=== PATIENT | male | born 1980 | race Two or more races ===

== ENCOUNTER 2020-03-14 14:51 | Inpatient (IN) | payer SELFPAY ==
[~2020-03-14] VITALS: Ht 188 cm; Wt 127.0 kg
--- NOTE | 2020-03-14 15:45 | NUR ---
ED Nurse Note: Pt ambulated to ED from home d/t shortness of breath; tested covid + 7 days ago. Pt noted to be satting around 60/70's % on RA, placed on NRB 15LPM satting at 95-98%. Pt is AOx4, in speaking, able to speak in clears sentences, ambulatory with a steady gait, pt denies any chest pain. Pt was placed on bed, hooked to pvc monitor. RT at bedside; doors kept closed at all times. will continue to monitor pt.
[2020-03-14 16:23] VITALS: BP 136/78
[2020-03-14 16:27] LABS: BASOPHILS % (AUTO) 0.5 % (0.0-2.0); HEMATOCRIT 45.4 % (42.0-52.0); HEMOGLOBIN 16.3 G/DL (14.2-18.0); LYMPHOCYTES % (AUTO) 7.1 % (20.0-45.0); MEAN CORPUSCULAR VOLUME 84 FL (80-99); MONOCYTES % (AUTO) 8.2 % (1.0-10.0); NEUTROPHILS % (AUTO) 84.2 % (45.0-75.0); PLATELET COUNT 175 K/UL (150-450); RED BLOOD COUNT 5.38 M/UL (4.70-6.10); WHITE BLOOD COUNT 8.2 K/UL (4.8-10.8)
[2020-03-14 16:30] LABS: APPEARANCE,URINE CLEAR; BILIRUBIN, URINE NEGATIVE (NEGATIVE); GLUCOSE, URINE (UA) NEGATIVE (NEGATIVE); KETONES,URINE NEGATIVE (NEGATIVE); LEUKOCYTE ESTERASE ,URINE NEGATIVE (NEGATIVE); NITRITE,URINE NEGATIVE (NEGATIVE); PH,URINE 6 (4.5-8.0); PROTEIN,URINE 3+ (NEGATIVE); UROBILINOGEN,URINE 4 MG/DL (0.0-1.0)
[2020-03-14 16:33] LABS: ANION GAP 4 mmol/L (5-15); BLOOD UREA NITROGEN 11 mg/dL (7-18); CALCIUM 8.1 MG/DL (8.5-10.1); CARBON DIOXIDE 33 MMOL/L (21-32); CHLORIDE 91 MMOL/L (98-107); CREATININE 1.1 MG/DL (0.55-1.30); POTASSIUM 3.8 MMOL/L (3.5-5.1); SODIUM 128 MMOL/L (136-145)
[2020-03-14 16:37] LABS: COLOR,URINE YELLOW
[2020-03-14 16:48] LABS: ALANINE AMINOTRANSFERASE 66 U/L (12-78); ALBUMIN 2.8 G/DL (3.4-5.0); ALBUMIN/GLOBULIN RATIO 0.6 (1.0-2.7); ALKALINE PHOSPHATASE 69 U/L (46-116); ASPARTATE AMINO TRANSFERASE 64 U/L (15-37); BILIRUBIN,TOTAL 1.7 MG/DL (0.2-1.0); CKMB 1.1 NG/ML (0.0-3.6); CREATINE KINASE 862 U/L (26-308); FERRITIN 1697 NG/ML (8-388); LACTATE DEHYDROGENASE 463 U/L (81-234)
[2020-03-14] MEDS ORDERED: dexAMETHasone 10mg/ml Inj IV ONE (17:00)
[2020-03-14] MEDS ORDERED: cefTRIAXone 1 GM in NS 55 ML IVPB ONE (17:00)
[2020-03-14] MEDS ORDERED: Azithromycin 500 MG in NS 275 ML IV ONE (17:00)
--- NOTE | 2020-03-14 17:11 | History and Physical ---
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 He presented to ER for evaluation after developing SOB, fever. He states he possibly contracted COVID-19 from work. He has been SOB for several days now, worsened to the point that he decided to come to ER. Denies chest pain, HAN, chills, N/V PMH: none PSH: hernia repair 10 years ago FH: no significant illness in family SH: denies tobacco use. Occasional alcohol use. Allergies: Coded Allergies: No Known Allergies (Unverified , 03/14/20) COVID-19 Screening Contact w/high risk pt: No Experienced COVID-19 symptoms?: Yes Coronavirus symptoms experienc: Fatigue, Shortness of Breath, Cough, Muscle or Body Aches, Headache, Loss of taste or smell Medication History No Active Prescriptions or Reported Meds Patient History Healthcare decision maker Resuscitation status Advanced Directive on File Review of Systems Constitutional: Reports: malaise; Denies: chills Eye: Denies: eye pain, double vision, nose congestion ENT: Denies: ear discharge, throat swelling Respiratory: Reports: cough, shortness of breath Cardiovascular: Denies: chest pain, palpitations Gastrointestinal: Denies: abdominal pain, constipation, diarrhea, nausea, vomiting Genitourinary: Denies: dysuria, frequency Musculoskeletal: Denies: joint pain, muscle pain Skin: Denies: rash, dryness Psychiatric: Denies: anxiety, hallucinations Neurological: Denies: headache, numbness Endocrine: Denies: flushing, intolerance to temperature Hematologic/Lymphatic: Denies: anemia, easy bleeding Physical Exam General Appearance: WD/WN, alert HEENT: normocephalic, atraumatic, mucous membranes moist, PERRL, EOMI Neck: non-tender, normal alignment, supple, normal inspection Respiratory/Chest: chest wall non-tender, no accessory muscle use, respiratory distress Cardiovascular/Chest: normal rate, regular rhythm Abdomen: non tender, soft, no organomegaly Extremities: normal range of motion, non-tender, normal inspection, no calf tenderness, no edema Neurologic: client support representative II-XII grossly normal, alert, oriented x 3, responsive, normal mood/affect Musculoskeletal: normal muscle bulk, no effusion Last 24 Hour Vital Signs Date Time Temp Pulse Resp B/P (MAP) Pulse Ox O2 Delivery O2 Flow Rate FiO2 03/14/20 16:23 92 34 Room Air 03/14/20 16:23 98.8 34 136/78 68 Room Air 03/14/20 15:23 98.8 92 34 136/78 (97) 68 Room Air Laboratory Tests Test 03/14/20 14:45 03/14/20 15:45 03/14/20 16:05 Urine Color Yellow Urine Appearance Clear Urine pH 6 (4.5-8.0) Urine Specific [place] 1.010 (1.005-1.035) Urine Protein 3+ (NEGATIVE) H Urine Glucose (UA) Negative (NEGATIVE) Urine Ketones Negative (NEGATIVE) Urine Blood 3+ (NEGATIVE) H Urine Nitrite Negative (NEGATIVE) Urine Bilirubin Negative (NEGATIVE) Urine Urobilinogen 4 MG/DL (0.0-1.0) H Urine Leukocyte Esterase Negative (NEGATIVE) Urine RBC Pending Urine WBC Pending Urine Squamous Epithelial Cells Pending Urine Bacteria Pending White Blood Count 8.2 K/UL (4.8-10.8) Red Blood Count 5.38 M/UL (4.70-6.10) Hemoglobin 16.3 G/DL (14.2-18.0) Hematocrit 45.4 % (42.0-52.0) Mean Corpuscular Volume 84 FL (80-99) Mean Corpuscular Hemoglobin 30.3 PG (27.0-31.0) Mean Corpuscular Hemoglobin Concent 35.9 G/DL (32.0-36.0) Red Cell Distribution Width 12.0 % (11.6-14.8) Platelet Count 175 K/UL (150-450) Mean Platelet Volume 7.1 FL (6.5-10.1) Neutrophils (%) (Auto) 84.2 % (45.0-75.0) H Lymphocytes (%) (Auto) 7.1 % (20.0-45.0) L Monocytes (%) (Auto) 8.2 % (1.0-10.0) Eosinophils (%) (Auto) 0.0 % (0.0-3.0) Basophils (%) (Auto) 0.5 % (0.0-2.0) Prothrombin Time 11.2 SEC (9.30-11.50) Prothromb Time International Ratio 1.0 (0.9-1.1) Activated Partial Thromboplast Time 32 SEC (23-33) D-Dimer 0.45 mg/L FEU (0.00-0.49) Sodium Level 128 MMOL/L (136-145) L Potassium Level 3.8 MMOL/L (3.5-5.1) Chloride Level 91 MMOL/L (98-107) L Carbon Dioxide Level 33 MMOL/L (21-32) H Anion Gap 4 mmol/L (5-15) L Blood Urea Nitrogen 11 mg/dL (7-18) Creatinine 1.1 MG/DL (0.55-1.30) Estimat Glomerular Filtration Rate > 60 mL/min (>60) Glucose Level 148 MG/DL (74-106) H Lactic Acid Level 1.80 mmol/L (0.4-2.0) Calcium Level 8.1 MG/DL (8.5-10.1) L Ferritin 1697 NG/ML (8-388) H Total Bilirubin 1.7 MG/DL (0.2-1.0) H Direct Bilirubin 1.0 MG/DL (0.0-0.3) H Aspartate Amino Transf (AST/SGOT) 64 U/L (15-37) H Alanine Aminotransferase (ALT/SGPT) 66 U/L (12-78) Alkaline Phosphatase 69 U/L (46-116) Lactate Dehydrogenase 463 U/L (81-234) H Total Creatine Kinase 862 U/L (26-308) H Creatine Kinase MB 1.1 NG/ML (0.0-3.6) Creatine Kinase MB Relative Index 0.1 Troponin I 0.000 ng/mL (0.000-0.056) C-Reactive Protein, Quantitative 12.5 mg/dL (0.00-0.90) H Pro-B-Type Natriuretic Peptide 76 pg/mL (0-125) Total Protein 7.2 G/DL (6.4-8.2) Albumin 2.8 G/DL (3.4-5.0) L Globulin 4.4 g/dL Albumin/Globulin Ratio 0.6 (1.0-2.7) L Lipase 157 U/L (73-393) Arterial Blood pH 7.473 (7.350-7.450) Arterial Blood Partial Pressure CO2 38.7 mmHg (35.0-45.0) Arterial Blood Partial Pressure O2 75.7 mmHg (75.0-100.0) Arterial Blood HCO3 27.7 mmol/L (22.0-26.0) H Arterial Blood Oxygen Saturation 94.4 % (95-100) L Arterial Blood Base Excess 4.0 (-2-2) H José Miguel Test Positive Height (Feet): 6 Height (Inches): 2.00 Weight (Pounds): 280 Medications Current Medications Medications (Trade) Dose Ordered Sig/Kiley Route PRN Reason Start Time Stop Time Status Last Admin Dose Admin Azithromycin 500 mg/Sodium Chloride 275 ml @ 275 mls/hr ONCE ONCE IV 03/14/20 17:00 03/14/20 17:59 Ceftriaxone Sodium 1 gm/ Sodium Chloride 55 ml @ 110 mls/hr ONCE ONCE IVPB 03/14/20 17:00 03/14/20 17:29 Objective Narrative CXR 03/14/2020 Procedure: XRAY Chest 1v Indication: Shortness of breath Technique: One view of the chest Comparison: none Findings: Patchy and peribronchovascular infiltrates in a mostly peripheral distribution are noted. The pleural spaces are clear. The heart size is normal. Impression: Bilateral infiltrates, likely multifocal pneumonia, possibly viral. Correlate with clinical findings Assessment/Plan Assessment/Plan: A: #COVID-19 pneumonia - CXR showing multifocal pneumonia #Acute hypoxemic respiratory failure #Metabolic alkalosis #Hyponatremia #Elevated inflammatory markers - Ferritin, CRP P: - given worsening oxygen requirements, transfer to ICU - currently on nonrebreather oxygen - cardiac monitoring - s/p dexamethasone 10 mg in ED - continue dexamethasone 6 mg daily, remdesivir per ID - continue CTX/Azithro - ABG in AM - ID consult, Dr. Elizalde, recs appreciated - Pulm consult, Dr. Piper, recs appreciated - Nephro consult, Dr. Zimmerman, recs appreciated Code: Full GI: Protonix DVT prophylaxis: Heparin 5000 units twice daily Dispo: Pending improving in hypoxic respiratory failure, back to home after Time spent on this encounter was 75 minutes which included 43 minutes of counseling and care coordination. I discussed with the nurse at bedside. Time of note may not reflect time patient was seen. Donal Antonio M.D. Mar 14, 2020 17:11
--- NOTE | 2020-03-14 18:34 | NUR ---
ED Nurse Note: Report given to RENITA Dixon in Telemetry Unit for transfer of care.
--- NOTE | 2020-03-14 18:45 | NUR ---
ED Nurse Note: pt was transferred to tele under the care of dr. sosa, report given to nikunj rainey. pt was transfrref on stable condition; all belongings sent with pt; observed covid-19 protocols for transport.
--- NOTE | 2020-03-14 18:50 | NUR ---
received pt from the ED alert and awake. noted pt with labored breathing; non-rebreather mask inplace 02 flowing @ 15l/min. HOB elevated. pt denies any chest pain at this time. place call light within reach.
--- NOTE | 2020-03-14 18:51 | Emergency Room Report ---
History of Present Illness General Chief Complaint: Flu Like Symptoms Source: Patient Present Illness HPI 39-year-old male presents ED for evaluation. States he feels short of breath. Per nursing and triage O2 sat low. States he tested positive for Covid earlier this week. States he has been feeling short of breath for 1 week now. Notes cough. Denies chest pain. States he may have gotten it from his work. 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 Denies any recent travel. No other aggravating relieving factors. 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 Patient History Past Medical History: none Past Surgical History: none Pertinent Family History: none Social History: Denies: smoking, alcohol use, drug use Immunizations: UTD Reviewed Nursing Documentation: PMH: Agreed; PSxH: Agreed Nursing Documentation-PMH Past Medical History: No Stated History Review of Systems All Other Systems: negative except mentioned in HPI Physical Exam Vital Signs Date Time Temp Pulse Resp B/P (MAP) Pulse Ox O2 Delivery O2 Flow Rate FiO2 03/14/20 15:23 98.8 92 34 136/78 (97) 68 Room Air Sp02 EP Interpretation: reviewed, normal General Appearance: no apparent distress, alert, GCS 15, non-toxic, obese Head: normocephalic, atraumatic Eyes: bilateral eye normal inspection, bilateral eye PERRL ENT: hearing grossly normal, normal pharynx, no angioedema, normal voice Neck: full range of motion, supple/symm/no masses Respiratory: chest non-tender, lungs clear, normal breath sounds, speaking full sentences Cardiovascular #1: regular rate, rhythm, no edema Cardiovascular #2: 2+ carotid (R), 2+ carotid (L), 2+ radial (R), 2+ radial (L), 2+ dorsalis pedis (R), 2+ dorsalis pedis (L) Gastrointestinal: normal bowel sounds, non tender, soft, non-distended, no guarding, no rebound Rectal: deferred Genitourinary: normal inspection, no CVA tenderness Musculoskeletal: back normal, normal range of motion, gait/station normal, non- tender Neurologic: alert, motor strength/tone normal, oriented x3, sensory intact, r esponsive, speech normal Psychiatric: judgement/insight normal, memory normal, mood/affect normal, no suicidal/homicidal ideation Reflexes: 3+ bicep (R), 3+ bicep (L), 3+ tricep (R), 3+ tricep (L), 3+ knee (R), 3+ knee (L) Skin: other - See nursing notes Lymphatic: no adenopathy Procedures Critical Care Time Critical Care Time i. I feel this is a highly complex case requiring extensive working including EKG/Rhythm strip, Xray/CT/US, Blood/urine lab work, repeat exams while in ED, and administration of strong opiates/narcotics for pain control, admission to hospital or close patient follow up. Total time: 60 min bedside evaluation and treatment excludes procedures (EKG). Reason for critical care: Hypoxia, Covid positive, respiratory distress Possible complications: hypotension, hypertension, WI, shock, arrhythmias, metabolic acidosis, end organ damage, respiratory failure. Interventions: Labs, IV fluids, EKG, chest x-ray, ABG, nonrebreather, dexamethasone, antibiotics Course: Patient presenting short of breath, hypoxic. Covid positive this week. Chest x-ray shows bilateral patchy infiltrates. ABG shows no significant hypo radha. Patient kept on nonrebreather. Initially tachypneic. Antibiotics given. Dexamethasone given. Consultations: nursing staff, EMS, family Performed by: Dr Garcia Tolerated well condition = serious j. because of unstable vital signs this patient had a condition that could potentially threaten life or limb. I feel this is a critical patient who required my full attention while patient was considered critical. Total Critical Care Time excluding procedures was greater than 60 minutes Medical Decision Making Diagnostic Impression: Primary Impression: COVID-19 Additional Impression: Respiratory distress ER Course Hospital Course 39-year-old male presents with shortness of breath. Cough. Recently tested positive for Covid Differential diagnoses include: Pneumonia, CHF exacerbation, pneumothorax, fluid overload Clinical course Patient placed on stretcher. In isolation. I wore full PPE. On monitor worker with hypoxia on room air and tachypnea/tachycardia. After initial history and physical, I ordered labs, IV fluids, EKG, chest x-ray, blood cultures, UA. ABG shows since no significant hypoxia. Placed on nonrebreather with O2 sats improved Labs -no leukoctosis, hemoglobin/hematocrit stable, Na 128, okay, lactate okay troponins negative Inflammatory markers elevated dexamethasone given. D-dimer okay Broad-spectrum antibiotics given. Respiratory status improved on oxygen CXR -bilateral patchy opacities Case discussed with Dr. Patel and he agreed to the patient to his service for further care and support I feel this is a highly complex case requiring extensive working including EKG/Rhythm strip, Xray/CT/US, Blood/urine lab work, repeat exams while in ED, and administration of strong opiates/narcotics for pain control, admission to hospital or close patient follow up. Diagnosis - COVID 19, respiratory distress Patient admitted to telemetry in serious condition Laboratory Tests Test 03/14/20 14:45 03/14/20 15:45 03/14/20 16:05 Urine Color Yellow Urine Appearance Clear Urine pH 6 (4.5-8.0) Urine Specific [place] 1.010 (1.005-1.035) Urine Protein 3+ (NEGATIVE) H Urine Glucose (UA) Negative (NEGATIVE) Urine Ketones Negative (NEGATIVE) Urine Blood 3+ (NEGATIVE) H Urine Nitrite Negative (NEGATIVE) Urine Bilirubin Negative (NEGATIVE) Urine Urobilinogen 4 MG/DL (0.0-1.0) H Urine Leukocyte Esterase Negative (NEGATIVE) Urine RBC 5-10 /HPF (0 - 0) H Urine WBC 0-2 /HPF (0 - 0) Urine Squamous Epithelial Cells None /LPF (NONE/OCC) Urine Bacteria Few /HPF (NONE) White Blood Count 8.2 K/UL (4.8-10.8) Red Blood Count 5.38 M/UL (4.70-6.10) Hemoglobin 16.3 G/DL (14.2-18.0) Hematocrit 45.4 % (42.0-52.0) Mean Corpuscular Volume 84 FL (80-99) Mean Corpuscular Hemoglobin 30.3 PG (27.0-31.0) Mean Corpuscular Hemoglobin Concent 35.9 G/DL (32.0-36.0) Red Cell Distribution Width 12.0 % (11.6-14.8) Platelet Count 175 K/UL (150-450) Mean Platelet Volume 7.1 FL (6.5-10.1) Neutrophils (%) (Auto) 84.2 % (45.0-75.0) H Lymphocytes (%) (Auto) 7.1 % (20.0-45.0) L Monocytes (%) (Auto) 8.2 % (1.0-10.0) Eosinophils (%) (Auto) 0.0 % (0.0-3.0) Basophils (%) (Auto) 0.5 % (0.0-2.0) Prothrombin Time 11.2 SEC (9.30-11.50) Prothromb Time International Ratio 1.0 (0.9-1.1) Activated Partial Thromboplast Time 32 SEC (23-33) D-Dimer 0.45 mg/L FEU (0.00-0.49) Sodium Level 128 MMOL/L (136-145) L Potassium Level 3.8 MMOL/L (3.5-5.1) Chloride Level 91 MMOL/L (98-107) L Carbon Dioxide Level 33 MMOL/L (21-32) H Anion Gap 4 mmol/L (5-15) L Blood Urea Nitrogen 11 mg/dL (7-18) Creatinine 1.1 MG/DL (0.55-1.30) Estimat Glomerular Filtration Rate > 60 mL/min (>60) Glucose Level 148 MG/DL (74-106) H Lactic Acid Level 1.80 mmol/L (0.4-2.0) Calcium Level 8.1 MG/DL (8.5-10.1) L Ferritin 1697 NG/ML (8-388) H Total Bilirubin 1.7 MG/DL (0.2-1.0) H Direct Bilirubin 1.0 MG/DL (0.0-0.3) H Aspartate Amino Transf (AST/SGOT) 64 U/L (15-37) H Alanine Aminotransferase (ALT/SGPT) 66 U/L (12-78) Alkaline Phosphatase 69 U/L (46-116) Lactate Dehydrogenase 463 U/L (81-234) H Total Creatine Kinase 862 U/L (26-308) H Creatine Kinase MB 1.1 NG/ML (0.0-3.6) Creatine Kinase MB Relative Index 0.1 Troponin I 0.000 ng/mL (0.000-0.056) C-Reactive Protein, Quantitative 12.5 mg/dL (0.00-0.90) H Pro-B-Type Natriuretic Peptide 76 pg/mL (0-125) Total Protein 7.2 G/DL (6.4-8.2) Albumin 2.8 G/DL (3.4-5.0) L Globulin 4.4 g/dL Albumin/Globulin Ratio 0.6 (1.0-2.7) L Lipase 157 U/L (73-393) Arterial Blood pH 7.473 (7.350-7.450) Arterial Blood Partial Pressure CO2 38.7 mmHg (35.0-45.0) Arterial Blood Partial Pressure O2 75.7 mmHg (75.0-100.0) Arterial Blood HCO3 27.7 mmol/L (22.0-26.0) H Arterial Blood Oxygen Saturation 94.4 % (95-100) L Arterial Blood Base Excess 4.0 (-2-2) H José Miguel Test Positive EKG Diagnostic Results Troponin ordered: Yes Rate: normal Rhythm: NSR ST Segments: no acute changes ASA given to the pt in ED: No Rhythm Strip Diag. Results EP Interpretation: yes Rhythm: NSR, no PVC's, no ectopy Chest X-Ray Diagnostic Results Chest X-Ray Diagnostic Results : Chest X-Ray Ordered: Yes # of Views/Limited/Complete: 1 View Indication: Shortness of Breath EP Interpretation: Yes Interpretation: no pneumothorax, other - bilateral patchy infiltrates Impression: Other - covid pneumonia Electronically Signed by: Electronically signed by Lisandro Garcia MD Last Vital Signs Date Time Temp Pulse Resp B/P (MAP) Pulse Ox O2 Delivery O2 Flow Rate FiO2 03/14/20 16:23 92 34 Room Air 03/14/20 16:23 98.8 136/78 68 Status: improved Disposition: ADMITTED INPATIENT Condition: Serious Referrals: NOT CHOSEN IPA/,REFERRING (PCP) Lisandro Garcia MD Mar 14, 2020 18:51
--- NOTE | 2020-03-14 19:41 | NUR ---
HAND-OFF: Report given to RENITA DRAPER
--- NOTE | 2020-03-14 19:50 | NUR ---
NURSE NOTES: Pt received from RENITA Dixon alert and oriented x4, primarily [place]ic-speaking with no acute s/s of distress noted. On 15L NRB mask, saturating at 94%. IV site on R ac 20g, saline lock. Skin intact upon assessment. Bed in lowest position, bed alarm on. Call light and belongings within reach.
[2020-03-14 20:00] VITALS: BP 131/77
[2020-03-14] MEDS: Heparin 5000 units/ml inj SUBQ SCH (21:00)
[2020-03-14] MEDS ORDERED: Loading Dose:Remdesivir 200mg/NS 210ml IV SCH ×2 (21:00)
--- NOTE | 2020-03-14 21:45 | NUR ---
NURSE NOTES: Noted pt's temperature of 100.9, cooling measures administered. RN left message to Ashtyn Otero and spoke with Kim regarding orders, will follow up.
--- NOTE | 2020-03-14 22:32 | NUR ---
NURSE NOTES: Dr. Lutz called and gave orders for Tylenol 650 mg PO q6h for mild pain and fever over 100.5, will follow through with orders.
[2020-03-15] VITALS (15 sets, daily range): BP systolic 110–144; BP diastolic 65–102
[2020-03-15 04:19] LABS: HEMATOCRIT 46.1 % (42.0-52.0); HEMOGLOBIN 16.4 G/DL (14.2-18.0); MEAN CORPUSCULAR VOLUME 83 FL (80-99); PLATELET COUNT 187 K/UL (150-450); RED BLOOD COUNT 5.52 M/UL (4.70-6.10); RED CELL DISTRIBUTION WIDTH 12.7 % (11.6-14.8); WHITE BLOOD COUNT 9.6 K/UL (4.8-10.8)
[2020-03-15 04:40] LABS: ANION GAP 6 mmol/L (5-15); BLOOD UREA NITROGEN 11 mg/dL (7-18); CALCIUM 8.2 MG/DL (8.5-10.1); CARBON DIOXIDE 31 MMOL/L (21-32); CHLORIDE 97 MMOL/L (98-107); POTASSIUM 4.3 MMOL/L (3.5-5.1); SODIUM 134 MMOL/L (136-145)
--- NOTE | 2020-03-15 05:20 | Pulmonology Progress Note ---
Subjective ROS Limited/Unobtainable: No Respiratory: Reports: no symptoms, dry cough, productive cough, sputum, hemoptysis, shortness of breath, dyspnea at rest, dyspnea on exertion, wheezing, pleuritic pain, other Allergies: Coded Allergies: No Known Allergies (Unverified , 03/14/20) Objective Last 24 Hour Vital Signs Date Time Temp Pulse Resp B/P (MAP) Pulse Ox O2 Delivery O2 Flow Rate FiO2 03/15/20 04:00 97.5 87 20 124/71 (88) 94 03/15/20 04:00 78 03/15/20 00:00 99.7 72 20 124/68 (86) 95 03/15/20 00:00 76 03/14/20 23:13 99.7 03/14/20 21:00 Non-Rebreather 15.0 03/14/20 20:20 Non-Rebreather 15.0 03/14/20 20:00 91 03/14/20 20:00 100.6 81 20 131/77 (95) 94 03/14/20 18:56 95 Non-Rebreather 15.0 100 03/14/20 18:45 98.8 85 32 131/79 96 Non-Rebreather 15.0 03/14/20 16:23 92 34 Room Air 03/14/20 16:23 98.8 34 136/78 68 Room Air 03/14/20 15:23 98.8 92 34 136/78 (97) 68 Room Air Intake and Output 03/14/20 03/15/20 19:00 07:00 Intake Total 250 ml Balance 250 ml Intake IV Total 250 ml Laboratory Tests 03/14/20 14:45: Urine Color Yellow, Urine Appearance Clear, Urine pH 6, Urine Specific Alvarado 1.010, Urine Protein 3+H, Urine Glucose (UA) Negative, Urine Ketones Negative, Urine Blood 3+H, Urine Nitrite Negative, Urine Bilirubin Negative, Urine Urobilinogen 4H, Urine Leukocyte Esterase Negative, Urine RBC 5-10H, Urine WBC 0-2, Urine Squamous Epithelial Cells None, Urine Bacteria Few 03/14/20 15:45: White Blood Count 8.2, Red Blood Count 5.38, Hemoglobin 16.3, Hematocrit 45.4, Mean Corpuscular Volume 84, Mean Corpuscular Hemoglobin 30.3, Mean Corpuscular Hemoglobin Concent 35.9, Red Cell Distribution Width 12.0, Platelet Count 175, Mean Platelet Volume 7.1, Neutrophils (%) (Auto) 84.2H, Lymphocytes (%) (Auto) 7.1L, Monocytes (%) (Auto) 8.2, Eosinophils (%) (Auto) 0.0, Basophils (%) (Auto) 0.5, Prothrombin Time 11.2, Prothromb Time International Ratio 1.0, Activated Partial Thromboplast Time 32, D-Dimer 0.45, Sodium Level 128L, Potassium Level 3.8, Chloride Level 91L, Carbon Dioxide Level 33H, Anion Gap 4L, Blood Urea Nitrogen 11, Creatinine 1.1, Estimat Glomerular Filtration Rate > 60, Glucose Level 148H, Lactic Acid Level 1.80, Calcium Level 8.1L, Ferritin 1697H, Total Bilirubin 1.7H, Direct Bilirubin 1.0H, Aspartate Amino Transf (AST/SGOT) 64H, Alanine Aminotransferase (ALT/SGPT) 66, Alkaline Phosphatase 69, Lactate Dehydrogenase 463H, Total Creatine Kinase 862H, Creatine Kinase MB 1.1, Creatine Kinase MB Relative Index 0.1, Troponin I 0.000, C-Reactive Protein, Quantitative 12.5H, Pro-B-Type Natriuretic Peptide 76, Total Protein 7.2, Albumin 2.8L, Globulin 4.4, Albumin/Globulin Ratio 0.6L, Lipase 157 03/14/20 16:05: Arterial Blood pH 7.473H, Arterial Blood Partial Pressure CO2 38.7, Arterial Blood Partial Pressure O2 75.7, Arterial Blood HCO3 27.7H, Arterial Blood Oxygen Saturation 94.4L, Arterial Blood Base Excess 4.0H, José Miguel Test Positive 03/15/20 04:00: White Blood Count 9.6, Red Blood Count 5.52, Hemoglobin 16.4, Hematocrit 46.1, Mean Corpuscular Volume 83, Mean Corpuscular Hemoglobin 29.8, Mean Corpuscular Hemoglobin Concent 35.7, Red Cell Distribution Width 12.7, Platelet Count 187, Mean Platelet Volume 7.2, Neutrophils (%) (Auto) , Lymphocytes (%) (Auto) , Monocytes (%) (Auto) , Eosinophils (%) (Auto) , Basophils (%) (Auto) , Sodium Level 134L, Potassium Level 4.3, Chloride Level 97L, Carbon Dioxide Level 31, Anion Gap 6, Blood Urea Nitrogen 11, Creatinine 1.0, Estimat Glomerular Filtration Rate > 60, Glucose Level 185H, Calcium Level 8.2L Current Medications Medications (Trade) Dose Ordered Sig/Kiley Route PRN Reason Start Time Stop Time Status Last Admin Dose Admin Acetaminophen (Tylenol) 650 mg Q4H PRN ORAL Temp >100.5 03/14/20 22:45 04/13/20 22:44 03/14/20 22:43 Azithromycin 500 mg/Dextrose 275 ml @ 275 mls/hr Q24HRS IV 03/15/20 18:00 03/21/20 18:59 Ceftriaxone Sodium 1 gm/ Dextrose 55 ml @ 110 mls/hr Q24H IVPB 03/15/20 18:00 03/22/20 17:59 Dextrose (Dextrose 50%) 25 ml Q30M PRN IV Hypoglycemia 03/14/20 19:00 06/12/20 18:59 Dextrose (Dextrose 50%) 50 ml Q30M PRN IV Hypoglycemia 03/14/20 19:00 06/12/20 18:59 Heparin Sodium (Porcine) (Heparin 5000 units/ml) 5,000 units EVERY 12 HOURS SUBQ 03/14/20 21:00 04/28/20 20:59 Pantoprazole (Protonix) 40 mg DAILY ORAL 03/15/20 09:00 04/14/20 08:59 Remdesivir 100 mg/ Sodium Chloride 250 ml @ 250 mls/hr Q24H IV 03/15/20 21:00 03/18/20 21:59 Assessment/Plan Assessment/Plan Pulmonary Consultation HPI Patient is a 39-year-old man admitted with Covid19 Pneumonia, c/o short of breath,cough. On oxygen for low O2 sats. Denies chest pain. Denies any recent travel. No other aggravating relieving factors. Allergies: No Known Allergies Past Medical History: None noted Past Surgical History: NA Family History: NA Social History: No smoking, alcohol use, drug use All Other Systems: negative except mentioned in HPI Physical Exam Vital Signs Noted, stable O2 sats on O2 General Appearance: no apparent distress, alert, GCS 15, non-toxic, obese Head: normocephalic, atraumatic Eyes: bilateral eye normal inspection, bilateral eye PERRL ENT: hearing grossly normal, normal pharynx, no angioedema, normal voice Neck: full range of motion, supple/symm/no masses Respiratory: chest non-tender, lungs clear, normal breath sounds, speaking full sentences Cardiovascular: regular rate, rhythm, no edema Gastrointestinal: normal bowel sounds, non tender, soft, non-distended, no guarding, no rebound Rectal: deferred Genitourinary: normal inspection, no CVA tenderness Musculoskeletal: back normal, normal range of motion, gait/station normal, non- tender Neurologic: alert, motor strength/tone normal, oriented x3, sensory intact, responsive, speech normal Lymphatic: no adenopathy per report - deferred Covid19 Impression: COVID-19 Pneumonia Hypoxia Obesity Hyponatremia Plan: Continue Decadron, AB/antivirals per ID O2 PRN IVF PRN Monitor labs PPX Monitor for change Laboratory Tests Test 03/14/20 14:45 03/14/20 15:45 03/14/20 16:05 Urine Color Yellow Urine Appearance Clear Urine pH 6 (4.5-8.0) Urine Specific Alvarado 1.010 (1.005-1.035) Urine Protein 3+ (NEGATIVE) H Urine Glucose (UA) Negative (NEGATIVE) Urine Ketones Negative (NEGATIVE) Urine Blood 3+ (NEGATIVE) H Urine Nitrite Negative (NEGATIVE) Urine Bilirubin Negative (NEGATIVE) Urine Urobilinogen 4 MG/DL (0.0-1.0) H Urine Leukocyte Esterase Negative (NEGATIVE) Urine RBC 5-10 /HPF (0 - 0) H Urine WBC 0-2 /HPF (0 - 0) Urine Squamous Epithelial Cells None /LPF (NONE/OCC) Urine Bacteria Few /HPF (NONE) White Blood Count 8.2 K/UL (4.8-10.8) Red Blood Count 5.38 M/UL (4.70-6.10) Hemoglobin 16.3 G/DL (14.2-18.0) Hematocrit 45.4 % (42.0-52.0) Mean Corpuscular Volume 84 FL (80-99) Mean Corpuscular Hemoglobin 30.3 PG (27.0-31.0) Mean Corpuscular Hemoglobin Concent 35.9 G/DL (32.0-36.0) Red Cell Distribution Width 12.0 % (11.6-14.8) Platelet Count 175 K/UL (150-450) Mean Platelet Volume 7.1 FL (6.5-10.1) Neutrophils (%) (Auto) 84.2 % (45.0-75.0) H Lymphocytes (%) (Auto) 7.1 % (20.0-45.0) L Monocytes (%) (Auto) 8.2 % (1.0-10.0) Eosinophils (%) (Auto) 0.0 % (0.0-3.0) Basophils (%) (Auto) 0.5 % (0.0-2.0) Prothrombin Time 11.2 SEC (9.30-11.50) Prothromb Time International Ratio 1.0 (0.9-1.1) Activated Partial Thromboplast Time 32 SEC (23-33) D-Dimer 0.45 mg/L FEU (0.00-0.49) Sodium Level 128 MMOL/L (136-145) L Potassium Level 3.8 MMOL/L (3.5-5.1) Chloride Level 91 MMOL/L (98-107) L Carbon Dioxide Level 33 MMOL/L (21-32) H Anion Gap 4 mmol/L (5-15) L Blood Urea Nitrogen 11 mg/dL (7-18) Creatinine 1.1 MG/DL (0.55-1.30) Estimat Glomerular Filtration Rate > 60 mL/min (>60) Glucose Level 148 MG/DL (74-106) H Lactic Acid Level 1.80 mmol/L (0.4-2.0) Calcium Level 8.1 MG/DL (8.5-10.1) L Ferritin 1697 NG/ML (8-388) H Total Bilirubin 1.7 MG/DL (0.2-1.0) H Direct Bilirubin 1.0 MG/DL (0.0-0.3) H Aspartate Amino Transf (AST/SGOT) 64 U/L (15-37) H Alanine Aminotransferase (ALT/SGPT) 66 U/L (12-78) Alkaline Phosphatase 69 U/L (46-116) Lactate Dehydrogenase 463 U/L (81-234) H Total Creatine Kinase 862 U/L (26-308) H Creatine Kinase MB 1.1 NG/ML (0.0-3.6) Creatine Kinase MB Relative Index 0.1 Troponin I 0.000 ng/mL (0.000-0.056) C-Reactive Protein, Quantitative 12.5 mg/dL (0.00-0.90) H Pro-B-Type Natriuretic Peptide 76 pg/mL (0-125) Total Protein 7.2 G/DL (6.4-8.2) Albumin 2.8 G/DL (3.4-5.0) L Globulin 4.4 g/dL Albumin/Globulin Ratio 0.6 (1.0-2.7) L Lipase 157 U/L (73-393) Arterial Blood pH 7.473 (7.350-7.450) Arterial Blood Partial Pressure CO2 38.7 mmHg (35.0-45.0) Arterial Blood Partial Pressure O2 75.7 mmHg (75.0-100.0) Arterial Blood HCO3 27.7 mmol/L (22.0-26.0) H Arterial Blood Oxygen Saturation 94.4 % (95-100) L Arterial Blood Base Excess 4.0 (-2-2) H José Miguel Test Positive EKG: Rate: normal Rhythm: NSR ST Segments: no acute changes Chest X-Ray: no pneumothorax, other - bilateral patchy infiltrates Quang Montiel MD Mar 15, 2020 05:20
--- NOTE | 2020-03-15 07:15 | NUR ---
NURSE HAND-OFF REPORT: Important Events on Shift: Pt had fever of 100.6, Tylenol PRN and cooling measures administered. Temp reduced to 97.5 Patient Status: Stable Diet: Regular Pending Orders: n/a Pending Results/Labs: n/a Pending MD notification: n/a Latest Vital Signs: Temperature 97.5 , Pulse 78 , B/P 124 /71 , Respiratory Rate 20 , O2 SAT 94 , Non-Rebreather, O2 Flow Rate 15.0 . Vital Sign Comment: WNL EKG Rhythm: Sinus Rhythm Rhythm change?: N MD Notified?: - MD Response: Latest Hollins Fall Score: 35 Fall Risk: Medium Risk Safety Measures: Call light Within Reach, Bed Alarm Zone 2, Side Rails Side Rails x2, Bed position Low and Locked. Fall Precautions: Yes Yellow Socks Door Sign Patient Fall Education Report given to RENITA Lemus.
--- NOTE | 2020-03-15 07:31 | NUR ---
NURSE NOTES: Report received from Alejandro Brown RN. Patient seen on rounds, awake and up in bed. On O2 at 15lpm via NRM, shortness of breath noted, sats 91-94%. Nurse reports pt had a fever overnight Tmax 100.9F and was given PRN Tylenol with resolution of symptoms. PIV on right AC patent and intact. Pt has urinal at bedside. Bed low and locked, siderails up x2, call light placed within reach and instructed to call nurse for assistance. Will continue with plan of care.
[2020-03-15] MEDS: Heparin 5000 units/ml inj SUBQ SCH ×2 (08:03→20:20)
--- NOTE | 2020-03-15 10:30 | NUR ---
NURSE NOTES: Dr. Antonio notified of ABG results, O2 87.8; also notified that patient's sats have been 89-91% on non-rebreather mask and that pt is short of breath. would like to transfer to ICU for close monitoring. Charge nurse and nursing facilities maintenance supervisor notified.
[2020-03-15] MEDS: dexAMETHasone 10mg/ml Inj IV SCH (10:59)
[2020-03-15] MEDS ORDERED: Tubing IV Secondary IV ONE (13:14)
[2020-03-15] MEDS ORDERED: NS 275ml ONE (13:14)
--- NOTE | 2020-03-15 16:05 | Infectious Diseases Prog Note ---
Assessment/Plan Assessment/Plan Full consult dictated: A) 1) covid-19 infection, hypoxia, ? cap, fevers 2) allergies - nkda P) 1) remdesivir, dexamethasone, ceftriaxone and azithromycin 2) monitor hypoxia, labs and chest x-ray 3) thank you Subjective Allergies: Coded Allergies: No Known Allergies (Unverified , 03/14/20) Objective Last 24 Hour Vital Signs Date Time Temp Pulse Resp B/P (MAP) Pulse Ox O2 Delivery O2 Flow Rate FiO2 03/15/20 12:00 84 03/15/20 12:00 96.6 84 24 110/71 (84) 91 03/15/20 09:00 Non-Rebreather 15.0 03/15/20 08:00 72 03/15/20 08:00 97.5 78 23 116/67 (83) 91 03/15/20 04:00 97.5 87 20 124/71 (88) 94 03/15/20 04:00 78 03/15/20 00:00 99.7 72 20 124/68 (86) 95 03/15/20 00:00 76 03/14/20 23:13 99.7 03/14/20 21:00 Non-Rebreather 15.0 03/14/20 20:20 Non-Rebreather 15.0 03/14/20 20:00 91 03/14/20 20:00 100.6 81 20 131/77 (95) 94 03/14/20 18:56 95 Non-Rebreather 15.0 100 03/14/20 18:45 98.8 85 32 131/79 96 Non-Rebreather 15.0 03/14/20 16:23 92 34 Room Air 03/14/20 16:23 98.8 34 136/78 68 Room Air Height (Feet): 6 Height (Inches): 2.00 Weight (Pounds): 280 Laboratory Tests Test 03/14/20 16:05 03/15/20 04:00 03/15/20 10:14 Arterial Blood pH 7.473 (7.350-7.450) 7.445 (7.350-7.450) Arterial Blood Partial Pressure CO2 38.7 mmHg (35.0-45.0) 45.4 mmHg (35.0-45.0) H Arterial Blood Partial Pressure O2 75.7 mmHg (75.0-100.0) 53.2 mmHg (75.0-100.0) L Arterial Blood HCO3 27.7 mmol/L (22.0-26.0) H 30.5 mmol/L (22.0-26.0) H Arterial Blood Oxygen Saturation 94.4 % (95-100) L 87.8 % (95-100) *L Arterial Blood Base Excess 4.0 (-2-2) H 5.5 (-2-2) H José Miguel Test Positive Positive White Blood Count 9.6 K/UL (4.8-10.8) Red Blood Count 5.52 M/UL (4.70-6.10) Hemoglobin 16.4 G/DL (14.2-18.0) Hematocrit 46.1 % (42.0-52.0) Mean Corpuscular Volume 83 FL (80-99) Mean Corpuscular Hemoglobin 29.8 PG (27.0-31.0) Mean Corpuscular Hemoglobin Concent 35.7 G/DL (32.0-36.0) Red Cell Distribution Width 12.7 % (11.6-14.8) Platelet Count 187 K/UL (150-450) Mean Platelet Volume 7.2 FL (6.5-10.1) Neutrophils (%) (Auto) % (45.0-75.0) Lymphocytes (%) (Auto) % (20.0-45.0) Monocytes (%) (Auto) % (1.0-10.0) Eosinophils (%) (Auto) % (0.0-3.0) Basophils (%) (Auto) % (0.0-2.0) Sodium Level 134 MMOL/L (136-145) L Potassium Level 4.3 MMOL/L (3.5-5.1) Chloride Level 97 MMOL/L (98-107) L Carbon Dioxide Level 31 MMOL/L (21-32) Anion Gap 6 mmol/L (5-15) Blood Urea Nitrogen 11 mg/dL (7-18) Creatinine 1.0 MG/DL (0.55-1.30) Estimat Glomerular Filtration Rate > 60 mL/min (>60) Glucose Level 185 MG/DL (74-106) H Calcium Level 8.2 MG/DL (8.5-10.1) L Current Medications Medications (Trade) Dose Ordered Sig/Kiley Route PRN Reason Start Time Stop Time Status Last Admin Dose Admin Acetaminophen (Tylenol) 650 mg Q4H PRN ORAL Temp >100.5 03/14/20 22:45 04/13/20 22:44 03/14/20 22:43 Azithromycin 500 mg/Dextrose 275 ml @ 275 mls/hr Q24HRS IV 03/15/20 18:00 03/21/20 18:59 Ceftriaxone Sodium 1 gm/ Dextrose 55 ml @ 110 mls/hr Q24H IVPB 03/15/20 18:00 03/22/20 17:59 Dexamethasone Sodium Phosphate (Decadron 10mg/ ml Inj) 6 mg DAILY IV 03/15/20 10:45 03/24/20 10:44 03/15/20 10:59 Dextrose (Dextrose 50%) 25 ml Q30M PRN IV Hypoglycemia 03/14/20 19:00 06/12/20 18:59 Dextrose (Dextrose 50%) 50 ml Q30M PRN IV Hypoglycemia 03/14/20 19:00 06/12/20 18:59 Heparin Sodium (Porcine) (Heparin 5000 units/ml) 5,000 units EVERY 12 HOURS SUBQ 03/14/20 21:00 04/28/20 20:59 03/15/20 08:03 Pantoprazole (Protonix) 40 mg DAILY ORAL 03/15/20 09:00 04/14/20 08:59 03/15/20 08:01 Remdesivir 100 mg/ Sodium Chloride 250 ml @ 250 mls/hr Q24H IV 03/15/20 21:00 03/18/20 21:59 Ori Gross MD Mar 15, 2020 16:05
--- NOTE | 2020-03-15 16:40 | NUR ---
NURSE NOTES: Patient transferred to ICU 246-B. Report given to Quang MARAVILLA. Patient on NRM at 15lpm, O2 sats 88-91% with SOB. Dr. Antonio and family Sirena Adames notified of transfer. Belongings checked and accounted for.
--- NOTE | 2020-03-15 16:43 | NUR ---
NURSE NOTES: Patient arrived to icu in room 246-B, he is awake and alert to name, time, place, and situation. he denies any pain or discomfort over the chest. he is currently on non-rebreather at 100% FIO2 with 15l/min saturating at 87-88%. heart rate is 81-90 in sinus rhythm, he is able to talk with no slur or shortness of breath, he has a right AC 20G IV saline locked. Dr. disla called to notify of transfer and any order. will call again with in 30min.
--- NOTE | 2020-03-15 17:10 | NUR ---
NURSE NOTES: Dr. Montiel called at number [phone] to inform Mr. Tate has been transferred to ICU after patient's ABG was taken and for additional orders. awaiting for call back. patient remains on 15L/min on non-rebreather at 100% with saturations at 86-88%. Mr. Tate is awake and responsive to name and voice, he is able to communicated his needs well with no distress or shortness or breath.
[2020-03-15] MEDS: Azithromycin 500 MG in D5W 275 ML IV SCH (17:42)
[2020-03-15 18:38] LABS: ALANINE AMINOTRANSFERASE 79 U/L (12-78); ALBUMIN 2.8 G/DL (3.4-5.0); ALKALINE PHOSPHATASE 69 U/L (46-116); ASPARTATE AMINO TRANSFERASE 65 U/L (15-37); BILIRUBIN,DIRECT 0.8 MG/DL (0.0-0.3); BILIRUBIN,TOTAL 1.2 MG/DL (0.2-1.0)
--- NOTE | 2020-03-15 18:44 | Consultation ---
DATE OF CONSULTATION: 03/15/2020 INFECTIOUS DISEASE CONSULTATION CONSULTING PHYSICIAN: Ori Gross MD. ATTENDING PHYSICIAN: Suzi Chamorro MD. REFERRING PHYSICIAN: Suzi Chamorro MD. REASON FOR CONSULTATION: COVID-19 infection with pneumonia, fevers, and also hypoxia. CHIEF COMPLAINT: The patient's chief complaint coming in the hospital is COVID pneumonia, hypoxia, shortness of breath, COVID infection with pneumonia. HISTORY OF PRESENT ILLNESS: This is a 39-year-old male who presents to [facility] with shortness of breath. The patient was hypoxic. COVID testing was positive per the records and the patient earlier in the week. I think this is prior to this admission. The patient was started on remdesivir, azithromycin, Rocephin, and dexamethasone yesterday. Today is day #2. Chest x-ray shows bilateral infiltrates. Infectious Disease consultation is requested for further management. REVIEW OF SYSTEMS: CONSTITUTIONAL: The patient came in with fevers, currently no chills. He has generalized weakness and fatigue. CARDIAC: No chest pain. PULMONARY: He has shortness of breath and cough. GASTROINTESTINAL: No nausea, vomiting, or diarrhea. GENITOURINARY: No dysuria or frequency. PAST MEDICAL HISTORY: Past medical history of the patient is otherwise negative. ALLERGIES: No known drug allergies. No antibiotic allergies. SOCIAL HISTORY: Negative for smoking, alcohol, or drug abuse. FAMILY HISTORY: Noncontributory. MEDICATIONS: Upon reviewing the MAR, the patient is on following medications. He is on remdesivir, azithromycin, Rocephin, dexamethasone, pantoprazole, acetaminophen, heparin, IV fluids. Outside medications, I do not think he came in with medications. PHYSICAL EXAMINATION: VITAL SIGNS: Temperature 96.6, pulse 84, respiratory rate 24, blood pressure 120/71. Saturation non-rebreather. T-max 101.6. GENERAL: Alert, responsive, mild shortness of breath noted. HEAD AND NECK: Oral exam, no thrush. Eye exam, no icterus. Normocephalic. Neck is supple. No JVD. HEART: Regular. No gallop or murmur. LUNGS: Bilateral rhonchi and rales. ABDOMEN: Soft, positive bowel sounds. Nontender. SKIN: No rashes. MUSCULOSKELETAL: No effusion. Legs are without cellulitis. PERIPHERAL VASCULAR: No cyanosis. GENITOURINARY: No Guzmán. LINE SITES: Without phlebitis. NEUROLOGIC: Intact. Nonfocal. Alert and oriented. LABORATORY AND DIAGNOSTIC DATA: White count 9.6, hemoglobin 16.4. Creatinine 1.0. UA, 0 to 2 white cells. No cultures. Chest x-ray with bilateral infiltrates concerning for multifocal pneumonia. Per the records outside COVID testing was positive. I believe the COVID testing here is pending. Again, COVID testing outside was positive per the patient, at [facility] it is pending. ASSESSMENT AND PLAN: 1. The patient has COVID-19 infection with pneumonia, rule out community-acquired pneumonia, hypoxia, and fevers. Continue dexamethasone and remdesivir, day #2. Continue Rocephin and azithromycin, day #2. Continue treatment for COVID infection, pneumonia, and bacterial pneumonia with community-acquired pneumonia with Rocephin and azithromycin. Monitor the patient's hypoxia. Check chest x-ray and labs. 2. No other significant past medical history. 3. No known allergies. 4. Social history is negative. 5. Family history is noncontributory. 6. MAR is noted. 7. Case discussed with RN. 8. Continue treatment per primary consultants. Ori Gross M.D. DR: EULA JOB#: [id number] CC:
--- NOTE | 2020-03-15 18:50 | NUR ---
NURSE NOTES: Dr. disla called and left message at [phone], informed ABG results along with of PO2 - 53.2 on non-rebreather at 15l/min. he continue to maintain his saturations at 86-88%, he denies an pain or discomfort over the chest, started infusion of ceftriaxone through the right AC 20G peripheral IV. will place order for high flow oxygen to maintain saturations above 94-100%
[2020-03-15] MEDS: cefTRIAXone 1 GM in D5W 55 ML IVPB SCH (18:53)
--- NOTE | 2020-03-15 19:21 | NUR ---
NURSE HAND-OFF REPORT: Latest Vital Signs: Temperature 99.3 , Pulse 82 , B/P 137 /75 , Respiratory Rate 45 , O2 SAT 86 , Non-Rebreather, O2 Flow Rate 15.0 . Vital Sign Comment: EKG Rhythm: Sinus Rhythm Rhythm change?: N MD Notified?: - MD Response: Latest Hollins Fall Score: 35 Fall Risk: Medium Risk Safety Measures: Call light Within Reach, Bed Alarm Zone 2, Side Rails Side Rails x2, Bed position Low and Locked. Fall Precautions: Y Yellow Socks Door Sign: Y Patient Fall Education: Y Report given to RENITA Medina. patient is received ceftriaxone 1G through Right AC 20G IV, he is currently on non-rebreather at 100% FIO2 saturating at 88-89% with no distress or shortness of breath experienced by the patient, he also denies any pain, heaviness or pressure on the chest, he remains awake and talkative and is able to communicate clearly. Dr. disla returned call back to order high flow oxygen to be started at this time.
--- NOTE | 2020-03-15 19:39 | NUR ---
NURSE NOTES: Report received from RENITA Moeller. Observed pt lying in the bed, A/O x4, denies any pain at this time. Noted pt desat between 86-90 on NRM 15L, noted High flow order, RT called, will continue to monitor. SR on monitoring manager. IV on R AC 20G, TKO. Bed in the lowest position. Side rails up x3. Will continue to monitor.
[2020-03-15] MEDS: Maintenance Dose:Remdesivir 100mg/NS 230ml x 4 Doses IV SCH ×2 (20:18)
--- NOTE | 2020-03-15 21:35 | NUR ---
NURSE NOTES: Pt awake, watching TV calmly. Changed to High flow 50L 90%, saturating at 94%, RR 29 noted at this time. SR on monitor car operator. Denies any pain at this time. Will continue to monitor. Addendum: 03/15/20 at 2338 by Carol Schaefer RN 95%
--- NOTE | 2020-03-15 23:38 | NUR ---
NURSE NOTES: Pt lying in the bed, awake, watching tv. On high flow, 50L, 95%, saturating between 90-95%. No other distress noted at this time. Will continue to monitor.
[2020-03-16] VITALS (24 sets, daily range): BP systolic 122–149; BP diastolic 59–89
--- NOTE | 2020-03-16 02:11 | NUR ---
NURSE NOTES: Pt sleeping at this time. On high flow, 50L 95%, noted saturation between 88-90, put NBM over high flow nc, saturation now at 95%. Noted temperature of 99.2 at this time. No signs of pain at this time. Bed in the lowest position. Side rails up x3. Call light within reach. Will continue to monitor.
--- NOTE | 2020-03-16 03:28 | NUR ---
NURSE NOTES: Pt lying in the bed, sleeping, arousable. On high flow 50L, 97%, saturating at 96%. Noted pt breath through mouse, encouraged pt to breath through nose. Denies any pain at this time. Will continue to monitor.
--- NOTE | 2020-03-16 04:46 | NUR ---
NURSE NOTES: Pt lying in the bed, calmly, denies any pain. On High flow, 50L, 97%, RR of 30, saturating between 90-95%. SR on cardiac cath technologist. Urine output of 900 noted from urinal. Will continue to monitor.
[2020-03-16 06:59] LABS: ALANINE AMINOTRANSFERASE 50 U/L (12-78); ALBUMIN 2.4 G/DL (3.4-5.0); ALBUMIN/GLOBULIN RATIO 0.6 (1.0-2.7); ALKALINE PHOSPHATASE 58 U/L (46-116); ASPARTATE AMINO TRANSFERASE 34 U/L (15-37); BILIRUBIN,TOTAL 0.9 MG/DL (0.2-1.0); BLOOD UREA NITROGEN 16 mg/dL (7-18); CALCIUM 7.8 MG/DL (8.5-10.1); CARBON DIOXIDE 33 MMOL/L (21-32); CHLORIDE 100 MMOL/L (98-107); POTASSIUM 3.7 MMOL/L (3.5-5.1); SODIUM 138 MMOL/L (136-145)
[2020-03-16 07:00] LABS: ANION GAP 5 mmol/L (5-15)
[2020-03-16 07:20] LABS: BASOPHILS % (AUTO) 0.2 % (0.0-2.0); HEMATOCRIT 43.3 % (42.0-52.0); HEMOGLOBIN 15.3 G/DL (14.2-18.0); LYMPHOCYTES % (AUTO) 7.8 % (20.0-45.0); MEAN CORPUSCULAR VOLUME 83 FL (80-99); MONOCYTES % (AUTO) 8.3 % (1.0-10.0); NEUTROPHILS % (AUTO) 83.7 % (45.0-75.0); PLATELET COUNT 227 K/UL (150-450); RED BLOOD COUNT 5.24 M/UL (4.70-6.10); RED CELL DISTRIBUTION WIDTH 13.5 % (11.6-14.8); WHITE BLOOD COUNT 7.8 K/UL (4.8-10.8)
--- NOTE | 2020-03-16 07:21 | NUR ---
NURSE HAND-OFF REPORT: Latest Vital Signs: Temperature 99.3 , Pulse 71 , B/P 138 /60 , Respiratory Rate 34 , O2 SAT 94 , High flow 50L, 97% Vital Sign Comment: Saturation between 88-95 on high flow 50L, 97%. EKG Rhythm: Sinus Rhythm Rhythm change?: N MD Notified?: - MD Response: Latest Hollins Fall Score: 35 Fall Risk: Medium Risk Safety Measures: Call light Within Reach, Bed Alarm Zone 2, Side Rails Side Rails x2, Bed position Low and Locked. Fall Precautions: Yellow Socks Door Sign Patient Fall Education Report given to RENITA Coughlin.
--- NOTE | 2020-03-16 07:22 | NUR ---
NURSE NOTES: Received bedside report from RENITA Perez. Pt alert and oriented x4, opens eyes spontaneously and follows commands. Pt's HR in the 70s-80s, NSR on the classroom monitor. Pt on high flow nasal cannula at 50L/min FiO2 97%, O2 sat 90-94%, MD aware. Pt on regular diet, active bowel sounds noted. Pt uses the urinal, 30-60cc/hr output of clear yellow urine noted. Skin intact, pt repositions himself. Pt has right AC 20g on TKO at 5mL/hr, no signs of infection noted on site. Pt's HOB at 30-45 degrees. Bed rails up. Bed locked and in lowest position. Safety precautions maintained. Will continue to monitor.
[2020-03-16] MEDS: dexAMETHasone 10mg/ml Inj IV SCH (08:20)
[2020-03-16] MEDS: Heparin 5000 units/ml inj SUBQ SCH ×2 (08:21→21:07)
--- NOTE | 2020-03-16 09:00 | NUR ---
NURSE NOTES: Scheduled medications given per MD order, pt tolerated well. Will continue to monitor.
--- NOTE | 2020-03-16 10:20 | NUR ---
NURSE NOTES: MD Antonio at bedside. Informed MD regarding ABG results and pt's VS. Received order from MD for Heparin drip, stat CTA, BiPaP, and consult with MD Barnard. Will put in order.
[2020-03-16] MEDS ORDERED: Omnipaque 350 100ml vial INJ PRN (10:30)
--- NOTE | 2020-03-16 10:45 | NUR ---
NURSE NOTES: MD Piper at bedside, informed MD regarding pt's status and plan of care. ABG results reported to MD. Will continue to monitor pt.
[2020-03-16] MEDS ORDERED: Heparin 5000 units/ml inj IV SCH ×2 (11:00→11:45)
[2020-03-16 11:15] LABS: HEMATOCRIT 46.2 % (42.0-52.0); HEMOGLOBIN 15.7 G/DL (14.2-18.0); MEAN CORPUSCULAR VOLUME 87 FL (80-99); PLATELET COUNT 229 K/UL (150-450); RED BLOOD COUNT 5.31 M/UL (4.70-6.10); RED CELL DISTRIBUTION WIDTH 11.9 % (11.6-14.8); WHITE BLOOD COUNT 11.8 K/UL (4.8-10.8)
[2020-03-16 11:19] LABS: LYMPHOCYTES % (AUTO) 4.1 % (20.0-45.0); MONOCYTES % (AUTO) 6.9 % (1.0-10.0); NEUTROPHILS % (AUTO) 88.7 % (45.0-75.0)
[2020-03-16 11:20] LABS: BASOPHILS % (AUTO) 0.3 % (0.0-2.0); EOSINOPHILS % (AUTO) 0.1 % (0.0-3.0)
[2020-03-16] MEDS ORDERED: Heparin 25,000u/D5W 500ml 500 ML IV SCH (11:30)
--- NOTE | 2020-03-16 12:12 | NUR ---
NURSE NOTES: Heparin drip started per MD order, pt tolerating well. Pt's VSS, denies pain or sob. Safety precautions maintained. Will continue to monitor.
--- NOTE | 2020-03-16 13:04 | General Progress Note ---
Subjective Date patient seen: Mar 16, 2020 ROS Limited/Unobtainable: No Allergies: Coded Allergies: No Known Allergies (Unverified , 03/14/20) Subjective Constitutional: Reports: malaise; Denies: chills Eye: Denies: eye pain, double vision, nose congestion ENT: Denies: ear discharge, throat swelling Respiratory: Reports: cough, mild shortness of breath Cardiovascular: Denies: chest pain, palpitations Gastrointestinal: Denies: abdominal pain, constipation, diarrhea, nausea, vomiting Genitourinary: Denies: dysuria, frequency Musculoskeletal: Denies: joint pain, muscle pain Skin: Denies: rash, dryness Psychiatric: Denies: anxiety, hallucinations Neurological: Denies: headache, numbness Endocrine: Denies: flushing, intolerance to temperature Hematologic/Lymphatic: Denies: anemia, easy bleeding Interval events: patient's ABG showing worsening hypoxemia, now on HFNC saturating up to 90% Today, patient reports he is feeling ok, tired, but denies chest pain, fever, chills, N/V. Denies feeling severely SOB despite low saturation and hypoxemia. Objective Last 24 Hour Vital Signs Date Time Temp Pulse Resp B/P (MAP) Pulse Ox O2 Delivery O2 Flow Rate FiO2 03/16/20 12:00 Nasal Cannula 50.0 Non-Rebreather 15.0 03/16/20 12:00 50.0 97 03/16/20 11:54 94 High Flow 50.0 97 03/16/20 11:00 75 35 144/73 (96) 94 03/16/20 10:00 75 35 141/73 (95) 93 03/16/20 09:00 76 38 138/77 (97) 93 03/16/20 08:00 50.0 97 03/16/20 08:00 Nasal Cannula 50.0 Non-Rebreather 15.0 03/16/20 08:00 98.3 71 27 132/63 (86) 90 03/16/20 07:47 75 03/16/20 07:16 94 High Flow 50.0 97 03/16/20 07:00 71 34 138/60 (86) 95 03/16/20 06:00 74 38 139/75 (96) 93 03/16/20 05:00 77 29 138/70 (92) 91 03/16/20 04:00 71 03/16/20 04:00 99.3 78 33 144/69 (94) 94 03/16/20 04:00 Non-Rebreather 15.0 Non-Rebreather 15.0 03/16/20 04:00 50.0 97 03/16/20 03:24 95 High Flow 50.0 97 03/16/20 03:00 70 33 138/71 (93) 93 03/16/20 02:00 69 33 136/68 (90) 94 03/16/20 01:00 73 28 149/71 (97) 94 03/16/20 00:00 99.2 73 23 132/78 (96) 93 03/16/20 00:00 Non-Rebreather 15.0 Non-Rebreather 15.0 03/16/20 00:00 50.0 95 03/16/20 00:00 75 03/15/20 23:00 73 35 139/68 (91) 96 03/15/20 22:56 96 High Flow 50.0 95 03/15/20 22:00 77 26 138/75 (96) 88 03/15/20 21:00 79 29 137/71 (93) 95 03/15/20 20:20 92 High Flow 50.0 95 03/15/20 20:00 Non-Rebreather 15.0 Non-Rebreather 15.0 03/15/20 20:00 81 03/15/20 20:00 98.7 83 39 144/75 (98) 85 03/15/20 19:17 93 Non-Rebreather 15.0 100 03/15/20 19:00 82 45 137/75 (95) 86 03/15/20 18:30 78 37 124/65 (84) 03/15/20 18:00 83 35 137/75 (95) 87 03/15/20 17:30 80 29 139/102 (114) 83 03/15/20 17:00 79 30 139/102 (114) 88 03/15/20 16:51 Non-Rebreather 15.0 Non-Rebreather 15.0 03/15/20 16:30 81 03/15/20 16:30 99.3 84 35 129/71 (90) 88 03/15/20 16:30 15.0 03/15/20 16:25 99.3 84 24 110/71 (84) 91 Intake and Output 03/15/20 03/16/20 19:00 07:00 Intake Total 525 ml 460 ml Output Total 0 ml 800 ml Balance 525 ml -340 ml Intake Oral 240 ml 460 ml IV Total 275 ml Other 10 ml Output Urine Total 0 ml 800 ml Laboratory Tests 03/16/20 05:00: White Blood Count 7.8, Red Blood Count 5.24, Hemoglobin 15.3, Hematocrit 43.3, Mean Corpuscular Volume 83, Mean Corpuscular Hemoglobin 29.2, Mean Corpuscular Hemoglobin Concent 35.4, Red Cell Distribution Width 13.5, Platelet Count 227, Mean Platelet Volume 6.8, Neutrophils (%) (Auto) 83.7H, Lymphocytes (%) (Auto) 7.8L, Monocytes (%) (Auto) 8.3, Eosinophils (%) (Auto) 0.0, Basophils (%) (Auto) 0.2, Prothrombin Time 11.1, Prothromb Time International Ratio 1.0, Activated Partial Thromboplast Time 28, Fibrinogen 441H, D-Dimer 0.54H, Sodium Level 138, Potassium Level 3.7, Chloride Level 100, Carbon Dioxide Level 33H, Anion Gap 5, Blood Urea Nitrogen 16, Creatinine 1.0, Estimat Glomerular Filtration Rate > 60, Glucose Level 140H, Calcium Level 7.8L, Total Bilirubin 0.9, Direct Bilirubin 0.4H, Aspartate Amino Transf (AST/SGOT) 34, Alanine Aminotransferase (ALT/SGPT) 50, Alkaline Phosphatase 58, Total Protein 6.6, Albumin 2.4L, Globulin 4.2, Albumin/Globulin Ratio 0.6L 03/16/20 08:15: Arterial Blood pH 7.459H, Arterial Blood Partial Pressure CO2 47.3H, Arterial Blood Partial Pressure O2 49.2*L, Arterial Blood HCO3 32.8H, Arterial Blood Oxygen Saturation 84.5*L, Arterial Blood Base Excess 7.6H, José Miguel Test Positive 03/16/20 10:45: White Blood Count 11.8#H, Red Blood Count 5.31, Hemoglobin 15.7, Hematocrit 46.2, Mean Corpuscular Volume 87, Mean Corpuscular Hemoglobin 29.5, Mean Corpuscular Hemoglobin Concent 33.9, Red Cell Distribution Width 11.9, Platelet Count 229, Mean Platelet Volume 5.9L, Neutrophils (%) (Auto) 88.7H, Lymphocytes (%) (Auto) 4.1L, Monocytes (%) (Auto) 6.9, Eosinophils (%) (Auto) 0.1, Basophils (%) (Auto) 0.3, Prothrombin Time 11.4, Prothromb Time International Ratio 1.0, Activated Partial Thromboplast Time 27 Height (Feet): 6 Height (Inches): 2.00 Weight (Pounds): 280 Objective General Appearance: WD/WN, alert, appears very fatigued, on HFNC HEENT: normocephalic, atraumatic, mucous membranes moist, PERRL, EOMI Neck: non-tender, normal alignment, supple, normal inspection Respiratory/Chest: chest wall non-tender, no accessory muscle use, mild respiratory distress Cardiovascular/Chest: normal rate, regular rhythm Abdomen: non tender, soft, no organomegaly Extremities: normal range of motion, non-tender, normal inspection, no calf tenderness, no edema 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, alert, oriented x 3, responsive, normal mood/affect Musculoskeletal: normal muscle bulk, no effusion Assessment/Plan Assessment/Plan: A: #COVID-19 pneumonia - CXR showing multifocal pneumonia #Acute hypoxemic hypercapneic respiratory failure - worsening, PO2 remains low, PCO2 rising #Metabolic alkalosis #Hyponatremia #Elevated inflammatory markers - Ferritin, CRP, D-dimer, fibrinogen P: - remains in ICU, critically ill - spoke to patient's [id number] - CTA chest to check for possible PE - currently on HFNC, may need to start BiPAP soon - recheck ABG - recheck D-dimer, fibrinogen in AM - Given elevated D-dimer, fibrinogen, suspect PE as cause of refractory hypoxemia, so starting PE protocol heparin drip - cardiac monitoring - s/p dexamethasone 10 mg in ED - continue dexamethasone 6 mg daily, remdesivir per ID - continue CTX/Azithro - ID consult, Dr. Elizalde, recs appreciated - Pulm consult, Dr. Piper, recs appreciated - Nephro consult, Dr. Zimmerman, recs appreciated - Cardiology consult, Dr. Barnard, recs appreciated Code: Full GI: Protonix DVT prophylaxis: On heparin drip for presumed PE now Dispo: Pending improving in hypoxic respiratory failure, back to home after Time spent on this encounter was 73 minutes which included 43 minutes of counseling and care coordination and 40 minutes of critical care time including ordering and reviewing blood gas, starting heparin drip, ordering chest imaging for possible PE. I discussed with the nurse at bedside. Time of note may not reflect time patient was seen. Donal Antonio M.D. Mar 16, 2020 13:04
--- NOTE | 2020-03-16 13:40 | NUR ---
NURSE NOTES: Pattisapu at bedside. Received orders from MD for repeat ABG at 1800, QHS BiPap 14/5 FiO2 60% to titrate and maintain O2 sat >94%. Will put in order.
--- NOTE | 2020-03-16 14:15 | NUR ---
NURSE NOTES: Called CT for pt's scheduled CTA. Per CT, call back after 1430 for availability. Pt's VSS, safety precautions maintained. Will continue to monitor.
--- NOTE | 2020-03-16 14:22 | Infectious Diseases Prog Note ---
Assessment/Plan Assessment/Plan Full consult dictated: A) 1) covid-19 infection, hypoxia, ? cap, fevers 2) allergies - nkda P) 1) remdesivir, dexamethasone, ceftriaxone and azithromycin 2) monitor hypoxia, labs and chest x-ray 3) thank you Subjective Constitutional: Denies: fever HEENT: Denies: congestion Respiratory: Denies: shortness of breath Cardiovascular: Denies: chest pain Gastrointestinal/Abdominal: Denies: nausea, vomiting, diarrhea Allergies: Coded Allergies: No Known Allergies (Unverified , 03/14/20) Objective Last 24 Hour Vital Signs Date Time Temp Pulse Resp B/P (MAP) Pulse Ox O2 Delivery O2 Flow Rate FiO2 03/16/20 13:00 72 16 129/63 (85) 97 03/16/20 12:14 78 03/16/20 12:00 Nasal Cannula 50.0 Non-Rebreather 15.0 03/16/20 12:00 50.0 97 03/16/20 12:00 98.6 74 35 134/59 (84) 92 03/16/20 11:54 94 High Flow 50.0 97 03/16/20 11:00 75 35 144/73 (96) 94 03/16/20 10:00 75 35 141/73 (95) 93 03/16/20 09:00 76 38 138/77 (97) 93 03/16/20 08:00 50.0 97 03/16/20 08:00 Nasal Cannula 50.0 Non-Rebreather 15.0 03/16/20 08:00 98.3 71 27 132/63 (86) 90 03/16/20 07:47 75 03/16/20 07:16 94 High Flow 50.0 97 03/16/20 07:00 71 34 138/60 (86) 95 03/16/20 06:00 74 38 139/75 (96) 93 03/16/20 05:00 77 29 138/70 (92) 91 03/16/20 04:00 71 03/16/20 04:00 99.3 78 33 144/69 (94) 94 03/16/20 04:00 Non-Rebreather 15.0 Non-Rebreather 15.0 03/16/20 04:00 50.0 97 03/16/20 03:24 95 High Flow 50.0 97 03/16/20 03:00 70 33 138/71 (93) 93 03/16/20 02:00 69 33 136/68 (90) 94 03/16/20 01:00 73 28 149/71 (97) 94 03/16/20 00:00 99.2 73 23 132/78 (96) 93 03/16/20 00:00 Non-Rebreather 15.0 Non-Rebreather 15.0 03/16/20 00:00 50.0 95 03/16/20 00:00 75 03/15/20 23:00 73 35 139/68 (91) 96 03/15/20 22:56 96 High Flow 50.0 95 03/15/20 22:00 77 26 138/75 (96) 88 03/15/20 21:00 79 29 137/71 (93) 95 03/15/20 20:20 92 High Flow 50.0 95 03/15/20 20:00 Non-Rebreather 15.0 Non-Rebreather 15.0 03/15/20 20:00 81 03/15/20 20:00 98.7 83 39 144/75 (98) 85 03/15/20 19:17 93 Non-Rebreather 15.0 100 03/15/20 19:00 82 45 137/75 (95) 86 03/15/20 18:30 78 37 124/65 (84) 03/15/20 18:00 83 35 137/75 (95) 87 03/15/20 17:30 80 29 139/102 (114) 83 03/15/20 17:00 79 30 139/102 (114) 88 03/15/20 16:51 Non-Rebreather 15.0 Non-Rebreather 15.0 03/15/20 16:30 81 03/15/20 16:30 99.3 84 35 129/71 (90) 88 03/15/20 16:30 15.0 03/15/20 16:25 99.3 84 24 110/71 (84) 91 Height (Feet): 6 Height (Inches): 2.00 Weight (Pounds): 280 General Appearance: no acute distress HEENT: normocephalic Respiratory/Chest: crackles/rales, rhonchi - bilaterally Cardiovascular: normal peripheral pulses, normal rate, regular rhythm, regularly irregular Abdomen: normal bowel sounds, soft, non tender, no organomegaly, non distended Microbiology Date/Time Source Procedure Growth Status 03/14/20 15:45 Nasopharynx Coronavirus COVID-19 PCR ([facility]) - Final Complete Laboratory Tests Test 03/16/20 05:00 03/16/20 08:15 03/16/20 10:45 03/16/20 13:16 White Blood Count 7.8 K/UL (4.8-10.8) 11.8 K/UL (4.8-10.8) #H Red Blood Count 5.24 M/UL (4.70-6.10) 5.31 M/UL (4.70-6.10) Hemoglobin 15.3 G/DL (14.2-18.0) 15.7 G/DL (14.2-18.0) Hematocrit 43.3 % (42.0-52.0) 46.2 % (42.0-52.0) Mean Corpuscular Volume 83 FL (80-99) 87 FL (80-99) Mean Corpuscular Hemoglobin 29.2 PG (27.0-31.0) 29.5 PG (27.0-31.0) Mean Corpuscular Hemoglobin Concent 35.4 G/DL (32.0-36.0) 33.9 G/DL (32.0-36.0) Red Cell Distribution Width 13.5 % (11.6-14.8) 11.9 % (11.6-14.8) Platelet Count 227 K/UL (150-450) 229 K/UL (150-450) Mean Platelet Volume 6.8 FL (6.5-10.1) 5.9 FL (6.5-10.1) L Neutrophils (%) (Auto) 83.7 % (45.0-75.0) H 88.7 % (45.0-75.0) H Lymphocytes (%) (Auto) 7.8 % (20.0-45.0) L 4.1 % (20.0-45.0) L Monocytes (%) (Auto) 8.3 % (1.0-10.0) 6.9 % (1.0-10.0) Eosinophils (%) (Auto) 0.0 % (0.0-3.0) 0.1 % (0.0-3.0) Basophils (%) (Auto) 0.2 % (0.0-2.0) 0.3 % (0.0-2.0) Prothrombin Time 11.1 SEC (9.30-11.50) 11.4 SEC (9.30-11.50) Prothromb Time International Ratio 1.0 (0.9-1.1) 1.0 (0.9-1.1) Activated Partial Thromboplast Time 28 SEC (23-33) 27 SEC (23-33) Fibrinogen 441 mg/dL (200-400) H D-Dimer 0.54 mg/L FEU (0.00-0.49) H Sodium Level 138 MMOL/L (136-145) Potassium Level 3.7 MMOL/L (3.5-5.1) Chloride Level 100 MMOL/L (98-107) Carbon Dioxide Level 33 MMOL/L (21-32) H Anion Gap 5 mmol/L (5-15) Blood Urea Nitrogen 16 mg/dL (7-18) Creatinine 1.0 MG/DL (0.55-1.30) Estimat Glomerular Filtration Rate > 60 mL/min (>60) Glucose Level 140 MG/DL (74-106) H Calcium Level 7.8 MG/DL (8.5-10.1) L Total Bilirubin 0.9 MG/DL (0.2-1.0) Direct Bilirubin 0.4 MG/DL (0.0-0.3) H Aspartate Amino Transf (AST/SGOT) 34 U/L (15-37) Alanine Aminotransferase (ALT/SGPT) 50 U/L (12-78) Alkaline Phosphatase 58 U/L (46-116) Total Protein 6.6 G/DL (6.4-8.2) Albumin 2.4 G/DL (3.4-5.0) L Globulin 4.2 g/dL Albumin/Globulin Ratio 0.6 (1.0-2.7) L Arterial Blood pH 7.459 (7.350-7.450) 7.457 (7.350-7.450) Arterial Blood Partial Pressure CO2 47.3 mmHg (35.0-45.0) H 37.0 mmHg (35.0-45.0) Arterial Blood Partial Pressure O2 49.2 mmHg (75.0-100.0) 53.4 mmHg (75.0-100.0) L Arterial Blood HCO3 32.8 mmol/L (22.0-26.0) H 25.5 mmol/L (22.0-26.0) Arterial Blood Oxygen Saturation 84.5 % (95-100) *L 87.5 % (95-100) *L Arterial Blood Base Excess 7.6 (-2-2) H 1.9 (-2-2) José Miguel Test Positive Positive Current Medications Medications (Trade) Dose Ordered Sig/Kiley Route PRN Reason Start Time Stop Time Status Last Admin Dose Admin Acetaminophen (Tylenol) 650 mg Q4H PRN ORAL Temp >100.5 03/14/20 22:45 04/13/20 22:44 03/14/20 22:43 Azithromycin 500 mg/Dextrose 275 ml @ 275 mls/hr Q24HRS IV 03/15/20 18:00 03/21/20 18:59 03/15/20 17:42 Ceftriaxone Sodium 1 gm/ Dextrose 55 ml @ 110 mls/hr Q24H IVPB 03/15/20 18:00 03/22/20 17:59 03/15/20 18:53 Dexamethasone Sodium Phosphate (Decadron 10mg/ ml Inj) 6 mg DAILY IV 03/15/20 10:45 03/24/20 10:44 03/16/20 08:20 Dextrose (Dextrose 50%) 25 ml Q30M PRN IV Hypoglycemia 03/14/20 19:00 06/12/20 18:59 Dextrose (Dextrose 50%) 50 ml Q30M PRN IV Hypoglycemia 03/14/20 19:00 06/12/20 18:59 Heparin Sodium/ Dextrose 500 ml @ 43.182 mls/ hr ADJUST PER PROTOCOL IV 03/16/20 11:30 04/15/20 11:29 03/16/20 12:12 Iohexol (Omnipaque 350 100ml) 100 ml NOW PRN INJ Radiology Procedure 03/16/20 10:30 03/18/20 10:29 Pantoprazole (Protonix) 40 mg DAILY ORAL 03/15/20 09:00 04/14/20 08:59 03/16/20 08:21 Remdesivir 100 mg/ Sodium Chloride 250 ml @ 250 mls/hr Q24H IV 03/15/20 21:00 03/18/20 21:59 03/15/20 20:18 Ori Gross MD Mar 16, 2020 14:22
--- NOTE | 2020-03-16 15:40 | NUR ---
NURSE NOTES: Obtained consent from patient for CTA, pt signed consent form and given to fire management technician. Pt's VSS, no signs of distress noted, denies pain or distress. Will bring pt to CT.
--- NOTE | 2020-03-16 16:00 | NUR ---
NURSE NOTES: Pt came back from CT, pt tolerated procedure well. VS remain stable, still on Heparin Drip. No signs of bleeding noted from pt. Safety precautions maintained. Ultrasound overhead paged for scheduled venous duplex, pending response from ultrasound. Will continue to monitor.
--- NOTE | 2020-03-16 16:22 | Cardiac Electrophysiology PN ---
Subjective Subjective [id number] Objective Last 24 Hour Vital Signs Date Time Temp Pulse Resp B/P (MAP) Pulse Ox O2 Delivery O2 Flow Rate FiO2 03/16/20 15:00 77 26 129/72 (91) 97 03/16/20 14:52 96 High Flow 50.0 97 03/16/20 14:00 70 25 122/64 (83) 94 03/16/20 13:00 72 16 129/63 (85) 97 03/16/20 12:14 78 03/16/20 12:00 Nasal Cannula 50.0 Non-Rebreather 15.0 03/16/20 12:00 50.0 97 03/16/20 12:00 98.6 74 35 134/59 (84) 92 03/16/20 11:54 94 High Flow 50.0 97 03/16/20 11:00 75 35 144/73 (96) 94 03/16/20 10:00 75 35 141/73 (95) 93 03/16/20 09:00 76 38 138/77 (97) 93 03/16/20 08:00 50.0 97 03/16/20 08:00 Nasal Cannula 50.0 Non-Rebreather 15.0 03/16/20 08:00 98.3 71 27 132/63 (86) 90 03/16/20 07:47 75 03/16/20 07:16 94 High Flow 50.0 97 03/16/20 07:00 71 34 138/60 (86) 95 03/16/20 06:00 74 38 139/75 (96) 93 03/16/20 05:00 77 29 138/70 (92) 91 03/16/20 04:00 71 03/16/20 04:00 99.3 78 33 144/69 (94) 94 03/16/20 04:00 Non-Rebreather 15.0 Non-Rebreather 15.0 03/16/20 04:00 50.0 97 03/16/20 03:24 95 High Flow 50.0 97 03/16/20 03:00 70 33 138/71 (93) 93 03/16/20 02:00 69 33 136/68 (90) 94 03/16/20 01:00 73 28 149/71 (97) 94 03/16/20 00:00 99.2 73 23 132/78 (96) 93 03/16/20 00:00 Non-Rebreather 15.0 Non-Rebreather 15.0 03/16/20 00:00 50.0 95 03/16/20 00:00 75 03/15/20 23:00 73 35 139/68 (91) 96 03/15/20 22:56 96 High Flow 50.0 95 03/15/20 22:00 77 26 138/75 (96) 88 03/15/20 21:00 79 29 137/71 (93) 95 03/15/20 20:20 92 High Flow 50.0 95 03/15/20 20:00 Non-Rebreather 15.0 Non-Rebreather 15.0 03/15/20 20:00 81 03/15/20 20:00 98.7 83 39 144/75 (98) 85 03/15/20 19:17 93 Non-Rebreather 15.0 100 03/15/20 19:00 82 45 137/75 (95) 86 03/15/20 18:30 78 37 124/65 (84) 03/15/20 18:00 83 35 137/75 (95) 87 03/15/20 17:30 80 29 139/102 (114) 83 03/15/20 17:00 79 30 139/102 (114) 88 03/15/20 16:51 Non-Rebreather 15.0 Non-Rebreather 15.0 03/15/20 16:30 81 03/15/20 16:30 99.3 84 35 129/71 (90) 88 03/15/20 16:30 15.0 03/15/20 16:25 99.3 84 24 110/71 (84) 91 Intake and Output 03/15/20 03/16/20 19:00 07:00 Intake Total 525 ml 460 ml Output Total 0 ml 800 ml Balance 525 ml -340 ml Intake Oral 240 ml 460 ml IV Total 275 ml Other 10 ml Output Urine Total 0 ml 800 ml Laboratory Tests Test 03/16/20 05:00 03/16/20 08:15 03/16/20 10:45 03/16/20 13:16 White Blood Count 7.8 K/UL (4.8-10.8) 11.8 K/UL (4.8-10.8) #H Red Blood Count 5.24 M/UL (4.70-6.10) 5.31 M/UL (4.70-6.10) Hemoglobin 15.3 G/DL (14.2-18.0) 15.7 G/DL (14.2-18.0) Hematocrit 43.3 % (42.0-52.0) 46.2 % (42.0-52.0) Mean Corpuscular Volume 83 FL (80-99) 87 FL (80-99) Mean Corpuscular Hemoglobin 29.2 PG (27.0-31.0) 29.5 PG (27.0-31.0) Mean Corpuscular Hemoglobin Concent 35.4 G/DL (32.0-36.0) 33.9 G/DL (32.0-36.0) Red Cell Distribution Width 13.5 % (11.6-14.8) 11.9 % (11.6-14.8) Platelet Count 227 K/UL (150-450) 229 K/UL (150-450) Mean Platelet Volume 6.8 FL (6.5-10.1) 5.9 FL (6.5-10.1) L Neutrophils (%) (Auto) 83.7 % (45.0-75.0) H 88.7 % (45.0-75.0) H Lymphocytes (%) (Auto) 7.8 % (20.0-45.0) L 4.1 % (20.0-45.0) L Monocytes (%) (Auto) 8.3 % (1.0-10.0) 6.9 % (1.0-10.0) Eosinophils (%) (Auto) 0.0 % (0.0-3.0) 0.1 % (0.0-3.0) Basophils (%) (Auto) 0.2 % (0.0-2.0) 0.3 % (0.0-2.0) Prothrombin Time 11.1 SEC (9.30-11.50) 11.4 SEC (9.30-11.50) Prothromb Time International Ratio 1.0 (0.9-1.1) 1.0 (0.9-1.1) Activated Partial Thromboplast Time 28 SEC (23-33) 27 SEC (23-33) Fibrinogen 441 mg/dL (200-400) H D-Dimer 0.54 mg/L FEU (0.00-0.49) H Sodium Level 138 MMOL/L (136-145) Potassium Level 3.7 MMOL/L (3.5-5.1) Chloride Level 100 MMOL/L (98-107) Carbon Dioxide Level 33 MMOL/L (21-32) H Anion Gap 5 mmol/L (5-15) Blood Urea Nitrogen 16 mg/dL (7-18) Creatinine 1.0 MG/DL (0.55-1.30) Estimat Glomerular Filtration Rate > 60 mL/min (>60) Glucose Level 140 MG/DL (74-106) H Calcium Level 7.8 MG/DL (8.5-10.1) L Total Bilirubin 0.9 MG/DL (0.2-1.0) Direct Bilirubin 0.4 MG/DL (0.0-0.3) H Aspartate Amino Transf (AST/SGOT) 34 U/L (15-37) Alanine Aminotransferase (ALT/SGPT) 50 U/L (12-78) Alkaline Phosphatase 58 U/L (46-116) Total Protein 6.6 G/DL (6.4-8.2) Albumin 2.4 G/DL (3.4-5.0) L Globulin 4.2 g/dL Albumin/Globulin Ratio 0.6 (1.0-2.7) L Arterial Blood pH 7.459 (7.350-7.450) 7.457 (7.350-7.450) Arterial Blood Partial Pressure CO2 47.3 mmHg (35.0-45.0) H 37.0 mmHg (35.0-45.0) Arterial Blood Partial Pressure O2 49.2 mmHg (75.0-100.0) 53.4 mmHg (75.0-100.0) L Arterial Blood HCO3 32.8 mmol/L (22.0-26.0) H 25.5 mmol/L (22.0-26.0) Arterial Blood Oxygen Saturation 84.5 % (95-100) *L 87.5 % (95-100) *L Arterial Blood Base Excess 7.6 (-2-2) H 1.9 (-2-2) José Miguel Test Positive Positive Microbiology Date/Time Source Procedure Growth Status 03/14/20 15:45 Nasopharynx Coronavirus COVID-19 PCR ([facility]) - Final Complete Santi Barnard MD Mar 16, 2020 16:22
--- NOTE | 2020-03-16 16:30 | NUR ---
NURSE NOTES: Ultrasound overhead paged again, still pending response from ultrasound for stat venous duplex per MD order. Pt's VSS, will continue to monitor.
--- NOTE | 2020-03-16 17:04 | Diagnostic Imaging Report ---
CTA CHEST With Contrast INDICATION: Pulmonary embolism. Pneumonia multifocal pneumonia hypoxemic. Covid pneumonia TECHNIQUE: Multiple, contiguous axial cuts of the chest are obtained following the administration of IV contrast. High resolution axial images as well as sagittal and coronal reformatted images are available. 100 cc of Omnipaque 350 injected intravenously. COMPARISON: Chest x-ray March 14, 2020 FINDINGS: No pulmonary embolus is identified. The aorta is within normal limits, no aneurysm or dissection. The cardiomediastinal structures are normal. No adenopathy or effusions. Multifocal groundglass opacities are present. Multiple consolidations along with groundglass opacities are present. Prominence of the liver and spleen with fatty changes of the liver. No effusion or pneumothorax. Small mediastinal lymph nodes are present. The osseous structures are intact. IMPRESSION: Multilobar groundglass opacities and consolidations consistent with viral pneumonia. No definite pulmonary emboli appreciated. Enlarged liver and spleen with fatty changes of the liver. No aortic aneurysm or dissection. One or more of the following dose reduction techniques were used: automated exposure control, adjustment of the mA and/or kV according to patient size, use of iterative reconstruction technique. Total Exam volume computed tomography dose index (CTDIvol) = 147.1 mGy and Dose Length Product (DLP) = 594.1 mGY-c
[2020-03-16] MEDS: Azithromycin 500 MG in D5W 275 ML IV SCH (17:09)
--- NOTE | 2020-03-16 17:12 | NUR ---
NURSE NOTES: Informed MD Pattisapu of pt's CTA results. Received order from to discontinue Heparin drip, MD will put in order. Pt's VSS, safety precautions maintained. Will continue to monitor.
--- NOTE | 2020-03-16 18:25 | NUR ---
NURSE NOTES: Received call from ophthalmic technician and was informed that she is refusing to perform venous duplex for pt due to pt is covid positive and she is a high risk. Informed ophthalmic technician that venous duplex was a stat order and has been pending, tech still refused procedure. Made real estate leasing agent and MD aware. Informed by real estate leasing agent that she will be speaking with matte cutter regarding the matter.
--- NOTE | 2020-03-16 18:27 | Pulmonology Progress Note ---
Subjective ROS Limited/Unobtainable: No Interval Events: Remains hypixic; doing poorly Constitutional: Reports: no symptoms; Denies: fever HEENT: Repors: no symptoms Respiratory: Reports: no symptoms, dry cough, productive cough, sputum, hemoptysis, shortness of breath, dyspnea at rest, dyspnea on exertion, wheezing, pleuritic pain, other Cardiovascular: Reports: no symptoms Gastrointestinal/Abdominal: Reports: no symptoms; Denies: nausea, vomiting, diarrhea Genitourinary: Reports: no symptoms Neurologic: Reports: no symptoms Allergies: Coded Allergies: No Known Allergies (Unverified , 03/14/20) Objective Last 24 Hour Vital Signs Date Time Temp Pulse Resp B/P (MAP) Pulse Ox O2 Delivery O2 Flow Rate FiO2 03/16/20 16:00 50.0 97 03/16/20 16:00 Nasal Cannula 50.0 Non-Rebreather 15.0 03/16/20 16:00 98.7 82 25 135/72 (93) 95 03/16/20 15:51 87 03/16/20 15:00 77 26 129/72 (91) 97 03/16/20 14:52 96 High Flow 50.0 97 03/16/20 14:00 70 25 122/64 (83) 94 03/16/20 13:00 72 16 129/63 (85) 97 03/16/20 12:14 78 03/16/20 12:00 Nasal Cannula 50.0 Non-Rebreather 15.0 03/16/20 12:00 50.0 97 03/16/20 12:00 98.6 74 35 134/59 (84) 92 03/16/20 11:54 94 High Flow 50.0 97 03/16/20 11:00 75 35 144/73 (96) 94 03/16/20 10:00 75 35 141/73 (95) 93 03/16/20 09:00 76 38 138/77 (97) 93 03/16/20 08:00 50.0 97 03/16/20 08:00 Nasal Cannula 50.0 Non-Rebreather 15.0 03/16/20 08:00 98.3 71 27 132/63 (86) 90 03/16/20 07:47 75 03/16/20 07:16 94 High Flow 50.0 97 11/29/20 07:00 71 34 138/60 (86) 95 03/16/20 06:00 74 38 139/75 (96) 93 03/16/20 05:00 77 29 138/70 (92) 91 03/16/20 04:00 71 03/16/20 04:00 99.3 78 33 144/69 (94) 94 03/16/20 04:00 Non-Rebreather 15.0 Non-Rebreather 15.0 03/16/20 04:00 50.0 97 03/16/20 03:24 95 High Flow 50.0 97 03/16/20 03:00 70 33 138/71 (93) 93 03/16/20 02:00 69 33 136/68 (90) 94 03/16/20 01:00 73 28 149/71 (97) 94 03/16/20 00:00 99.2 73 23 132/78 (96) 93 03/16/20 00:00 Non-Rebreather 15.0 Non-Rebreather 15.0 03/16/20 00:00 50.0 95 03/16/20 00:00 75 03/15/20 23:00 73 35 139/68 (91) 96 03/15/20 22:56 96 High Flow 50.0 95 03/15/20 22:00 77 26 138/75 (96) 88 03/15/20 21:00 79 29 137/71 (93) 95 03/15/20 20:20 92 High Flow 50.0 95 03/15/20 20:00 Non-Rebreather 15.0 Non-Rebreather 15.0 03/15/20 20:00 81 03/15/20 20:00 98.7 83 39 144/75 (98) 85 03/15/20 19:17 93 Non-Rebreather 15.0 100 03/15/20 19:00 82 45 137/75 (95) 86 03/15/20 18:30 78 37 124/65 (84) Intake and Output 03/15/20 03/16/20 19:00 07:00 Intake Total 525 ml 460 ml Output Total 0 ml 800 ml Balance 525 ml -340 ml Intake Oral 240 ml 460 ml IV Total 275 ml Other 10 ml Output Urine Total 0 ml 800 ml General Appearance: no acute distress HEENT: normocephalic Respiratory: chest wall non-tender, lungs clear Cardiovascular: normal peripheral pulses Abdomen: normal bowel sounds Microbiology Date/Time Source Procedure Growth Status 03/14/20 15:45 Nasopharynx Coronavirus COVID-19 PCR ([facility]) - Final Complete Laboratory Tests 03/16/20 05:00: White Blood Count 7.8, Red Blood Count 5.24, Hemoglobin 15.3, Hematocrit 43.3, Mean Corpuscular Volume 83, Mean Corpuscular Hemoglobin 29.2, Mean Corpuscular Hemoglobin Concent 35.4, Red Cell Distribution Width 13.5, Platelet Count 227, Mean Platelet Volume 6.8, Neutrophils (%) (Auto) 83.7H, Lymphocytes (%) (Auto) 7.8L, Monocytes (%) (Auto) 8.3, Eosinophils (%) (Auto) 0.0, Basophils (%) (Auto) 0.2, Prothrombin Time 11.1, Prothromb Time International Ratio 1.0, Activated Partial Thromboplast Time 28, Fibrinogen 441H, D-Dimer 0.54H, Sodium Level 138, Potassium Level 3.7, Chloride Level 100, Carbon Dioxide Level 33H, Anion Gap 5, Blood Urea Nitrogen 16, Creatinine 1.0, Estimat Glomerular Filtration Rate > 60, Glucose Level 140H, Calcium Level 7.8L, Total Bilirubin 0.9, Direct Bilirubin 0.4H, Aspartate Amino Transf (AST/SGOT) 34, Alanine Aminotransferase (ALT/SGPT) 50, Alkaline Phosphatase 58, Total Protein 6.6, Albumin 2.4L, Globulin 4.2, Albumin/Globulin Ratio 0.6L 03/16/20 08:15: Arterial Blood pH 7.459H, Arterial Blood Partial Pressure CO2 47.3H, Arterial Blood Partial Pressure O2 49.2*L, Arterial Blood HCO3 32.8H, Arterial Blood Oxygen Saturation 84.5*L, Arterial Blood Base Excess 7.6H, José Miguel Test Positive 03/16/20 10:45: White Blood Count 11.8#H, Red Blood Count 5.31, Hemoglobin 15.7, Hematocrit 46.2, Mean Corpuscular Volume 87, Mean Corpuscular Hemoglobin 29.5, Mean Corpuscular Hemoglobin Concent 33.9, Red Cell Distribution Width 11.9, Platelet Count 229, Mean Platelet Volume 5.9L, Neutrophils (%) (Auto) 88.7H, Lymphocytes (%) (Auto) 4.1L, Monocytes (%) (Auto) 6.9, Eosinophils (%) (Auto) 0.1, Basophils (%) (Auto) 0.3, Prothrombin Time 11.4, Prothromb Time International Ratio 1.0, Activated Partial Thromboplast Time 03/16/20 13:16: Arterial Blood pH 7.457H, Arterial Blood Partial Pressure CO2 37.0, Arterial Blood Partial Pressure O2 53.4L, Arterial Blood HCO3 25.5, Arterial Blood Oxygen Saturation 87.5*L, Arterial Blood Base Excess 1.9, José Miguel Test Positive 03/16/20 17:55: Activated Partial Thromboplast Time [Pending] Current Medications Medications (Trade) Dose Ordered Sig/Kiley Route PRN Reason Start Time Stop Time Status Last Admin Dose Admin Acetaminophen (Tylenol) 650 mg Q4H PRN ORAL Temp >100.5 03/14/20 22:45 04/13/20 22:44 03/14/20 22:43 Azithromycin 500 mg/Dextrose 275 ml @ 275 mls/hr Q24HRS IV 03/15/20 18:00 03/21/20 18:59 03/16/20 17:09 Ceftriaxone Sodium 1 gm/ Dextrose 55 ml @ 110 mls/hr Q24H IVPB 03/15/20 18:00 03/22/20 17:59 03/15/20 18:53 Dexamethasone Sodium Phosphate (Decadron 10mg/ ml Inj) 6 mg DAILY IV 03/15/20 10:45 03/24/20 10:44 03/16/20 08:20 Dextrose (Dextrose 50%) 25 ml Q30M PRN IV Hypoglycemia 03/14/20 19:00 06/12/20 18:59 Dextrose (Dextrose 50%) 50 ml Q30M PRN IV Hypoglycemia 03/14/20 19:00 06/12/20 18:59 Heparin Sodium (Porcine) (Heparin 5000 units/ml) 5,000 units EVERY 8 HOURS SUBQ 03/16/20 22:00 04/30/20 21:59 Iohexol (Omnipaque 350 100ml) 100 ml NOW PRN INJ Radiology Procedure 03/16/20 10:30 03/18/20 10:29 Pantoprazole (Protonix) 40 mg DAILY ORAL 03/15/20 09:00 04/14/20 08:59 03/16/20 08:21 Remdesivir 100 mg/ Sodium Chloride 250 ml @ 250 mls/hr Q24H IV 03/15/20 21:00 03/18/20 21:59 03/15/20 20:18 Assessment/Plan Assessment/Plan Impression: COVID-19 Pneumonia Hypoxia Obesity Hyponatremia Plan: Continue Decadron, AB/antivirals per ID O2 as needed; on NRBM IVF Monitor labs PPX Monitor for change Oral Piper MD Mar 16, 2020 18:27
[2020-03-16] MEDS: cefTRIAXone 1 GM in D5W 55 ML IVPB SCH (18:33)
--- NOTE | 2020-03-16 18:50 | NUR ---
NURSE NOTES: Informed MD Antonio that per registered nurse obstetrics, venous duplex will be done tonight. Also informed MD of new ABG results. Pt's VSS, safety precautions maintained. Will continue to monitor.
--- NOTE | 2020-03-16 19:10 | NUR ---
NURSE HAND-OFF REPORT: Latest Vital Signs: Temperature 98.7 , Pulse 79 , B/P 137 /73 , Respiratory Rate 28 , O2 SAT 94 , High-flow nasal cannula, O2 Flow Rate 50.0 . Vital Sign Comment: EKG Rhythm: Sinus Rhythm Rhythm change?: N MD Notified?: - MD Response: Latest Hollins Fall Score: 35 Fall Risk: Medium Risk Safety Measures: Call light Within Reach, Bed Alarm Zone 2, Side Rails Side Rails x2, Bed position Low and Locked. Fall Precautions: Yellow Socks Door Sign Patient Fall Education Report given to Chris RN for continuity of care. Pt stable. .
--- NOTE | 2020-03-16 19:15 | Consultation ---
DATE OF CONSULTATION: 03/16/2020 CONSULTING PHYSICIAN: Santi Barnard MD REFERRING PHYSICIAN: Suzi Chamorro MD REASON FOR CONSULTATION: Shortness of breath and tachycardia. HISTORY OF PRESENT ILLNESS: The patient is a 39-year-old gentleman who presented to the emergency room with increasing shortness of breath and hypoxia. COVID test was positive earlier in the week. The patient was started on remdesivir, Rocephin, azithromycin, dexamethasone on admission. Chest x-ray bilateral infiltrates. His initial troponin was negative and BNP was within normal range. At the time of my evaluation, the patient is still on high-flow oxygen in the intensive care unit and is on heparin drip. REVIEW OF SYSTEMS: Negative other than what is mentioned in the history of present illness. PAST MEDICAL HISTORY: As mentioned above. FAMILY HISTORY: Noncontributory. SOCIAL HISTORY: He has no history of drug use. PHYSICAL EXAMINATION: VITAL SIGNS: Show blood pressure of 129/72, pulse 77, respirations 20, and he is afebrile. HEAD AND NECK: No JVD. LUNGS: Coarse rhonchi. CARDIOVASCULAR: Regular S1 and S2 with no gallop or murmur and tachycardic. ABDOMEN: Soft and obese. EXTREMITIES: No pitting edema. LABORATORY DATA: Sodium 138, potassium 3.7, BUN of 16, creatinine 1, and glucose of 140. White count is 11.8, hemoglobin 15.7, hematocrit 46.2, and platelet count of 229. ASSESSMENT AND PLAN: 1. Elevated D-dimer of 0.54. This patient with severe shortness of breath and active COVID infection. The patient is on heparin drip. 2. COVID pneumonia, on remdesivir, azithromycin and ceftriaxone as well as dexamethasone. Further evaluation by Dr. Gross and Dr. Montiel from Pulmonary perspective. 3. Tachycardia due to COVID infection. We will get an echocardiogram for further evaluation. Thank you very much for allowing me to participate in the care of this patient. Please do not hesitate to contact me for any questions regarding my evaluation. Santi Barnard M.D. DR: Ember JOB#: [id number] CC:
--- NOTE | 2020-03-16 19:18 | NUR ---
NURSE NOTES: Report received from RENITA Coughlin. Observed pt lying in the bed, A/O x4, denies any pain, watching TV calmly. SR on senior support engineer. On High flow 50L, 97%, saturating at 95%, bipap will be applied tonight. IV on R AC 20G, TKO. R FA 18G, SL. Bed in the lowest position. Side rails up x3. Will continue to monitor.
[2020-03-16] MEDS: Maintenance Dose:Remdesivir 100mg/NS 230ml x 4 Doses IV SCH ×2 (21:06)
--- NOTE | 2020-03-16 21:40 | NUR ---
NURSE NOTES: Pt lying in the bed, awake, denies any pain at this time. SR. On high flow, 50L, 97%, saturating at 95%, RR of 32 noted. Hydrating offered. Will continue to monitor.
[2020-03-17] VITALS (25 sets, daily range): BP systolic 128–155; BP diastolic 70–92
--- NOTE | 2020-03-17 00:10 | NUR ---
NURSE NOTES: Notified regarding pt refusing bipap, no new order at this time. Pt on High flow, 50L, 82% at this time, saturating at 96%, RR of 28 at this time. Will continue to monitor.
--- NOTE | 2020-03-17 02:04 | NUR ---
NURSE NOTES: Pt lying in the bed, sleeping. SR noted. On high flow 50L, 82%, saturating at 96, RR of 27 noted. VS WNL. Will continue to monitor.
--- NOTE | 2020-03-17 03:23 | NUR ---
NURSE NOTES: Pt lying in the bed calmly. Tolerating high flow at 50L, 82%, saturating at 94% but tachypneic noted, RR of 34 noted. pt denies any pain at this time. Will continue to monitor.
[2020-03-17] MEDS: Heparin 5000 units/ml inj SUBQ SCH ×3 (05:01→21:34)
[2020-03-17 05:32] LABS: BASOPHILS % (AUTO) 0.5 % (0.0-2.0); EOSINOPHILS % (AUTO) 0.2 % (0.0-3.0); HEMATOCRIT 43.2 % (42.0-52.0); HEMOGLOBIN 15.3 G/DL (14.2-18.0); LYMPHOCYTES % (AUTO) 8.5 % (20.0-45.0); MEAN CORPUSCULAR VOLUME 84 FL (80-99); MONOCYTES % (AUTO) 8.4 % (1.0-10.0); NEUTROPHILS % (AUTO) 82.5 % (45.0-75.0); PLATELET COUNT 273 K/UL (150-450); RED BLOOD COUNT 5.14 M/UL (4.70-6.10); RED CELL DISTRIBUTION WIDTH 13.2 % (11.6-14.8); WHITE BLOOD COUNT 8.9 K/UL (4.8-10.8)
--- NOTE | 2020-03-17 05:40 | NUR ---
NURSE NOTES: Pt on high flow, 50L, 100%, saturating at 95%, with RR of 33 noted. SR on property assessment monitor. Pt states he feels better, denies any pain. Urine output of 1200cc noted. Hydration offered. Will continue to monitor.
[2020-03-17 06:02] LABS: ALANINE AMINOTRANSFERASE 45 U/L (12-78); ALBUMIN 2.4 G/DL (3.4-5.0); ALBUMIN/GLOBULIN RATIO 0.6 (1.0-2.7); ALKALINE PHOSPHATASE 60 U/L (46-116); ANION GAP 7 mmol/L (5-15); ASPARTATE AMINO TRANSFERASE 38 U/L (15-37); BILIRUBIN,TOTAL 0.8 MG/DL (0.2-1.0); BLOOD UREA NITROGEN 16 mg/dL (7-18); CARBON DIOXIDE 30 MMOL/L (21-32); CHLORIDE 102 MMOL/L (98-107); CREATININE 0.8 MG/DL (0.55-1.30); POTASSIUM 3.9 MMOL/L (3.5-5.1); SODIUM 139 MMOL/L (136-145)
[2020-03-17 06:28] LABS: BILIRUBIN,DIRECT 0.4 MG/DL (0.0-0.3)
--- NOTE | 2020-03-17 07:14 | NUR ---
NURSE HAND-OFF REPORT: Pt refused bipap, notified and okay to stay on high flow. pt on high flow 50L, 100%, saturating between 90-95%. xray pending, abg pending. Latest Vital Signs: Temperature 98.7 , Pulse 79 , B/P 146 /73 , Respiratory Rate 30 , O2 SAT 98 , Non-Rebreather, O2 Flow Rate 50.0 . Vital Sign Comment: Tachypneic, EKG Rhythm: Sinus Rhythm Rhythm change?: N MD Notified?: - MD Response: Latest Hollins Fall Score: 35 Fall Risk: Medium Risk Safety Measures: Call light Within Reach, Bed Alarm Zone 2, Side Rails Side Rails x2, Bed position Low and Locked. Fall Precautions: Yellow Socks Door Sign Patient Fall Education Report given to RENITA Coughlin.
--- NOTE | 2020-03-17 07:15 | NUR ---
NURSE NOTES: Received bedside report from RENITA Perez. Pt alert and oriented x4, opens eyes spontaneously and follows commands. Pt's HR in the 70s-80s, NSR on the bag loader machine operator. Pt on high flow nasal cannula at 50L/min FiO2 97%, O2 sat 90-95%, MD aware. Pt on regular diet, active bowel sounds noted. Pt uses the urinal, 30-60cc/hr output of clear yellow urine noted. Skin intact, pt repositions himself. Pt has Left FA 18g on TKO at 5mL/hr and Right AC 20g saline locked, no signs of infection noted on site. Pt's HOB at 30-45 degrees. Bed rails up. Bed locked and in lowest position. Safety precautions maintained. Will continue to monitor.
--- NOTE | 2020-03-17 07:48 | Diagnostic Imaging Report ---
EXAM: US Duplex Bilateral Lower Extremities Veins CLINICAL HISTORY: DVT TECHNIQUE: Real-time duplex ultrasound scan of the bilateral lower extremity veins integrating B-mode two-dimensional vascular structure, Doppler spectral analysis, color flow Doppler imaging and compression. COMPARISON: No relevant prior studies available. FINDINGS: Right deep veins: Unremarkable. No DVT in the right common femoral, femoral, proximal or popliteal veins. The veins demonstrate normal color flow, are normally compressible, with normal phasic flow and/or augmentation response. Right calf and anterior tibial veins were also imaged. Right superficial veins: Unremarkable. No thrombus in the visualized right great saphenous vein. Left deep veins: Unremarkable. No DVT in the left common femoral, femoral, or popliteal veins. The veins demonstrate normal color flow, are normally compressible, with normal phasic flow and/or augmentation response. Left calf and anterior tibial veins were also imaged. Left superficial veins: Unremarkable. No thrombus in the visualized left great saphenous vein. Soft tissues: No acute findings. No popliteal cyst. IMPRESSION: No evidence of DVT in bilateral lower extremities.
[2020-03-17] MEDS: dexAMETHasone 10mg/ml Inj IV SCH (08:50)
--- NOTE | 2020-03-17 08:50 | NUR ---
NURSE NOTES: Scheduled medications given per MD order, pt tolerated well. Pt afebrile, but is still tachypneic RR 25-30s, O2 sat 93-96%, pt denies chest pain or sob. Safety precautions maintained. Will continue to monitor.
--- NOTE | 2020-03-17 10:30 | NUR ---
NURSE NOTES: MD Piper at bedside. Updated MD regarding pt's status and ABG results. MD ordered to prone pt as tolerated. Informed MD that pt refused to prone, will ask pt again. Pt's VS stable, no signs of distress noted, denies chest pain or sob. Will continue to monitor.
--- NOTE | 2020-03-17 11:07 | NUR ---
Social Work Chart Reviewed; patient is currently in the ICU, positive for Covid. This SW spoke with niece, Sirena Adames ([phone]) who explains patients spouse and she also is positive for Covid. Patient lives with spouse and four children (ages 16, 14, 12, 10); children have not been tested (planning to test and self quarantine). Niece explains she lives in [place], planning to return there in a couple of days. 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 Patient also is self pay, undocumented resident; will need to apply for [employer] ([employer] to follow). Emotional support provided to spouse (speaks only Polish) via niece interpretation, who expressed n other needs or concerns. Spouse and niece aware how to contact ICU nursing, as needed with updated information. Niece denied any history of mental health or substance abuse with patient. This SW educated family regarding [facility] resources as well as COVID placement, as needed. Pending progress and plan at this time. Encouraged patient to quarantine if discharge planning to home when medically cleared (this SW encouraged nice, spouse and children to self quarantine as well).
[2020-03-17] MEDS ORDERED: Sennosides 8.6mg tab ORAL PRN (11:30)
--- NOTE | 2020-03-17 12:00 | NUR ---
NURSE NOTES: Made MD Antonio aware pt's last BM 03/14/2020. Received order for colace, MD will put in order. Also received order from MD to start titrating down FiO2, made RT aware. Pt is currently on high flow nasal cannula at 50L/min, FiO2 decreased to 80% by RT. Pt's O2 sat 94-97%, RR 20-30. Scheduled colace given to pt per MD order, pt tolerated well. Will continue to monitor.
[2020-03-17] MEDS: Docusate 100mg cap ORAL SCH ×2 (12:16→17:24)
--- NOTE | 2020-03-17 13:17 | Diagnostic Imaging Report ---
Indication: Shortness of breath and cough Technique: One view of the chest Comparison: 03/14/2020 Findings: Again demonstrated are extensive bilateral interstitial and airspace infiltrates. Normal heart size. Findings are unchanged Impression: Extensive bilateral infiltrates, unchanged since prior exam of 03/14/2020
--- NOTE | 2020-03-17 13:47 | Pulmonology Progress Note ---
Subjective ROS Limited/Unobtainable: No Interval Events: Remains hypixic; doing poorly Constitutional: Reports: no symptoms; Denies: fever HEENT: Repors: no symptoms Respiratory: Reports: no symptoms, dry cough, productive cough, sputum, hemoptysis, shortness of breath, dyspnea at rest, dyspnea on exertion, wheezing, pleuritic pain, other Cardiovascular: Reports: no symptoms Gastrointestinal/Abdominal: Reports: no symptoms; Denies: nausea, vomiting, diarrhea Genitourinary: Reports: no symptoms Neurologic: Reports: no symptoms Allergies: Coded Allergies: No Known Allergies (Unverified , 03/14/20) Objective Last 24 Hour Vital Signs Date Time Temp Pulse Resp B/P (MAP) Pulse Ox O2 Delivery O2 Flow Rate FiO2 03/17/20 13:00 69 29 137/70 (92) 98 03/17/20 12:00 98.0 86 28 155/86 (109) 97 03/17/20 12:00 50.0 80 03/17/20 12:00 Nasal Cannula 50.0 Nasal Cannula 50.0 03/17/20 11:42 83 03/17/20 11:08 98 High Flow 50.0 80 03/17/20 11:00 83 29 149/78 (101) 99 03/17/20 10:00 82 33 146/77 (100) 97 03/17/20 09:00 83 30 142/75 (97) 96 03/17/20 08:32 83 03/17/20 08:00 50.0 97 03/17/20 08:00 Nasal Cannula 50.0 Nasal Cannula 50.0 03/17/20 08:00 98.2 80 22 144/75 (98) 95 03/17/20 07:07 98 High Flow 50.0 100 03/17/20 07:00 79 30 146/73 (97) 03/17/20 06:00 64 33 135/70 (91) 98 03/17/20 05:00 70 38 142/77 (98) 94 03/17/20 04:00 98.7 77 26 138/73 (94) 97 03/17/20 04:00 50.0 97 03/17/20 04:00 Nasal Cannula 50.0 Non-Rebreather 15.0 03/17/20 03:47 68 03/17/20 03:40 97 High Flow 50.0 100 03/17/20 03:00 70 37 137/75 (95) 92 03/17/20 02:00 74 32 146/73 (97) 97 03/17/20 01:00 66 32 138/72 (94) 94 03/17/20 00:00 98.9 74 34 140/74 (96) 90 03/17/20 00:00 Nasal Cannula 50.0 Non-Rebreather 15.0 03/17/20 00:00 50.0 82 03/17/20 00:00 83 03/16/20 23:00 83 38 149/83 (105) 95 03/16/20 22:40 95 High Flow 50.0 82 03/16/20 22:00 82 36 138/89 (105) 96 03/16/20 21:00 76 36 146/70 (95) 96 03/16/20 20:00 50.0 97 03/16/20 20:00 77 03/16/20 20:00 Nasal Cannula 50.0 Non-Rebreather 15.0 03/16/20 20:00 98.9 70 32 132/71 (91) 90 03/16/20 19:00 79 28 137/73 (94) 94 03/16/20 18:39 98 High Flow 50.0 97 03/16/20 18:00 80 27 133/78 (96) 98 03/16/20 17:00 69 22 131/68 (89) 94 03/16/20 16:00 50.0 97 03/16/20 16:00 Nasal Cannula 50.0 Non-Rebreather 15.0 03/16/20 16:00 98.7 82 25 135/72 (93) 95 03/16/20 15:51 87 03/16/20 15:00 77 26 129/72 (91) 97 03/16/20 14:52 96 High Flow 50.0 97 03/16/20 14:00 70 25 122/64 (83) 94 Intake and Output 03/16/20 03/17/20 19:00 07:00 Intake Total 1349.551 ml 915 ml Output Total 650 ml 1200 ml Balance 699.551 ml -285 ml Intake Oral 850 ml 860 ml IV Total 499.551 ml 55 ml Output Urine Total 650 ml 1200 ml General Appearance: no acute distress HEENT: normocephalic Respiratory: chest wall non-tender, lungs clear Cardiovascular: normal peripheral pulses Abdomen: normal bowel sounds Microbiology Date/Time Source Procedure Growth Status 03/14/20 15:45 Nasopharynx Coronavirus COVID-19 PCR ([facility]) - Final Complete Laboratory Tests 03/16/20 17:55: Activated Partial Thromboplast Time 46H 03/16/20 18:30: Arterial Blood pH 7.468H, Arterial Blood Partial Pressure CO2 38.3, Arterial Blood Partial Pressure O2 62.2L, Arterial Blood HCO3 27.1H, Arterial Blood Oxygen Saturation 91.3L, Arterial Blood Base Excess 3.4H, José Miguel Test Positive 03/17/20 04:30: Activated Partial Thromboplast Time 27, White Blood Count 8.9, Red Blood Count 5.14, Hemoglobin 15.3, Hematocrit 43.2, Mean Corpuscular Volume 84, Mean Corpuscular Hemoglobin 29.9, Mean Corpuscular Hemoglobin Concent 35.5, Red Cell Distribution Width 13.2, Platelet Count 273, Mean Platelet Volume 6.4L, Neutrophils (%) (Auto) 82.5H, Lymphocytes (%) (Auto) 8.5L, Monocytes (%) (Auto) 8.4, Eosinophils (%) (Auto) 0.2, Basophils (%) (Auto) 0.5, Prothrombin Time 11.0, Prothromb Time International Ratio 1.0, Fibrinogen 534H, D-Dimer 0.61H, Sodium Level 139, Potassium Level 3.9, Chloride Level 102, Carbon Dioxide Level 30, Anion Gap 7, Blood Urea Nitrogen 16, Creatinine 0.8, Estimat Glomerular Filtration Rate > 60, Glucose Level 108H, Calcium Level 8.0L, Total Bilirubin 0.8, Direct Bilirubin 0.4H, Aspartate Amino Transf (AST/SGOT) 38H, Alanine Aminotransferase (ALT/SGPT) 45, Alkaline Phosphatase 60, Troponin I 0.001, Pro-B-Type Natriuretic Peptide 62, Total Protein 6.6, Albumin 2.4L, Globulin 4.2, Albumin/Globulin Ratio 0.6L, Thyroid Stimulating Hormone (TSH) 1.102 03/17/20 08:34: Arterial Blood pH 7.464H, Arterial Blood Partial Pressure CO2 37.0, Arterial Blood Partial Pressure O2 52.5L, Arterial Blood HCO3 26.0, Arterial Blood Oxygen Saturation 86.6*L, Arterial Blood Base Excess 2.4H, José Miguel Test Positive Current Medications Medications (Trade) Dose Ordered Sig/Kiley Route PRN Reason Start Time Stop Time Status Last Admin Dose Admin Acetaminophen (Tylenol) 650 mg Q4H PRN ORAL Temp >100.5 03/14/20 22:45 04/13/20 22:44 03/14/20 22:43 Azithromycin 500 mg/Dextrose 275 ml @ 275 mls/hr Q24HRS IV 03/15/20 18:00 03/21/20 18:59 03/16/20 17:09 Ceftriaxone Sodium 1 gm/ Dextrose 55 ml @ 110 mls/hr Q24H IVPB 03/15/20 18:00 03/22/20 17:59 03/16/20 18:33 Dexamethasone Sodium Phosphate (Decadron 10mg/ ml Inj) 6 mg DAILY IV 03/15/20 10:45 03/24/20 10:44 03/17/20 08:50 Dextrose (Dextrose 50%) 25 ml Q30M PRN IV Hypoglycemia 03/14/20 19:00 06/12/20 18:59 Dextrose (Dextrose 50%) 50 ml Q30M PRN IV Hypoglycemia 03/14/20 19:00 06/12/20 18:59 Docusate Sodium (Colace) 100 mg TWICE A DAY ORAL 03/17/20 11:30 04/16/20 11:29 03/17/20 12:16 Heparin Sodium (Porcine) (Heparin 5000 units/ml) 5,000 units EVERY 8 HOURS SUBQ 03/16/20 22:00 04/30/20 21:59 03/17/20 13:39 Iohexol (Omnipaque 350 100ml) 100 ml NOW PRN INJ Radiology Procedure 03/16/20 10:30 03/18/20 10:29 Pantoprazole (Protonix) 40 mg DAILY ORAL 03/15/20 09:00 04/14/20 08:59 03/17/20 08:50 Remdesivir 100 mg/ Sodium Chloride 250 ml @ 250 mls/hr Q24H IV 03/15/20 21:00 03/18/20 21:59 03/16/20 21:06 Sennosides (Senokot) 8.6 mg DAILYPRN PRN ORAL Constipation 03/17/20 11:30 04/16/20 11:29 Assessment/Plan Assessment/Plan Impression: COVID-19 Pneumonia Hypoxia Obesity Hyponatremia Plan: Continue Decadron, AB/antivirals per ID O2 as needed; on Hi Flow O2 IVF Monitor labs PPX Monitor for change Oral Piper MD Mar 17, 2020 13:47
--- NOTE | 2020-03-17 14:20 | NUR ---
NURSE NOTES: Pt offered wash cloth, pt able to groom independently. Pt's VSS, afebrile, no signs of distress noted, pt denies pain or sob. Safety precautions maintained. Will continue to monitor.
--- NOTE | 2020-03-17 14:30 | General Progress Note ---
Subjective Date patient seen: Mar 17, 2020 ROS Limited/Unobtainable: No Allergies: Coded Allergies: No Known Allergies (Unverified , 03/14/20) Subjective Constitutional: Reports: malaise; Denies: chills Eye: Denies: eye pain, double vision, nose congestion ENT: Denies: ear discharge, throat swelling Respiratory: Reports: cough, mild shortness of breath Cardiovascular: Denies: chest pain, palpitations Gastrointestinal: Denies: abdominal pain, constipation, diarrhea, nausea, vomiting Genitourinary: Denies: dysuria, frequency Musculoskeletal: Denies: joint pain, muscle pain Skin: Denies: rash, dryness Psychiatric: Denies: anxiety, hallucinations Neurological: Denies: headache, numbness Endocrine: Denies: flushing, intolerance to temperature Hematologic/Lymphatic: Denies: anemia, easy bleeding Interval events: stable on HFNC. CTA negative for PE, BLE venous duplex US negative for DVT, so heparin drip stopped Today, patient remains on HFNC without new symptoms. Denies chest pain, fever, chills, N/V. Denies feeling severely SOB despite hypoxemia. Objective Last 24 Hour Vital Signs Date Time Temp Pulse Resp B/P (MAP) Pulse Ox O2 Delivery O2 Flow Rate FiO2 03/17/20 14:00 73 32 138/82 (100) 98 03/17/20 13:00 69 29 137/70 (92) 98 03/17/20 12:00 98.0 86 28 155/86 (109) 97 03/17/20 12:00 50.0 80 03/17/20 12:00 Nasal Cannula 50.0 Nasal Cannula 50.0 03/17/20 11:42 83 03/17/20 11:08 98 High Flow 50.0 80 03/17/20 11:00 83 29 149/78 (101) 99 03/17/20 10:00 82 33 146/77 (100) 97 03/17/20 09:00 83 30 142/75 (97) 96 03/17/20 08:32 83 03/17/20 08:00 50.0 97 03/17/20 08:00 Nasal Cannula 50.0 Nasal Cannula 50.0 03/17/20 08:00 98.2 80 22 144/75 (98) 95 03/17/20 07:07 98 High Flow 50.0 100 03/17/20 07:00 79 30 146/73 (97) 03/17/20 06:00 64 33 135/70 (91) 98 03/17/20 05:00 70 38 142/77 (98) 94 03/17/20 04:00 98.7 77 26 138/73 (94) 97 03/17/20 04:00 50.0 97 03/17/20 04:00 Nasal Cannula 50.0 Non-Rebreather 15.0 03/17/20 03:47 68 03/17/20 03:40 97 High Flow 50.0 100 03/17/20 03:00 70 37 137/75 (95) 92 03/17/20 02:00 74 32 146/73 (97) 97 03/17/20 01:00 66 32 138/72 (94) 94 03/17/20 00:00 98.9 74 34 140/74 (96) 90 03/17/20 00:00 Nasal Cannula 50.0 Non-Rebreather 15.0 03/17/20 00:00 50.0 82 03/17/20 00:00 83 03/16/20 23:00 83 38 149/83 (105) 95 03/16/20 22:40 95 High Flow 50.0 82 03/16/20 22:00 82 36 138/89 (105) 96 03/16/20 21:00 76 36 146/70 (95) 96 03/16/20 20:00 50.0 97 03/16/20 20:00 77 03/16/20 20:00 Nasal Cannula 50.0 Non-Rebreather 15.0 03/16/20 20:00 98.9 70 32 132/71 (91) 90 03/16/20 19:00 79 28 137/73 (94) 94 03/16/20 18:39 98 High Flow 50.0 97 03/16/20 18:00 80 27 133/78 (96) 98 03/16/20 17:00 69 22 131/68 (89) 94 03/16/20 16:00 50.0 97 03/16/20 16:00 Nasal Cannula 50.0 Non-Rebreather 15.0 03/16/20 16:00 98.7 82 25 135/72 (93) 95 03/16/20 15:51 87 03/16/20 15:00 77 26 129/72 (91) 97 03/16/20 14:52 96 High Flow 50.0 97 Intake and Output 03/16/20 03/17/20 19:00 07:00 Intake Total 1349.551 ml 915 ml Output Total 650 ml 1200 ml Balance 699.551 ml -285 ml Intake Oral 850 ml 860 ml IV Total 499.551 ml 55 ml Output Urine Total 650 ml 1200 ml Laboratory Tests 03/16/20 17:55: Activated Partial Thromboplast Time 46H 03/16/20 18:30: Arterial Blood pH 7.468H, Arterial Blood Partial Pressure CO2 38.3, Arterial Blood Partial Pressure O2 62.2L, Arterial Blood HCO3 27.1H, Arterial Blood Oxygen Saturation 91.3L, Arterial Blood Base Excess 3.4H, José Miguel Test Positive 03/17/20 04:30: Activated Partial Thromboplast Time 27, White Blood Count 8.9, Red Blood Count 5.14, Hemoglobin 15.3, Hematocrit 43.2, Mean Corpuscular Volume 84, Mean Corpuscular Hemoglobin 29.9, Mean Corpuscular Hemoglobin Concent 35.5, Red Cell Distribution Width 13.2, Platelet Count 273, Mean Platelet Volume 6.4L, Neutrophils (%) (Auto) 82.5H, Lymphocytes (%) (Auto) 8.5L, Monocytes (%) (Auto) 8.4, Eosinophils (%) (Auto) 0.2, Basophils (%) (Auto) 0.5, Prothrombin Time 11.0, Prothromb Time International Ratio 1.0, Fibrinogen 534H, D-Dimer 0.61H, Sodium Level 139, Potassium Level 3.9, Chloride Level 102, Carbon Dioxide Level 30, Anion Gap 7, Blood Urea Nitrogen 16, Creatinine 0.8, Estimat Glomerular Filtration Rate > 60, Glucose Level 108H, Calcium Level 8.0L, Total Bilirubin 0.8, Direct Bilirubin 0.4H, Aspartate Amino Transf (AST/SGOT) 38H, Alanine Aminotransferase (ALT/SGPT) 45, Alkaline Phosphatase 60, Troponin I 0.001, Pro-B-Type Natriuretic Peptide 62, Total Protein 6.6, Albumin 2.4L, Globulin 4.2, Albumin/Globulin Ratio 0.6L, Thyroid Stimulating Hormone (TSH) 1.102 11/30/20 08:34: Arterial Blood pH 7.464H, Arterial Blood Partial Pressure CO2 37.0, Arterial Blood Partial Pressure O2 52.5L, Arterial Blood HCO3 26.0, Arterial Blood Oxygen Saturation 86.6*L, Arterial Blood Base Excess 2.4H, José Miguel Test Positive Height (Feet): 6 Height (Inches): 2.00 Weight (Pounds): 280 Objective General Appearance: WD/WN, alert, more awake today, on HFNC HEENT: normocephalic, atraumatic, mucous membranes moist, PERRL, EOMI Neck: non-tender, normal alignment, supple, normal inspection Respiratory/Chest: chest wall non-tender, no accessory muscle use, mild respiratory distress Cardiovascular/Chest: normal rate, regular rhythm Abdomen: non tender, soft, no organomegaly Extremities: normal range of motion, non-tender, normal inspection, no calf tenderness, no edema Neurologic: field support specialist II-XII grossly normal, alert, oriented x 3, responsive, normal mood/affect Musculoskeletal: normal muscle bulk, no effusion CT Angio Chest 03/16/2020 Procedure: CTA Chest w Contrast CTA CHEST With Contrast INDICATION: Pulmonary embolism. Pneumonia multifocal pneumonia hypoxemic. Covid pneumonia TECHNIQUE: Multiple, contiguous axial cuts of the chest are obtained following the administration of IV contrast. High resolution axial images as well as sagittal and coronal reformatted images are available. 100 cc of Omnipaque 350 injected intravenously. COMPARISON: Chest x-ray March 14, 2020 FINDINGS: No pulmonary embolus is identified. The aorta is within normal limits, no aneurysm or dissection. The cardiomediastinal structures are normal. No adenopathy or effusions. Multifocal groundglass opacities are present. Multiple consolidations along with groundglass opacities are present. Prominence of the liver and spleen with fatty changes of the liver. No effusion or pneumothorax. Small mediastinal lymph nodes are present. The osseous structures are intact. IMPRESSION: Multilobar groundglass opacities and consolidations consistent with viral pneumonia. No definite pulmonary emboli appreciated. Enlarged liver and spleen with fatty changes of the liver. No aortic aneurysm or dissection. 03/16/2020 Venous Duplex Scan [place] Leg EXAM: US Duplex Bilateral Lower Extremities Veins CLINICAL HISTORY: DVT TECHNIQUE: Real-time duplex ultrasound scan of the bilateral lower extremity veins integrating B-mode two-dimensional vascular structure, Doppler spectral analysis, color flow Doppler imaging and compression. COMPARISON: No relevant prior studies available. FINDINGS: Right deep veins: Unremarkable. No DVT in the right common femoral, femoral, proximal or popliteal veins. The veins demonstrate normal color flow, are normally compressible, with normal phasic flow and/or augmentation response. Right calf and anterior tibial veins were also imaged. Right superficial veins: Unremarkable. No thrombus in the visualized right great saphenous vein. Left deep veins: Unremarkable. No DVT in the left common femoral, femoral, or popliteal veins. The veins demonstrate normal color flow, are normally compressible, with normal phasic flow and/or augmentation response. Left calf and anterior tibial veins were also imaged. Left superficial veins: Unremarkable. No thrombus in the visualized left great saphenous vein. Soft tissues: No acute findings. No popliteal cyst. IMPRESSION: No evidence of DVT in bilateral lower extremities. Assessment/Plan Assessment/Plan: A: #COVID-19 pneumonia - stable. CXR and CTA chest unchanged showing multifocal pneumonia. #Acute hypoxemic hypercapneic respiratory failure - stable. PO2 remains low, PCO2 improving, now normalized #Metabolic alkalosis #Hyponatremia #Elevated inflammatory markers - Ferritin, CRP, D-dimer, fibrinogen P: - remains in ICU, critically ill - currently on HFNC, BiPAP ordered for last night to allow patient to rest, but patient refused, so maintained on HFNC - monitor ABG - CTA and BLE duplex US negative for PE or DVT, so heparin drip discontinued - cardiac monitoring - TTE ordered per cardiology, f/u results - s/p dexamethasone 10 mg in ED - continue dexamethasone 6 mg daily, remdesivir per ID - continue CTX/Azithro - ID consult, Dr. Elizalde, recs appreciated - Pulm consult, Dr. Piper, recs appreciated - Nephro consult, Dr. Zimmerman, recs appreciated - Cardiology consult, Dr. Barnard, recs appreciated Code: Full GI: Protonix DVT prophylaxis: 5000 u TID Dispo: Pending improving in hypoxic respiratory failure, back to home after Time spent on this encounter was 71 minutes which included 41 minutes of counseling and care coordination and 40 minutes of critical care time including ordering and reviewing blood gas, reviewing heparin orders, reviewing chest imaging and ultrasound imaging and discussion with consultants. I discussed with the nurse at bedside. Time of note may not reflect time patient was seen. Donal Antonio M.D. Mar 17, 2020 14:30
--- NOTE | 2020-03-17 14:51 | Cardiac Electrophysiology PN ---
Assessment/Plan Assessment/Plan 1. Elevated D-dimer of 0.54. This patient with severe shortness of breath and active COVID infection. Chest CT no PE and now off heparin drip. 2. COVID pneumonia, on remdesivir, azithromycin and ceftriaxone as well as dexamethasone. Further evaluation by Dr. Gross and Dr. Montiel from Pulmonary perspective. 3. Tachycardia due to COVID infection. Echocardiogram Nl EF 65% Subjective Subjective On high flow oxygen. No events. CT angio no PE. LE Duplex no DVT Objective Last 24 Hour Vital Signs Date Time Temp Pulse Resp B/P (MAP) Pulse Ox O2 Delivery O2 Flow Rate FiO2 03/17/20 14:00 73 32 138/82 (100) 98 03/17/20 13:00 69 29 137/70 (92) 98 03/17/20 12:00 98.0 86 28 155/86 (109) 97 03/17/20 12:00 50.0 80 03/17/20 12:00 Nasal Cannula 50.0 Nasal Cannula 50.0 03/17/20 11:42 83 03/17/20 11:08 98 High Flow 50.0 80 03/17/20 11:00 83 29 149/78 (101) 99 03/17/20 10:00 82 33 146/77 (100) 97 03/17/20 09:00 83 30 142/75 (97) 96 03/17/20 08:32 83 03/17/20 08:00 50.0 97 03/17/20 08:00 Nasal Cannula 50.0 Nasal Cannula 50.0 03/17/20 08:00 98.2 80 22 144/75 (98) 95 03/17/20 07:07 98 High Flow 50.0 100 03/17/20 07:00 79 30 146/73 (97) 03/17/20 06:00 64 33 135/70 (91) 98 03/17/20 05:00 70 38 142/77 (98) 94 03/17/20 04:00 98.7 77 26 138/73 (94) 97 03/17/20 04:00 50.0 97 03/17/20 04:00 Nasal Cannula 50.0 Non-Rebreather 15.0 03/17/20 03:47 68 03/17/20 03:40 97 High Flow 50.0 100 03/17/20 03:00 70 37 137/75 (95) 92 03/17/20 02:00 74 32 146/73 (97) 97 03/17/20 01:00 66 32 138/72 (94) 94 03/17/20 00:00 98.9 74 34 140/74 (96) 90 03/17/20 00:00 Nasal Cannula 50.0 Non-Rebreather 15.0 03/17/20 00:00 50.0 82 03/17/20 00:00 83 03/16/20 23:00 83 38 149/83 (105) 95 03/16/20 22:40 95 High Flow 50.0 82 03/16/20 22:00 82 36 138/89 (105) 96 03/16/20 21:00 76 36 146/70 (95) 96 03/16/20 20:00 50.0 97 03/16/20 20:00 77 03/16/20 20:00 Nasal Cannula 50.0 Non-Rebreather 15.0 03/16/20 20:00 98.9 70 32 132/71 (91) 90 03/16/20 19:00 79 28 137/73 (94) 94 03/16/20 18:39 98 High Flow 50.0 97 03/16/20 18:00 80 27 133/78 (96) 98 03/16/20 17:00 69 22 131/68 (89) 94 03/16/20 16:00 50.0 97 03/16/20 16:00 Nasal Cannula 50.0 Non-Rebreather 15.0 03/16/20 16:00 98.7 82 25 135/72 (93) 95 03/16/20 15:51 87 03/16/20 15:00 77 26 129/72 (91) 97 03/16/20 14:52 96 High Flow 50.0 97 Intake and Output 03/16/20 03/17/20 19:00 07:00 Intake Total 1349.551 ml 915 ml Output Total 650 ml 1200 ml Balance 699.551 ml -285 ml Intake Oral 850 ml 860 ml IV Total 499.551 ml 55 ml Output Urine Total 650 ml 1200 ml Laboratory Tests Test 03/16/20 17:55 03/16/20 18:30 03/17/20 04:30 03/17/20 08:34 Activated Partial Thromboplast Time 46 SEC (23-33) H 27 SEC (23-33) Arterial Blood pH 7.468 (7.350-7.450) 7.464 (7.350-7.450) Arterial Blood Partial Pressure CO2 38.3 mmHg (35.0-45.0) 37.0 mmHg (35.0-45.0) Arterial Blood Partial Pressure O2 62.2 mmHg (75.0-100.0) L 52.5 mmHg (75.0-100.0) L Arterial Blood HCO3 27.1 mmol/L (22.0-26.0) H 26.0 mmol/L (22.0-26.0) Arterial Blood Oxygen Saturation 91.3 % (95-100) L 86.6 % (95-100) *L Arterial Blood Base Excess 3.4 (-2-2) H 2.4 (-2-2) H José Miguel Test Positive Positive White Blood Count 8.9 K/UL (4.8-10.8) Red Blood Count 5.14 M/UL (4.70-6.10) Hemoglobin 15.3 G/DL (14.2-18.0) Hematocrit 43.2 % (42.0-52.0) Mean Corpuscular Volume 84 FL (80-99) Mean Corpuscular Hemoglobin 29.9 PG (27.0-31.0) Mean Corpuscular Hemoglobin Concent 35.5 G/DL (32.0-36.0) Red Cell Distribution Width 13.2 % (11.6-14.8) Platelet Count 273 K/UL (150-450) Mean Platelet Volume 6.4 FL (6.5-10.1) L Neutrophils (%) (Auto) 82.5 % (45.0-75.0) H Lymphocytes (%) (Auto) 8.5 % (20.0-45.0) L Monocytes (%) (Auto) 8.4 % (1.0-10.0) Eosinophils (%) (Auto) 0.2 % (0.0-3.0) Basophils (%) (Auto) 0.5 % (0.0-2.0) Prothrombin Time 11.0 SEC (9.30-11.50) Prothromb Time International Ratio 1.0 (0.9-1.1) Fibrinogen 534 mg/dL (200-400) H D-Dimer 0.61 mg/L FEU (0.00-0.49) H Sodium Level 139 MMOL/L (136-145) Potassium Level 3.9 MMOL/L (3.5-5.1) Chloride Level 102 MMOL/L (98-107) Carbon Dioxide Level 30 MMOL/L (21-32) Anion Gap 7 mmol/L (5-15) Blood Urea Nitrogen 16 mg/dL (7-18) Creatinine 0.8 MG/DL (0.55-1.30) Estimat Glomerular Filtration Rate > 60 mL/min (>60) Glucose Level 108 MG/DL (74-106) H Calcium Level 8.0 MG/DL (8.5-10.1) L Total Bilirubin 0.8 MG/DL (0.2-1.0) Direct Bilirubin 0.4 MG/DL (0.0-0.3) H Aspartate Amino Transf (AST/SGOT) 38 U/L (15-37) H Alanine Aminotransferase (ALT/SGPT) 45 U/L (12-78) Alkaline Phosphatase 60 U/L (46-116) Troponin I 0.001 ng/mL (0.000-0.056) Pro-B-Type Natriuretic Peptide 62 pg/mL (0-125) Total Protein 6.6 G/DL (6.4-8.2) Albumin 2.4 G/DL (3.4-5.0) L Globulin 4.2 g/dL Albumin/Globulin Ratio 0.6 (1.0-2.7) L Thyroid Stimulating Hormone (TSH) 1.102 uiU/mL (0.358-3.740) Microbiology Date/Time Source Procedure Growth Status 03/14/20 15:45 Nasopharynx Coronavirus COVID-19 PCR ([facility]) - Final Complete Objective HEAD AND NECK: No JVD. LUNGS: Coarse rhonchi. CARDIOVASCULAR: Regular S1 and S2 with no gallop or murmur and tachycardic. ABDOMEN: Soft and obese. EXTREMITIES: No pitting edema. Santi Barnard MD Mar 17, 2020 14:51
--- NOTE | 2020-03-17 15:36 | Infectious Diseases Prog Note ---
Assessment/Plan Assessment/Plan ASSESSMENT AND PLAN: 1. covid-19 infection with pna, ? cap, fevers - dexamethasone - day # 3 - remdesivir - day 3 - azithromycin and ceftriaxone - day # 3 - monitor labs and hypoxia - monitor chest x-ray 2. No other significant past medical history. 3. No known allergies. 4. Social history is negative. 5. Family history is noncontributory. 6. MAR is noted. 7. Case discussed with RN. 8. Continue treatment per primary consultants. Subjective Constitutional: Reports: fatigue; Denies: fever HEENT: Reports: congestion Respiratory: Reports: shortness of breath Cardiovascular: Denies: chest pain Gastrointestinal/Abdominal: Denies: nausea, vomiting, diarrhea Genitourinary: Reports: frequency Neurologic: Denies: headache Psychiatric: Denies: depression Skin: Denies: rash Hematologic: Denies: bleeding Musculoskeletal: Denies: pain Allergies: Coded Allergies: No Known Allergies (Unverified , 03/14/20) Objective Last 24 Hour Vital Signs Date Time Temp Pulse Resp B/P (MAP) Pulse Ox O2 Delivery O2 Flow Rate FiO2 03/17/20 15:00 63 31 128/70 (89) 95 03/17/20 14:00 73 32 138/82 (100) 98 03/17/20 13:00 69 29 137/70 (92) 98 03/17/20 12:00 98.0 86 28 155/86 (109) 97 03/17/20 12:00 50.0 80 03/17/20 12:00 Nasal Cannula 50.0 Nasal Cannula 50.0 03/17/20 11:42 83 03/17/20 11:08 98 High Flow 50.0 80 03/17/20 11:00 83 29 149/78 (101) 99 03/17/20 10:00 82 33 146/77 (100) 97 03/17/20 09:00 83 30 142/75 (97) 96 03/17/20 08:32 83 03/17/20 08:00 50.0 97 03/17/20 08:00 Nasal Cannula 50.0 Nasal Cannula 50.0 03/17/20 08:00 98.2 80 22 144/75 (98) 95 03/17/20 07:07 98 High Flow 50.0 100 03/17/20 07:00 79 30 146/73 (97) 03/17/20 06:00 64 33 135/70 (91) 98 03/17/20 05:00 70 38 142/77 (98) 94 03/17/20 04:00 98.7 77 26 138/73 (94) 97 03/17/20 04:00 50.0 97 03/17/20 04:00 Nasal Cannula 50.0 Non-Rebreather 15.0 03/17/20 03:47 68 03/17/20 03:40 97 High Flow 50.0 100 03/17/20 03:00 70 37 137/75 (95) 92 03/17/20 02:00 74 32 146/73 (97) 97 03/17/20 01:00 66 32 138/72 (94) 94 03/17/20 00:00 98.9 74 34 140/74 (96) 90 03/17/20 00:00 Nasal Cannula 50.0 Non-Rebreather 15.0 03/17/20 00:00 50.0 82 03/17/20 00:00 83 03/16/20 23:00 83 38 149/83 (105) 95 03/16/20 22:40 95 High Flow 50.0 82 03/16/20 22:00 82 36 138/89 (105) 96 03/16/20 21:00 76 36 146/70 (95) 96 03/16/20 20:00 50.0 97 03/16/20 20:00 77 03/16/20 20:00 Nasal Cannula 50.0 Non-Rebreather 15.0 03/16/20 20:00 98.9 70 32 132/71 (91) 90 03/16/20 19:00 79 28 137/73 (94) 94 03/16/20 18:39 98 High Flow 50.0 97 03/16/20 18:00 80 27 133/78 (96) 98 03/16/20 17:00 69 22 131/68 (89) 94 03/16/20 16:00 50.0 97 03/16/20 16:00 Nasal Cannula 50.0 Non-Rebreather 15.0 03/16/20 16:00 98.7 82 25 135/72 (93) 95 03/16/20 15:51 87 Height (Feet): 6 Height (Inches): 2.00 Weight (Pounds): 280 General Appearance: no acute distress HEENT: normocephalic, atraumatic, anicteric Respiratory/Chest: crackles/rales, rhonchi - bilaterally Cardiovascular: normal rate, regular rhythm Abdomen: normal bowel sounds, soft, non tender, no organomegaly Genitourinary: other - no diaz Skin: no rash Neurologic/Psychiatric: spray mixer II-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 Normal heart size. Findings are unchanged Impression: Extensive bilateral infiltrates, unchanged since prior exam of 03/14/2020 Microbiology Date/Time Source Procedure Growth Status 03/14/20 15:45 Nasopharynx Coronavirus COVID-19 PCR ([facility]) - Final Complete Microbiology Date/Time Source Procedure Growth Status 03/14/20 15:45 Nasopharynx Coronavirus COVID-19 PCR ([facility]) - Final Complete Laboratory Tests Test 03/16/20 17:55 03/16/20 18:30 03/17/20 04:30 03/17/20 08:34 Activated Partial Thromboplast Time 46 SEC (23-33) H 27 SEC (23-33) Arterial Blood pH 7.468 (7.350-7.450) 7.464 (7.350-7.450) Arterial Blood Partial Pressure CO2 38.3 mmHg (35.0-45.0) 37.0 mmHg (35.0-45.0) Arterial Blood Partial Pressure O2 62.2 mmHg (75.0-100.0) L 52.5 mmHg (75.0-100.0) L Arterial Blood HCO3 27.1 mmol/L (22.0-26.0) H 26.0 mmol/L (22.0-26.0) Arterial Blood Oxygen Saturation 91.3 % (95-100) L 86.6 % (95-100) *L Arterial Blood Base Excess 3.4 (-2-2) H 2.4 (-2-2) H José Miguel Test Positive Positive White Blood Count 8.9 K/UL (4.8-10.8) Red Blood Count 5.14 M/UL (4.70-6.10) Hemoglobin 15.3 G/DL (14.2-18.0) Hematocrit 43.2 % (42.0-52.0) Mean Corpuscular Volume 84 FL (80-99) Mean Corpuscular Hemoglobin 29.9 PG (27.0-31.0) Mean Corpuscular Hemoglobin Concent 35.5 G/DL (32.0-36.0) Red Cell Distribution Width 13.2 % (11.6-14.8) Platelet Count 273 K/UL (150-450) Mean Platelet Volume 6.4 FL (6.5-10.1) L Neutrophils (%) (Auto) 82.5 % (45.0-75.0) H Lymphocytes (%) (Auto) 8.5 % (20.0-45.0) L Monocytes (%) (Auto) 8.4 % (1.0-10.0) Eosinophils (%) (Auto) 0.2 % (0.0-3.0) Basophils (%) (Auto) 0.5 % (0.0-2.0) Prothrombin Time 11.0 SEC (9.30-11.50) Prothromb Time International Ratio 1.0 (0.9-1.1) Fibrinogen 534 mg/dL (200-400) H D-Dimer 0.61 mg/L FEU (0.00-0.49) H Sodium Level 139 MMOL/L (136-145) Potassium Level 3.9 MMOL/L (3.5-5.1) Chloride Level 102 MMOL/L (98-107) Carbon Dioxide Level 30 MMOL/L (21-32) Anion Gap 7 mmol/L (5-15) Blood Urea Nitrogen 16 mg/dL (7-18) Creatinine 0.8 MG/DL (0.55-1.30) Estimat Glomerular Filtration Rate > 60 mL/min (>60) Glucose Level 108 MG/DL (74-106) H Calcium Level 8.0 MG/DL (8.5-10.1) L Total Bilirubin 0.8 MG/DL (0.2-1.0) Direct Bilirubin 0.4 MG/DL (0.0-0.3) H Aspartate Amino Transf (AST/SGOT) 38 U/L (15-37) H Alanine Aminotransferase (ALT/SGPT) 45 U/L (12-78) Alkaline Phosphatase 60 U/L (46-116) Troponin I 0.001 ng/mL (0.000-0.056) Pro-B-Type Natriuretic Peptide 62 pg/mL (0-125) Total Protein 6.6 G/DL (6.4-8.2) Albumin 2.4 G/DL (3.4-5.0) L Globulin 4.2 g/dL Albumin/Globulin Ratio 0.6 (1.0-2.7) L Thyroid Stimulating Hormone (TSH) 1.102 uiU/mL (0.358-3.740) Current Medications Medications (Trade) Dose Ordered Sig/Kiley Route PRN Reason Start Time Stop Time Status Last Admin Dose Admin Acetaminophen (Tylenol) 650 mg Q4H PRN ORAL Temp >100.5 03/14/20 22:45 04/13/20 22:44 03/14/20 22:43 Azithromycin 500 mg/Dextrose 275 ml @ 275 mls/hr Q24HRS IV 03/15/20 18:00 03/21/20 18:59 03/16/20 17:09 Ceftriaxone Sodium 1 gm/ Dextrose 55 ml @ 110 mls/hr Q24H IVPB 03/15/20 18:00 03/22/20 17:59 03/16/20 18:33 Dexamethasone Sodium Phosphate (Decadron 10mg/ ml Inj) 6 mg DAILY IV 03/15/20 10:45 03/24/20 10:44 03/17/20 08:50 Dextrose (Dextrose 50%) 25 ml Q30M PRN IV Hypoglycemia 03/14/20 19:00 06/12/20 18:59 Dextrose (Dextrose 50%) 50 ml Q30M PRN IV Hypoglycemia 03/14/20 19:00 06/12/20 18:59 Docusate Sodium (Colace) 100 mg TWICE A DAY ORAL 03/17/20 11:30 04/16/20 11:29 03/17/20 12:16 Heparin Sodium (Porcine) (Heparin 5000 units/ml) 5,000 units EVERY 8 HOURS SUBQ 03/16/20 22:00 04/30/20 21:59 03/17/20 13:39 Iohexol (Omnipaque 350 100ml) 100 ml NOW PRN INJ Radiology Procedure 03/16/20 10:30 03/18/20 10:29 Pantoprazole (Protonix) 40 mg DAILY ORAL 03/15/20 09:00 04/14/20 08:59 03/17/20 08:50 Remdesivir 100 mg/ Sodium Chloride 250 ml @ 250 mls/hr Q24H IV 03/15/20 21:00 03/18/20 21:59 03/16/20 21:06 Sennosides (Senokot) 8.6 mg DAILYPRN PRN ORAL Constipation 03/17/20 11:30 04/16/20 11:29 Ori Gross MD Mar 17, 2020 15:36
--- NOTE | 2020-03-17 16:00 | NUR ---
NURSE NOTES: Pt back to 90% FiO2 per RT, pt's O2 sat 94-96%, respirations even and unlabored. Pt's VS remain stable, no signs of distress noted, pt denies pain or sob. Pt offered cool wash cloths again, pt able to independently groom himself. Safety precautions maintained. Will continue to monitor.
--- NOTE | 2020-03-17 16:11 | NUR ---
CASE MANAGEMENT:REVIEW 39 YR OLD MALE WALKED INTO ER CC: SOB SI: COVID PNA. RESPIRATORY DISTRESS 98.7 92 34 136/78 68% ON RA PH=7.44 PCO2+45.4 PO2+53.2 HCO3+30.5 O2 SAT-87.8 IS: PLACED ON NRB 15L IV DECADRON IV ROCEPHIN IV AZITHROMYCIN IV REMDESIVIR BLOOD CX CHEST XRAY : TO ICU
[2020-03-17] MEDS: cefTRIAXone 1 GM in D5W 55 ML IVPB SCH (17:23)
[2020-03-17] MEDS: Azithromycin 500 MG in D5W 275 ML IV SCH (17:56)
--- NOTE | 2020-03-17 18:04 | NUR ---
NURSE NOTES: Pt's VSS, no signs of distress noted. Scheduled medications given per MD order, pt tolerated well. Safety precautions maintained. will continue to monitor.
--- NOTE | 2020-03-17 19:05 | NUR ---
NURSE HAND-OFF REPORT: Latest Vital Signs: Temperature 97.7 , Pulse 83 , B/P 138 /73 , Respiratory Rate 28 , O2 SAT 94 , High Flow Nasal Cannula, O2 Flow Rate 50.0 . Vital Sign Comment: EKG Rhythm: Sinus Rhythm Rhythm change?: N MD Notified?: - MD Response: Latest Hollins Fall Score: 35 Fall Risk: Medium Risk Safety Measures: Call light Within Reach, Bed Alarm Zone 2, Side Rails Side Rails x2, Bed position Low and Locked. Fall Precautions: Yellow Socks Door Sign Patient Fall Education Report given to RENITA Eduardo for continuity of care. Pt stable. .
--- NOTE | 2020-03-17 19:06 | NUR ---
NURSE NOTES: received pt from Madyson MARAVILLA., pt is awake and resting on the bed at this time. AOx 4 Faroese speaker. pvc monitor shows SR at this time. pt is on high flow 50L 90% Fio2 and O2sat is at 94%. no skin issue noted. right AC 20G and left F 18G TKO is running at this time. ABD large, soft, and non-tender. no active bleeding noted. pt states no pain at this time. call light within reach. bed at the lowest position, alarmed, and locked. will continue to monitor pt with plan of care.
--- NOTE | 2020-03-17 20:45 | NUR ---
NURSE NOTES: pt refused to be on a BIPAP, O2sat is at 94% at this time. will continue to monitor pt closely.
[2020-03-17] MEDS: Maintenance Dose:Remdesivir 100mg/NS 230ml x 4 Doses IV SCH ×2 (21:32)
--- NOTE | 2020-03-17 21:52 | NUR ---
NURSE NOTES: provided Ice water and juice. pt states nothing else is need at this time. call light within reach.
--- NOTE | 2020-03-17 23:34 | NUR ---
NURSE NOTES: pt is sleeping at this time on the bed. HOB elevated. call light within reach.
[2020-03-18] VITALS (25 sets, daily range): BP systolic 135–158; BP diastolic 68–90
--- NOTE | 2020-03-18 01:20 | NUR ---
NURSE NOTES: changed linen, oral care given. new Ice water provided. call light within reach. pt states no pain at this time.
--- NOTE | 2020-03-18 03:00 | NUR ---
NURSE NOTES: pt awake and asked for water. and water provided. call light within reach. pt states no pain at this time. no active bleeding noted.
[2020-03-18 04:46] LABS: BASOPHILS % (AUTO) 0.4 % (0.0-2.0); EOSINOPHILS % (AUTO) 0.4 % (0.0-3.0); HEMATOCRIT 43.8 % (42.0-52.0); HEMOGLOBIN 15.7 G/DL (14.2-18.0); LYMPHOCYTES % (AUTO) 7.8 % (20.0-45.0); MEAN CORPUSCULAR VOLUME 83 FL (80-99); MONOCYTES % (AUTO) 7.1 % (1.0-10.0); NEUTROPHILS % (AUTO) 84.4 % (45.0-75.0); PLATELET COUNT 329 K/UL (150-450); RED BLOOD COUNT 5.29 M/UL (4.70-6.10); RED CELL DISTRIBUTION WIDTH 13.2 % (11.6-14.8); WHITE BLOOD COUNT 11.3 K/UL (4.8-10.8)
--- NOTE | 2020-03-18 05:00 | NUR ---
NURSE NOTES: pt is resting on the bed, no changed of condition at this time. call light within reach. will continue to monitor
[2020-03-18 05:11] LABS: ALANINE AMINOTRANSFERASE 51 U/L (12-78); ALBUMIN 2.4 G/DL (3.4-5.0); ALBUMIN/GLOBULIN RATIO 0.6 (1.0-2.7); ALKALINE PHOSPHATASE 63 U/L (46-116); ANION GAP 8 mmol/L (5-15); ASPARTATE AMINO TRANSFERASE 32 U/L (15-37); BILIRUBIN,DIRECT 0.3 MG/DL (0.0-0.3); BILIRUBIN,TOTAL 0.9 MG/DL (0.2-1.0); BLOOD UREA NITROGEN 13 mg/dL (7-18); CALCIUM 7.5 MG/DL (8.5-10.1); CARBON DIOXIDE 27 MMOL/L (21-32); CHLORIDE 99 MMOL/L (98-107); CREATININE 0.8 MG/DL (0.55-1.30); POTASSIUM 3.9 MMOL/L (3.5-5.1); SODIUM 133 MMOL/L (136-145)
[2020-03-18] MEDS: Heparin 5000 units/ml inj SUBQ SCH ×3 (05:58→21:27)
--- NOTE | 2020-03-18 06:43 | NUR ---
NURSE NOTES: left message to Dr. Gross regarding elevated WBC (11.3). will wait for call back. call light within reach.
--- NOTE | 2020-03-18 06:48 | NUR ---
NURSE NOTES: pt desat to 88% with high flow 50L with 90% Fio2, so increased to 55L with 100% Fio2. now pt's O2sat is at 92%. pt is keep refusing bipap. explained risk of refusing bipap. pt made aware.
--- NOTE | 2020-03-18 07:18 | NUR ---
NURSE HAND-OFF REPORT: needs to follow up on low sodium, and low Calcium. Latest Vital Signs: Temperature 97.9 , Pulse 87 , B/P 155 /81 , Respiratory Rate 24 , O2 SAT 90 , Nasal Cannula, O2 Flow Rate 50.0 . Vital Sign Comment: [pt desats, may need bipap] EKG Rhythm: Sinus Rhythm Rhythm change?: N MD Notified?: - MD Response: Latest Hollins Fall Score: 35 Fall Risk: Medium Risk Safety Measures: Call light Within Reach, Bed Alarm Zone 2, Side Rails Side Rails x2, Bed position Low and Locked. Fall Precautions: Yellow Socks Door Sign Patient Fall Education Report given to [Akosua MARAVILLA].
--- NOTE | 2020-03-18 08:00 | NUR ---
NURSE NOTES: Pt was assessed after receiving change of shift report from So Ri RN. Pt is awake, alert, oriented x3, on high flow O2 cannula at 100% FIO2 at 55L O2 with O2Sat fluctuating from 85-93%. Pt desaturates when he forgets to breath through the nose, however O2Sat improves up to 94% when pt closes mouth and takes breath through the nose. NSR on sports medicine physician, HR 70 with bilateral bounding peripheral pulses. Peripheral IV access is noted on right AC #20G and left FA #18G, both saline locked, patent/intact. Temp 98.8F axillary. Pt uses urinal at bedside. Skin is intact. HOB at high shepherd's, bed locked, three side rails up and call light is placed within easy reach. Will continue to monitor pt and follow plan of care per MD orders and protocol.
[2020-03-18] MEDS: dexAMETHasone 10mg/ml Inj IV SCH (08:07)
[2020-03-18] MEDS: Docusate 100mg cap ORAL SCH ×2 (08:08→17:06)
--- NOTE | 2020-03-18 08:53 | NUR ---
CASE MANAGEMENT:REVIEW 03/18/20 SI: COVID PNA (BILATERAL INFILTRATES) 97.9 87 24 155/81 90% ON 50L/90% FIO2 WBC+11.3 NA-133 IS: IV REMDESIVIR Q24 IV DECADRON Q24 IV AZITHROMYCIN Q24 IV ROCEPHIN Q24 HEPARIN SQ Q8HRS : ICU STATUS DCP: FROM HOME
--- NOTE | 2020-03-18 09:00 | NUR ---
NURSE NOTES: AM meds were administered. Pt denies any pain or discomfort at this time. Sitting up in bed, watching TV.
--- NOTE | 2020-03-18 09:41 | General Progress Note ---
Subjective Date patient seen: Mar 18, 2020 ROS Limited/Unobtainable: No Constitutional: Reports: malaise, weakness HEENT: Denies: no symptoms, eye pain, blurred vision, tearing, double vision, ear pain, ear discharge, nose pain, nose congestion, throat pain, throat swelling, mouth pain, mouth swelling, other Cardiovascular: Denies: no symptoms, chest pain, edema, irregular heart rate, lightheadedness, palpitations, syncope, other Respiratory: Reports: cough, shortness of breath Gastrointestinal/Abdominal: Denies: no symptoms, abdomen distended, abdominal pain, black stools, tarry stools, blood in stool, constipated, diarrhea, difficulty swallowing, nausea, poor appetite, poor fluid intake, rectal bleeding, vomiting, other Genitourinary: Denies: no symptoms, burning, discharge, frequency, flank pain, hematuria, incontinence, pain, urgency, other Neurologic/Psychiatric: Denies: no symptoms, anxiety, depressed, emotional problems, headache, numbness, paresthesia, pre-existing deficit, seizure, tingling, tremors, weakness, other Endocrine: Denies: no symptoms, excessive sweating, flushing, intolerance to cold, intolerance to heat, increased hunger, increased thirst, increased urine, unexplained weight gain, unexplained weight loss, other Hematologic/Lymphatic: Denies: no symptoms, anemia, easy bleeding, easy bruising, other Allergies: Coded Allergies: No Known Allergies (Unverified , 03/14/20) Subjective Still on 100% oxygen and saturating high 80's. has refuses bipap and refuses to prone he appears in no distress. Denies chest pain or sob. serum sodium has dropped to 133, serum corrected calcium is normal at 8.8 Objective Last 24 Hour Vital Signs Date Time Temp Pulse Resp B/P (MAP) Pulse Ox O2 Delivery O2 Flow Rate FiO2 03/18/20 07:07 90 High Flow 55.0 100 03/18/20 07:00 87 24 155/81 (105) 90 03/18/20 06:00 72 29 144/71 (95) 93 03/18/20 05:30 87 33 139/75 (96) 88 03/18/20 05:00 86 35 151/90 (110) 93 03/18/20 04:00 Nasal Cannula 50.0 Nasal Cannula 50.0 03/18/20 04:00 97.9 84 34 149/82 (104) 93 03/18/20 04:00 50.0 90 03/18/20 03:12 95 High Flow 50.0 90 03/18/20 03:02 86 03/18/20 03:00 80 33 139/78 (98) 93 03/18/20 02:00 77 35 141/82 (101) 94 03/18/20 01:00 68 38 148/73 (98) 93 03/18/20 00:00 97.5 73 143/85 (104) 94 03/18/20 00:00 Nasal Cannula 50.0 Nasal Cannula 50.0 03/17/20 23:16 78 03/17/20 23:00 80 27 149/76 (100) 93 03/17/20 22:54 96 High Flow 50.0 90 03/17/20 22:30 82 33 153/92 (112) 94 03/17/20 22:00 75 28 154/78 (103) 96 03/17/20 21:00 78 25 136/74 (94) 94 03/17/20 20:00 Nasal Cannula 50.0 Nasal Cannula 50.0 03/17/20 20:00 97.9 80 30 144/80 (101) 95 03/17/20 20:00 50.0 90 03/17/20 19:32 95 High Flow 50.0 90 03/17/20 19:25 77 03/17/20 19:00 83 28 138/73 (94) 94 03/17/20 18:00 78 31 144/75 (98) 94 03/17/20 17:00 75 33 138/77 (97) 92 03/17/20 16:00 Nasal Cannula 50.0 Nasal Cannula 50.0 03/17/20 16:00 50.0 90 03/17/20 16:00 97.7 72 28 135/76 (95) 94 03/17/20 15:56 74 03/17/20 15:01 93 High Flow 50.0 90 03/17/20 15:00 63 31 128/70 (89) 95 03/17/20 14:00 73 32 138/82 (100) 98 03/17/20 13:00 69 29 137/70 (92) 98 03/17/20 12:00 98.0 86 28 155/86 (109) 97 03/17/20 12:00 50.0 80 03/17/20 12:00 Nasal Cannula 50.0 Nasal Cannula 50.0 03/17/20 11:42 83 03/17/20 11:08 98 High Flow 50.0 80 03/17/20 11:00 83 29 149/78 (101) 99 03/17/20 10:00 82 33 146/77 (100) 97 Intake and Output 03/17/20 03/18/20 19:00 07:00 Intake Total 870 ml 1700 ml Output Total 1000 ml 1460 ml Balance -130 ml 240 ml Intake Oral 540 ml 1450 ml IV Total 330 ml 250 ml Output Urine Total 1000 ml 1460 ml Laboratory Tests 03/18/20 04:00: White Blood Count 11.3H, Red Blood Count 5.29, Hemoglobin 15.7, Hematocrit 43.8, Mean Corpuscular Volume 83, Mean Corpuscular Hemoglobin 29.7, Mean Corpuscular Hemoglobin Concent 35.9, Red Cell Distribution Width 13.2, Platelet Count 329, Mean Platelet Volume 5.8L, Neutrophils (%) (Auto) 84.4H, Lymphocytes (%) (Auto) 7.8L, Monocytes (%) (Auto) 7.1, Eosinophils (%) (Auto) 0.4, Basophils (%) (Auto) 0.4, Sodium Level 133L, Potassium Level 3.9, Chloride Level 99, Carbon Dioxide Level 27, Anion Gap 8, Blood Urea Nitrogen 13, Creatinine 0.8, Estimat Glomerular Filtration Rate > 60, Glucose Level 103, Calcium Level 7.5L, Total Bilirubin 0.9, Direct Bilirubin 0.3, Aspartate Amino Transf (AST/SGOT) 32, Alanine Aminotransferase (ALT/SGPT) 51, Alkaline Phosphatase 63, Total Protein 6.7, Albumin 2.4L, Globulin 4.3, Albumin/Globulin Ratio 0.6L 03/18/20 08:06: Arterial Blood pH 7.463H, Arterial Blood Partial Pressure CO2 35.4, Arterial Blood Partial Pressure O2 50.9L, Arterial Blood HCO3 24.8, Arterial Blood Oxygen Saturation 85.9*L, Arterial Blood Base Excess 1.5, José Miguel Test Positive Height (Feet): 6 Height (Inches): 2.00 Weight (Pounds): 280 Objective General Appearance: WD/WN, alert, awake, obese, on HFNC HEENT: normocephalic, atraumatic, mucous membranes moist, PERRL, EOMI Neck: non-tender, normal alignment, supple, normal inspection Respiratory/Chest: chest wall non-tender, no accessory muscle use, mild respiratory distress Cardiovascular/Chest: normal rate, regular rhythm Abdomen: non tender, soft, no organomegaly Extremities: normal range of motion, non-tender, normal inspection, no calf tenderness, no edema Neurologic: set up inspector II-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 CXR and CTA chest unchanged showing multifocal pneumonia. #Acute hypoxemic hypercapneic respiratory failure - stable. PO2 remains low, PCO2 improving, now normalized #Metabolic alkalosis #Hyponatremia #Elevated inflammatory markers - Ferritin, CRP, D-dimer, fibrinogen P: - remains in ICU, critically ill - currently on HFNC, BiPAP ordered for last night to allow patient to rest, but patient refused, so maintained on HFNC. He also refuses proning - monitor ABG - CTA and BLE duplex US negative for PE or DVT, so heparin drip discontinued - cardiac monitoring - TTE ordered per cardiology, f/u results - s/p dexamethasone 10 mg in ED - continue dexamethasone 6 mg daily, remdesivir per ID - continue CTX/Azithro - ID consult, yimi Mcmahon appreciated - Pulm consult, yimi Regan appreciated - Nephro consult, yimi Hair appreciated - Cardiology consult, yimi Nowak appreciated Code: Full GI: Protonix DVT prophylaxis: 5000 u TID Dispo: Pending improving in hypoxic respiratory failure, back to home after Time spent on this encounter was 71 minutes which included 41 minutes of counseling and care coordination and 40 minutes of critical care time including ordering and reviewing blood gas, reviewing heparin orders, reviewing chest imaging and ultrasound imaging and discussion with consultants. I discussed with the nurse at bedside. Time of note may not reflect time patient was seen. Evin Hart M.D. Mar 18, 2020 09:41
--- NOTE | 2020-03-18 10:00 | NUR ---
NURSE NOTES: ABGs were done. Pt was seen by Dr. Hart at bedside. Dr. Piper at the nurse's station. ABG results reported. Pt refuses proning at this time. Pt also refuses Bipap. O2Sat currently at 94%.
--- NOTE | 2020-03-18 12:00 | NUR ---
NURSE NOTES: Pt remains with high flow nasal cannula, however continues to keep mouth open and breaths through the mouth which leads to desaturation down to 85%. Pt was reminded and educated to breath through the nose, since high flow is through nasal cannula. Pt remains afebrile.
--- NOTE | 2020-03-18 12:03 | Pulmonology Progress Note ---
Subjective ROS Limited/Unobtainable: No Interval Events: pt refusing BiPAP, and proning. Remains on high flow oxygen Constitutional: Denies: fever HEENT: Repors: no symptoms Respiratory: Reports: dry cough, productive cough, sputum, hemoptysis, shortness of breath, dyspnea at rest, dyspnea on exertion, wheezing, pleuritic pain, other Cardiovascular: Reports: no symptoms Gastrointestinal/Abdominal: Denies: nausea, vomiting, diarrhea Genitourinary: Reports: no symptoms Neurologic: Reports: no symptoms Psychiatric: Denies: depression Skin: Denies: rash Musculoskeletal: Denies: pain Allergies: Coded Allergies: No Known Allergies (Unverified , 03/14/20) Objective Last 24 Hour Vital Signs Date Time Temp Pulse Resp B/P (MAP) Pulse Ox O2 Delivery O2 Flow Rate FiO2 03/18/20 11:00 93 39 144/75 (98) 95 03/18/20 10:59 92 High Flow 55.0 100 03/18/20 10:00 85 37 140/72 (94) 88 03/18/20 09:00 94 31 158/83 (108) 89 03/18/20 08:00 98.8 88 36 151/82 (105) 92 03/18/20 08:00 55.0 100 03/18/20 08:00 Nasal Cannula 50.0 Nasal Cannula 50.0 03/18/20 08:00 81 03/18/20 07:07 90 High Flow 55.0 100 03/18/20 07:00 87 24 155/81 (105) 90 03/18/20 06:00 72 29 144/71 (95) 93 03/18/20 05:30 87 33 139/75 (96) 88 03/18/20 05:00 86 35 151/90 (110) 93 03/18/20 04:00 Nasal Cannula 50.0 Nasal Cannula 50.0 03/18/20 04:00 97.9 84 34 149/82 (104) 93 03/18/20 04:00 50.0 90 03/18/20 03:12 95 High Flow 50.0 90 03/18/20 03:02 86 03/18/20 03:00 80 33 139/78 (98) 93 03/18/20 02:00 77 35 141/82 (101) 94 03/18/20 01:00 68 38 148/73 (98) 93 03/18/20 00:00 97.5 73 143/85 (104) 94 03/18/20 00:00 Nasal Cannula 50.0 Nasal Cannula 50.0 03/17/20 23:16 78 03/17/20 23:00 80 27 149/76 (100) 93 03/17/20 22:54 96 High Flow 50.0 90 03/17/20 22:30 82 33 153/92 (112) 94 03/17/20 22:00 75 28 154/78 (103) 96 03/17/20 21:00 78 25 136/74 (94) 94 03/17/20 20:00 Nasal Cannula 50.0 Nasal Cannula 50.0 03/17/20 20:00 97.9 80 30 144/80 (101) 95 03/17/20 20:00 50.0 90 03/17/20 19:32 95 High Flow 50.0 90 03/17/20 19:25 77 03/17/20 19:00 83 28 138/73 (94) 94 03/17/20 18:00 78 31 144/75 (98) 94 03/17/20 17:00 75 33 138/77 (97) 92 03/17/20 16:00 Nasal Cannula 50.0 Nasal Cannula 50.0 03/17/20 16:00 50.0 90 03/17/20 16:00 97.7 72 28 135/76 (95) 94 03/17/20 15:56 74 03/17/20 15:01 93 High Flow 50.0 90 03/17/20 15:00 63 31 128/70 (89) 95 03/17/20 14:00 73 32 138/82 (100) 98 03/17/20 13:00 69 29 137/70 (92) 98 Intake and Output 03/17/20 03/18/20 19:00 07:00 Intake Total 870 ml 1700 ml Output Total 1000 ml 1460 ml Balance -130 ml 240 ml Intake Oral 540 ml 1450 ml IV Total 330 ml 250 ml Output Urine Total 1000 ml 1460 ml General Appearance: no acute distress HEENT: normocephalic Respiratory: chest wall non-tender, lungs clear Cardiovascular: normal peripheral pulses Abdomen: normal bowel sounds Laboratory Tests 03/18/20 04:00: White Blood Count 11.3H, Red Blood Count 5.29, Hemoglobin 15.7, Hematocrit 43.8, Mean Corpuscular Volume 83, Mean Corpuscular Hemoglobin 29.7, Mean Corpuscular Hemoglobin Concent 35.9, Red Cell Distribution Width 13.2, Platelet Count 329, Mean Platelet Volume 5.8L, Neutrophils (%) (Auto) 84.4H, Lymphocytes (%) (Auto) 7.8L, Monocytes (%) (Auto) 7.1, Eosinophils (%) (Auto) 0.4, Basophils (%) (Auto) 0.4, Sodium Level 133L, Potassium Level 3.9, Chloride Level 99, Carbon Dioxide Level 27, Anion Gap 8, Blood Urea Nitrogen 13, Creatinine 0.8, Estimat Glomerular Filtration Rate > 60, Glucose Level 103, Calcium Level 7.5L, Total Bilirubin 0.9, Direct Bilirubin 0.3, Aspartate Amino Transf (AST/SGOT) 32, Alanine Aminotransferase (ALT/SGPT) 51, Alkaline Phosphatase 63, Total Protein 6.7, Albumin 2.4L, Globulin 4.3, Albumin/Globulin Ratio 0.6L 03/18/20 08:06: Arterial Blood pH 7.463H, Arterial Blood Partial Pressure CO2 35.4, Arterial Blood Partial Pressure O2 50.9L, Arterial Blood HCO3 24.8, Arterial Blood Oxygen Saturation 85.9*L, Arterial Blood Base Excess 1.5, José Miguel Test Positive 03/18/20 10:40: Urine Random Sodium 51, Urine Creatinine 33.9 Current Medications Medications (Trade) Dose Ordered Sig/Kiley Route PRN Reason Start Time Stop Time Status Last Admin Dose Admin Acetaminophen (Tylenol) 650 mg Q4H PRN ORAL Temp >100.5 03/14/20 22:45 04/13/20 22:44 03/14/20 22:43 Azithromycin 500 mg/Dextrose 275 ml @ 275 mls/hr Q24HRS IV 03/15/20 18:00 03/21/20 18:59 03/17/20 17:56 Ceftriaxone Sodium 1 gm/ Dextrose 55 ml @ 110 mls/hr Q24H IVPB 03/15/20 18:00 03/22/20 17:59 03/17/20 17:23 Dexamethasone Sodium Phosphate (Decadron 10mg/ ml Inj) 6 mg DAILY IV 03/15/20 10:45 03/24/20 10:44 03/18/20 08:07 Dextrose (Dextrose 50%) 25 ml Q30M PRN IV Hypoglycemia 03/14/20 19:00 06/12/20 18:59 Dextrose (Dextrose 50%) 50 ml Q30M PRN IV Hypoglycemia 03/14/20 19:00 06/12/20 18:59 Docusate Sodium (Colace) 100 mg TWICE A DAY ORAL 03/17/20 11:30 04/16/20 11:29 03/18/20 08:08 Heparin Sodium (Porcine) (Heparin 5000 units/ml) 5,000 units EVERY 8 HOURS SUBQ 03/16/20 22:00 04/30/20 21:59 03/18/20 05:58 Pantoprazole (Protonix) 40 mg DAILY ORAL 03/15/20 09:00 04/14/20 08:59 03/18/20 08:07 Remdesivir 100 mg/ Sodium Chloride 250 ml @ 250 mls/hr Q24H IV 03/15/20 21:00 03/18/20 21:59 03/17/20 21:32 Sennosides (Senokot) 8.6 mg DAILYPRN PRN ORAL Constipation 03/17/20 11:30 04/16/20 11:29 Assessment/Plan Assessment/Plan Impression: - COVID-19 pneumonia - stable; extensive bilateral interstitial infiltrates unchanged since prior CXR - Acute hypoxemic hypercapneic respiratory failure - stable. PO2 remains low, PCO2 improving - Obesity BMI 35.9 - Metabolic alkalosis - Hyponatremia; worsening - Hypocalcemia; worsening Plan: - Continue Decadron, AB/antivirals per ID - O2 as needed; on Hi Flow O2 - IVF - Monitor labs - DVT Ppx - TTE ordered per cardiology, f/u results Time spent on this encounter was [address] Piper The care of this patient was discussed with my supervising physician. Des Daniels Mar 18, 2020 12:03 Oral Piper MD Mar 19, 2020 10:45
--- NOTE | 2020-03-18 12:10 | Cardiac Electrophysiology PN ---
Assessment/Plan Assessment/Plan 1. Elevated D-dimer of 0.54. This patient with severe shortness of breath and active COVID infection. Chest CT no PE 2. COVID pneumonia, on remdesivir, azithromycin and ceftriaxone as well as dexamethasone. Further evaluation by Dr. Gross and Dr. Montiel from Pulmonary perspective. 3. Tachycardia due to COVID infection. Echocardiogram Nl EF 65% Subjective Subjective On 100% high flow oxygen in ICU. No events. CT angio no PE. LE Duplex no DVT. EF 65% Objective Last 24 Hour Vital Signs Date Time Temp Pulse Resp B/P (MAP) Pulse Ox O2 Delivery O2 Flow Rate FiO2 03/18/20 12:00 55.0 100 03/18/20 12:00 Nasal Cannula 55.0 Nasal Cannula 55.0 03/18/20 12:00 79 03/18/20 11:00 93 39 144/75 (98) 95 03/18/20 10:59 92 High Flow 55.0 100 03/18/20 10:00 85 37 140/72 (94) 88 03/18/20 09:00 94 31 158/83 (108) 89 03/18/20 08:00 98.8 88 36 151/82 (105) 92 03/18/20 08:00 55.0 100 03/18/20 08:00 Nasal Cannula 50.0 Nasal Cannula 50.0 03/18/20 08:00 81 03/18/20 07:07 90 High Flow 55.0 100 03/18/20 07:00 87 24 155/81 (105) 90 03/18/20 06:00 72 29 144/71 (95) 93 03/18/20 05:30 87 33 139/75 (96) 88 03/18/20 05:00 86 35 151/90 (110) 93 03/18/20 04:00 Nasal Cannula 50.0 Nasal Cannula 50.0 03/18/20 04:00 97.9 84 34 149/82 (104) 93 03/18/20 04:00 50.0 90 03/18/20 03:12 95 High Flow 50.0 90 03/18/20 03:02 86 03/18/20 03:00 80 33 139/78 (98) 93 03/18/20 02:00 77 35 141/82 (101) 94 03/18/20 01:00 68 38 148/73 (98) 93 03/18/20 00:00 97.5 73 143/85 (104) 94 03/18/20 00:00 Nasal Cannula 50.0 Nasal Cannula 50.0 03/17/20 23:16 78 03/17/20 23:00 80 27 149/76 (100) 93 03/17/20 22:54 96 High Flow 50.0 90 03/17/20 22:30 82 33 153/92 (112) 94 03/17/20 22:00 75 28 154/78 (103) 96 03/17/20 21:00 78 25 136/74 (94) 94 03/17/20 20:00 Nasal Cannula 50.0 Nasal Cannula 50.0 03/17/20 20:00 97.9 80 30 144/80 (101) 95 03/17/20 20:00 50.0 90 03/17/20 19:32 95 High Flow 50.0 90 03/17/20 19:25 77 03/17/20 19:00 83 28 138/73 (94) 94 03/17/20 18:00 78 31 144/75 (98) 94 03/17/20 17:00 75 33 138/77 (97) 92 03/17/20 16:00 Nasal Cannula 50.0 Nasal Cannula 50.0 03/17/20 16:00 50.0 90 03/17/20 16:00 97.7 72 28 135/76 (95) 94 03/17/20 15:56 74 03/17/20 15:01 93 High Flow 50.0 90 03/17/20 15:00 63 31 128/70 (89) 95 03/17/20 14:00 73 32 138/82 (100) 98 03/17/20 13:00 69 29 137/70 (92) 98 Intake and Output 03/17/20 03/18/20 19:00 07:00 Intake Total 870 ml 1700 ml Output Total 1000 ml 1460 ml Balance -130 ml 240 ml Intake Oral 540 ml 1450 ml IV Total 330 ml 250 ml Output Urine Total 1000 ml 1460 ml Laboratory Tests Test 03/18/20 04:00 03/18/20 08:06 03/18/20 10:40 White Blood Count 11.3 K/UL (4.8-10.8) H Red Blood Count 5.29 M/UL (4.70-6.10) Hemoglobin 15.7 G/DL (14.2-18.0) Hematocrit 43.8 % (42.0-52.0) Mean Corpuscular Volume 83 FL (80-99) Mean Corpuscular Hemoglobin 29.7 PG (27.0-31.0) Mean Corpuscular Hemoglobin Concent 35.9 G/DL (32.0-36.0) Red Cell Distribution Width 13.2 % (11.6-14.8) Platelet Count 329 K/UL (150-450) Mean Platelet Volume 5.8 FL (6.5-10.1) L Neutrophils (%) (Auto) 84.4 % (45.0-75.0) H Lymphocytes (%) (Auto) 7.8 % (20.0-45.0) L Monocytes (%) (Auto) 7.1 % (1.0-10.0) Eosinophils (%) (Auto) 0.4 % (0.0-3.0) Basophils (%) (Auto) 0.4 % (0.0-2.0) Sodium Level 133 MMOL/L (136-145) L Potassium Level 3.9 MMOL/L (3.5-5.1) Chloride Level 99 MMOL/L (98-107) Carbon Dioxide Level 27 MMOL/L (21-32) Anion Gap 8 mmol/L (5-15) Blood Urea Nitrogen 13 mg/dL (7-18) Creatinine 0.8 MG/DL (0.55-1.30) Estimat Glomerular Filtration Rate > 60 mL/min (>60) Glucose Level 103 MG/DL (74-106) Calcium Level 7.5 MG/DL (8.5-10.1) L Total Bilirubin 0.9 MG/DL (0.2-1.0) Direct Bilirubin 0.3 MG/DL (0.0-0.3) Aspartate Amino Transf (AST/SGOT) 32 U/L (15-37) Alanine Aminotransferase (ALT/SGPT) 51 U/L (12-78) Alkaline Phosphatase 63 U/L (46-116) Total Protein 6.7 G/DL (6.4-8.2) Albumin 2.4 G/DL (3.4-5.0) L Globulin 4.3 g/dL Albumin/Globulin Ratio 0.6 (1.0-2.7) L Arterial Blood pH 7.463 (7.350-7.450) Arterial Blood Partial Pressure CO2 35.4 mmHg (35.0-45.0) Arterial Blood Partial Pressure O2 50.9 mmHg (75.0-100.0) L Arterial Blood HCO3 24.8 mmol/L (22.0-26.0) Arterial Blood Oxygen Saturation 85.9 % (95-100) *L Arterial Blood Base Excess 1.5 (-2-2) José Miguel Test Positive Urine Random Sodium 51 mmol/L (20-110) Urine Creatinine 33.9 MG/DL (30.0-125.0) Objective HEAD AND NECK: No JVD. LUNGS: Coarse rhonchi. CARDIOVASCULAR: Regular S1 and S2 with no gallop or murmur and tachycardic. ABDOMEN: Soft and obese. EXTREMITIES: No pitting edema. Santi Barnard MD Mar 18, 2020 12:10
--- NOTE | 2020-03-18 13:40 | Infectious Diseases Prog Note ---
Assessment/Plan Assessment/Plan ASSESSMENT AND PLAN: 1. covid-19 infection with pna, ? cap, fevers - dexamethasone - day # 4 - remdesivir - day 4 - azithromycin and ceftriaxone - day # 4 - monitor labs and hypoxia - monitor chest x-ray 2. No other significant past medical history. 3. No known allergies. 4. Social history is negative. 5. Family history is noncontributory. 6. MAR is noted. 7. Case discussed with RN. 8. Continue treatment per primary consultants. Subjective Constitutional: Denies: fever HEENT: Reports: congestion Respiratory: Reports: shortness of breath Cardiovascular: Denies: chest pain Gastrointestinal/Abdominal: Denies: nausea, vomiting, diarrhea Allergies: Coded Allergies: No Known Allergies (Unverified , 03/14/20) Objective Last 24 Hour Vital Signs Date Time Temp Pulse Resp B/P (MAP) Pulse Ox O2 Delivery O2 Flow Rate FiO2 03/18/20 13:00 98.0 81 27 144/80 (101) 90 03/18/20 12:00 55.0 100 03/18/20 12:00 Nasal Cannula 55.0 Nasal Cannula 55.0 03/18/20 12:00 72 32 143/82 (102) 92 03/18/20 12:00 79 03/18/20 11:00 93 39 144/75 (98) 95 03/18/20 10:59 92 High Flow 55.0 100 03/18/20 10:00 85 37 140/72 (94) 88 03/18/20 09:00 94 31 158/83 (108) 89 03/18/20 08:00 98.8 88 36 151/82 (105) 92 03/18/20 08:00 55.0 100 03/18/20 08:00 Nasal Cannula 50.0 Nasal Cannula 50.0 03/18/20 08:00 81 03/18/20 07:07 90 High Flow 55.0 100 03/18/20 07:00 87 24 155/81 (105) 90 03/18/20 06:00 72 29 144/71 (95) 93 03/18/20 05:30 87 33 139/75 (96) 88 03/18/20 05:00 86 35 151/90 (110) 93 03/18/20 04:00 Nasal Cannula 50.0 Nasal Cannula 50.0 03/18/20 04:00 97.9 84 34 149/82 (104) 93 03/18/20 04:00 50.0 90 03/18/20 03:12 95 High Flow 50.0 90 03/18/20 03:02 86 03/18/20 03:00 80 33 139/78 (98) 93 03/18/20 02:00 77 35 141/82 (101) 94 03/18/20 01:00 68 38 148/73 (98) 93 03/18/20 00:00 97.5 73 143/85 (104) 94 03/18/20 00:00 Nasal Cannula 50.0 Nasal Cannula 50.0 03/17/20 23:16 78 03/17/20 23:00 80 27 149/76 (100) 93 03/17/20 22:54 96 High Flow 50.0 90 03/17/20 22:30 82 33 153/92 (112) 94 03/17/20 22:00 75 28 154/78 (103) 96 03/17/20 21:00 78 25 136/74 (94) 94 03/17/20 20:00 Nasal Cannula 50.0 Nasal Cannula 50.0 03/17/20 20:00 97.9 80 30 144/80 (101) 95 03/17/20 20:00 50.0 90 03/17/20 19:32 95 High Flow 50.0 90 03/17/20 19:25 77 03/17/20 19:00 83 28 138/73 (94) 94 03/17/20 18:00 78 31 144/75 (98) 94 03/17/20 17:00 75 33 138/77 (97) 92 03/17/20 16:00 Nasal Cannula 50.0 Nasal Cannula 50.0 03/17/20 16:00 50.0 90 03/17/20 16:00 97.7 72 28 135/76 (95) 94 03/17/20 15:56 74 03/17/20 15:01 93 High Flow 50.0 90 03/17/20 15:00 63 31 128/70 (89) 95 03/17/20 14:00 73 32 138/82 (100) 98 Height (Feet): 6 Height (Inches): 2.00 Weight (Pounds): 280 General Appearance: no acute distress HEENT: normocephalic, atraumatic, anicteric Respiratory/Chest: crackles/rales, rhonchi - bilaterally Cardiovascular: normal rate, regular rhythm Chest x-ray - 03/17/20 - Procedure: XRAY Chest 1v Indication: Shortness of breath and cough Technique: One view of the chest Comparison: 03/14/2020 Findings: Again demonstrated are extensive bilateral interstitial and airspace infiltrates. Normal heart size. Findings are unchanged Impression: Extensive bilateral infiltrates, unchanged since prior exam of 03/14/2020 Laboratory Tests Test 03/18/20 04:00 03/18/20 08:06 03/18/20 10:40 White Blood Count 11.3 K/UL (4.8-10.8) H Red Blood Count 5.29 M/UL (4.70-6.10) Hemoglobin 15.7 G/DL (14.2-18.0) Hematocrit 43.8 % (42.0-52.0) Mean Corpuscular Volume 83 FL (80-99) Mean Corpuscular Hemoglobin 29.7 PG (27.0-31.0) Mean Corpuscular Hemoglobin Concent 35.9 G/DL (32.0-36.0) Red Cell Distribution Width 13.2 % (11.6-14.8) Platelet Count 329 K/UL (150-450) Mean Platelet Volume 5.8 FL (6.5-10.1) L Neutrophils (%) (Auto) 84.4 % (45.0-75.0) H Lymphocytes (%) (Auto) 7.8 % (20.0-45.0) L Monocytes (%) (Auto) 7.1 % (1.0-10.0) Eosinophils (%) (Auto) 0.4 % (0.0-3.0) Basophils (%) (Auto) 0.4 % (0.0-2.0) Sodium Level 133 MMOL/L (136-145) L Potassium Level 3.9 MMOL/L (3.5-5.1) Chloride Level 99 MMOL/L (98-107) Carbon Dioxide Level 27 MMOL/L (21-32) Anion Gap 8 mmol/L (5-15) Blood Urea Nitrogen 13 mg/dL (7-18) Creatinine 0.8 MG/DL (0.55-1.30) Estimat Glomerular Filtration Rate > 60 mL/min (>60) Glucose Level 103 MG/DL (74-106) Calcium Level 7.5 MG/DL (8.5-10.1) L Total Bilirubin 0.9 MG/DL (0.2-1.0) Direct Bilirubin 0.3 MG/DL (0.0-0.3) Aspartate Amino Transf (AST/SGOT) 32 U/L (15-37) Alanine Aminotransferase (ALT/SGPT) 51 U/L (12-78) Alkaline Phosphatase 63 U/L (46-116) Total Protein 6.7 G/DL (6.4-8.2) Albumin 2.4 G/DL (3.4-5.0) L Globulin 4.3 g/dL Albumin/Globulin Ratio 0.6 (1.0-2.7) L Arterial Blood pH 7.463 (7.350-7.450) Arterial Blood Partial Pressure CO2 35.4 mmHg (35.0-45.0) Arterial Blood Partial Pressure O2 50.9 mmHg (75.0-100.0) L Arterial Blood HCO3 24.8 mmol/L (22.0-26.0) Arterial Blood Oxygen Saturation 85.9 % (95-100) *L Arterial Blood Base Excess 1.5 (-2-2) José Miguel Test Positive Urine Random Sodium 51 mmol/L (20-110) Urine Creatinine 33.9 MG/DL (30.0-125.0) Current Medications Medications (Trade) Dose Ordered Sig/Kiley Route PRN Reason Start Time Stop Time Status Last Admin Dose Admin Acetaminophen (Tylenol) 650 mg Q4H PRN ORAL Temp >100.5 03/14/20 22:45 04/13/20 22:44 03/14/20 22:43 Azithromycin 500 mg/Dextrose 275 ml @ 275 mls/hr Q24HRS IV 03/15/20 18:00 03/21/20 18:59 03/17/20 17:56 Ceftriaxone Sodium 1 gm/ Dextrose 55 ml @ 110 mls/hr Q24H IVPB 03/15/20 18:00 03/22/20 17:59 03/17/20 17:23 Dexamethasone Sodium Phosphate (Decadron 10mg/ ml Inj) 6 mg DAILY IV 03/15/20 10:45 03/24/20 10:44 03/18/20 08:07 Dextrose (Dextrose 50%) 25 ml Q30M PRN IV Hypoglycemia 03/14/20 19:00 06/12/20 18:59 Dextrose (Dextrose 50%) 50 ml Q30M PRN IV Hypoglycemia 03/14/20 19:00 06/12/20 18:59 Docusate Sodium (Colace) 100 mg TWICE A DAY ORAL 03/17/20 11:30 04/16/20 11:29 03/18/20 08:08 Heparin Sodium (Porcine) (Heparin 5000 units/ml) 5,000 units EVERY 8 HOURS SUBQ 03/16/20 22:00 04/30/20 21:59 03/18/20 13:13 Pantoprazole (Protonix) 40 mg DAILY ORAL 03/15/20 09:00 04/14/20 08:59 03/18/20 08:07 Remdesivir 100 mg/ Sodium Chloride 250 ml @ 250 mls/hr Q24H IV 03/15/20 21:00 03/18/20 21:59 03/17/20 21:32 Sennosides (Senokot) 8.6 mg DAILYPRN PRN ORAL Constipation 03/17/20 11:30 04/16/20 11:29 Ori Gross MD Mar 18, 2020 13:40
--- NOTE | 2020-03-18 14:00 | NUR ---
NURSE NOTES: VS remain stable. Pt is watching TV in no apparent distress.
--- NOTE | 2020-03-18 14:50 | Cardiology Report ---
APPROVED REPORT EKG Measurement Heart [id number] <Conclusion> Normal sinus rhythm Normal ECG
--- NOTE | 2020-03-18 16:00 | NUR ---
NURSE NOTES: VS remain stable. Pt is afebrile. Pt is asleep with mouth open, desaturating down to 83%. Pt was awakened and reminded to breath through the nose, O2Sat increased to 94%. Denies any pain or discomfort.
[2020-03-18] MEDS: cefTRIAXone 1 GM in D5W 55 ML IVPB SCH (17:06)
[2020-03-18] MEDS: Azithromycin 500 MG in D5W 275 ML IV SCH (17:07)
--- NOTE | 2020-03-18 18:00 | NUR ---
NURSE NOTES: Pt consumed 100% of dinner meal. Remains on high flow nasal cannula at 55L of O2/FIO2 100% with O2Sat fluctuating from 85-94. Pt will desaturate when breathing through mouth. Pt needs continuous reminder to breath through nose to maintain optimal O2Sat levels.
--- NOTE | 2020-03-18 18:30 | NUR ---
NURSE NOTES: Pt was assisted with repositioning, gown/bed linens were changed.
--- NOTE | 2020-03-18 19:10 | NUR ---
NURSE HAND-OFF REPORT: Latest Vital Signs: Temperature 98.5 , Pulse 78 , B/P 136 /74 , Respiratory Rate 31 , O2 SAT 90 , Nasal Cannula, O2 Flow Rate 55.0 . Vital Sign Comment: Pt remains on high flow cannula, with O2Sat fluctuating from 90-94%. EKG Rhythm: Sinus Rhythm Rhythm change?: N MD Notified?: - MD Response: Latest Hollins Fall Score: 35 Fall Risk: Medium Risk Safety Measures: Call light Within Reach, Bed Alarm Zone 2, Side Rails Side Rails x2, Bed position Low and Locked. Fall Precautions: Yellow Socks Door Sign Patient Fall Education Report given to Mikhail MARAVILLA. Endorsed plan of care.
--- NOTE | 2020-03-18 19:30 | NUR ---
NURSE NOTES: Pt report received from Carol MARAVILLA. pt remains stable. pt is alert and oriented times 4, able to follow simple commands. pt is on high flow nasal canula, satting 95% O2, no apparent resp distress. pt is on radiation monitor showing NSR, no acute cardiac abnormalities. pt bed is low, locked, armed, call light within reach, bed rails up times 3. will follow plan of care.
--- NOTE | 2020-03-18 20:00 | NUR ---
NURSE NOTES: RT Matthias assessed pt. pt refuses BIPAP.
--- NOTE | 2020-03-18 21:20 | NUR ---
NURSE NOTES: gave pts IV Remdesivir. offered pt water. assessed pts high flow NC, pt sating 88 to 90% O2.
[2020-03-18] MEDS: Maintenance Dose:Remdesivir 100mg/NS 230ml x 4 Doses IV SCH ×2 (21:26)
--- NOTE | 2020-03-18 22:20 | NUR ---
NURSE NOTES: pt refused BIPAP.
[2020-03-19] VITALS (24 sets, daily range): BP systolic 124–142; BP diastolic 65–92
--- NOTE | 2020-03-19 00:56 | NUR ---
NURSE NOTES: assessed pts high flow nasal canula. pt is sating 88% O2. pt still refusing BIPAP.
--- NOTE | 2020-03-19 02:12 | NUR ---
NURSE NOTES: changed pts gown and offered clean wipes.
--- NOTE | 2020-03-19 04:20 | NUR ---
NURSE NOTES: pt noted to go jovan cardiac 57s then quicky convert to Sinus rhythm. pt yet refuses to wear BIPAP. pts O2 sat at 88.
[2020-03-19 05:58] LABS: BASOPHILS % (AUTO) 1.3 % (0.0-2.0); EOSINOPHILS % (AUTO) 0.7 % (0.0-3.0); HEMATOCRIT 33.9 % (42.0-52.0); HEMOGLOBIN 12.3 G/DL (14.2-18.0); LYMPHOCYTES % (AUTO) 7.4 % (20.0-45.0); MEAN CORPUSCULAR VOLUME 83 FL (80-99); MONOCYTES % (AUTO) 7.9 % (1.0-10.0); NEUTROPHILS % (AUTO) 82.8 % (45.0-75.0); PLATELET COUNT 241 K/UL (150-450); RED BLOOD COUNT 4.09 M/UL (4.70-6.10); RED CELL DISTRIBUTION WIDTH 13.4 % (11.6-14.8); WHITE BLOOD COUNT 6.9 K/UL (4.8-10.8)
[2020-03-19 06:04] LABS: ANION GAP 9 mmol/L (5-15); BLOOD UREA NITROGEN 15 mg/dL (7-18); CALCIUM 8.2 MG/DL (8.5-10.1); CARBON DIOXIDE 23 MMOL/L (21-32); CHLORIDE 102 MMOL/L (98-107); CREATININE 0.8 MG/DL (0.55-1.30); POTASSIUM 4.3 MMOL/L (3.5-5.1); SODIUM 134 MMOL/L (136-145)
[2020-03-19] MEDS: Heparin 5000 units/ml inj SUBQ SCH ×3 (06:27→22:00)
--- NOTE | 2020-03-19 07:18 | NUR ---
NURSE HAND-OFF REPORT: Latest Vital Signs: Temperature 98.1 , Pulse 83 , B/P 137 /69 , Respiratory Rate 31 , O2 SAT 90 , Nasal Cannula, O2 Flow Rate 55.0 . Vital Sign Comment: monitor O2. EKG Rhythm: Sinus Rhythm Rhythm change?: N MD Notified?: - MD Response: Latest Hollins Fall Score: 35 Fall Risk: Medium Risk Safety Measures: Call light Within Reach, Bed Alarm Zone 2, Side Rails Side Rails x2, Bed position Low and Locked. Fall Precautions: Yellow Socks Door Sign Patient Fall Education Report given to Estelle Medina RN
--- NOTE | 2020-03-19 08:00 | NUR ---
NURSE NOTES: Pt was assessed after receiving change of shift report from Mikhail MARAVILLA. Pt is awake, alert, oriented x3, on high flow O2 cannula at 100% FIO2 at 55L O2 with O2Sat from 91-94%. Pt desaturates when he forgets to breath through the nose, however O2Sat improves up to 94% when pt closes mouth and takes breath through the nose. NSR on cardiac nurse specialist, HR 83 with bilateral bounding peripheral pulses. Peripheral IV access is noted on right AC #20G and left FA #18G, both saline locked, patent/intact. Temp 98.5F axillary. Pt uses urinal at bedside. Skin is intact. HOB at high shepherd's, bed locked, three side rails up and call light is placed within easy reach. Will continue to monitor pt and follow plan of care per MD orders and protocol.
[2020-03-19] MEDS: dexAMETHasone 10mg/ml Inj IV SCH (08:11)
[2020-03-19] MEDS: Docusate 100mg cap ORAL SCH ×2 (08:11→18:00)
--- NOTE | 2020-03-19 09:00 | NUR ---
NURSE NOTES: AM meds were administered. Pt denies any pain or discomfort at this time. Remains in high-shepherd's position, watching TV, on high flow 55L with O2Sat 92%. Refused breakfast this morning. Refuses proning at this time.
--- NOTE | 2020-03-19 10:38 | General Progress Note ---
Subjective Date patient seen: Mar 19, 2020 Constitutional: Reports: malaise, weakness HEENT: Denies: no symptoms, eye pain, blurred vision, tearing, double vision, ear pain, ear discharge, nose pain, nose congestion, throat pain, throat swelling, mouth pain, mouth swelling, other Cardiovascular: Denies: no symptoms, chest pain, edema, irregular heart rate, lightheadedness, palpitations, syncope, other Respiratory: Reports: shortness of breath Gastrointestinal/Abdominal: Reports: poor appetite, poor fluid intake; Denies: no symptoms, abdomen distended, abdominal pain, black stools, tarry stools, blood in stool, constipated, diarrhea, difficulty swallowing, nausea, rectal bleeding, vomiting, other Genitourinary: Denies: no symptoms, burning, discharge, frequency, flank pain, hematuria, incontinence, pain, urgency, other Neurologic/Psychiatric: Denies: no symptoms, anxiety, depressed, emotional problems, headache, numbness, paresthesia, pre-existing deficit, seizure, tingling, tremors, weakness, other Endocrine: Denies: no symptoms, excessive sweating, flushing, intolerance to cold, intolerance to heat, increased hunger, increased thirst, increased urine, unexplained weight gain, unexplained weight loss, other Hematologic/Lymphatic: Denies: no symptoms, anemia, easy bleeding, easy bruising, other Allergies: Coded Allergies: No Known Allergies (Unverified , 03/14/20) Subjective Still on 100% oxygen, saturating 100% ABG reviewed, Pao2 slightly better. PF ratio 60. has refused bipap and refuses to prone, agrees to lay on his side today he appears in no distress. Denies chest pain or sob. poor po intake Objective Last 24 Hour Vital Signs Date Time Temp Pulse Resp B/P (MAP) Pulse Ox O2 Delivery O2 Flow Rate FiO2 03/19/20 10:00 74 31 131/70 (90) 93 03/19/20 09:00 85 22 138/79 (98) 93 03/19/20 08:00 79 03/19/20 08:00 Nasal Cannula 55.0 Nasal Cannula 55.0 03/19/20 08:00 98.5 77 32 132/69 (90) 94 03/19/20 08:00 55.0 100 03/19/20 07:57 94 High Flow 55.0 100 03/19/20 07:00 83 31 137/69 (91) 90 03/19/20 06:00 79 31 141/75 (97) 90 03/19/20 05:00 76 31 142/72 (95) 90 03/19/20 04:00 55.0 100 03/19/20 04:00 Nasal Cannula 55.0 Nasal Cannula 55.0 03/19/20 04:00 98.1 71 31 132/67 (88) 90 03/19/20 04:00 75 03/19/20 03:10 91 High Flow 55.0 100 03/19/20 03:00 77 20 131/73 (92) 88 03/19/20 02:00 75 32 128/73 (91) 90 03/19/20 01:00 79 31 137/78 (97) 87 03/19/20 00:00 55.0 100 03/19/20 00:00 98.2 73 24 139/74 (95) 89 03/19/20 00:00 67 03/19/20 00:00 98.2 74 29 136/76 (96) 90 03/19/20 00:00 Nasal Cannula 55.0 Nasal Cannula 55.0 03/18/20 23:21 91 High Flow 55.0 100 03/18/20 23:00 72 24 145/77 (99) 88 03/18/20 22:00 75 25 135/68 (90) 83 03/18/20 21:00 80 17 142/83 (102) 88 03/18/20 20:00 55.0 100 03/18/20 20:00 Nasal Cannula 55.0 Nasal Cannula 55.0 03/18/20 20:00 79 03/18/20 20:00 98.2 74 29 136/76 (96) 90 03/18/20 19:17 90 High Flow 55.0 100 03/18/20 19:00 78 31 136/74 (94) 90 03/18/20 18:00 89 32 147/78 (101) 87 03/18/20 17:00 76 29 141/73 (95) 90 03/18/20 16:00 83 03/18/20 16:00 55.0 100 03/18/20 16:00 Nasal Cannula 55.0 Nasal Cannula 55.0 03/18/20 16:00 98.5 84 29 144/82 (102) 90 03/18/20 15:21 90 High Flow 55.0 100 03/18/20 15:00 71 28 146/84 (104) 90 03/18/20 14:00 81 23 151/84 (106) 91 03/18/20 13:00 98.0 81 27 144/80 (101) 90 03/18/20 12:00 55.0 100 03/18/20 12:00 Nasal Cannula 55.0 Nasal Cannula 55.0 03/18/20 12:00 72 32 143/82 (102) 92 03/18/20 12:00 79 03/18/20 11:00 93 39 144/75 (98) 95 03/18/20 10:59 92 High Flow 55.0 100 Intake and Output 03/18/20 03/19/20 19:00 07:00 Intake Total 835 ml 250 ml Output Total 1110 ml 800 ml Balance -275 ml -550 ml Intake Oral 450 ml IV Total 385 ml 250 ml Output Urine Total 1110 ml 800 ml Laboratory Tests 03/18/20 10:40: Urine Random Sodium 51, Urine Creatinine 33.9 03/19/20 04:30: White Blood Count 6.9, Red Blood Count 4.09L, Hemoglobin 12.3L, Hematocrit 33.9L , Mean Corpuscular Volume 83, Mean Corpuscular Hemoglobin 30.0, Mean Corpuscular Hemoglobin Concent 36.1H, Red Cell Distribution Width 13.4, Platelet Count 241, Mean Platelet Volume 5.2L, Neutrophils (%) (Auto) 82.8H, Lymphocytes (%) (Auto) 7.4L, Monocytes (%) (Auto) 7.9, Eosinophils (%) (Auto) 0.7, Basophils (%) (Auto) 1.3, Sodium Level 134L, Potassium Level 4.3, Chloride Level 102, Carbon Dioxide Level 23, Anion Gap 9, Blood Urea Nitrogen 15, Creatinine 0.8, Estimat Glomerular Filtration Rate > 60, Glucose Level 98, Calcium Level 8.2L 03/19/20 10:14: Arterial Blood pH 7.437, Arterial Blood Partial Pressure CO2 38.6, Arterial B lood Partial Pressure O2 60.5L, Arterial Blood HCO3 25.5, Arterial Blood Oxygen Saturation 90.9L, Arterial Blood Base Excess 1.4, José Miguel Test Positive Height (Feet): 6 Height (Inches): 2.00 Weight (Pounds): 280 Objective General Appearance: WD/WN, alert, awake, obese, on HFNC HEENT: normocephalic, atraumatic, mucous membranes moist, PERRL, EOMI Neck: non-tender, normal alignment, supple, normal inspection Respiratory/Chest: chest wall non-tender, no accessory muscle use, mild respiratory distress Cardiovascular/Chest: normal rate, regular rhythm Abdomen: non tender, soft, no organomegaly Extremities: normal range of motion, non-tender, normal inspection, no calf tenderness, no edema Neurologic: assistant to the president II-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 CXR and CTA chest unchanged showing multifocal pneumonia. #Acute hypoxemic hypercapneic respiratory failure - stable. PO2 remains low, PCO 2 improving, now normalized #Metabolic alkalosis #Hyponatremia-likely SIADH based on urine sodium #Elevated inflammatory markers - Ferritin, CRP, D-dimer, fibrinogen P: - remains in ICU, critically ill - currently on HFNC, BiPAP ordered for last night to allow patient to rest, but patient refused, so maintained on HFNC. He also refuses proning - monitor ABG -Wean O2 as tolerated - CTA and BLE duplex US negative for PE or DVT, so heparin drip discontinued - cardiac monitoring - TTE ordered per cardiology, f/u results - s/p dexamethasone 10 mg in ED - continue dexamethasone 6 mg daily, remdesivir per ID - continue CTX/Azithro - ID consult, Dr. Elizalde, recs appreciated - Pulm consult, Dr. Piper, recs appreciated - Nephro consult, Dr. Zimmerman, recs appreciated - Cardiology consult, Dr. Barnard, recs appreciated Code: Full GI: Protonix DVT prophylaxis: 5000 u TID Dispo: Pending improving in hypoxic respiratory failure, back to home after Time spent on this encounter was 71 minutes which included 41 minutes of counseling and care coordination and 40 minutes of critical care time including ordering and reviewing blood gas, reviewing heparin orders, reviewing chest imaging and ultrasound imaging and discussion with consultants. I discussed w ith the nurse at bedside. Time of note may not reflect time patient was seen. Evin Hart M.D. Mar 19, 2020 10:38
--- NOTE | 2020-03-19 10:45 | Pulmonology Progress Note ---
Subjective ROS Limited/Unobtainable: No Interval Events: pt refusing BiPAP, and proning. Remains on high flow oxygen; better today Constitutional: Denies: fever HEENT: Repors: no symptoms Respiratory: Reports: dry cough, productive cough, sputum, hemoptysis, shortness of breath, dyspnea at rest, dyspnea on exertion, wheezing, pleuritic p ain, other Cardiovascular: Reports: no symptoms Gastrointestinal/Abdominal: Denies: nausea, vomiting, diarrhea Genitourinary: Reports: no symptoms Neurologic: Reports: no symptoms Psychiatric: Denies: depression Skin: Denies: rash Musculoskeletal: Denies: pain Allergies: Coded Allergies: No Known Allergies (Unverified , 03/14/20) Objective Last 24 Hour Vital Signs Date Time Temp Pulse Resp B/P (MAP) Pulse Ox O2 Delivery O2 Flow Rate FiO2 03/19/20 10:00 74 31 131/70 (90) 93 03/19/20 09:00 85 22 138/79 (98) 93 03/19/20 08:00 79 03/19/20 08:00 Nasal Cannula 55.0 Nasal Cannula 55.0 03/19/20 08:00 98.5 77 32 132/69 (90) 94 03/19/20 08:00 55.0 100 03/19/20 07:57 94 High Flow 55.0 100 03/19/20 07:00 83 31 137/69 (91) 90 03/19/20 06:00 79 31 141/75 (97) 90 03/19/20 05:00 76 31 142/72 (95) 90 03/19/20 04:00 55.0 100 03/19/20 04:00 Nasal Cannula 55.0 Nasal Cannula 55.0 03/19/20 04:00 98.1 71 31 132/67 (88) 90 03/19/20 04:00 75 03/19/20 03:10 91 High Flow 55.0 100 03/19/20 03:00 77 20 131/73 (92) 88 03/19/20 02:00 75 32 128/73 (91) 90 03/19/20 01:00 79 31 137/78 (97) 87 03/19/20 00:00 55.0 100 03/19/20 00:00 98.2 73 24 139/74 (95) 89 03/19/20 00:00 67 03/19/20 00:00 98.2 74 29 136/76 (96) 90 03/19/20 00:00 Nasal Cannula 55.0 Nasal Cannula 55.0 03/18/20 23:21 91 High Flow 55.0 100 03/18/20 23:00 72 24 145/77 (99) 88 03/18/20 22:00 75 25 135/68 (90) 83 03/18/20 21:00 80 17 142/83 (102) 88 03/18/20 20:00 55.0 100 03/18/20 20:00 Nasal Cannula 55.0 Nasal Cannula 55.0 03/18/20 20:00 79 03/18/20 20:00 98.2 74 29 136/76 (96) 90 03/18/20 19:17 90 High Flow 55.0 100 03/18/20 19:00 78 31 136/74 (94) 90 03/18/20 18:00 89 32 147/78 (101) 87 03/18/20 17:00 76 29 141/73 (95) 90 03/18/20 16:00 83 03/18/20 16:00 55.0 100 03/18/20 16:00 Nasal Cannula 55.0 Nasal Cannula 55.0 03/18/20 16:00 98.5 84 29 144/82 (102) 90 03/18/20 15:21 90 High Flow 55.0 100 03/18/20 15:00 71 28 146/84 (104) 90 03/18/20 14:00 81 23 151/84 (106) 91 03/18/20 13:00 98.0 81 27 144/80 (101) 90 03/18/20 12:00 55.0 100 03/18/20 12:00 Nasal Cannula 55.0 Nasal Cannula 55.0 03/18/20 12:00 72 32 143/82 (102) 92 03/18/20 12:00 79 03/18/20 11:00 93 39 144/75 (98) 95 03/18/20 10:59 92 High Flow 55.0 100 Intake and Output 03/18/20 03/19/20 19:00 07:00 Intake Total 835 ml 250 ml Output Total 1110 ml 800 ml Balance -275 ml -550 ml Intake Oral 450 ml IV Total 385 ml 250 ml Output Urine Total 1110 ml 800 ml General Appearance: no acute distress HEENT: normocephalic Respiratory: chest wall non-tender, lungs clear Cardiovascular: normal peripheral pulses Abdomen: normal bowel sounds Laboratory Tests 03/19/20 04:30: White Blood Count 6.9, Red Blood Count 4.09L, Hemoglobin 12.3L, Hematocrit 33.9L , Mean Corpuscular Volume 83, Mean Corpuscular Hemoglobin 30.0, Mean Corpuscular Hemoglobin Concent 36.1H, Red Cell Distribution Width 13.4, Platelet Count 241, Mean Platelet Volume 5.2L, Neutrophils (%) (Auto) 82.8H, Lymphocytes (%) (Auto) 7.4L, Monocytes (%) (Auto) 7.9, Eosinophils (%) (Auto) 0.7, Basophils (%) (Auto) 1.3, Sodium Level 134L, Potassium Level 4.3, Chloride Level 102, Carbon Dioxide Level 23, Anion Gap 9, Blood Urea Nitrogen 15, Creatinine 0.8, Estimat Glomerular Filtration Rate > 60, Glucose Level 98, Calcium Level 8.2L 03/19/20 10:14: Arterial Blood pH 7.437, Arterial Blood Partial Pressure CO2 38.6, Arterial Blood Partial Pressure O2 60.5L, Arterial Blood HCO3 25.5, Arterial Blood Oxygen Saturation 90.9L, Arterial Blood Base Excess 1.4, José Miguel Test Positive Current Medications Medications (Trade) Dose Ordered Sig/Kiley Route PRN Reason Start Time Stop Time Status Last Admin Dose Admin Acetaminophen (Tylenol) 650 mg Q4H PRN ORAL Temp >100.5 03/14/20 22:45 04/13/20 22:44 03/14/20 22:43 Azithromycin 500 mg/Dextrose 275 ml @ 275 mls/hr Q24HRS IV 03/15/20 18:00 03/21/20 18:59 03/18/20 17:07 Ceftriaxone Sodium 1 gm/ Dextrose 55 ml @ 110 mls/hr Q24H IVPB 03/15/20 18:00 03/22/20 17:59 03/18/20 17:06 Dexamethasone Sodium Phosphate (Decadron 10mg/ ml Inj) 6 mg DAILY IV 03/15/20 10:45 03/24/20 10:44 03/19/20 08:11 Dextrose (Dextrose 50%) 25 ml Q30M PRN IV Hypoglycemia 03/14/20 19:00 06/12/20 18:59 Dextrose (Dextrose 50%) 50 ml Q30M PRN IV Hypoglycemia 03/14/20 19:00 06/12/20 18:59 Docusate Sodium (Colace) 100 mg TWICE A DAY ORAL 03/17/20 11:30 04/16/20 11:29 03/19/20 08:11 Heparin Sodium (Porcine) (Heparin 5000 units/ml) 5,000 units EVERY 8 HOURS SUBQ 03/16/20 22:00 04/30/20 21:59 03/19/20 06:27 Pantoprazole (Protonix) 40 mg DAILY ORAL 03/15/20 09:00 04/14/20 08:59 03/19/20 08:11 Sennosides (Senokot) 8.6 mg DAILYPRN PRN ORAL Constipation 03/17/20 11:30 04/16/20 11:29 Assessment/Plan Assessment/Plan Impression: - COVID-19 pneumonia - stable; extensive bilateral interstitial infiltrates unchanged since prior CXR - Acute hypoxemic hypercapneic respiratory failure - stable. PO2 remains low, PCO2 improving - Obesity BMI 35.9 - Metabolic alkalosis - Hyponatremia; worsening - Hypocalcemia; worsening Plan: - Continue Decadron, AB/antivirals per ID - O2 as needed; on Hi Flow O2 - IVF - Monitor labs - DVT Ppx - TTE ordered per cardiology, f/u results Time spent on this encounter was [address] Piper The care of this patient was discussed with my supervising physician. Oral Piper MD Mar 19, 2020 10:45
--- NOTE | 2020-03-19 12:30 | NUR ---
NURSE NOTES: Remains afebrile, on high flow O2 55L/100% FIO2, with O2Sat 92%, stable VS. Denies any pain or discomfort at this time. Refused lunch tray; stating "I'm not hungry"; drinks water only. Pt was seen by Dr Hailey MD updated on pt's current status and aware of lab results. No new orders were received at this time. Dr. Piper was also at the nurse's station. MD aware pt is refusing proning and Bipap.
--- NOTE | 2020-03-19 15:00 | NUR ---
NURSE NOTES: Pt refused Heparin SQ afternoon dose, despite explanation on indication for med. Pt's family contacted nurse's station and was updated on pt's condition.
--- NOTE | 2020-03-19 15:32 | Cardiac Electrophysiology PN ---
Assessment/Plan Assessment/Plan 1. Elevated D-dimer of 0.54. This patient with severe shortness of breath and active COVID infection. Chest CT no PE 2. COVID pneumonia, on remdesivir, azithromycin and ceftriaxone as well as dexamethasone. Further evaluation by Dr. Gross and Dr. Montiel 3. Tachycardia due to COVID infection. Echocardiogram Nl EF 65% Subjective Subjective On 100% high flow oxygen in ICU. CT angio no PE. LE Duplex no DVT. EF 65% Refusing BIPAP and proning Objective Last 24 Hour Vital Signs Date Time Temp Pulse Resp B/P (MAP) Pulse Ox O2 Delivery O2 Flow Rate FiO2 03/19/20 12:00 98.5 75 26 135/72 (93) 95 03/19/20 12:00 55.0 100 03/19/20 12:00 Nasal Cannula 55.0 Nasal Cannula 55.0 03/19/20 12:00 70 03/19/20 11:39 97 High Flow 55.0 100 03/19/20 11:00 69 31 134/75 (94) 93 03/19/20 10:00 74 31 131/70 (90) 93 03/19/20 09:00 85 22 138/79 (98) 93 03/19/20 08:00 79 03/19/20 08:00 Nasal Cannula 55.0 Nasal Cannula 55.0 03/19/20 08:00 98.5 77 32 132/69 (90) 94 03/19/20 08:00 55.0 100 03/19/20 07:57 94 High Flow 55.0 100 03/19/20 07:00 83 31 137/69 (91) 90 03/19/20 06:00 79 31 141/75 (97) 90 03/19/20 05:00 76 31 142/72 (95) 90 03/19/20 04:00 55.0 100 03/19/20 04:00 Nasal Cannula 55.0 Nasal Cannula 55.0 03/19/20 04:00 98.1 71 31 132/67 (88) 90 03/19/20 04:00 75 03/19/20 03:10 91 High Flow 55.0 100 03/19/20 03:00 77 20 131/73 (92) 88 03/19/20 02:00 75 32 128/73 (91) 90 03/19/20 01:00 79 31 137/78 (97) 87 03/19/20 00:00 55.0 100 03/19/20 00:00 98.2 73 24 139/74 (95) 89 03/19/20 00:00 67 03/19/20 00:00 98.2 74 29 136/76 (96) 90 03/19/20 00:00 Nasal Cannula 55.0 Nasal Cannula 55.0 03/18/20 23:21 91 High Flow 55.0 100 03/18/20 23:00 72 24 145/77 (99) 88 03/18/20 22:00 75 25 135/68 (90) 83 03/18/20 21:00 80 17 142/83 (102) 88 03/18/20 20:00 55.0 100 03/18/20 20:00 Nasal Cannula 55.0 Nasal Cannula 55.0 03/18/20 20:00 79 03/18/20 20:00 98.2 74 29 136/76 (96) 90 03/18/20 19:17 90 High Flow 55.0 100 03/18/20 19:00 78 31 136/74 (94) 90 03/18/20 18:00 89 32 147/78 (101) 87 03/18/20 17:00 76 29 141/73 (95) 90 03/18/20 16:00 83 03/18/20 16:00 55.0 100 03/18/20 16:00 Nasal Cannula 55.0 Nasal Cannula 55.0 03/18/20 16:00 98.5 84 29 144/82 (102) 90 Intake and Output 03/18/20 03/19/20 19:00 07:00 Intake Total 835 ml 250 ml Output Total 1110 ml 800 ml Balance -275 ml -550 ml Intake Oral 450 ml IV Total 385 ml 250 ml Output Urine Total 1110 ml 800 ml Laboratory Tests Test 03/19/20 04:30 03/19/20 10:14 White Blood Count 6.9 K/UL (4.8-10.8) Red Blood Count 4.09 M/UL (4.70-6.10) L Hemoglobin 12.3 G/DL (14.2-18.0) L Hematocrit 33.9 % (42.0-52.0) L Mean Corpuscular Volume 83 FL (80-99) Mean Corpuscular Hemoglobin 30.0 PG (27.0-31.0) Mean Corpuscular Hemoglobin Concent 36.1 G/DL (32.0-36.0) H Red Cell Distribution Width 13.4 % (11.6-14.8) Platelet Count 241 K/UL (150-450) Mean Platelet Volume 5.2 FL (6.5-10.1) L Neutrophils (%) (Auto) 82.8 % (45.0-75.0) H Lymphocytes (%) (Auto) 7.4 % (20.0-45.0) L Monocytes (%) (Auto) 7.9 % (1.0-10.0) Eosinophils (%) (Auto) 0.7 % (0.0-3.0) Basophils (%) (Auto) 1.3 % (0.0-2.0) Sodium Level 134 MMOL/L (136-145) L Potassium Level 4.3 MMOL/L (3.5-5.1) Chloride Level 102 MMOL/L (98-107) Carbon Dioxide Level 23 MMOL/L (21-32) Anion Gap 9 mmol/L (5-15) Blood Urea Nitrogen 15 mg/dL (7-18) Creatinine 0.8 MG/DL (0.55-1.30) Estimat Glomerular Filtration Rate > 60 mL/min (>60) Glucose Level 98 MG/DL (74-106) Calcium Level 8.2 MG/DL (8.5-10.1) L Arterial Blood pH 7.437 (7.350-7.450) Arterial Blood Partial Pressure CO2 38.6 mmHg (35.0-45.0) Arterial Blood Partial Pressure O2 60.5 mmHg (75.0-100.0) L Arterial Blood HCO3 25.5 mmol/L (22.0-26.0) Arterial Blood Oxygen Saturation 90.9 % (95-100) L Arterial Blood Base Excess 1.4 (-2-2) José Miguel Test Positive Objective HEAD AND NECK: No JVD. LUNGS: Coarse rhonchi. CARDIOVASCULAR: Regular S1 and S2 with no gallop or murmur and tachycardic. ABDOMEN: Soft and obese. EXTREMITIES: No pitting edema. Santi Barnard MD Mar 19, 2020 15:32
--- NOTE | 2020-03-19 15:38 | Diagnostic Imaging Report ---
Indication: Shortness of breath Technique: One view of the chest Comparison: 03/17/2020 Findings: Again demonstrated are extensive bilateral infiltrates. Appearance is similar on the right, worse in the left upper lung periphery. The heart size is normal. Impression: Extensive bilateral infiltrates, stable on the right, worse on the left
--- NOTE | 2020-03-19 16:07 | Infectious Diseases Prog Note ---
Assessment/Plan Assessment/Plan ASSESSMENT AND PLAN: 1. covid-19 infection with pna, ? cap, fevers - dexamethasone - day # 5 - remdesivir - day 5 - azithromycin and ceftriaxone - day # 5 - monitor labs and hypoxia - monitor chest x-ray 2. No other significant past medical history. 3. No known allergies. 4. Social history is negative. 5. Family history is noncontributory. 6. MAR is noted. 7. Case discussed with RN. 8. Continue treatment per primary consultants. Subjective Constitutional: Reports: fatigue; Denies: fever HEENT: Reports: congestion Respiratory: Reports: shortness of breath Cardiovascular: Denies: chest pain Gastrointestinal/Abdominal: Denies: nausea, vomiting, diarrhea Genitourinary: Reports: other - no diaz Allergies: Coded Allergies: No Known Allergies (Unverified , 03/14/20) Objective Last 24 Hour Vital Signs Date Time Temp Pulse Resp B/P (MAP) Pulse Ox O2 Delivery O2 Flow Rate FiO2 03/19/20 15:53 94 High Flow 55.0 100 03/19/20 12:00 98.5 75 26 135/72 (93) 95 03/19/20 12:00 55.0 100 03/19/20 12:00 Nasal Cannula 55.0 Nasal Cannula 55.0 03/19/20 12:00 70 03/19/20 11:39 97 High Flow 55.0 100 03/19/20 11:00 69 31 134/75 (94) 93 03/19/20 10:00 74 31 131/70 (90) 93 03/19/20 09:00 85 22 138/79 (98) 93 03/19/20 08:00 79 03/19/20 08:00 Nasal Cannula 55.0 Nasal Cannula 55.0 03/19/20 08:00 98.5 77 32 132/69 (90) 94 03/19/20 08:00 55.0 100 03/19/20 07:57 94 High Flow 55.0 100 03/19/20 07:00 83 31 137/69 (91) 90 03/19/20 06:00 79 31 141/75 (97) 90 03/19/20 05:00 76 31 142/72 (95) 90 03/19/20 04:00 55.0 100 03/19/20 04:00 Nasal Cannula 55.0 Nasal Cannula 55.0 03/19/20 04:00 98.1 71 31 132/67 (88) 90 03/19/20 04:00 75 03/19/20 03:10 91 High Flow 55.0 100 03/19/20 03:00 77 20 131/73 (92) 88 03/19/20 02:00 75 32 128/73 (91) 90 03/19/20 01:00 79 31 137/78 (97) 87 03/19/20 00:00 55.0 100 03/19/20 00:00 98.2 73 24 139/74 (95) 89 03/19/20 00:00 67 03/19/20 00:00 98.2 74 29 136/76 (96) 90 03/19/20 00:00 Nasal Cannula 55.0 Nasal Cannula 55.0 03/18/20 23:21 91 High Flow 55.0 100 03/18/20 23:00 72 24 145/77 (99) 88 03/18/20 22:00 75 25 135/68 (90) 83 03/18/20 21:00 80 17 142/83 (102) 88 03/18/20 20:00 55.0 100 03/18/20 20:00 Nasal Cannula 55.0 Nasal Cannula 55.0 03/18/20 20:00 79 03/18/20 20:00 98.2 74 29 136/76 (96) 90 03/18/20 19:17 90 High Flow 55.0 100 03/18/20 19:00 78 31 136/74 (94) 90 03/18/20 18:00 89 32 147/78 (101) 87 03/18/20 17:00 76 29 141/73 (95) 90 Height (Feet): 6 Height (Inches): 2.00 Weight (Pounds): 280 General Appearance: no acute distress HEENT: normocephalic, atraumatic, anicteric Respiratory/Chest: crackles/rales, rhonchi - bilaterally Cardiovascular: normal rate, regular rhythm, no gallop/murmur Abdomen: normal bowel sounds, soft, non tender, no organomegaly Genitourinary: other Extremities: no cyanosis Skin: no rash 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 Normal heart size. Findings are unchanged Impression: Extensive bilateral infiltrates, unchanged since prior exam of 02/17 Chest x-ray - 03/19/20: Procedure: XRAY Chest 1v Indication: Shortness of breath Technique: One view of the chest Comparison: 03/17/2020 Findings: Again demonstrated are extensive bilateral infiltrates. Appearance is similar on the right, worse in the left upper lung periphery. The heart size is normal. Impression: Extensive bilateral infiltrates, stable on the right, worse on the left Microbiology Date/Time Source Procedure Growth Status 03/14/20 15:45 Nasopharynx Coronavirus COVID-19 PCR ([facility]) - Final Complete 03/14/20 15:25 Blood Blood Culture - Preliminary NO GROWTH AFTER 4 DAYS Resulted Laboratory Tests Test 03/19/20 04:30 03/19/20 10:14 White Blood Count 6.9 K/UL (4.8-10.8) Red Blood Count 4.09 M/UL (4.70-6.10) L Hemoglobin 12.3 G/DL (14.2-18.0) L Hematocrit 33.9 % (42.0-52.0) L Mean Corpuscular Volume 83 FL (80-99) Mean Corpuscular Hemoglobin 30.0 PG (27.0-31.0) Mean Corpuscular Hemoglobin Concent 36.1 G/DL (32.0-36.0) H Red Cell Distribution Width 13.4 % (11.6-14.8) Platelet Count 241 K/UL (150-450) Mean Platelet Volume 5.2 FL (6.5-10.1) L Neutrophils (%) (Auto) 82.8 % (45.0-75.0) H Lymphocytes (%) (Auto) 7.4 % (20.0-45.0) L Monocytes (%) (Auto) 7.9 % (1.0-10.0) Eosinophils (%) (Auto) 0.7 % (0.0-3.0) Basophils (%) (Auto) 1.3 % (0.0-2.0) Sodium Level 134 MMOL/L (136-145) L Potassium Level 4.3 MMOL/L (3.5-5.1) Chloride Level 102 MMOL/L (98-107) Carbon Dioxide Level 23 MMOL/L (21-32) Anion Gap 9 mmol/L (5-15) Blood Urea Nitrogen 15 mg/dL (7-18) Creatinine 0.8 MG/DL (0.55-1.30) Estimat Glomerular Filtration Rate > 60 mL/min (>60) Glucose Level 98 MG/DL (74-106) Calcium Level 8.2 MG/DL (8.5-10.1) L Arterial Blood pH 7.437 (7.350-7.450) Arterial Blood Partial Pressure CO2 38.6 mmHg (35.0-45.0) Arterial Blood Partial Pressure O2 60.5 mmHg (75.0-100.0) L Arterial Blood HCO3 25.5 mmol/L (22.0-26.0) Arterial Blood Oxygen Saturation 90.9 % (95-100) L Arterial Blood Base Excess 1.4 (-2-2) José Miguel Test Positive Current Medications Medications (Trade) Dose Ordered Sig/Kiley Route PRN Reason Start Time Stop Time Status Last Admin Dose Admin Acetaminophen (Tylenol) 650 mg Q4H PRN ORAL Temp >100.5 03/14/20 22:45 04/13/20 22:44 03/14/20 22:43 Azithromycin 500 mg/Dextrose 275 ml @ 275 mls/hr Q24HRS IV 03/15/20 18:00 03/21/20 18:59 03/18/20 17:07 Ceftriaxone Sodium 1 gm/ Dextrose 55 ml @ 110 mls/hr Q24H IVPB 03/15/20 18:00 03/22/20 17:59 03/18/20 17:06 Dexamethasone Sodium Phosphate (Decadron 10mg/ ml Inj) 6 mg DAILY IV 03/15/20 10:45 03/24/20 10:44 03/19/20 08:11 Dextrose (Dextrose 50%) 25 ml Q30M PRN IV Hypoglycemia 03/14/20 19:00 06/12/20 18:59 Dextrose (Dextrose 50%) 50 ml Q30M PRN IV Hypoglycemia 03/14/20 19:00 06/12/20 18:59 Docusate Sodium (Colace) 100 mg TWICE A DAY ORAL 03/17/20 11:30 04/16/20 11:29 03/19/20 08:11 Heparin Sodium (Porcine) (Heparin 5000 units/ml) 5,000 units EVERY 8 HOURS SUBQ 03/16/20 22:00 04/30/20 21:59 03/19/20 06:27 Pantoprazole (Protonix) 40 mg DAILY ORAL 03/15/20 09:00 04/14/20 08:59 03/19/20 08:11 Sennosides (Senokot) 8.6 mg DAILYPRN PRN ORAL Constipation 03/17/20 11:30 04/16/20 11:29 Ori Gross MD Mar 19, 2020 16:07
--- NOTE | 2020-03-19 16:38 | NUR ---
CASE MANAGEMENT:REVIEW 03/19/20 SI: BILATERAL COVID PNA 98.5 75 26 135/72 91% ON HIGH ASHLEY 55L/100% FIO2 PO2-60 IS: IV DECADRON Q24 IV AZITHROMYCIN Q24 IV ROCEPHIN Q24 HEPARIN SQ Q8HRS : ICU STATUS DCP: FROM HOME PLAN: LAST DOSE OF REMDESIVIR GIVEN YESTERDAY
--- NOTE | 2020-03-19 18:00 | NUR ---
NURSE NOTES: Consumed 100% of dinner meal. Remains on high flow O2/55L with O2Sat at 94%. Denies any pain or discomfort. Pt's gown/bed linens were changed. Pt was assisted with repositioning. Refused PO/colace. Pt's family dropped off head of ethics and compliance for his cell phone.
[2020-03-19] MEDS: Azithromycin 500 MG in D5W 275 ML IV SCH (18:06)
[2020-03-19] MEDS: cefTRIAXone 1 GM in D5W 55 ML IVPB SCH (18:06)
--- NOTE | 2020-03-19 19:15 | NUR ---
NURSE HAND-OFF REPORT: Latest Vital Signs: Temperature 98.2 , Pulse 86 , B/P 137 /73 , Respiratory Rate 36 , O2 SAT 92 , Nasal Cannula, O2 Flow Rate 55.0 . Vital Sign Comment: Denies any pain/discomfort or respiratory distress at this time. EKG Rhythm: Sinus Rhythm Rhythm change?: N MD Notified?: - MD Response: Latest Hollins Fall Score: 35 Fall Risk: Medium Risk Safety Measures: Call light Within Reach, Bed Alarm Zone 2, Side Rails Side Rails x2, Bed position Low and Locked. Fall Precautions: Yellow Socks Door Sign Patient Fall Education Report given to Marvin MARAVILLA/Viola MARAVILLA. Endorsed plan of care.
--- NOTE | 2020-03-19 19:30 | NUR ---
NURSE NOTES: Pt was assessed after receiving change of shift report from Akosua MARAVILLA. Pt is awake, alert, oriented x4, on high flow O2 cannula at 100% FIO2 at 55L O2 with O2Sat from 91-94%. Pt desaturates when he forgets to breath through the nose, however O2Sat improves up to 94% when pt closes mouth and takes breath through the nose. NSR on cardiac surgeon, HR 83 with bilateral bounding peripheral pulses. Peripheral IV access is noted on right AC #20G and left FA #18G both IV lines infiltrated, will insert new IV catheter. Temp 98.8F axillary. Pt uses urinal at bedside. Skin is intact. HOB at high shepherd's, bed locked, three side rails up and call light is placed within easy reach. Will continue to monitor pt and follow plan of care per MD orders and protocol.
--- NOTE | 2020-03-19 20:30 | NUR ---
NURSE NOTES: L hand peripheral IV catheter inserted 20g.
--- NOTE | 2020-03-19 20:30 | NUR ---
NURSE NOTES: Pt lying in the bed, awake, denies any pain at this time. SR. On high flow, 55L, 97%, saturating at 98%, RR of 32 noted. Hydrating offered. Will continue to monitor. Patient voided 700ml. Remains AAOX4
[2020-03-19] MEDS ORDERED: NS 275ml ONE (21:03)
--- NOTE | 2020-03-19 22:00 | NUR ---
NURSE NOTES: Patient remains on the High-Flow 100% 55L. Patients tolerating well. Saturations are staying above 92%. Denies pain, denies SOB at this time. Patient doing well, will continue to monitor.
[2020-03-20] VITALS (33 sets, daily range): BP systolic 100–142; BP diastolic 60–91
--- NOTE | 2020-03-20 | NUR ---
NURSE NOTES: Pt sleeping at this time. On high flow, 55, 100% FiO2. Noted saturation between 92-98%. Afebrile at this time. No signs of pain at this time. Bed in the lowest position. Side rails up x3. Call light within reach. Will continue to monitor.
--- NOTE | 2020-03-20 02:00 | NUR ---
NURSE NOTES: Patient asleep at this time. SpO2 above 95%. Vitals stable, afebrile. NAD. safety measures in place.
--- NOTE | 2020-03-20 04:00 | NUR ---
NURSE NOTES: Sponge bath given. Patient not able to tolerate lying flat for long periods of time. Patient remains afebrile. Otherwise patient is doing well at this time, denies pain or SOB during high-fowlers. Blood drawn and taken to Lab. Will continue to monitor.
[2020-03-20] MEDS: Heparin 5000 units/ml inj SUBQ SCH ×3 (05:19→22:00)
[2020-03-20 05:58] LABS: ALANINE AMINOTRANSFERASE 45 U/L (12-78); ALBUMIN 2.5 G/DL (3.4-5.0); ALBUMIN/GLOBULIN RATIO 0.6 (1.0-2.7); ALKALINE PHOSPHATASE 67 U/L (46-116); ANION GAP 7 mmol/L (5-15); ASPARTATE AMINO TRANSFERASE 27 U/L (15-37); BILIRUBIN,TOTAL 0.9 MG/DL (0.2-1.0); BLOOD UREA NITROGEN 17 mg/dL (7-18); CALCIUM 8.4 MG/DL (8.5-10.1); CARBON DIOXIDE 27 MMOL/L (21-32); CHLORIDE 101 MMOL/L (98-107); CREATININE 0.9 MG/DL (0.55-1.30); POTASSIUM 3.9 MMOL/L (3.5-5.1); SODIUM 135 MMOL/L (136-145)
--- NOTE | 2020-03-20 06:00 | NUR ---
NURSE NOTES: Patient sleeping at this time. for the most part SpO2 has maintained above 93% overnight while on High-Flow. Vitasl overnight were also stable. No acute events overnight.
--- NOTE | 2020-03-20 07:00 | NUR ---
NURSE NOTES: Pt received from RENITA Wong. Pt is awake in bed, AAO x 4, PERRLA +, able to follow simple commands. Pt is SR to threat monitoring analyst. radial and dorsalis pedis pulses 3+. cap refill less than 2 sec. Pt is afebrile. Denies pain. Pt is on 55L O2 via high flow NC - FiO2 100% with diminished lung sound upon auscultation. SpO2 92-94%. Abdomen is round, soft, and non-tender, with active bowel sounds to all quadrants. urinal and bedside commode at bedside. Skin is intact. Pt has a LH 20g IV saline-locked. SCDs on bilat lower extremities. Bed is in lowest position, alarm on, side rails up x 2, call light within reach. Will continue to monitor.
--- NOTE | 2020-03-20 08:00 | NUR ---
NURSE NOTES: Pt self-repositioned. Oral care provided.
[2020-03-20 08:43] LABS: BASOPHILS % (AUTO) 0.7 % (0.0-2.0); EOSINOPHILS % (AUTO) 3.3 % (0.0-3.0); HEMATOCRIT 46.2 % (42.0-52.0); HEMOGLOBIN 16.6 G/DL (14.2-18.0); LYMPHOCYTES % (AUTO) 7.1 % (20.0-45.0); MEAN CORPUSCULAR VOLUME 83 FL (80-99); MONOCYTES % (AUTO) 9.7 % (1.0-10.0); NEUTROPHILS % (AUTO) 79.2 % (45.0-75.0); PLATELET COUNT 363 K/UL (150-450); RED BLOOD COUNT 5.59 M/UL (4.70-6.10); RED CELL DISTRIBUTION WIDTH 12.6 % (11.6-14.8); WHITE BLOOD COUNT 14.3 K/UL (4.8-10.8)
[2020-03-20] MEDS: Docusate 100mg cap ORAL SCH ×2 (09:11→17:36)
[2020-03-20] MEDS: dexAMETHasone 10mg/ml Inj IV SCH (09:12)
--- NOTE | 2020-03-20 09:45 | General Progress Note ---
Subjective Date patient seen: Mar 20, 2020 Constitutional: Reports: malaise, weakness HEENT: Denies: no symptoms, eye pain, blurred vision, tearing, double vision, ear pain, ear discharge, nose pain, nose congestion, throat pain, throat swelling, mouth pain, mouth swelling, other Cardiovascular: Denies: no symptoms, chest pain, edema, irregular heart rate, lightheadedness, palpitations, syncope, other Respiratory: Reports: SOB at rest Gastrointestinal/Abdominal: Denies: no symptoms, abdomen distended, abdominal pain, black stools, tarry stools, blood in stool, constipated, diarrhea, difficulty swallowing, nausea, poor appetite, poor fluid intake, rectal bleeding, vomiting, other Genitourinary: Denies: no symptoms, burning, discharge, frequency, flank pain, hematuria, incontinence, pain, urgency, other Neurologic/Psychiatric: Denies: no symptoms, anxiety, depressed, emotional problems, headache, numbness, paresthesia, pre-existing deficit, seizure, tingling, tremors, weakness, other Endocrine: Denies: no symptoms, excessive sweating, flushing, intolerance to cold, intolerance to heat, increased hunger, increased thirst, increased urine, unexplained weight gain, unexplained weight loss, other Hematologic/Lymphatic: Denies: no symptoms, anemia, easy bleeding, easy br uising, other Allergies: Coded Allergies: No Known Allergies (Unverified , 03/14/20) Subjective Still on 100% oxygen, saturating 87-90% ABG reviewed, Pao2 worse Continues to bipap and refuses to prone he appears in mild respiratory distress Objective Last 24 Hour Vital Signs Date Time Temp Pulse Resp B/P (MAP) Pulse Ox O2 Delivery O2 Flow Rate FiO2 03/20/20 08:00 55.0 100 03/20/20 08:00 76 03/20/20 07:00 80 38 116/65 (82) 97 03/20/20 06:50 94 High Flow 55.0 100 03/20/20 06:00 74 29 118/62 (80) 96 03/20/20 05:00 78 26 128/74 (92) 94 03/20/20 04:00 55.0 100 03/20/20 04:00 82 03/20/20 04:00 Nasal Cannula 55.0 Nasal Cannula 55.0 03/20/20 04:00 99.1 90 37 123/82 (96) 95 03/20/20 03:05 95 High Flow 55.0 100 03/20/20 03:00 77 27 123/74 (90) 98 03/20/20 02:00 79 27 122/77 (92) 96 03/20/20 01:00 78 32 128/69 (88) 96 03/20/20 00:00 Nasal Cannula 55.0 Nasal Cannula 55.0 03/20/20 00:00 55.0 100 03/20/20 00:00 86 22 131/73 (92) 98 03/20/20 00:00 90 03/19/20 23:05 94 High Flow 55.0 100 03/19/20 23:00 84 30 131/65 (87) 96 03/19/20 22:00 73 27 126/68 (87) 98 03/19/20 21:00 81 28 131/79 (96) 97 03/19/20 20:00 55.0 100 03/19/20 20:00 98.8 80 28 126/82 (97) 94 03/19/20 20:00 Nasal Cannula 55.0 Nasal Cannula 55.0 03/19/20 20:00 75 03/19/20 19:10 93 High Flow 55.0 100 03/19/20 19:00 86 36 137/73 (94) 92 03/19/20 18:00 98.2 86 24 141/92 (108) 91 03/19/20 17:00 69 26 129/65 (86) 91 03/19/20 16:00 66 2 129/65 (86) 91 03/19/20 16:00 72 03/19/20 16:00 Nasal Cannula 55.0 Nasal Cannula 55.0 03/19/20 16:00 55.0 100 03/19/20 16:00 66 23 129/65 (86) 90 03/19/20 15:53 94 High Flow 55.0 100 03/19/20 15:00 66 27 124/71 (88) 92 03/19/20 14:00 69 24 135/72 (93) 92 03/19/20 13:00 72 25 135/68 (90) 95 03/19/20 12:00 98.5 75 26 135/72 (93) 95 03/19/20 12:00 55.0 100 03/19/20 12:00 Nasal Cannula 55.0 Nasal Cannula 55.0 03/19/20 12:00 70 03/19/20 11:39 97 High Flow 55.0 100 03/19/20 11:00 69 31 134/75 (94) 93 03/19/20 10:00 74 31 131/70 (90) 93 Intake and Output 03/19/20 03/20/20 18:59 06:59 Intake Total 700 ml 835 ml Output Total 1050 ml 1200 ml Balance -350 ml -365 ml Intake Oral 700 ml 450 ml IV Total 385 ml Output Urine Total 1050 ml 1200 ml Laboratory Tests 03/19/20 10:14: Arterial Blood pH 7.437, Arterial Blood Partial Pressure CO2 38.6, Arterial Blood Partial Pressure O2 60.5L, Arterial Blood HCO3 25.5, Arterial Blood Oxygen Saturation 90.9L, Arterial Blood Base Excess 1.4, José Miguel Test Positive 03/20/20 04:00: Sodium Level 135L, Potassium Level 3.9, Chloride Level 101, Carbon Dioxide Level 27, Anion Gap 7, Blood Urea Nitrogen 17, Creatinine 0.9, Estimat Glomerular Filtration Rate > 60, Glucose Level 140H, Calcium Level 8.4L, Total Bilirubin 0.9, Aspartate Amino Transf (AST/SGOT) 27, Alanine Aminotransferase (ALT/SGPT) 45, Alkaline Phosphatase 67, Total Protein 7.0, Albumin 2.5L, Globulin 4.5, Albumin/Globulin Ratio 0.6L 03/20/20 07:45: White Blood Count 14.3#H, Red Blood Count 5.59, Hemoglobin 16.6#, Hematocrit 46.2#, Mean Corpuscular Volume 83, Mean Corpuscular Hemoglobin 29.7, Mean Corpuscular Hemoglobin Concent 35.9, Red Cell Distribution Width 12.6, Platelet Count 363#, Mean Platelet Volume 5.5L, Neutrophils (%) (Auto) 79.2H, Lymphocytes (%) (Auto) 7.1L, Monocytes (%) (Auto) 9.7, Eosinophils (%) (Auto) 3.3H, Basophils (%) (Auto) 0.7 03/20/20 07:50: Arterial Blood pH 7.442, Arterial Blood Partial Pressure CO2 35.9, Arterial Blood Partial Pressure O2 53.1L, Arterial Blood HCO3 23.9, Arterial Blood Oxygen Saturation 87.1*L, Arterial Blood Base Excess 0.4, José Miguel Test Positive Height (Feet): 6 Height (Inches): 2.00 Weight (Pounds): 280 Objective General Appearance: WD/WN, alert, awake, obese, on HFNC HEENT: normocephalic, atraumatic, mucous membranes moist, PERRL, EOMI Neck: non-tender, normal alignment, supple, normal inspection Respiratory/Chest: chest wall non-tender, + accessory muscle use, mild respiratory distress Cardiovascular/Chest: normal rate, regular rhythm Abdomen: non tender, soft, no organomegaly Extremities: normal range of motion, non-tender, normal inspection, no calf tenderness, no edema 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 CXR and CTA chest unchanged showing multifocal pneumonia. #Acute hypoxemic hypercapneic respiratory failure - stable. PO2 remains low, PCO2 improving, now normalized #Metabolic alkalosis #Hyponatremia-likely SIADH based on urine sodium #Elevated inflammatory markers - Ferritin, CRP, D-dimer, fibrinogen #leukocytosis- steroid induced P: - remains in ICU, critically ill - currently on HFNC, BiPAP ordered for last night to allow patient to rest, but patient refused, so maintained on HFNC. He also refuses proning - monitor ABG -Wean O2 as tolerated - CTA and BLE duplex US negative for PE or DVT, so heparin drip discontinued - cardiac monitoring - TTE ordered per cardiology, f/u results - s/p dexamethasone 10 mg in ED - continue dexamethasone 6 mg daily, remdesivir per ID - continue CTX/Azithro - ID consult, Dr. Elizalde recs appreciated - Pulm consult, yimi Regan appreciated - Nephro consult, bryant Hairs appreciated - Cardiology consult, yimi Nowak appreciated Code: Full GI: Protonix DVT prophylaxis: 5000 u TID Dispo: Pending improving in hypoxic respiratory failure, back to home after Time spent on this encounter was 71 minutes which included 41 minutes of counseling and care coordination and 40 minutes of critical care time including ordering and reviewing blood gas, reviewing heparin orders, reviewing chest imaging and ultrasound imaging and discussion with consultants. I discussed with the nurse at bedside. Time of note may not reflect time patient was seen. Evin Hart M.D. Mar 20, 2020 09:45
--- NOTE | 2020-03-20 10:17 | NUR ---
NURSE NOTES: Dr Piper at bedside assessing pt. ABG results reviewed. Dr Piper made aware that patient is persistently refusing BIPAP and proning despite multiple attempts to educate pt on indication for use. No new orders received.
--- NOTE | 2020-03-20 10:23 | NUR ---
NURSE NOTES: Dr Hart assessing pt at bedside. ABGs reviewed- she was also made aware pt is refusing BIPAP and proning.
--- NOTE | 2020-03-20 10:28 | Pulmonology Progress Note ---
Subjective ROS Limited/Unobtainable: No Interval Events: pt refusing BiPAP, and proning. Remains on high flow oxygen; no change toda Constitutional: Reports: fatigue; Denies: fever HEENT: Repors: no symptoms Respiratory: Reports: dry cough, productive cough, sputum, hemoptysis, shortness of breath, dyspnea at rest, dyspnea on exertion, wheezing, pleuritic pain, other Cardiovascular: Reports: no symptoms Gastrointestinal/Abdominal: Denies: nausea, vomiting, diarrhea Genitourinary: Reports: no symptoms Neurologic: Reports: no symptoms Psychiatric: Denies: depression Skin: Denies: rash Musculoskeletal: Denies: pain Allergies: Coded Allergies: No Known Allergies (Unverified , 03/14/20) Objective Last 24 Hour Vital Signs Date Time Temp Pulse Resp B/P (MAP) Pulse Ox O2 Delivery O2 Flow Rate FiO2 03/20/20 10:00 86 25 115/62 (79) 98 03/20/20 09:00 81 28 128/66 (86) 96 03/20/20 08:00 Nasal Cannula 55.0 03/20/20 08:00 55.0 100 03/20/20 08:00 98.1 75 26 127/65 (85) 92 03/20/20 08:00 76 03/20/20 07:00 80 38 116/65 (82) 97 03/20/20 06:50 94 High Flow 55.0 100 03/20/20 06:00 74 29 118/62 (80) 96 03/20/20 05:00 78 26 128/74 (92) 94 03/20/20 04:00 55.0 100 03/20/20 04:00 82 03/20/20 04:00 Nasal Cannula 55.0 Nasal Cannula 55.0 03/20/20 04:00 99.1 90 37 123/82 (96) 95 03/20/20 03:05 95 High Flow 55.0 100 03/20/20 03:00 77 27 123/74 (90) 98 03/20/20 02:00 79 27 122/77 (92) 96 03/20/20 01:00 78 32 128/69 (88) 96 03/20/20 00:00 Nasal Cannula 55.0 Nasal Cannula 55.0 03/20/20 00:00 55.0 100 03/20/20 00:00 86 22 131/73 (92) 98 03/20/20 00:00 90 03/19/20 23:05 94 High Flow 55.0 100 03/19/20 23:00 84 30 131/65 (87) 96 03/19/20 22:00 73 27 126/68 (87) 98 03/19/20 21:00 81 28 131/79 (96) 97 03/19/20 20:00 55.0 100 03/19/20 20:00 98.8 80 28 126/82 (97) 94 03/19/20 20:00 Nasal Cannula 55.0 Nasal Cannula 55.0 03/19/20 20:00 75 03/19/20 19:10 93 High Flow 55.0 100 03/19/20 19:00 86 36 137/73 (94) 92 03/19/20 18:00 98.2 86 24 141/92 (108) 91 03/19/20 17:00 69 26 129/65 (86) 91 03/19/20 16:00 66 2 129/65 (86) 91 03/19/20 16:00 72 03/19/20 16:00 Nasal Cannula 55.0 Nasal Cannula 55.0 03/19/20 16:00 55.0 100 03/19/20 16:00 66 23 129/65 (86) 90 03/19/20 15:53 94 High Flow 55.0 100 03/19/20 15:00 66 27 124/71 (88) 92 03/19/20 14:00 69 24 135/72 (93) 92 03/19/20 13:00 72 25 135/68 (90) 95 03/19/20 12:00 98.5 75 26 135/72 (93) 95 03/19/20 12:00 55.0 100 03/19/20 12:00 Nasal Cannula 55.0 Nasal Cannula 55.0 03/19/20 12:00 70 03/19/20 11:39 97 High Flow 55.0 100 03/19/20 11:00 69 31 134/75 (94) 93 Intake and Output 03/19/20 03/20/20 19:00 07:00 Intake Total 1085 ml 450 ml Output Total 1050 ml 1200 ml Balance 35 ml -750 ml Intake Oral 700 ml 450 ml IV Total 385 ml Output Urine Total 1050 ml 1200 ml General Appearance: no acute distress HEENT: normocephalic Respiratory: chest wall non-tender, lungs clear Cardiovascular: normal peripheral pulses Abdomen: normal bowel sounds Laboratory Tests 03/20/20 04:00: Sodium Level 135L, Potassium Level 3.9, Chloride Level 101, Carbon Dioxide Level 27, Anion Gap 7, Blood Urea Nitrogen 17, Creatinine 0.9, Estimat Glomerular Filtration Rate > 60, Glucose Level 140H, Calcium Level 8.4L, Total Bilirubin 0.9, Aspartate Amino Transf (AST/SGOT) 27, Alanine Aminotransferase (ALT/SGPT) 45, Alkaline Phosphatase 67, Total Protein 7.0, Albumin 2.5L, Globulin 4.5, Albumin/Globulin Ratio 0.6L 03/20/20 07:45: White Blood Count 14.3#H, Red Blood Count 5.59, Hemoglobin 16.6#, Hematocrit 46.2#, Mean Corpuscular Volume 83, Mean Corpuscular Hemoglobin 29.7, Mean Corpuscular Hemoglobin Concent 35.9, Red Cell Distribution Width 12.6, Platelet Count 363#, Mean Platelet Volume 5.5L, Neutrophils (%) (Auto) 79.2H, Lymphocytes (%) (Auto) 7.1L, Monocytes (%) (Auto) 9.7, Eosinophils (%) (Auto) 3.3H, Basophils (%) (Auto) 0.7 03/20/20 07:50: Arterial Blood pH 7.442, Arterial Blood Partial Pressure CO2 35.9, Arterial Blood Partial Pressure O2 53.1L, Arterial Blood HCO3 23.9, Arterial Blood Oxygen Saturation 87.1*L, Arterial Blood Base Excess 0.4, José Miguel Test Positive Current Medications Medications (Trade) Dose Ordered Sig/Kiley Route PRN Reason Start Time Stop Time Status Last Admin Dose Admin Acetaminophen (Tylenol) 650 mg Q4H PRN ORAL Temp >100.5 03/14/20 22:45 04/13/20 22:44 03/14/20 22:43 Azithromycin 500 mg/Dextrose 275 ml @ 275 mls/hr Q24HRS IV 03/15/20 18:00 03/21/20 18:59 03/19/20 18:06 Ceftriaxone Sodium 1 gm/ Dextrose 55 ml @ 110 mls/hr Q24H IVPB 03/15/20 18:00 03/22/20 17:59 03/19/20 18:06 Dexamethasone Sodium Phosphate (Decadron 10mg/ ml Inj) 6 mg DAILY IV 03/15/20 10:45 03/24/20 10:44 03/20/20 09:12 Dextrose (Dextrose 50%) 25 ml Q30M PRN IV Hypoglycemia 03/14/20 19:00 06/12/20 18:59 Dextrose (Dextrose 50%) 50 ml Q30M PRN IV Hypoglycemia 03/14/20 19:00 06/12/20 18:59 Docusate Sodium (Colace) 100 mg TWICE A DAY ORAL 03/17/20 11:30 04/16/20 11:29 03/20/20 09:11 Heparin Sodium (Porcine) (Heparin 5000 units/ml) 5,000 units EVERY 8 HOURS SUBQ 03/16/20 22:00 04/30/20 21:59 03/20/20 05:19 Pantoprazole (Protonix) 40 mg DAILY ORAL 03/15/20 09:00 04/14/20 08:59 03/20/20 09:11 Sennosides (Senokot) 8.6 mg DAILYPRN PRN ORAL Constipation 03/17/20 11:30 04/16/20 11:29 Assessment/Plan Assessment/Plan Impression: - COVID-19 pneumonia - stable; extensive bilateral interstitial infiltrates unchanged since prior CXR - Acute hypoxemic hypercapneic respiratory failure - stable. PO2 remains low, PCO2 improving; ABG reviewed with RN; continues to be hypoxic however saturations consistently over 90% - Obesity BMI 35.9 - Metabolic alkalosis - Hyponatremia; - Hypocalcemia; Plan: - Continue Decadron, AB/antivirals per ID - On Hi Flow O2 - IVF - Monitor labs - DVT Ppx - TTE ordered per cardiology, f/u results Time spent on this encounter was 31 minutes. Oral Piper MD Mar 20, 2020 10:28
--- NOTE | 2020-03-20 12:00 | NUR ---
NURSE NOTES: Pt assisted with repositioning and is currently eating lunch. Afebrile. No acute distress noted.
--- NOTE | 2020-03-20 14:00 | NUR ---
NURSE NOTES: Pt assisted w/ repositioning in bed. No acute distress noted at this time. Will continue to monitor.
[2020-03-20] MEDS ORDERED: NS 275ml ONE (14:04)
--- NOTE | 2020-03-20 15:29 | NUR ---
[employer] HELP[employer]IST SI: COVID PNA, RESP FAILURE T. 97.3 HR 79 RR 35 B/P 130/80 N/C HIGH FLOW 100% PH 7.44 PCO2 35.9 PO2 53.1 HCO3 23.9 O2 SAT 87.1 WBC 14.3 NA 135 IS: AZITHROMYCIN IV DECADRON IV CEFTRIAXONE IV HEPARIN SUBC ICU STATUS
--- NOTE | 2020-03-20 15:30 | NUR ---
NURSE NOTES: Pt seen by Dr Barnard.
--- NOTE | 2020-03-20 15:59 | Cardiac Electrophysiology PN ---
Assessment/Plan Assessment/Plan 1. Elevated D-dimer of 0.54, severe shortness of breath and active COVID infection. Chest CT no PE Refusing BIPAP. On High flow NC 2. COVID pneumonia, on remdesivir, azithromycin and ceftriaxone as well as dexamethasone. Further evaluation by Dr. Gross and Dr. Montiel 3. Tachycardia due to COVID infection. Echocardiogram Nl EF 65% Subjective Subjective On 100% high flow oxygen NC in ICU. CT angio no PE. LE Duplex no DVT. EF 65% Refusing BIPAP or proning Objective Last 24 Hour Vital Signs Date Time Temp Pulse Resp B/P (MAP) Pulse Ox O2 Delivery O2 Flow Rate FiO2 03/20/20 15:00 75 29 128/73 (91) 97 03/20/20 14:00 84 25 127/72 (90) 93 03/20/20 13:00 77 27 122/70 (87) 99 03/20/20 12:00 Nasal Cannula 55.0 03/20/20 12:00 82 35 130/80 (97) 98 03/20/20 12:00 79 03/20/20 12:00 55.0 100 03/20/20 12:00 97.3 03/20/20 11:27 95 High Flow 55.0 100 03/20/20 11:00 81 26 119/67 (84) 96 03/20/20 10:00 86 25 115/62 (79) 98 03/20/20 09:00 81 28 128/66 (86) 96 03/20/20 08:00 Nasal Cannula 55.0 03/20/20 08:00 55.0 100 03/20/20 08:00 98.1 75 26 127/65 (85) 92 03/20/20 08:00 76 03/20/20 07:00 80 38 116/65 (82) 97 03/20/20 06:50 94 High Flow 55.0 100 03/20/20 06:00 74 29 118/62 (80) 96 03/20/20 05:00 78 26 128/74 (92) 94 03/20/20 04:00 55.0 100 03/20/20 04:00 82 03/20/20 04:00 Nasal Cannula 55.0 Nasal Cannula 55.0 03/20/20 04:00 99.1 90 37 123/82 (96) 95 03/20/20 03:05 95 High Flow 55.0 100 03/20/20 03:00 77 27 123/74 (90) 98 03/20/20 02:00 79 27 122/77 (92) 96 03/20/20 01:00 78 32 128/69 (88) 96 03/20/20 00:00 Nasal Cannula 55.0 Nasal Cannula 55.0 03/20/20 00:00 55.0 100 03/20/20 00:00 86 22 131/73 (92) 98 03/20/20 00:00 90 03/19/20 23:05 94 High Flow 55.0 100 03/19/20 23:00 84 30 131/65 (87) 96 03/19/20 22:00 73 27 126/68 (87) 98 03/19/20 21:00 81 28 131/79 (96) 97 03/19/20 20:00 55.0 100 03/19/20 20:00 98.8 80 28 126/82 (97) 94 03/19/20 20:00 Nasal Cannula 55.0 Nasal Cannula 55.0 03/19/20 20:00 75 03/19/20 19:10 93 High Flow 55.0 100 03/19/20 19:00 86 36 137/73 (94) 92 03/19/20 18:00 98.2 86 24 141/92 (108) 91 03/19/20 17:00 69 26 129/65 (86) 91 03/19/20 16:00 66 2 129/65 (86) 91 03/19/20 16:00 72 03/19/20 16:00 Nasal Cannula 55.0 Nasal Cannula 55.0 03/19/20 16:00 55.0 100 03/19/20 16:00 66 23 129/65 (86) 90 Intake and Output 03/19/20 03/20/20 19:00 07:00 Intake Total 1085 ml 450 ml Output Total 1050 ml 1200 ml Balance 35 ml -750 ml Intake Oral 700 ml 450 ml IV Total 385 ml Output Urine Total 1050 ml 1200 ml Laboratory Tests Test 03/20/20 04:00 03/20/20 07:45 03/20/20 07:50 Sodium Level 135 MMOL/L (136-145) L Potassium Level 3.9 MMOL/L (3.5-5.1) Chloride Level 101 MMOL/L (98-107) Carbon Dioxide Level 27 MMOL/L (21-32) Anion Gap 7 mmol/L (5-15) Blood Urea Nitrogen 17 mg/dL (7-18) Creatinine 0.9 MG/DL (0.55-1.30) Estimat Glomerular Filtration Rate > 60 mL/min (>60) Glucose Level 140 MG/DL (74-106) H Calcium Level 8.4 MG/DL (8.5-10.1) L Total Bilirubin 0.9 MG/DL (0.2-1.0) Aspartate Amino Transf (AST/SGOT) 27 U/L (15-37) Alanine Aminotransferase (ALT/SGPT) 45 U/L (12-78) Alkaline Phosphatase 67 U/L (46-116) Total Protein 7.0 G/DL (6.4-8.2) Albumin 2.5 G/DL (3.4-5.0) L Globulin 4.5 g/dL Albumin/Globulin Ratio 0.6 (1.0-2.7) L White Blood Count 14.3 K/UL (4.8-10.8) #H Red Blood Count 5.59 M/UL (4.70-6.10) Hemoglobin 16.6 G/DL (14.2-18.0) # Hematocrit 46.2 % (42.0-52.0) # Mean Corpuscular Volume 83 FL (80-99) Mean Corpuscular Hemoglobin 29.7 PG (27.0-31.0) Mean Corpuscular Hemoglobin Concent 35.9 G/DL (32.0-36.0) Red Cell Distribution Width 12.6 % (11.6-14.8) Platelet Count 363 K/UL (150-450) # Mean Platelet Volume 5.5 FL (6.5-10.1) L Neutrophils (%) (Auto) 79.2 % (45.0-75.0) H Lymphocytes (%) (Auto) 7.1 % (20.0-45.0) L Monocytes (%) (Auto) 9.7 % (1.0-10.0) Eosinophils (%) (Auto) 3.3 % (0.0-3.0) H Basophils (%) (Auto) 0.7 % (0.0-2.0) Arterial Blood pH 7.442 (7.350-7.450) Arterial Blood Partial Pressure CO2 35.9 mmHg (35.0-45.0) Arterial Blood Partial Pressure O2 53.1 mmHg (75.0-100.0) L Arterial Blood HCO3 23.9 mmol/L (22.0-26.0) Arterial Blood Oxygen Saturation 87.1 % (95-100) *L Arterial Blood Base Excess 0.4 (-2-2) José Miguel Test Positive Objective HEAD AND NECK: No JVD. LUNGS: Coarse rhonchi. CARDIOVASCULAR: Regular S1 and S2 with no gallop or murmur and tachycardic. ABDOMEN: Soft and obese. EXTREMITIES: No pitting edema. Santi Barnard MD Mar 20, 2020 15:59
--- NOTE | 2020-03-20 16:00 | NUR ---
NURSE NOTES: Pt assisted with repositioning. Afebrile. Continues to refuse Bipap use and prone position at this time. Will continue to monitor.
[2020-03-20] MEDS: Azithromycin 500 MG in D5W 275 ML IV SCH (17:35)
--- NOTE | 2020-03-20 18:00 | NUR ---
NURSE NOTES: Pt eating dinner. Assisted with repositioning. No acute distress noted.
[2020-03-20] MEDS: cefTRIAXone 1 GM in D5W 55 ML IVPB SCH (18:50)
--- NOTE | 2020-03-20 19:18 | NUR ---
NURSE HAND-OFF REPORT: Latest Vital Signs: Temperature 97.6 , Pulse 77 , B/P 136 /76 , Respiratory Rate 22 , O2 SAT 99 , Nasal Cannula, O2 Flow Rate 55.0 . EKG Rhythm: Sinus Rhythm Rhythm change?: N MD Notified?: n/a MD Response: n/a Latest Hollins Fall Score: 35 Fall Risk: Medium Risk Safety Measures: Call light Within Reach, Bed Alarm Zone 2, Side Rails Side Rails x2, Bed position Low and Locked. Fall Precautions: Yellow Socks Yellow Gown Door Sign Patient Fall Education Report given to RENITA Wong.
--- NOTE | 2020-03-20 20:00 | NUR ---
NURSE NOTES: Pt received from Janey MARAVILLA. Pt is awake in bed, AAO x 4, PERRLA +, able to follow simple commands. Pt is SR to clinical research monitor. radial and dorsalis pedis pulses 3+. cap refill less than 2 sec. Pt is afebrile. Denies pain. Pt is on 55L O2 via high flow NC - FiO2 100% with diminished lung sound upon auscultation. SpO2 92-94%. Abdomen is round, soft, and non-tender, with active bowel sounds to all quadrants. urinal and bedside commode at bedside. Skin is intact. Pt has a LH 20g IV saline-locked. SCDs on bilat lower extremities. Bed is in lowest position, alarm on, side rails up x 2, call light within reach. Will continue to monitor.
--- NOTE | 2020-03-20 22:00 | NUR ---
NURSE NOTES: Patient provided with hydration and snacks. Patient is tolerating well with the High-Flow. Denies SOB or Pain at this time, remains afebrile. Vitals stable at this time, will continue to monitor.
--- NOTE | 2020-03-20 23:00 | NUR ---
NURSE NOTES: Patient placed on BIPAP 17/ for overnight. Patient agreed to BIPAP for a short time. Will continue to monitor.
[2020-03-21] VITALS (13 sets, daily range): BP systolic 111–139; BP diastolic 53–78
--- NOTE | 2020-03-21 00:49 | NUR ---
NURSE NOTES: BIPAP removed and placed back on High-Flow 55L 100% FiO2, patient refused to have BIPAP at this time. Patient remains AAOX4 and SpO2 is at 99%. denies any pain or chest pain at this time. Will continue to monitor .
--- NOTE | 2020-03-21 02:00 | NUR ---
NURSE NOTES: Patient sleeping and tolerating well on high-flow, NAD vitals stable.
--- NOTE | 2020-03-21 04:00 | NUR ---
NURSE NOTES: Patient given bed bath and oral care provided, hydration offered. Vitals stable.
[2020-03-21] MEDS: Heparin 5000 units/ml inj SUBQ SCH ×3 (05:56→21:32)
--- NOTE | 2020-03-21 06:00 | NUR ---
NURSE NOTES: Patient doing fine at this time, vitals stable, NAD at this time. Will continue to monitor .
--- NOTE | 2020-03-21 07:00 | NUR ---
NURSE NOTES: Pt received from RENITA Wong. Pt is awake in bed, AAO x 4, PERRLA +, able to follow simple commands. 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 radial and dorsalis pedis pulses 3+. cap refill less than 2 sec. Pt is afebrile. Denies pain at this time. Pt is on 55L O2 via high flow NC - FiO2 100% with diminished lung sound upon auscultation. SpO2 96 %. Abdomen is round, soft, and non-tender, with active bowel sounds to all quadrants. urinal and bedside commode at bedside. Skin is intact. Pt has a LH 20g IV saline-locked. SCDs on bilat lower extremities. Bed is in lowest position, alarm on, side rails up x 2, call light within reach. Will continue to monitor.
[2020-03-21] MEDS: dexAMETHasone 10mg/ml Inj IV SCH (08:24)
[2020-03-21] MEDS: Docusate 100mg cap ORAL SCH ×2 (08:24→18:24)
--- NOTE | 2020-03-21 08:52 | NUR ---
RD ASSESSMENT & RECOMMENDATIONS SEE CARE ACTIVITY FOR COMPLETE ASSESSMENT DAILY ESTIMATED NEEDS: Needs based on Pulmonary 97.8kg abw 20-30 kcals/kg 7498-8533 total kcals 1-1.5 g protein/kg 98-147 g total protein 25-30 mL/kg 5059-4837 total fluid mLs NUTRITION DIAGNOSIS: Increased kcal and pro needs r/t acute hypoxemic hypercapneic respiratory failure as evidenced by pt is ++ for covid pna, on bipap. 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
--- NOTE | 2020-03-21 09:30 | General Progress Note ---
Subjective Date patient seen: Mar 21, 2020 ROS Limited/Unobtainable: No Constitutional: Reports: weakness HEENT: Denies: no symptoms, eye pain, blurred vision, tearing, double vision, ear pain, ear discharge, nose pain, nose congestion, throat pain, throat swelling, mouth pain, mouth swelling, other Cardiovascular: Denies: no symptoms, chest pain, edema, irregular heart rate, lightheadedness, palpitations, syncope, other Respiratory: Reports: shortness of breath Gastrointestinal/Abdominal: Denies: no symptoms, abdomen distended, abdominal pain, black stools, tarry stools, blood in stool, constipated, diarrhea, difficulty swallowing, nausea, poor appetite, poor fluid intake, rectal bleeding, vomiting, other Genitourinary: Denies: no symptoms, burning, discharge, frequency, flank pain, hematuria, incontinence, pain, urgency, other Neurologic/Psychiatric: Denies: no symptoms, anxiety, depressed, emotional problems, headache, numbness, paresthesia, pre-existing deficit, seizure, tingling, tremors, weakness, other Endocrine: Denies: no symptoms, excessive sweating, flushing, intolerance to cold, intolerance to heat, increased hunger, increased thirst, increased urine, unexplained weight gain, unexplained weight loss, other Hematologic/Lymphatic: Denies: no symptoms, anemia, easy bleeding, easy bruising, other Allergies: Coded Allergies: No Known Allergies (Unverified , 03/14/20) Subjective Still on 100% oxygen, saturating 97% ABG reviewed, stable Continues to bipap and refuses to prone he appears in mild respiratory distress d/w pulmonary- can transfer out of the unit since stable Objective Last 24 Hour Vital Signs Date Time Temp Pulse Resp B/P (MAP) Pulse Ox O2 Delivery O2 Flow Rate FiO2 03/21/20 07:00 72 28 131/69 (89) 99 03/21/20 06:00 61 19 111/78 (89) 98 03/21/20 05:00 63 23 131/68 (89) 98 03/21/20 04:00 98.9 65 16 124/71 (88) 98 03/21/20 04:00 Bi-pap 03/21/20 04:00 72 03/21/20 03:00 69 22 113/64 (80) 98 03/21/20 02:00 70 22 124/71 (88) 99 03/21/20 00:47 83 25 131/76 (94) 98 03/21/20 00:30 96 High Flow 55.0 100 03/21/20 00:30 55.0 100 03/21/20 00:00 75 03/21/20 00:00 100 03/21/20 00:00 Bi-pap 03/20/20 23:30 76 45 98 100 03/20/20 23:30 98 Bi-Pap 100 03/20/20 23:00 100 03/20/20 23:00 98.0 67 25 128/75 (92) 99 03/20/20 22:00 74 26 133/84 (100) 98 03/20/20 21:49 Nasal Cannula 55.0 03/20/20 21:00 55.0 100 03/20/20 21:00 72 28 134/78 (96) 99 03/20/20 20:00 72 03/20/20 20:00 Nasal Cannula 55.0 03/20/20 20:00 80 31 138/88 (105) 95 03/20/20 19:15 95 High Flow 55.0 100 03/20/20 19:00 77 22 136/76 (96) 99 03/20/20 18:00 80 27 131/91 (104) 100 03/20/20 17:00 75 28 142/85 (104) 97 03/20/20 16:00 55.0 100 03/20/20 16:00 76 03/20/20 16:00 Nasal Cannula 55.0 03/20/20 16:00 97.6 72 28 129/79 (96) 100 03/20/20 15:12 98 High Flow 55.0 100 03/20/20 15:00 75 29 128/73 (91) 97 03/20/20 14:00 84 25 127/72 (90) 93 03/20/20 13:00 77 27 122/70 (87) 99 03/20/20 12:00 Nasal Cannula 55.0 03/20/20 12:00 82 35 130/80 (97) 98 03/20/20 12:00 79 03/20/20 12:00 55.0 100 03/20/20 12:00 97.3 03/20/20 11:27 95 High Flow 55.0 100 03/20/20 11:00 81 26 119/67 (84) 96 03/20/20 10:00 86 25 115/62 (79) 98 Intake and Output 03/20/20 03/21/20 19:00 07:00 Intake Total 635 ml 555 ml Output Total 800 ml 1200 ml Balance -165 ml -645 ml Intake Oral 360 ml 500 ml IV Total 275 ml 55 ml Output Urine Total 800 ml 1200 ml # Voids 1 Height (Feet): 6 Height (Inches): 2.00 Weight (Pounds): 280 Objective General Appearance: WD/WN, alert, awake, obese, on HFNC HEENT: normocephalic, atraumatic, mucous membranes moist, PERRL, EOMI Neck: non-tender, normal alignment, supple, normal inspection Respiratory/Chest: chest wall non-tender, + accessory muscle use, mild respiratory distress Cardiovascular/Chest: normal rate, regular rhythm Abdomen: non tender, soft, no organomegaly Extremities: normal range of motion, non-tender, normal inspection, no calf tenderness, no edema 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 CXR and CTA chest unchanged showing multifocal pneumonia. #Acute hypoxemic hypercapneic respiratory failure - stable. PO2 remains low, PCO 2 improving, now normalized #Metabolic alkalosis #Hyponatremia-likely SIADH based on urine sodium #Elevated inflammatory markers - Ferritin, CRP, D-dimer, fibrinogen #leukocytosis- steroid induced P: - remains in ICU, stable o2 requirement- d/w pulmonary, can transfer out of icu - currently on HFNC, BiPAP ordered for last night to allow patient to rest, but patient refused, so maintained on HFNC. He also refuses proning - monitor ABG -Wean O2 as tolerated - CTA and BLE duplex US negative for PE or DVT, so heparin drip discontinued - cardiac monitoring - TTE ordered per cardiology, f/u results - s/p dexamethasone 10 mg in ED - continue dexamethasone 6 mg daily, remdesivir per ID - CTX/Azithro - ID consult, Dr. Elizalde, recs appreciated - Pulm consult, Dr. Piper, recs appreciated - Nephro consult, Dr. Zimmerman, recs appreciated - Cardiology consult, Dr. Barnard recs appreciated Code: Full GI: Protonix DVT prophylaxis: 5000 u TID Dispo: Pending improving in hypoxic respiratory failure, back to home after Time spent on this encounter was 71 minutes which included 41 minutes of counseling and care coordination and 40 minutes of critical care time including ordering and reviewing blood gas, reviewing heparin orders, reviewing chest imaging and ultrasound imaging and discussion with consultants. I discussed with the nurse at bedside. Time of note may not reflect time patient was seen. Evin Hart M.D. Mar 21, 2020 09:30
--- NOTE | 2020-03-21 09:46 | NUR ---
NURSE NOTES: Pt seen by Dr Hart and Dr Piper.
--- NOTE | 2020-03-21 10:05 | Pulmonology Progress Note ---
Subjective ROS Limited/Unobtainable: No Interval Events: pt refusing BiPAP, and proning. Remains on high flow oxygen; no change toda Constitutional: Reports: fatigue; Denies: fever HEENT: Repors: no symptoms Respiratory: Reports: dry cough, productive cough, sputum, hemoptysis, shortness of breath, dyspnea at rest, dyspnea on exertion, wheezing, pleuritic pain, other Cardiovascular: Reports: no symptoms Gastrointestinal/Abdominal: Denies: nausea, vomiting, diarrhea Genitourinary: Reports: no symptoms Neurologic: Reports: no symptoms Psychiatric: Denies: depression Skin: Denies: rash Musculoskeletal: Denies: pain Allergies: Coded Allergies: No Known Allergies (Unverified , 03/14/20) Objective Last 24 Hour Vital Signs Date Time Temp Pulse Resp B/P (MAP) Pulse Ox O2 Delivery O2 Flow Rate FiO2 03/21/20 10:00 82 29 127/68 (87) 97 03/21/20 09:00 84 24 116/53 (74) 97 03/21/20 08:00 55.0 100 03/21/20 08:00 98.6 84 23 115/62 (79) 97 03/21/20 08:00 Nasal Cannula 55.0 03/21/20 07:00 72 28 131/69 (89) 99 03/21/20 06:00 61 19 111/78 (89) 98 03/21/20 05:00 63 23 131/68 (89) 98 03/21/20 04:00 98.9 65 16 124/71 (88) 98 03/21/20 04:00 Bi-pap 03/21/20 04:00 72 03/21/20 03:00 69 22 113/64 (80) 98 03/21/20 02:00 70 22 124/71 (88) 99 03/21/20 00:47 83 25 131/76 (94) 98 03/21/20 00:30 96 High Flow 55.0 100 03/21/20 00:30 55.0 100 03/21/20 00:00 75 03/21/20 00:00 100 03/21/20 00:00 Bi-pap 03/20/20 23:30 76 45 98 100 03/20/20 23:30 98 Bi-Pap 100 03/20/20 23:00 100 12/3/20 23:00 98.0 67 25 128/75 (92) 99 03/20/20 22:00 74 26 133/84 (100) 98 03/20/20 21:49 Nasal Cannula 55.0 03/20/20 21:00 55.0 100 03/20/20 21:00 72 28 134/78 (96) 99 03/20/20 20:00 72 03/20/20 20:00 Nasal Cannula 55.0 03/20/20 20:00 80 31 138/88 (105) 95 03/20/20 19:15 95 High Flow 55.0 100 03/20/20 19:00 77 22 136/76 (96) 99 03/20/20 18:00 80 27 131/91 (104) 100 03/20/20 17:00 75 28 142/85 (104) 97 03/20/20 16:00 55.0 100 03/20/20 16:00 76 03/20/20 16:00 Nasal Cannula 55.0 03/20/20 16:00 97.6 72 28 129/79 (96) 100 03/20/20 15:12 98 High Flow 55.0 100 03/20/20 15:00 75 29 128/73 (91) 97 03/20/20 14:00 84 25 127/72 (90) 93 03/20/20 13:00 77 27 122/70 (87) 99 03/20/20 12:00 Nasal Cannula 55.0 03/20/20 12:00 82 35 130/80 (97) 98 03/20/20 12:00 79 03/20/20 12:00 55.0 100 03/20/20 12:00 97.3 03/20/20 11:27 95 High Flow 55.0 100 03/20/20 11:00 81 26 119/67 (84) 96 Intake and Output 03/20/20 03/21/20 19:00 07:00 Intake Total 635 ml 555 ml Output Total 800 ml 1200 ml Balance -165 ml -645 ml Intake Oral 360 ml 500 ml IV Total 275 ml 55 ml Output Urine Total 800 ml 1200 ml # Voids 1 General Appearance: no acute distress HEENT: normocephalic Respiratory: chest wall non-tender, lungs clear Cardiovascular: normal peripheral pulses Abdomen: normal bowel sounds Laboratory Tests 03/21/20 09:33: Arterial Blood pH 7.418, Arterial Blood Partial Pressure CO2 41.0, Arterial Blood Partial Pressure O2 63.7L, Arterial Blood HCO3 25.9, Arterial Blood Oxygen Saturation 91.7L, Arterial Blood Base Excess 1.3, José Miguel Test Positive Current Medications Medications (Trade) Dose Ordered Sig/Kiley Route PRN Reason Start Time Stop Time Status Last Admin Dose Admin Acetaminophen (Tylenol) 650 mg Q4H PRN ORAL Temp >100.5 03/14/20 22:45 04/13/20 22:44 03/14/20 22:43 Azithromycin 500 mg/Dextrose 275 ml @ 275 mls/hr Q24HRS IV 03/15/20 18:00 03/21/20 18:59 03/20/20 17:35 Ceftriaxone Sodium 1 gm/ Dextrose 55 ml @ 110 mls/hr Q24H IVPB 03/15/20 18:00 03/22/20 17:59 03/20/20 18:50 Dexamethasone Sodium Phosphate (Decadron 10mg/ ml Inj) 6 mg DAILY IV 03/15/20 10:45 03/24/20 10:44 03/21/20 08:24 Dextrose (Dextrose 50%) 25 ml Q30M PRN IV Hypoglycemia 03/14/20 19:00 06/12/20 18:59 Dextrose (Dextrose 50%) 50 ml Q30M PRN IV Hypoglycemia 03/14/20 19:00 06/12/20 18:59 Docusate Sodium (Colace) 100 mg TWICE A DAY ORAL 03/17/20 11:30 04/16/20 11:29 03/21/20 08:24 Heparin Sodium (Porcine) (Heparin 5000 units/ml) 5,000 units EVERY 8 HOURS SUBQ 03/16/20 22:00 04/30/20 21:59 03/21/20 05:56 Pantoprazole (Protonix) 40 mg DAILY ORAL 03/15/20 09:00 04/14/20 08:59 03/21/20 08:23 Sennosides (Senokot) 8.6 mg DAILYPRN PRN ORAL Constipation 03/17/20 11:30 04/16/20 11:29 Assessment/Plan Assessment/Plan Impression: - COVID-19 pneumonia - stable; extensive bilateral interstitial infiltrates unchanged since prior CXR - Acute hypoxemic hypercapneic respiratory failure - stable. PO2 remains low, PCO2 improving; ABG reviewed with RN; continues to be hypoxic however saturations consistently over 90% - Obesity BMI 35.9 - Metabolic alkalosis - Hyponatremia; - Hypocalcemia; Plan: - Continue Decadron, AB/antivirals per ID - On Hi Flow O2 - IVF - Monitor labs - DVT Ppx - Transfer to tele Time spent on this encounter was 31 minutes. Oral Piper MD Mar 21, 2020 10:05
--- NOTE | 2020-03-21 10:36 | NUR ---
TRANSFER TO FLOOR: Patient transferred to tele via hospital bed on cardiac monitor technician and O2 tank, per Dr Piper in stable condition. Report and belongings given to RENITA Gorman.
--- NOTE | 2020-03-21 10:38 | NUR ---
NURSE NOTES: Report received from Janey MARAVILLA. Patient transferred from ICU, AxOx4, on high flow O2, still with SOB. PIV on left hand patent and intact. Belongings checked and accounted for. Skin intact. Bed low and locked, siderails up x2, call light placed within reach and instructed to call nurse for assistance. Will continue to monitor.
--- NOTE | 2020-03-21 13:54 | Cardiac Electrophysiology PN ---
Assessment/Plan Assessment/Plan 1. Elevated D-dimer of 0.54, severe shortness of breath and active COVID infection. Chest CT no PE Refusing BIPAP. On high flow O2 2. COVID pneumonia, on azithromycin and ceftriaxone as well as dexamethasone. Got remdesivir. Further evaluation by Dr. Gross and Dr. Montiel 3. Tachycardia due to COVID infection. Echocardiogram Nl EF 65% Subjective Subjective On high flow oxygen NC transferred to [facility] from ICU. CT angio no PE. LE Duplex no DVT. EF 65% Refusing BIPAP or proning Objective Last 24 Hour Vital Signs Date Time Temp Pulse Resp B/P (MAP) Pulse Ox O2 Delivery O2 Flow Rate FiO2 03/21/20 10:00 82 29 127/68 (87) 97 03/21/20 09:00 84 24 116/53 (74) 97 03/21/20 08:00 75 03/21/20 08:00 55.0 100 03/21/20 08:00 98.6 84 23 115/62 (79) 97 03/21/20 08:00 Nasal Cannula 55.0 03/21/20 07:00 72 28 131/69 (89) 99 03/21/20 06:00 61 19 111/78 (89) 98 03/21/20 05:00 63 23 131/68 (89) 98 03/21/20 04:00 98.9 65 16 124/71 (88) 98 03/21/20 04:00 Bi-pap 03/21/20 04:00 72 03/21/20 03:00 69 22 113/64 (80) 98 03/21/20 02:00 70 22 124/71 (88) 99 03/21/20 00:47 83 25 131/76 (94) 98 03/21/20 00:30 96 High Flow 55.0 100 03/21/20 00:30 55.0 100 03/21/20 00:00 75 03/21/20 00:00 100 03/21/20 00:00 Bi-pap 03/20/20 23:30 76 45 98 100 03/20/20 23:30 98 Bi-Pap 100 03/20/20 23:00 100 03/20/20 23:00 98.0 67 25 128/75 (92) 99 03/20/20 22:00 74 26 133/84 (100) 98 03/20/20 21:49 Nasal Cannula 55.0 03/20/20 21:00 55.0 100 03/20/20 21:00 72 28 134/78 (96) 99 03/20/20 20:00 72 03/20/20 20:00 Nasal Cannula 55.0 03/20/20 20:00 80 31 138/88 (105) 95 03/20/20 19:15 95 High Flow 55.0 100 03/20/20 19:00 77 22 136/76 (96) 99 03/20/20 18:00 80 27 131/91 (104) 100 03/20/20 17:00 75 28 142/85 (104) 97 03/20/20 16:00 55.0 100 03/20/20 16:00 76 03/20/20 16:00 Nasal Cannula 55.0 03/20/20 16:00 97.6 72 28 129/79 (96) 100 03/20/20 15:12 98 High Flow 55.0 100 03/20/20 15:00 75 29 128/73 (91) 97 03/20/20 14:00 84 25 127/72 (90) 93 Intake and Output 03/20/20 03/21/20 19:00 07:00 Intake Total 635 ml 555 ml Output Total 800 ml 1200 ml Balance -165 ml -645 ml Intake Oral 360 ml 500 ml IV Total 275 ml 55 ml Output Urine Total 800 ml 1200 ml # Voids 1 Laboratory Tests Test 03/21/20 09:33 Arterial Blood pH 7.418 (7.350-7.450) Arterial Blood Partial Pressure CO2 41.0 mmHg (35.0-45.0) Arterial Blood Partial Pressure O2 63.7 mmHg (75.0-100.0) L Arterial Blood HCO3 25.9 mmol/L (22.0-26.0) Arterial Blood Oxygen Saturation 91.7 % (95-100) L Arterial Blood Base Excess 1.3 (-2-2) José Miguel Test Positive Objective HEAD AND NECK: No JVD. LUNGS: Coarse rhonchi. CARDIOVASCULAR: Regular S1 and S2 with no gallop or murmur and tachycardic. ABDOMEN: Soft and obese. EXTREMITIES: No pitting edema. Santi Barnard MD Mar 21, 2020 13:54
--- NOTE | 2020-03-21 16:50 | NUR ---
CASE MANAGEMENT:REVIEW SI;COVID PNEUMONIA. RESPIRATORY FAILURE. 98.9 72 29 131/69 96% 55L HF WBC 14.3 NA 135 BG 140 ALB 2.5 IS;HEPARIN SUBQ Q8 ZITHROMAX IV ROCEPHIN IV DECADRON IV PROTONIX PO TRANSFERRED FROM ICU TO >>>> TELEMETRY TELE STATUS DCP;FROM HOME
--- NOTE | 2020-03-21 18:11 | Infectious Diseases Prog Note ---
Assessment/Plan Assessment/Plan ASSESSMENT AND PLAN: 1. covid-19 infection with pna, ? cap, fevers, leukocytosis likely secondary to steroids - dexamethasone - day # 7 - s/p remdesivir - azithromycin and ceftriaxone - day # 7 - monitor labs and hypoxia - monitor chest x-ray 2. No other significant past medical history. 3. No known allergies. 4. Social history is negative. 5. Family history is noncontributory. 6. MAR is noted. 7. Case discussed with RN. 8. Continue treatment per primary consultants. Subjective Constitutional: Reports: fatigue; Denies: fever Respiratory: Reports: shortness of breath - less Cardiovascular: Denies: chest pain Gastrointestinal/Abdominal: Denies: nausea, vomiting, diarrhea Genitourinary: Reports: other - no diaz Neurologic: Denies: headache Psychiatric: Denies: depression Allergies: Coded Allergies: No Known Allergies (Unverified , 03/14/20) Objective Last 24 Hour Vital Signs Date Time Temp Pulse Resp B/P (MAP) Pulse Ox O2 Delivery O2 Flow Rate FiO2 03/21/20 16:00 97.9 59 22 125/60 (81) 97 03/21/20 16:00 55.0 100 03/21/20 14:40 97 High Flow 55.0 100 03/21/20 12:00 98.2 73 24 120/55 (76) 96 03/21/20 12:00 75 03/21/20 12:00 55.0 100 03/21/20 11:57 98 High Flow 55.0 100 03/21/20 10:00 82 29 127/68 (87) 97 03/21/20 09:00 84 24 116/53 (74) 97 03/21/20 08:00 75 03/21/20 08:00 55.0 100 03/21/20 08:00 98.6 84 23 115/62 (79) 97 03/21/20 08:00 Nasal Cannula 55.0 03/21/20 07:59 94 High Flow 55.0 100 03/21/20 07:00 72 28 131/69 (89) 99 03/21/20 06:00 61 19 111/78 (89) 98 03/21/20 05:00 63 23 131/68 (89) 98 03/21/20 04:00 98.9 65 16 124/71 (88) 98 03/21/20 04:00 Bi-pap 03/21/20 04:00 72 03/21/20 03:00 69 22 113/64 (80) 98 03/21/20 02:00 70 22 124/71 (88) 99 03/21/20 00:47 83 25 131/76 (94) 98 03/21/20 00:30 96 High Flow 55.0 100 03/21/20 00:30 55.0 100 03/21/20 00:00 75 03/21/20 00:00 100 03/21/20 00:00 Bi-pap 03/20/20 23:30 76 45 98 100 03/20/20 23:30 98 Bi-Pap 100 03/20/20 23:00 100 03/20/20 23:00 98.0 67 25 128/75 (92) 99 03/20/20 22:00 74 26 133/84 (100) 98 03/20/20 21:49 Nasal Cannula 55.0 03/20/20 21:00 55.0 100 03/20/20 21:00 72 28 134/78 (96) 99 03/20/20 20:00 72 03/20/20 20:00 Nasal Cannula 55.0 03/20/20 20:00 80 31 138/88 (105) 95 03/20/20 19:15 95 High Flow 55.0 100 03/20/20 19:00 77 22 136/76 (96) 99 Height (Feet): 6 Height (Inches): 2.00 Weight (Pounds): 280 General Appearance: no acute distress HEENT: normocephalic, atraumatic, anicteric, mucous membranes moist Respiratory/Chest: crackles/rales, rhonchi - bilaterally Cardiovascular: normal rate, regular rhythm Abdomen: normal bowel sounds, soft, non tender, no organomegaly, non distended Genitourinary: other - no diaz Extremities: no cyanosis Skin: no rash Chest x-ray - 03/17/20 - Procedure: XRAY Chest 1v Indication: Shortness of breath and cough Technique: One view of the chest Comparison: 03/14/2020 Findings: Again demonstrated are extensive bilateral interstitial and airspace infiltrates. Normal heart size. Findings are unchanged Impression: Extensive bilateral infiltrates, unchanged since prior exam of 03/14/2020 Chest x-ray - 03/19/20: Procedure: XRAY Chest 1v Indication: Shortness of breath Technique: One view of the chest Comparison: 03/17/2020 Findings: Again demonstrated are extensive bilateral infiltrates. Appearance is similar on the right, worse in the left upper lung periphery. The heart size is normal. Impression: Extensive bilateral infiltrates, stable on the right, worse on the left Microbiology Date/Time Source Procedure Growth Status 03/14/20 15:45 Nasopharynx Coronavirus COVID-19 PCR ([facility]DA) - Final Complete 03/14/20 15:25 Blood Blood Culture - Final NO GROWTH AFTER 5 DAYS Complete Labs Test 03/19/20 04:30 03/19/20 10:14 03/20/20 04:00 03/20/20 07:45 White Blood Count 6.9 K/UL (4.8-10.8) 14.3 K/UL (4.8-10.8) Red Blood Count 4.09 M/UL (4.70-6.10) 5.59 M/UL (4.70-6.10) Hemoglobin 12.3 G/DL (14.2-18.0) 16.6 G/DL (14.2-18.0) Hematocrit 33.9 % (42.0-52.0) 46.2 % (42.0-52.0) Mean Corpuscular Volume 83 FL (80-99) 83 FL (80-99) Mean Corpuscular Hemoglobin 30.0 PG (27.0-31.0) 29.7 PG (27.0-31.0) Mean Corpuscular Hemoglobin Concent 36.1 G/DL (32.0-36.0) 35.9 G/DL (32.0-36.0) Red Cell Distribution Width 13.4 % (11.6-14.8) 12.6 % (11.6-14.8) Platelet Count 241 K/UL (150-450) 363 K/UL (150-450) Mean Platelet Volume 5.2 FL (6.5-10.1) 5.5 FL (6.5-10.1) Neutrophils (%) (Auto) 82.8 % (45.0-75.0) 79.2 % (45.0-75.0) Lymphocytes (%) (Auto) 7.4 % (20.0-45.0) 7.1 % (20.0-45.0) Monocytes (%) (Auto) 7.9 % (1.0-10.0) 9.7 % (1.0-10.0) Eosinophils (%) (Auto) 0.7 % (0.0-3.0) 3.3 % (0.0-3.0) Basophils (%) (Auto) 1.3 % (0.0-2.0) 0.7 % (0.0-2.0) Sodium Level 134 MMOL/L (136-145) 135 MMOL/L (136-145) Potassium Level 4.3 MMOL/L (3.5-5.1) 3.9 MMOL/L (3.5-5.1) Chloride Level 102 MMOL/L (98-107) 101 MMOL/L (98-107) Carbon Dioxide Level 23 MMOL/L (21-32) 27 MMOL/L (21-32) Anion Gap 9 mmol/L (5-15) 7 mmol/L (5-15) Blood Urea Nitrogen 15 mg/dL (7-18) 17 mg/dL (7-18) Creatinine 0.8 MG/DL (0.55-1.30) 0.9 MG/DL (0.55-1.30) Estimat Glomerular Filtration Rate > 60 mL/min (>60) > 60 mL/min (>60) Glucose Level 98 MG/DL (74-106) 140 MG/DL (74-106) Calcium Level 8.2 MG/DL (8.5-10.1) 8.4 MG/DL (8.5-10.1) Arterial Blood pH 7.437 (7.350-7.450) Arterial Blood Partial Pressure CO2 38.6 mmHg (35.0-45.0) Arterial Blood Partial Pressure O2 60.5 mmHg (75.0-100.0) Arterial Blood HCO3 25.5 mmol/L (22.0-26.0) Arterial Blood Oxygen Saturation 90.9 % (95-100) Arterial Blood Base Excess 1.4 (-2-2) José Miguel Test Positive Total Bilirubin 0.9 MG/DL (0.2-1.0) Aspartate Amino Transf (AST/SGOT) 27 U/L (15-37) Alanine Aminotransferase (ALT/SGPT) 45 U/L (12-78) Alkaline Phosphatase 67 U/L (46-116) Total Protein 7.0 G/DL (6.4-8.2) Albumin 2.5 G/DL (3.4-5.0) Globulin 4.5 g/dL Albumin/Globulin Ratio 0.6 (1.0-2.7) Test 03/20/20 07:50 03/21/20 09:33 Arterial Blood pH 7.442 (7.350-7.450) 7.418 (7.350-7.450) Arterial Blood Partial Pressure CO2 35.9 mmHg (35.0-45.0) 41.0 mmHg (35.0-45.0) Arterial Blood Partial Pressure O2 53.1 mmHg (75.0-100.0) 63.7 mmHg (75.0-100.0) Arterial Blood HCO3 23.9 mmol/L (22.0-26.0) 25.9 mmol/L (22.0-26.0) Arterial Blood Oxygen Saturation 87.1 % (95-100) 91.7 % (95-100) Arterial Blood Base Excess 0.4 (-2-2) 1.3 (-2-2) José Miguel Test Positive Positive Laboratory Tests Test 03/21/20 09:33 Arterial Blood pH 7.418 (7.350-7.450) Arterial Blood Partial Pressure CO2 41.0 mmHg (35.0-45.0) Arterial Blood Partial Pressure O2 63.7 mmHg (75.0-100.0) L Arterial Blood HCO3 25.9 mmol/L (22.0-26.0) Arterial Blood Oxygen Saturation 91.7 % (95-100) L Arterial Blood Base Excess 1.3 (-2-2) José Miguel Test Positive Current Medications Medications (Trade) Dose Ordered Sig/Kiley Route PRN Reason Start Time Stop Time Status Last Admin Dose Admin Acetaminophen (Tylenol) 650 mg Q4H PRN ORAL Temp >100.5 03/14/20 22:45 04/13/20 22:44 03/14/20 22:43 Azithromycin 500 mg/Dextrose 275 ml @ 275 mls/hr Q24HRS IV 03/15/20 18:00 03/21/20 18:59 03/20/20 17:35 Ceftriaxone Sodium 1 gm/ Dextrose 55 ml @ 110 mls/hr Q24H IVPB 03/15/20 18:00 03/22/20 17:59 03/20/20 18:50 Dexamethasone Sodium Phosphate (Decadron 10mg/ ml Inj) 6 mg DAILY IV 03/15/20 10:45 03/24/20 10:44 03/21/20 08:24 Dextrose (Dextrose 50%) 25 ml Q30M PRN IV Hypoglycemia 03/14/20 19:00 06/12/20 18:59 Dextrose (Dextrose 50%) 50 ml Q30M PRN IV Hypoglycemia 03/14/20 19:00 06/12/20 18:59 Docusate Sodium (Colace) 100 mg TWICE A DAY ORAL 03/17/20 11:30 04/16/20 11:29 03/21/20 08:24 Heparin Sodium (Porcine) (Heparin 5000 units/ml) 5,000 units EVERY 8 HOURS SUBQ 03/16/20 22:00 04/30/20 21:59 03/21/20 14:31 Pantoprazole (Protonix) 40 mg DAILY ORAL 03/15/20 09:00 04/14/20 08:59 03/21/20 08:23 Sennosides (Senokot) 8.6 mg DAILYPRN PRN ORAL Constipation 03/17/20 11:30 04/16/20 11:29 Ori Gross MD Mar 21, 2020 18:11
[2020-03-21] MEDS: cefTRIAXone 1 GM in D5W 55 ML IVPB SCH (18:24)
[2020-03-21] MEDS: Azithromycin 500 MG in D5W 275 ML IV SCH (18:55)
--- NOTE | 2020-03-21 19:41 | NUR ---
NURSE HAND-OFF REPORT: Important Events on Shift: Transfer from ICU, stable on high flow O2 Patient Status: Stable Diet: Regular Pending Orders: N Pending Results/Labs:N Pending MD notification:N Latest Vital Signs: Temperature 97.9 , Pulse 58 , B/P 125 /60 , Respiratory Rate 22 , O2 SAT 97 , Nasal Cannula, O2 Flow Rate 55.0 . Vital Sign Comment: EKG Rhythm: Sinus Bradycardia Rhythm change?: N MD Notified?: - MD Response: Latest Hollins Fall Score: 35 Fall Risk: Medium Risk Safety Measures: Call light Within Reach, Bed Alarm Zone 2, Side Rails Side Rails x2, Bed position Low and Locked. Fall Precautions: Yellow Socks Yellow Gown Door Sign Patient Fall Education Report given to Alejandro Brown RN.
--- NOTE | 2020-03-21 19:45 | NUR ---
NURSE NOTES: Pt received from RENITA Lemus alert and oriented x4 with no acute s/s of distress noted. On HFNC. IV site asymptomatic and patent on L hand 20g, saline lock. Bed in lowest position, call light and belongings within reach.
[2020-03-21 20:06] LABS: ALANINE AMINOTRANSFERASE 29 U/L (12-78); ALBUMIN 2.3 G/DL (3.4-5.0); ALBUMIN/GLOBULIN RATIO 0.5 (1.0-2.7); ALKALINE PHOSPHATASE 67 U/L (46-116); ANION GAP 5 mmol/L (5-15); ASPARTATE AMINO TRANSFERASE 15 U/L (15-37); BILIRUBIN,TOTAL 0.5 MG/DL (0.2-1.0); BLOOD UREA NITROGEN 19 mg/dL (7-18); CALCIUM 7.9 MG/DL (8.5-10.1); CARBON DIOXIDE 28 MMOL/L (21-32); CHLORIDE 100 MMOL/L (98-107); CREATININE 0.9 MG/DL (0.55-1.30); POTASSIUM 4.3 MMOL/L (3.5-5.1); SODIUM 133 MMOL/L (136-145)
[2020-03-21 20:16] LABS: BASOPHILS % (AUTO) 0.7 % (0.0-2.0); EOSINOPHILS % (AUTO) 1.4 % (0.0-3.0); HEMATOCRIT 44.7 % (42.0-52.0); LYMPHOCYTES % (AUTO) 6.5 % (20.0-45.0); MEAN CORPUSCULAR VOLUME 83 FL (80-99); MONOCYTES % (AUTO) 8.2 % (1.0-10.0); NEUTROPHILS % (AUTO) 83.3 % (45.0-75.0); PLATELET COUNT 355 K/UL (150-450); RED CELL DISTRIBUTION WIDTH 13.4 % (11.6-14.8); WHITE BLOOD COUNT 9.9 K/UL (4.8-10.8)
[2020-03-22] VITALS: BP 119/68
[2020-03-22 04:00] VITALS: BP 112/64
[2020-03-22] MEDS: Heparin 5000 units/ml inj SUBQ SCH ×3 (05:49→21:02)
--- NOTE | 2020-03-22 07:10 | NUR ---
NURSE HAND-OFF REPORT: Important Events on Shift: Pt tolerated 55L 100% FiO2 HFNC during the night. Had 1 BM during the night, ambulated to BS. Patient Status: Stable Diet: regular Pending Orders: n/a Pending Results/Labs: n/a Pending MD notification:n/a Latest Vital Signs: Temperature 97.9 , Pulse 74 , B/P 112 /64 , Respiratory Rate 22 , O2 SAT 98 , Nasal Cannula, O2 Flow Rate 55.0 . Vital Sign Comment: WNL EKG Rhythm: Sinus Rhythm Rhythm change?: N MD Notified?: - MD Response: Latest Hollins Fall Score: 35 Fall Risk: Medium Risk Safety Measures: Call light Within Reach, Bed Alarm Zone 2, Side Rails Side Rails x2, Bed position Low and Locked. Fall Precautions: Yellow Socks Yellow Gown Door Sign Patient Fall Education Report given to RENITA Cohen.
--- NOTE | 2020-03-22 07:13 | NUR ---
NURSE NOTES: received report from Alejandro/RN. Pt alert and oriented X4, having breakfast in bed. Able to make needs known. On High flow nasal cannula 55L, 100% FiO2. IV on left hand 20G, SL, patent and clean. Bed in the lowest position and locked. Call light within reach, encouraged to use it when need it. Side rails up X3. Will continue plan of care.
[2020-03-22 08:00] VITALS: BP 128/77
--- NOTE | 2020-03-22 09:21 | General Progress Note ---
Subjective Date patient seen: Mar 22, 2020 ROS Limited/Unobtainable: No Constitutional: Denies: no symptoms, chills, diaphoresis, fever, malaise, weakness, other HEENT: Denies: no symptoms, eye pain, blurred vision, tearing, double vision, ear pain, ear discharge, nose pain, nose congestion, throat pain, throat swelling, mouth pain, mouth swelling, other Cardiovascular: Denies: no symptoms, chest pain, edema, irregular heart rate, lightheadedness, palpitations, syncope, other Respiratory: Denies: no symptoms, cough, orthopnea, shortness of breath, SOB with excertion, SOB at rest, sputum, stridor, wheezing, other Gastrointestinal/Abdominal: Denies: no symptoms, abdomen distended, abdominal pain, black stools, tarry stools, blood in stool, constipated, diarrhea, difficulty swallowing, nausea, poor appetite, poor fluid intake, rectal bleeding, vomiting, other Neurologic/Psychiatric: Denies: no symptoms, anxiety, depressed, emotional problems, headache, numbness, paresthesia, pre-existing deficit, seizure, tingling, tremors, weakness, other Endocrine: Denies: no symptoms, excessive sweating, flushing, intolerance to cold, intolerance to heat, increased hunger, increased thirst, increased urine, unexplained weight gain, unexplained weight loss, other Allergies: Coded Allergies: No Known Allergies (Unverified , 03/14/20) Subjective High flow nasal cannula 55L, 100% FiO2. saturating 96% Continues to bipap and refuses to prone eating breakfast Objective Last 24 Hour Vital Signs Date Time Temp Pulse Resp B/P (MAP) Pulse Ox O2 Delivery O2 Flow Rate FiO2 03/22/20 04:00 74 03/22/20 04:00 97.9 64 22 112/64 (80) 98 03/22/20 04:00 55.0 100 03/22/20 03:00 98 High Flow 55.0 100 03/22/20 00:00 64 03/22/20 00:00 55.0 100 03/22/20 00:00 97.5 70 36 119/68 (85) 97 03/21/20 22:59 97 High Flow 55.0 100 03/21/20 20:00 96.8 74 20 139/78 (98) 96 12/4/20 20:00 72 03/21/20 20:00 55.0 100 03/21/20 19:08 97 High Flow 55.0 100 03/21/20 16:00 97.9 59 22 125/60 (81) 97 03/21/20 16:00 58 03/21/20 16:00 55.0 100 03/21/20 14:40 97 High Flow 55.0 100 03/21/20 12:00 98.2 73 24 120/55 (76) 96 03/21/20 12:00 75 03/21/20 12:00 55.0 100 03/21/20 11:57 98 High Flow 55.0 100 03/21/20 10:00 82 29 127/68 (87) 97 Intake and Output 03/21/20 03/22/20 19:00 07:00 Intake Total 360 ml 985 ml Output Total 300 ml 1200 ml Balance 60 ml -215 ml Intake Oral 360 ml 600 ml IV Total 385 ml Output Urine Total 300 ml 1200 ml # Voids 1 Laboratory Tests 03/21/20 09:33: Arterial Blood pH 7.418, Arterial Blood Partial Pressure CO2 41.0, Arterial Blood Partial Pressure O2 63.7L, Arterial Blood HCO3 25.9, Arterial Blood Oxygen Saturation 91.7L, Arterial Blood Base Excess 1.3, José Miguel Test Positive 03/21/20 19:10: White Blood Count 9.9, Red Blood Count 5.40, Hemoglobin 16.0, Hematocrit 44.7, Mean Corpuscular Volume 83, Mean Corpuscular Hemoglobin 29.5, Mean Corpuscular Hemoglobin Concent 35.7, Red Cell Distribution Width 13.4, Platelet Count 355, Mean Platelet Volume 5.9L, Neutrophils (%) (Auto) 83.3H, Lymphocytes (%) (Auto) 6.5L, Monocytes (%) (Auto) 8.2, Eosinophils (%) (Auto) 1.4, Basophils (%) (Auto) 0.7, Sodium Level 133L, Potassium Level 4.3, Chloride Level 100, Carbon Dioxide Level 28, Anion Gap 5, Blood Urea Nitrogen 19H, Creatinine 0.9, Estimat Glomerular Filtration Rate > 60, Glucose Level 223H, Calcium Level 7.9L, Total Bilirubin 0.5, Aspartate Amino Transf (AST/SGOT) 15, Alanine Aminotransferase (ALT/SGPT) 29, Alkaline Phosphatase 67, Total Protein 6.6, Albumin 2.3L, Globulin 4.3, Albumin/Globulin Ratio 0.5L Height (Feet): 6 Height (Inches): 2.00 Weight (Pounds): 280 Objective General Appearance: WD/WN, alert, awake, obese, on HFNC HEENT: normocephalic, atraumatic, mucous membranes moist, PERRL, EOMI Neck: non-tender, normal alignment, supple, normal inspection Respiratory/Chest: chest wall non-tender, + accessory muscle use, mild respiratory distress Cardiovascular/Chest: normal rate, regular rhythm Abdomen: non tender, soft, no organomegaly Extremities: normal range of motion, non-tender, normal inspection, no calf tenderness, no edema 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 CXR and CTA chest unchanged showing multifocal pneumonia. #Acute hypoxemic hypercapneic respiratory failure - stable. PO2 remains low, PCO2 improving, now normalized #Metabolic alkalosis #Hyponatremia-likely SIADH based on urine sodium #Elevated inflammatory markers - Ferritin, CRP, D-dimer, fibrinogen #leukocytosis- steroid induced P: - remains in ICU, stable o2 requirement - currently on HFNC, BiPAP ordered for last night to allow patient to rest, but patient refused, so maintained on HFNC. He also refuses proning - monitor ABG -Wean O2 as tolerated - CTA and BLE duplex US negative for PE or DVT, so heparin drip discontinued - cardiac monitoring - TTE ordered per cardiology, f/u results - continue dexamethasone 6 mg daily, remdesivir per ID - CTX/Azithro - ID consult, Dr. Elizalde recs appreciated - Pulm consult, Dr. Piper recs appreciated - Nephro consult, bryant Hairs appreciated - Cardiology consult, bryant Nowaks appreciated Code: Full GI: Protonix DVT prophylaxis: 5000 u TID Dispo: Pending improving in hypoxic respiratory failure, back to home after Time spent on this encounter was 71 minutes which included 41 minutes of counseling and care coordination and 40 minutes of critical care time including ordering and reviewing blood gas, reviewing heparin orders, reviewing chest imaging and ultrasound imaging and discussion with consultants. I discussed with the nurse at bedside. Time of note may not reflect time patient was seen. Evin Hart M.D. Mar 22, 2020 09:21
[2020-03-22] MEDS: Docusate 100mg cap ORAL SCH ×2 (09:26→17:19)
[2020-03-22] MEDS: dexAMETHasone 10mg/ml Inj IV SCH (09:26)
--- NOTE | 2020-03-22 11:08 | NUR ---
CASE MANAGEMENT:REVIEW SI;COVID PNEUMONIA. RESPIRATORY FAILURE. 96.8 77 36 139/78 96% 55L HFNC NO LABS AVAILABLE IS;HEPARIN SQ Q8 ROCEPHIN IV Q24 DECADRON IV QD PROTONIX PO QD TELE STATUS DCP;FROM HOME PLAN; WEAN O2 TOLERATED MONITOR ABG
[2020-03-22] MEDS ORDERED: NS 275ml ONE (11:51)
[2020-03-22] MEDS ORDERED: Tubing IV Secondary IV ONE (11:51)
[2020-03-22 12:00] VITALS: BP 108/59
--- NOTE | 2020-03-22 13:22 | Cardiology Report ---
APPROVED REPORT EXAM: Two-dimensional and M-mode echocardiogram with Doppler and color Doppler. INDICATION SOB M-Mode DIMENSIONS IVSd1.2 (0.7-1.1cm)Left Atrium (MM)3.8 (1.6-4.0cm) LVDd3.8 (3.5-5.6cm)Aortic Root3.3 (2.0-3.7cm) PWd0.9 (0.7-1.1cm)Aortic Cusp Exc.1.7 (1.5-2.0cm) IVSs1.2 cmEPSS0.6 (>1.0cm) LVDs2.6 (2.5-4.0cm) PWs1.3 cm <Conclusion> Normal left ventricular chamber size, systolic function and wall motion. Left ventricular ejection fraction estimated to be 60-65 %. No left ventricular hypertrophy. No evidence of pericardial effusion. Mild left atrial enlargement. Right cardiac chambers are within normal limits. Focal aortic valve sclerosis with adequate cusp excursion. Thickened mitral valve leaflets with normal excursion. Mitral annulus and aortic root calcification. Pulmonic valve not well visualized. Normal tricuspid valve structure. IVC dilated at 2.3 cm with slight physiologic collapse suggestive of increased RA pressure. A color flow and spectral Doppler study was performed and revealed: Trace aortic regurgitation. Trace mitral regurgitation. Normal left ventricular diastolic function. Trace to mild tricuspid regurgitation. Tricuspid systolic velocities suggests peak right ventricular systolic pressure of 40 mmHg with RAP 15 mmHg, consistent with mild pulmonary hypertension. Trace pulmonic regurgitation present.
--- NOTE | 2020-03-22 14:18 | Pulmonology Progress Note ---
Subjective ROS Limited/Unobtainable: No Interval Events: none major Constitutional: Reports: fatigue; Denies: fever HEENT: Repors: no symptoms Respiratory: Reports: dry cough, productive cough, sputum, hemoptysis, shortness of breath, dyspnea at rest, dyspnea on exertion, wheezing, pleuritic pain, other Cardiovascular: Reports: no symptoms Gastrointestinal/Abdominal: Denies: nausea, vomiting, diarrhea Genitourinary: Reports: no symptoms Neurologic: Reports: no symptoms Psychiatric: Denies: depression Skin: Denies: rash Musculoskeletal: Denies: pain Allergies: Coded Allergies: No Known Allergies (Unverified , 03/14/20) Subjective 03/22/2020 pt remains on high flow oxygen; pt reports feeling better Objective Last 24 Hour Vital Signs Date Time Temp Pulse Resp B/P (MAP) Pulse Ox O2 Delivery O2 Flow Rate FiO2 03/22/20 12:00 55.0 100 03/22/20 12:00 98.0 69 22 108/59 (75) 96 03/22/20 11:55 98 High Flow 55.0 100 03/22/20 08:00 78 03/22/20 08:00 55.0 100 03/22/20 08:00 97.9 77 20 128/77 (94) 96 03/22/20 07:58 97 High Flow 55.0 100 03/22/20 04:00 74 03/22/20 04:00 97.9 64 22 112/64 (80) 98 03/22/20 04:00 55.0 100 03/22/20 03:00 98 High Flow 55.0 100 03/22/20 00:00 64 03/22/20 00:00 55.0 100 03/22/20 00:00 97.5 70 36 119/68 (85) 97 03/21/20 22:59 97 High Flow 55.0 100 03/21/20 20:00 96.8 74 20 139/78 (98) 96 03/21/20 20:00 72 03/21/20 20:00 55.0 100 03/21/20 19:08 97 High Flow 55.0 100 03/21/20 16:00 97.9 59 22 125/60 (81) 97 03/21/20 16:00 58 03/21/20 16:00 55.0 100 03/21/20 14:40 97 High Flow 55.0 100 Intake and Output 03/21/20 03/22/20 19:00 07:00 Intake Total 360 ml 985 ml Output Total 300 ml 1200 ml Balance 60 ml -215 ml Intake Oral 360 ml 600 ml IV Total 385 ml Output Urine Total 300 ml 1200 ml # Voids 1 Objective 03/22/2020 in bed watching tv; NAD General Appearance: no acute distress HEENT: normocephalic Respiratory: chest wall non-tender, lungs clear Cardiovascular: normal peripheral pulses Abdomen: normal bowel sounds Laboratory Tests 03/21/20 19:10: White Blood Count 9.9, Red Blood Count 5.40, Hemoglobin 16.0, Hematocrit 44.7, Mean Corpuscular Volume 83, Mean Corpuscular Hemoglobin 29.5, Mean Corpuscular Hemoglobin Concent 35.7, Red Cell Distribution Width 13.4, Platelet Count 355, Mean Platelet Volume 5.9L, Neutrophils (%) (Auto) 83.3H, Lymphocytes (%) (Auto) 6.5L, Monocytes (%) (Auto) 8.2, Eosinophils (%) (Auto) 1.4, Basophils (%) (Auto) 0.7, Sodium Level 133L, Potassium Level 4.3, Chloride Level 100, Carbon Dioxide Level 28, Anion Gap 5, Blood Urea Nitrogen 19H, Creatinine 0.9, Estimat Glomerul ar Filtration Rate > 60, Glucose Level 223H, Calcium Level 7.9L, Total Bilirubin 0.5, Aspartate Amino Transf (AST/SGOT) 15, Alanine Aminotransferase (ALT/SGPT) 29, Alkaline Phosphatase 67, Total Protein 6.6, Albumin 2.3L, Globulin 4.3, Albumin/Globulin Ratio 0.5L Current Medications Medications (Trade) Dose Ordered Sig/Kiley Route PRN Reason Start Time Stop Time Status Last Admin Dose Admin Acetaminophen (Tylenol) 650 mg Q4H PRN ORAL Temp >100.5 03/14/20 22:45 04/13/20 22:44 03/14/20 22:43 Ceftriaxone Sodium 1 gm/ Dextrose 55 ml @ 110 mls/hr Q24H IVPB 03/15/20 18:00 03/24/20 17:59 03/21/20 18:24 Dexamethasone Sodium Phosphate (Decadron 10mg/ ml Inj) 6 mg DAILY IV 03/15/20 10:45 03/24/20 10:44 03/22/20 09:26 Dextrose (Dextrose 50%) 25 ml Q30M PRN IV Hypoglycemia 03/14/20 19:00 06/12/20 18:59 Dextrose (Dextrose 50%) 50 ml Q30M PRN IV Hypoglycemia 03/14/20 19:00 06/12/20 18:59 Docusate Sodium (Colace) 100 mg TWICE A DAY ORAL 03/17/20 11:30 04/16/20 11:29 03/22/20 09:26 Heparin Sodium (Porcine) (Heparin 5000 units/ml) 5,000 units EVERY 8 HOURS SUBQ 03/16/20 22:00 04/30/20 21:59 03/22/20 13:17 Pantoprazole (Protonix) 40 mg DAILY ORAL 03/15/20 09:00 04/14/20 08:59 03/22/20 09:26 Sennosides (Senokot) 8.6 mg DAILYPRN PRN ORAL Constipation 03/17/20 11:30 04/16/20 11:29 Assessment/Plan Assessment/Plan Impression: - COVID-19 pneumonia - stable; extensive bilateral interstitial infiltrates unchanged since prior CXR; 03/21/2020 CXR pending - Acute hypoxemic hypercapneic respiratory failure - stable. PO2 remains low, PCO2 improving; ABG reviewed with RN; saturating 96% on 55L HFNC - Obesity BMI 35.9 - Metabolic alkalosis - Hyponatremia; - Hypocalcemia; Plan: - Continue Decadron, AB/antivirals per ID - On Hi Flow O2 - IVF - Monitor labs - DVT Ppx - on heparin Time spent on this encounter was 31 minutes. The care for this patient was discussed with my supervising physician Seen and examined by Dr. Piper as well Des Daniels Mar 22, 2020 14:17
[2020-03-22 16:00] VITALS: BP 114/67
[2020-03-22] MEDS: cefTRIAXone 1 GM in D5W 55 ML IVPB SCH (17:19)
--- NOTE | 2020-03-22 17:36 | Cardiac Electrophysiology PN ---
Assessment/Plan Assessment/Plan 1. Elevated D-dimer of 0.54, severe shortness of breath and active COVID infection. Chest CT no PE Refusing BIPAP. On high flow O2 2. COVID pneumonia, on azithromycin and ceftriaxone as well as dexamethasone. Got remdesivir. Fu by Dr. Gross and Dr. Montiel 3. Tachycardia due to COVID infection. Echocardiogram Nl EF 65% Subjective Subjective On 55 liter high flow oxygen on tele CT angio no PE. LE Duplex no DVT. EF 65% Refusing BIPAP or proning Objective Last 24 Hour Vital Signs Date Time Temp Pulse Resp B/P (MAP) Pulse Ox O2 Delivery O2 Flow Rate FiO2 03/22/20 16:53 95 High Flow 45.0 75 03/22/20 16:00 98.1 70 20 114/67 (83) 97 03/22/20 16:00 55.0 100 03/22/20 15:54 97 High Flow 55.0 100 03/22/20 12:00 66 03/22/20 12:00 55.0 100 03/22/20 12:00 98.0 69 22 108/59 (75) 96 03/22/20 11:55 98 High Flow 55.0 100 03/22/20 08:00 78 03/22/20 08:00 55.0 100 03/22/20 08:00 97.9 77 20 128/77 (94) 96 03/22/20 07:58 97 High Flow 55.0 100 03/22/20 04:00 74 03/22/20 04:00 97.9 64 22 112/64 (80) 98 03/22/20 04:00 55.0 100 03/22/20 03:00 98 High Flow 55.0 100 03/22/20 00:00 64 03/22/20 00:00 55.0 100 03/22/20 00:00 97.5 70 36 119/68 (85) 97 03/21/20 22:59 97 High Flow 55.0 100 03/21/20 20:00 96.8 74 20 139/78 (98) 96 03/21/20 20:00 72 03/21/20 20:00 55.0 100 03/21/20 19:08 97 High Flow 55.0 100 Intake and Output 03/21/20 03/22/20 19:00 07:00 Intake Total 360 ml 985 ml Output Total 300 ml 1200 ml Balance 60 ml -215 ml Intake Oral 360 ml 600 ml IV Total 385 ml Output Urine Total 300 ml 1200 ml # Voids 1 Laboratory Tests Test 03/21/20 19:10 White Blood Count 9.9 K/UL (4.8-10.8) Red Blood Count 5.40 M/UL (4.70-6.10) Hemoglobin 16.0 G/DL (14.2-18.0) Hematocrit 44.7 % (42.0-52.0) Mean Corpuscular Volume 83 FL (80-99) Mean Corpuscular Hemoglobin 29.5 PG (27.0-31.0) Mean Corpuscular Hemoglobin Concent 35.7 G/DL (32.0-36.0) Red Cell Distribution Width 13.4 % (11.6-14.8) Platelet Count 355 K/UL (150-450) Mean Platelet Volume 5.9 FL (6.5-10.1) L Neutrophils (%) (Auto) 83.3 % (45.0-75.0) H Lymphocytes (%) (Auto) 6.5 % (20.0-45.0) L Monocytes (%) (Auto) 8.2 % (1.0-10.0) Eosinophils (%) (Auto) 1.4 % (0.0-3.0) Basophils (%) (Auto) 0.7 % (0.0-2.0) Sodium Level 133 MMOL/L (136-145) L Potassium Level 4.3 MMOL/L (3.5-5.1) Chloride Level 100 MMOL/L (98-107) Carbon Dioxide Level 28 MMOL/L (21-32) Anion Gap 5 mmol/L (5-15) Blood Urea Nitrogen 19 mg/dL (7-18) H Creatinine 0.9 MG/DL (0.55-1.30) Estimat Glomerular Filtration Rate > 60 mL/min (>60) Glucose Level 223 MG/DL (74-106) H Calcium Level 7.9 MG/DL (8.5-10.1) L Total Bilirubin 0.5 MG/DL (0.2-1.0) Aspartate Amino Transf (AST/SGOT) 15 U/L (15-37) Alanine Aminotransferase (ALT/SGPT) 29 U/L (12-78) Alkaline Phosphatase 67 U/L (46-116) Total Protein 6.6 G/DL (6.4-8.2) Albumin 2.3 G/DL (3.4-5.0) L Globulin 4.3 g/dL Albumin/Globulin Ratio 0.5 (1.0-2.7) L Objective HEAD AND NECK: No JVD. LUNGS: Coarse rhonchi. CARDIOVASCULAR: Regular S1 and S2 with no gallop or murmur and tachycardic. ABDOMEN: Soft and obese. EXTREMITIES: No pitting edema. Santi Barnard MD Mar 22, 2020 17:36
--- NOTE | 2020-03-22 19:33 | NUR ---
NURSE HAND-OFF REPORT: Important Events on Shift: Patient Status: Stable Diet: Regular Pending Orders: Pending Results/Labs: Pending MD notification: Latest Vital Signs: Temperature 98.1 , Pulse 65 , B/P 114 /67 , Respiratory Rate 20 , O2 SAT 95 , Nasal Cannula, O2 Flow Rate 45.0 . Vital Sign Comment: Stable EKG Rhythm: Sinus Rhythm Rhythm change?: N MD Notified?: - MD Response: Latest Hollins Fall Score: 35 Fall Risk: Medium Risk Safety Measures: Call light Within Reach, Bed Alarm Zone 2, Side Rails Side Rails x2, Bed position Low and Locked. Fall Precautions: Yellow Socks Yellow Gown Door Sign Patient Fall Education Report given to Tuan/RENITA.
--- NOTE | 2020-03-22 19:35 | NUR ---
NURSE NOTES: Pt received from RENITA Bar. Pt is resting comfortably in bed and denies any pain. Pt is A/Ox4 and ambulatory with commode bedside. Pt is on cardiac monitoring SR and asymptomatic. Pt is on High Flow O2 45LPM 75% FiO2 and sating well. Pt has LHand 20G SL patent with skin dry and intact. Bed is locked in lowest position and call light is within reach. Will continue to monitor. Addendum: 03/22/20 at 2007 by Afshin Reveles RN Pt received from RENITA Cohen.
[2020-03-22 20:00] VITALS: BP 123/71
[2020-03-23] VITALS: BP 118/57
[2020-03-23 04:00] VITALS: BP 116/72
[2020-03-23] MEDS: Heparin 5000 units/ml inj SUBQ SCH ×3 (05:16→20:55)
--- NOTE | 2020-03-23 06:24 | NUR ---
NURSE HAND-OFF REPORT: Important Events on Shift: PT continued scheduled medications Patient Status: Stable Diet: Regular Pending Orders: Pending Results/Labs:AM Labs Pending MD notification: Latest Vital Signs: Temperature 97.2 , Pulse 55 , B/P 116 /72 , Respiratory Rate 20 , O2 SAT 96 , Nasal Cannula, O2 Flow Rate 55.0 . Vital Sign Comment: VSS EKG Rhythm: Sinus Bradycardia Rhythm change?: Y MD Notified?: N - MD Response: Latest Hollins Fall Score: 35 Fall Risk: Medium Risk Safety Measures: Call light Within Reach, Bed Alarm Zone 2, Side Rails Side Rails x2, Bed position Low and Locked. Fall Precautions: Yellow Socks Yellow Gown Door Sign Patient Fall Education Report given to RENITA Cohen.
[2020-03-23 06:32] LABS: ANION GAP 5 mmol/L (5-15); BLOOD UREA NITROGEN 14 mg/dL (7-18); CALCIUM 8.1 MG/DL (8.5-10.1); CARBON DIOXIDE 30 MMOL/L (21-32); CHLORIDE 102 MMOL/L (98-107); CREATININE 0.6 MG/DL (0.55-1.30); SODIUM 137 MMOL/L (136-145)
[2020-03-23 06:34] LABS: BASOPHILS % (AUTO) 0.9 % (0.0-2.0); EOSINOPHILS % (AUTO) 0.1 % (0.0-3.0); HEMATOCRIT 45.2 % (42.0-52.0); HEMOGLOBIN 15.7 G/DL (14.2-18.0); LYMPHOCYTES % (AUTO) 15.2 % (20.0-45.0); MEAN CORPUSCULAR VOLUME 86 FL (80-99); MONOCYTES % (AUTO) 9.3 % (1.0-10.0); NEUTROPHILS % (AUTO) 74.5 % (45.0-75.0); PLATELET COUNT 321 K/UL (150-450); RED BLOOD COUNT 5.29 M/UL (4.70-6.10); RED CELL DISTRIBUTION WIDTH 12.8 % (11.6-14.8); WHITE BLOOD COUNT 8.8 K/UL (4.8-10.8)
--- NOTE | 2020-03-23 07:11 | NUR ---
NURSE NOTES: Received report from Tuan/RN. Pt alert and oriented X4, having breakfast in bed. Able to make needs known. On High flow nasal cannula 45L, 75% FiO2. IV on left hand 20G, SL, patent and clean. Bed in the lowest position and locked. Call light within reach, encouraged to use it when need it. Side rails up X3. Will continue plan of care.
[2020-03-23 08:00] VITALS: BP 119/63
[2020-03-23] MEDS: Docusate 100mg cap ORAL SCH ×2 (08:56→17:56)
[2020-03-23] MEDS: dexAMETHasone 10mg/ml Inj IV SCH (08:56)
[2020-03-23] MEDS ORDERED: Tubing IV Secondary IV ONE (09:24)
--- NOTE | 2020-03-23 10:36 | General Progress Note ---
Subjective Date patient seen: Mar 23, 2020 ROS Limited/Unobtainable: No Constitutional: Denies: no symptoms, chills, diaphoresis, fever, malaise, weakness, other HEENT: Denies: no symptoms, eye pain, blurred vision, tearing, double vision, ear pain, ear discharge, nose pain, nose congestion, throat pain, throat swelling, mouth pain, mouth swelling, other Cardiovascular: Denies: no symptoms, chest pain, edema, irregular heart rate, lightheadedness, palpitations, syncope, other Respiratory: Denies: no symptoms, cough, orthopnea, shortness of breath, SOB with excertion, SOB at rest, sputum, stridor, wheezing, other Gastrointestinal/Abdominal: Denies: no symptoms, abdomen distended, abdominal pain, black stools, tarry stools, blood in stool, constipated, diarrhea, difficulty swallowing, nausea, poor appetite, poor fluid intake, rectal bleeding, vomiting, other Genitourinary: Denies: no symptoms, burning, discharge, frequency, flank pain, hematuria, incontinence, pain, urgency, other Neurologic/Psychiatric: Denies: no symptoms, anxiety, depressed, emotional pr oblems, headache, numbness, paresthesia, pre-existing deficit, seizure, tingling, tremors, weakness, other Endocrine: Denies: no symptoms, excessive sweating, flushing, intolerance to cold, intolerance to heat, increased hunger, increased thirst, increased urine, unexplained weight gain, unexplained weight loss, other Hematologic/Lymphatic: Denies: no symptoms, anemia, easy bleeding, easy bruising, other Allergies: Coded Allergies: No Known Allergies (Unverified , 03/14/20) Subjective On High flow nasal cannula 45L, 75% FiO2, saturating 94% Continues to bipap and refuses to prone- will encourage ABG reviewed, seems improved Objective Last 24 Hour Vital Signs Date Time Temp Pulse Resp B/P (MAP) Pulse Ox O2 Delivery O2 Flow Rate FiO2 03/23/20 08:00 97.5 69 22 119/63 (81) 96 03/23/20 08:00 57 03/23/20 08:00 45.0 75 03/23/20 07:00 94 High Flow 45.0 80 03/23/20 04:00 55 03/23/20 04:00 55.0 100 03/23/20 04:00 97.2 54 20 116/72 (87) 96 03/23/20 03:58 95 High Flow 45.0 80 03/23/20 00:00 60 03/23/20 00:00 98.1 61 20 118/57 (77) 93 03/23/20 00:00 55.0 100 03/22/20 23:01 95 High Flow 45.0 80 03/22/20 20:00 97.7 71 20 123/71 (88) 94 03/22/20 20:00 76 03/22/20 20:00 55.0 100 03/22/20 19:57 94 High Flow 45.0 80 03/22/20 16:53 95 High Flow 45.0 75 03/22/20 16:00 98.1 70 20 114/67 (83) 97 03/22/20 16:00 65 03/22/20 16:00 55.0 100 03/22/20 15:54 97 High Flow 55.0 100 03/22/20 12:00 66 03/22/20 12:00 55.0 100 03/22/20 12:00 98.0 69 22 108/59 (75) 96 03/22/20 11:55 98 High Flow 55.0 100 Intake and Output 03/22/20 03/23/20 19:00 07:00 Intake Total 400 ml 600 ml Output Total 1600 ml 1400 ml Balance -1200 ml -800 ml Intake Oral 400 ml 600 ml Output Urine Total 1600 ml 1400 ml # Voids 3 Laboratory Tests 03/23/20 04:30: White Blood Count 8.8, Red Blood Count 5.29, Hemoglobin 15.7, Hematocrit 45.2, Mean Corpuscular Volume 86, Mean Corpuscular Hemoglobin 29.7, Mean Corpuscular Hemoglobin Concent 34.7, Red Cell Distribution Width 12.8, Platelet Count 321, Mean Platelet Volume 5.7L, Neutrophils (%) (Auto) 74.5, Lymphocytes (%) (Auto) 15.2L, Monocytes (%) (Auto) 9.3, Eosinophils (%) (Auto) 0.1, Basophils (%) (Auto) 0.9, Sodium Level 137, Potassium Level 4.0, Chloride Level 102, Carbon Dioxide Level 30, Anion Gap 5, Blood Urea Nitrogen 14, Creatinine 0.6, Estimat Glomerular Filtration Rate > 60, Glucose Level 104#, Calcium Level 8.1L 03/23/20 07:35: Arterial Blood pH 7.410, Arterial Blood Partial Pressure CO2 48.1H, Arterial Blood Partial Pressure O2 69.3L, Arterial Blood HCO3 29.8H, Arterial Blood Oxygen Saturation 93.7L, Arterial Blood Base Excess 4.1H, José Miguel Test Positive Height (Feet): 6 Height (Inches): 2.00 Weight (Pounds): 280 Objective General Appearance: WD/WN, alert, awake, obese, on HFNC HEENT: normocephalic, atraumatic, mucous membranes moist, PERRL, EOMI Neck: non-tender, normal alignment, supple, normal inspection Respiratory/Chest: chest wall non-tender, + accessory muscle use, mild respiratory distress Cardiovascular/Chest: normal rate, regular rhythm Abdomen: non tender, soft, no organomegaly Extremities: normal range of motion, non-tender, normal inspection, no calf tenderness, no edema 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 CXR and CTA chest unchanged showing multifocal pneumonia. #Acute hypoxemic hypercapneic respiratory failure - stable. PO2 remains low, PCO2 increasing, #Metabolic alkalosis #Hyponatremia-likely SIADH based on urine sodium- resolved #Elevated inflammatory markers - Ferritin, CRP, D-dimer, fibrinogen #leukocytosis- steroid induced P: - remains in ICU, stable o2 requirement - currently on HFNC, BiPAP refused by patient, so maintained on HFNC. He also refuses proning. Will encourage bipap due to increasing CO2 - monitor ABG -Wean O2 as tolerated - CTA and BLE duplex US negative for PE or DVT, so heparin drip discontinued - cardiac monitoring - dexamethasone 6 mg daily, remdesivir per ID - CTX/Azithro- s/p Azithro, continue ceftriaxone - ID consult, Dr. Elizalde, recs appreciated - Pulm consult, Dr. Piper, recs appreciated - Nephro consult, Dr. Zimmerman, recs appreciated - Cardiology consult, Dr. Barnard, recs appreciated Code: Full GI: Protonix DVT prophylaxis: 5000 u TID Dispo: Pending improving in hypoxic respiratory failure, back to home after Time spent on this encounter was 71 minutes which included 41 minutes of counseling and care coordination and 40 minutes of critical care time including ordering and reviewing blood gas, reviewing heparin orders, reviewing chest imaging and ultrasound imaging and discussion with consultants. I discussed with the nurse at bedside. Time of note may not reflect time patient was seen. Evin Hart M.D. Mar 23, 2020 10:36
--- NOTE | 2020-03-23 11:11 | Diagnostic Imaging Report ---
FILM CXR 1 VIEW History: Infection Comparison: March 19, 2020 Findings: Single view chest demonstrate multilobar infiltrates with low lung volumes. Heart size is upper limits of normal. No effusion or pneumothorax. Multifocal infiltrates appear similar to the prior study Impression: Multifocal infiltrates with stable appearance to the prior exam.
[2020-03-23 12:00] VITALS: BP 118/66
--- NOTE | 2020-03-23 13:06 | Pulmonology Progress Note ---
Subjective ROS Limited/Unobtainable: No Interval Events: none major Constitutional: Reports: fatigue; Denies: fever HEENT: Repors: no symptoms Respiratory: Reports: dry cough, productive cough, sputum, hemoptysis, shortness of breath, dyspnea at rest, dyspnea on exertion, wheezing, pleuritic pain, other Cardiovascular: Reports: no symptoms Gastrointestinal/Abdominal: Denies: nausea, vomiting, diarrhea Genitourinary: Reports: no symptoms Neurologic: Reports: no symptoms Psychiatric: Denies: depression Skin: Denies: rash Musculoskeletal: Denies: pain Allergies: Coded Allergies: No Known Allergies (Unverified , 03/14/20) Subjective 03/22/2020 pt remains on high flow oxygen; pt reports feeling better Objective Last 24 Hour Vital Signs Date Time Temp Pulse Resp B/P (MAP) Pulse Ox O2 Delivery O2 Flow Rate FiO2 03/23/20 12:00 45.0 75 03/23/20 12:00 97.8 64 20 118/66 (83) 96 03/23/20 12:00 69 03/23/20 11:44 94 High Flow 45.0 80 03/23/20 08:00 97.5 69 22 119/63 (81) 96 03/23/20 08:00 57 03/23/20 08:00 45.0 75 03/23/20 07:00 94 High Flow 45.0 80 03/23/20 04:00 55 03/23/20 04:00 55.0 100 03/23/20 04:00 97.2 54 20 116/72 (87) 96 03/23/20 03:58 95 High Flow 45.0 80 03/23/20 00:00 60 03/23/20 00:00 98.1 61 20 118/57 (77) 93 03/23/20 00:00 55.0 100 03/22/20 23:01 95 High Flow 45.0 80 03/22/20 20:00 97.7 71 20 123/71 (88) 94 03/22/20 20:00 76 03/22/20 20:00 55.0 100 03/22/20 19:57 94 High Flow 45.0 80 03/22/20 16:53 95 High Flow 45.0 75 03/22/20 16:00 98.1 70 20 114/67 (83) 97 03/22/20 16:00 65 03/22/20 16:00 55.0 100 03/22/20 15:54 97 High Flow 55.0 100 Intake and Output 03/22/20 03/23/20 19:00 07:00 Intake Total 400 ml 600 ml Output Total 1600 ml 1400 ml Balance -1200 ml -800 ml Intake Oral 400 ml 600 ml Output Urine Total 1600 ml 1400 ml # Voids 3 Objective 03/23/2020 declining proning and BiPAP; watching tv comfortably 03/22/2020 in bed watching tv; NAD General Appearance: no acute distress HEENT: normocephalic Respiratory: chest wall non-tender, lungs clear Cardiovascular: normal peripheral pulses Abdomen: normal bowel sounds Laboratory Tests 03/23/20 04:30: White Blood Count 8.8, Red Blood Count 5.29, Hemoglobin 15.7, Hematocrit 45.2, Mean Corpuscular Volume 86, Mean Corpuscular Hemoglobin 29.7, Mean Corpuscular Hemoglobin Concent 34.7, Red Cell Distribution Width 12.8, Platelet Count 321, Mean Platelet Volume 5.7L, Neutrophils (%) (Auto) 74.5, Lymphocytes (%) (Auto) 15.2L, Monocytes (%) (Auto) 9.3, Eosinophils (%) (Auto) 0.1, Basophils (%) (Auto) 0.9, Sodium Level 137, Potassium Level 4.0, Chloride Level 102, Carbon Dioxide Level 30, Anion Gap 5, Blood Urea Nitrogen 14, Creatinine 0.6, Estimat Glomerular Filtration Rate > 60, Glucose Level 104#, Calcium Level 8.1L 03/23/20 07:35: Arterial Blood pH 7.410, Arterial Blood Partial Pressure CO2 48.1H, Arterial Bl ood Partial Pressure O2 69.3L, Arterial Blood HCO3 29.8H, Arterial Blood Oxygen Saturation 93.7L, Arterial Blood Base Excess 4.1H, José Miguel Test Positive Current Medications Medications (Trade) Dose Ordered Sig/Kiley Route PRN Reason Start Time Stop Time Status Last Admin Dose Admin Acetaminophen (Tylenol) 650 mg Q4H PRN ORAL Temp >100.5 03/14/20 22:45 04/13/20 22:44 03/14/20 22:43 Ceftriaxone Sodium 1 gm/ Dextrose 55 ml @ 110 mls/hr Q24H IVPB 03/15/20 18:00 03/24/20 17:59 12/5/20 17:19 Dexamethasone Sodium Phosphate (Decadron 10mg/ ml Inj) 6 mg DAILY IV 03/15/20 10:45 03/24/20 10:44 03/23/20 08:56 Dextrose (Dextrose 50%) 25 ml Q30M PRN IV Hypoglycemia 03/14/20 19:00 06/12/20 18:59 Dextrose (Dextrose 50%) 50 ml Q30M PRN IV Hypoglycemia 03/14/20 19:00 06/12/20 18:59 Docusate Sodium (Colace) 100 mg TWICE A DAY ORAL 03/17/20 11:30 04/16/20 11:29 03/23/20 08:56 Heparin Sodium (Porcine) (Heparin 5000 units/ml) 5,000 units EVERY 8 HOURS SUBQ 03/16/20 22:00 04/30/20 21:59 03/23/20 05:16 Pantoprazole (Protonix) 40 mg DAILY ORAL 03/15/20 09:00 04/14/20 08:59 03/23/20 08:56 Sennosides (Senokot) 8.6 mg DAILYPRN PRN ORAL Constipation 03/17/20 11:30 04/16/20 11:29 Assessment/Plan Assessment/Plan Impression: - COVID-19 pneumonia - stable; extensive bilateral interstitial infiltrates unchanged since prior CXR; 03/23/2020 CXR: multifocal infiltrates stable appearance since prior CXR - Acute hypoxemic hypercapneic respiratory failure - stable. PO2 improving, PCO2 48.1; ABG reviewed with RN; saturating 94% on 45L HFNC - Obesity BMI 35.9 - Metabolic alkalosis - Hyponatremia; normalized - Hypocalcemia; normalized Plan: - Continue Decadron, AB/antivirals per ID - On Hi Flow O2 - IVF - Monitor labs - DVT Ppx - on heparin Time spent on this encounter was 31 minutes. The care for this patient was discussed with my supervising physician The history of Martin Tate has been reviewed and management options for him have been examined and discussed by Oral Piper. I have personally examined and interviewed the patient. Des Daniels Mar 23, 2020 13:06 Oral Piper MD Mar 23, 2020 16:42
[2020-03-23 16:00] VITALS: BP 126/71
[2020-03-23] MEDS: cefTRIAXone 1 GM in D5W 55 ML IVPB SCH (17:57)
--- NOTE | 2020-03-23 19:42 | NUR ---
NURSE HAND-OFF REPORT: Important Events on Shift: Patient Status: Stable Diet: Regular Pending Orders: Pending Results/Labs: Pending MD notification: Latest Vital Signs: Temperature 97.7 , Pulse 59 , B/P 126 /71 , Respiratory Rate 20 , O2 SAT 95 , Nasal Cannula, O2 Flow Rate 45.0 . Vital Sign Comment: Stable EKG Rhythm: Sinus Bradycardia Rhythm change?: N MD Notified?: N - MD Response: Latest Hollins Fall Score: 35 Fall Risk: Medium Risk Safety Measures: Call light Within Reach, Bed Alarm Zone 2, Side Rails Side Rails x2, Bed position Low and Locked. Fall Precautions: Yellow Socks Yellow Gown Door Sign Patient Fall Education Report given to Michael/RENITA.
--- NOTE | 2020-03-23 19:43 | NUR ---
NURSE NOTES: Received pt AOX4, noted comfortable in bed with high flow O2 therapy via NC 45 L 75% fiO2; in no acute distress; spoke to pt regarding using the BIPAP prn as ordered by Dr. Hart; per pt he will try; RT aware; bed locked and in lowest position; side rails x 2; call light within reach; will continue to monitor.
[2020-03-23 20:00] VITALS: BP 130/70
--- NOTE | 2020-03-23 20:25 | Cardiac Electrophysiology PN ---
Assessment/Plan Assessment/Plan 1. Elevated D-dimer of 0.54, severe shortness of breath and active COVID infection. Chest CT no PE Refusing BIPAP. On high flow O2 2. COVID pneumonia, on azithromycin and ceftriaxone as well as dexamethasone. Got remdesivir. Fu by Dr. Gross and Dr. Montiel 3. Tachycardia due to COVID infection. Echocardiogram Nl EF 65% Subjective Subjective On 55 liter high flow oxygen on tele CT angio no PE. LE Duplex no DVT. EF 65% Refusing BIPAP or proning In COvid isolation Objective Last 24 Hour Vital Signs Date Time Temp Pulse Resp B/P (MAP) Pulse Ox O2 Delivery O2 Flow Rate FiO2 03/23/20 19:21 95 High Flow 45.0 80 03/23/20 16:00 97.7 68 20 126/71 (89) 97 03/23/20 16:00 59 03/23/20 16:00 45.0 75 03/23/20 15:08 96 High Flow 45.0 80 03/23/20 12:00 45.0 75 03/23/20 12:00 97.8 64 20 118/66 (83) 96 03/23/20 12:00 69 03/23/20 11:44 94 High Flow 45.0 80 03/23/20 08:00 97.5 69 22 119/63 (81) 96 03/23/20 08:00 57 03/23/20 08:00 45.0 75 03/23/20 07:00 94 High Flow 45.0 80 03/23/20 04:00 55 03/23/20 04:00 55.0 100 03/23/20 04:00 97.2 54 20 116/72 (87) 96 03/23/20 03:58 95 High Flow 45.0 80 03/23/20 00:00 60 03/23/20 00:00 98.1 61 20 118/57 (77) 93 03/23/20 00:00 55.0 100 03/22/20 23:01 95 High Flow 45.0 80 Intake and Output 03/22/20 03/23/20 19:00 07:00 Intake Total 400 ml 600 ml Output Total 1600 ml 1400 ml Balance -1200 ml -800 ml Intake Oral 400 ml 600 ml Output Urine Total 1600 ml 1400 ml # Voids 3 Laboratory Tests Test 03/23/20 04:30 12/6/20 07:35 White Blood Count 8.8 K/UL (4.8-10.8) Red Blood Count 5.29 M/UL (4.70-6.10) Hemoglobin 15.7 G/DL (14.2-18.0) Hematocrit 45.2 % (42.0-52.0) Mean Corpuscular Volume 86 FL (80-99) Mean Corpuscular Hemoglobin 29.7 PG (27.0-31.0) Mean Corpuscular Hemoglobin Concent 34.7 G/DL (32.0-36.0) Red Cell Distribution Width 12.8 % (11.6-14.8) Platelet Count 321 K/UL (150-450) Mean Platelet Volume 5.7 FL (6.5-10.1) L Neutrophils (%) (Auto) 74.5 % (45.0-75.0) Lymphocytes (%) (Auto) 15.2 % (20.0-45.0) L Monocytes (%) (Auto) 9.3 % (1.0-10.0) Eosinophils (%) (Auto) 0.1 % (0.0-3.0) Basophils (%) (Auto) 0.9 % (0.0-2.0) Sodium Level 137 MMOL/L (136-145) Potassium Level 4.0 MMOL/L (3.5-5.1) Chloride Level 102 MMOL/L (98-107) Carbon Dioxide Level 30 MMOL/L (21-32) Anion Gap 5 mmol/L (5-15) Blood Urea Nitrogen 14 mg/dL (7-18) Creatinine 0.6 MG/DL (0.55-1.30) Estimat Glomerular Filtration Rate > 60 mL/min (>60) Glucose Level 104 MG/DL (74-106) # Calcium Level 8.1 MG/DL (8.5-10.1) L Arterial Blood pH 7.410 (7.350-7.450) Arterial Blood Partial Pressure CO2 48.1 mmHg (35.0-45.0) H Arterial Blood Partial Pressure O2 69.3 mmHg (75.0-100.0) L Arterial Blood HCO3 29.8 mmol/L (22.0-26.0) H Arterial Blood Oxygen Saturation 93.7 % (95-100) L Arterial Blood Base Excess 4.1 (-2-2) H José Miguel Test Positive Objective HEAD AND NECK: No JVD. LUNGS: Coarse rhonchi. CARDIOVASCULAR: Regular S1 and S2 with no gallop or murmur and tachycardic. ABDOMEN: Soft and obese. EXTREMITIES: No pitting edema. Santi Barnard MD Mar 23, 2020 20:25
--- NOTE | 2020-03-23 20:47 | Infectious Diseases Prog Note ---
Assessment/Plan Assessment/Plan ASSESSMENT AND PLAN: 1. covid-19 infection with pna, ? cap, fevers, leukocytosis likely secondary to steroids - dexamethasone - day # 9 - s/p remdesivir - s/p azithromycin and ceftriaxone - monitor labs and hypoxia - monitor chest x-ray 2. No other significant past medical history. 3. No known allergies. 4. Social history is negative. 5. Family history is noncontributory. 6. MAR is noted. 7. Case discussed with RN. 8. Continue treatment per primary consultants. Subjective Constitutional: Denies: fever HEENT: Reports: congestion - less Respiratory: Reports: shortness of breath - less Cardiovascular: Denies: chest pain Gastrointestinal/Abdominal: Denies: nausea, vomiting, diarrhea Genitourinary: Reports: other - no diaz Allergies: Coded Allergies: No Known Allergies (Unverified , 03/14/20) Objective Last 24 Hour Vital Signs Date Time Temp Pulse Resp B/P (MAP) Pulse Ox O2 Delivery O2 Flow Rate FiO2 03/23/20 19:21 95 High Flow 45.0 80 03/23/20 16:00 97.7 68 20 126/71 (89) 97 03/23/20 16:00 59 03/23/20 16:00 45.0 75 03/23/20 15:08 96 High Flow 45.0 80 03/23/20 12:00 45.0 75 03/23/20 12:00 97.8 64 20 118/66 (83) 96 03/23/20 12:00 69 03/23/20 11:44 94 High Flow 45.0 80 03/23/20 08:00 97.5 69 22 119/63 (81) 96 03/23/20 08:00 57 03/23/20 08:00 45.0 75 03/23/20 07:00 94 High Flow 45.0 80 03/23/20 04:00 55 03/23/20 04:00 55.0 100 03/23/20 04:00 97.2 54 20 116/72 (87) 96 03/23/20 03:58 95 High Flow 45.0 80 03/23/20 00:00 60 03/23/20 00:00 98.1 61 20 118/57 (77) 93 03/23/20 00:00 55.0 100 03/22/20 23:01 95 High Flow 45.0 80 Height (Feet): 6 Height (Inches): 2.00 Weight (Pounds): 280 General Appearance: no acute distress HEENT: normocephalic, atraumatic, anicteric Respiratory/Chest: no respiratory distress, no accessory muscle use, crackles/rales, rhonchi - bilaterally Cardiovascular: normal peripheral pulses, normal rate, regular rhythm Abdomen: normal bowel sounds, soft, non tender, no organomegaly Chest x-ray - 03/17/20 - Procedure: XRAY Chest 1v Indication: Shortness of breath and cough Technique: One view of the chest Comparison: 03/14/2020 Findings: Again demonstrated are extensive bilateral interstitial and airspace infiltrates. Normal heart size. Findings are unchanged Impression: Extensive bilateral infiltrates, unchanged since prior exam of 03/14/2020 Chest x-ray - 03/19/20: Procedure: XRAY Chest 1v Indication: Shortness of breath Technique: One view of the chest Comparison: 03/17/2020 Findings: Again demonstrated are extensive bilateral infiltrates. Appearance is similar on the right, worse in the left upper lung periphery. The heart size is normal. Impression: Extensive bilateral infiltrates, stable on the right, worse on the left Chest x-ray - 03/23/20 - Procedure: XRAY Chest 1v FILM CXR 1 VIEW History: Infection Comparison: March 19, 2020 Findings: Single view chest demonstrate multilobar infiltrates with low lung volumes. Heart size is upper limits of normal. No effusion or pneumothorax. Multifocal infiltrates appear similar to the prior study Impression: Multifocal infiltrates with stable appearance to the prior exam. Microbiology Date/Time Source Procedure Growth Status 03/14/20 15:45 Nasopharynx Coronavirus COVID-19 PCR ([facility]) - Final Complete 03/14/20 15:25 Blood Blood Culture - Final NO GROWTH AFTER 5 DAYS Complete Laboratory Tests Test 03/23/20 04:30 03/23/20 07:35 White Blood Count 8.8 K/UL (4.8-10.8) Red Blood Count 5.29 M/UL (4.70-6.10) Hemoglobin 15.7 G/DL (14.2-18.0) Hematocrit 45.2 % (42.0-52.0) Mean Corpuscular Volume 86 FL (80-99) Mean Corpuscular Hemoglobin 29.7 PG (27.0-31.0) Mean Corpuscular Hemoglobin Concent 34.7 G/DL (32.0-36.0) Red Cell Distribution Width 12.8 % (11.6-14.8) Platelet Count 321 K/UL (150-450) Mean Platelet Volume 5.7 FL (6.5-10.1) L Neutrophils (%) (Auto) 74.5 % (45.0-75.0) Lymphocytes (%) (Auto) 15.2 % (20.0-45.0) L Monocytes (%) (Auto) 9.3 % (1.0-10.0) Eosinophils (%) (Auto) 0.1 % (0.0-3.0) Basophils (%) (Auto) 0.9 % (0.0-2.0) Sodium Level 137 MMOL/L (136-145) Potassium Level 4.0 MMOL/L (3.5-5.1) Chloride Level 102 MMOL/L (98-107) Carbon Dioxide Level 30 MMOL/L (21-32) Anion Gap 5 mmol/L (5-15) Blood Urea Nitrogen 14 mg/dL (7-18) Creatinine 0.6 MG/DL (0.55-1.30) Estimat Glomerular Filtration Rate > 60 mL/min (>60) Glucose Level 104 MG/DL (74-106) # Calcium Level 8.1 MG/DL (8.5-10.1) L Arterial Blood pH 7.410 (7.350-7.450) Arterial Blood Partial Pressure CO2 48.1 mmHg (35.0-45.0) H Arterial Blood Partial Pressure O2 69.3 mmHg (75.0-100.0) L Arterial Blood HCO3 29.8 mmol/L (22.0-26.0) H Arterial Blood Oxygen Saturation 93.7 % (95-100) L Arterial Blood Base Excess 4.1 (-2-2) H José Miguel Test Positive Current Medications Medications (Trade) Dose Ordered Sig/Kiley Route PRN Reason Start Time Stop Time Status Last Admin Dose Admin Acetaminophen (Tylenol) 650 mg Q4H PRN ORAL Temp >100.5 03/14/20 22:45 04/13/20 22:44 03/14/20 22:43 Ceftriaxone Sodium 1 gm/ Dextrose 55 ml @ 110 mls/hr Q24H IVPB 03/15/20 18:00 03/24/20 17:59 03/23/20 17:57 Dexamethasone Sodium Phosphate (Decadron 10mg/ ml Inj) 6 mg DAILY IV 03/15/20 10:45 03/24/20 10:44 03/23/20 08:56 Dextrose (Dextrose 50%) 25 ml Q30M PRN IV Hypoglycemia 03/14/20 19:00 06/12/20 18:59 Dextrose (Dextrose 50%) 50 ml Q30M PRN IV Hypoglycemia 03/14/20 19:00 06/12/20 18:59 Docusate Sodium (Colace) 100 mg TWICE A DAY ORAL 03/17/20 11:30 04/16/20 11:29 03/23/20 17:56 Heparin Sodium (Porcine) (Heparin 5000 units/ml) 5,000 units EVERY 8 HOURS SUBQ 03/16/20 22:00 04/30/20 21:59 03/23/20 13:45 Pantoprazole (Protonix) 40 mg DAILY ORAL 03/15/20 09:00 04/14/20 08:59 03/23/20 08:56 Sennosides (Senokot) 8.6 mg DAILYPRN PRN ORAL Constipation 03/17/20 11:30 04/16/20 11:29 Ori Gross MD Mar 23, 2020 20:47
[2020-03-24] VITALS: BP 128/70
[2020-03-24 04:00] VITALS: BP 121/71
[2020-03-24] MEDS: Heparin 5000 units/ml inj SUBQ SCH ×3 (05:48→22:05)
--- NOTE | 2020-03-24 07:00 | NUR ---
NURSE HAND-OFF REPORT: Important Events on Shift: On Hi flow O2 45L 75% Fi02; no acute distress; AOX4; asleep most of the night; used BIPAP during shift Patient Status: stable Diet: regular, thin liquids Pending Orders: N Pending Results/Labs: N Pending MD notification:N Latest Vital Signs: Temperature 97.5 , Pulse 51 , B/P 121 /71 , Respiratory Rate 20 , O2 SAT 99 , Nasal Cannula, O2 Flow Rate 45.0 . Vital Sign Comment: stable EKG Rhythm: Sinus Rhythm Rhythm change?: N MD Notified?: N - MD Response: N/A Latest Hollins Fall Score: 35 Fall Risk: Medium Risk Safety Measures: Call light Within Reach, Bed Alarm Zone 1, Side Rails Side Rails x2, Bed position Low and Locked. Fall Precautions: Yellow Socks Yellow Gown Door Sign Patient Fall Education Report given to RENITA Betancur.
[2020-03-24 08:00] VITALS: BP 127/75
--- NOTE | 2020-03-24 08:36 | NUR ---
NURSE NOTES: pt was eating breakfast in bed, alert and oriented x4. IV is patent. 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 pt. is on HiFlo NC 45L Fio2 75%. pt has no complaints of pain. bed is locked and in lowest position and call light is within reach.
--- NOTE | 2020-03-24 08:41 | History and Physical ---
History of Present Illness General Date patient seen: Mar 24, 2020 Reason for Hospitalization: Flu Like Symptoms Present Illness Allergies: Coded Allergies: No Known Allergies (Unverified , 03/14/20) COVID-19 Screening Contact w/high risk pt: No Experienced COVID-19 symptoms?: Yes Coronavirus symptoms experienc: Fever (T>100.4F or >38C), Shortness of Breath, Cough Medication History No Active Prescriptions or Reported Meds Patient History Healthcare decision maker Resuscitation status Advanced Directive on File Physical Exam Last 24 Hour Vital Signs Date Time Temp Pulse Resp B/P (MAP) Pulse Ox O2 Delivery O2 Flow Rate FiO2 03/24/20 04:00 54 03/24/20 04:00 45.0 75 03/24/20 04:00 97.5 51 20 121/71 (88) 99 03/24/20 03:07 97 High Flow 45.0 80 03/24/20 00:00 76 03/24/20 00:00 98.2 66 20 128/70 (89) 96 03/24/20 00:00 45.0 75 03/23/20 23:26 97 High Flow 45.0 80 03/23/20 20:00 98.1 20 130/70 (90) 96 03/23/20 20:00 67 03/23/20 19:21 95 High Flow 45.0 80 03/23/20 16:00 97.7 68 20 126/71 (89) 97 03/23/20 16:00 59 03/23/20 16:00 45.0 75 03/23/20 15:08 96 High Flow 45.0 80 03/23/20 12:00 45.0 75 03/23/20 12:00 97.8 64 20 118/66 (83) 96 03/23/20 12:00 69 03/23/20 11:44 94 High Flow 45.0 80 Intake and Output 03/23/20 03/24/20 19:00 07:00 Intake Total 400 ml Output Total 1700 ml Balance -1300 ml Intake Oral 400 ml Output Urine Total 1700 ml # Voids 2 2 Height (Feet): 6 Height (Inches): 2.00 Weight (Pounds): 280 Medications Current Medications Medications (Trade) Dose Ordered Sig/Kiley Route PRN Reason Start Time Stop Time Status Last Admin Dose Admin Acetaminophen (Tylenol) 650 mg Q4H PRN ORAL Temp >100.5 03/14/20 22:45 04/13/20 22:44 03/14/20 22:43 Ceftriaxone Sodium 1 gm/ Dextrose 55 ml @ 110 mls/hr Q24H IVPB 03/15/20 18:00 03/24/20 17:59 03/23/20 17:57 Dexamethasone Sodium Phosphate (Decadron 10mg/ ml Inj) 6 mg DAILY IV 03/15/20 10:45 03/24/20 10:44 03/23/20 08:56 Dextrose (Dextrose 50%) 25 ml Q30M PRN IV Hypoglycemia 03/14/20 19:00 06/12/20 18:59 Dextrose (Dextrose 50%) 50 ml Q30M PRN IV Hypoglycemia 03/14/20 19:00 06/12/20 18:59 Docusate Sodium (Colace) 100 mg TWICE A DAY ORAL 03/17/20 11:30 04/16/20 11:29 03/23/20 17:56 Heparin Sodium (Porcine) (Heparin 5000 units/ml) 5,000 units EVERY 8 HOURS SUBQ 03/16/20 22:00 04/30/20 21:59 03/24/20 05:48 Pantoprazole (Protonix) 40 mg DAILY ORAL 03/15/20 09:00 04/14/20 08:59 03/23/20 08:56 Sennosides (Senokot) 8.6 mg DAILYPRN PRN ORAL Constipation 03/17/20 11:30 04/16/20 11:29 Assessment/Plan Assessment/Plan: A: #COVID-19 pneumonia - stable. CXR and CTA chest unchanged showing multifocal pneumonia. #Acute hypoxemic hypercapneic respiratory failure - stable. PO2 remains low, PCO2 increasing, #Metabolic alkalosis #Hyponatremia-likely SIADH based on urine sodium- resolved #Elevated inflammatory markers - Ferritin, CRP, D-dimer, fibrinogen #leukocytosis- steroid induced P: - remains in ICU, stable o2 requirement - currently on HFNC, BiPAP refused by patient, so maintained on HFNC. He also refuses proning. Will encourage bipap due to increasing CO2 - monitor ABG -Wean O2 as tolerated - CTA and BLE duplex US negative for PE or DVT, so heparin drip discontinued - cardiac monitoring - dexamethasone 6 mg daily, remdesivir per ID - CTX/Azithro- s/p Azithro, continue ceftriaxone - ID consult, Dr. Elizalde, recs appreciated - Pulm consult, Dr. Piper, recs appreciated - Nephro consult, Dr. Zimmerman, recs appreciated - Cardiology consult, Dr. Barnard, recs appreciated Code: Full GI: Protonix DVT prophylaxis: 5000 u TID Dispo: Pending improving in hypoxic respiratory failure, back to home after Time spent on this encounter was 71 minutes which included 41 minutes of counseling and care coordination and 40 minutes of critical care time including ordering and reviewing blood gas, reviewing heparin orders, reviewing chest imaging and ultrasound imaging and discussion with consultants. I discussed with the nurse at bedside. Time of note may not reflect time patient was seen. Evin Hart M.D. Mar 24, 2020 08:41
--- NOTE | 2020-03-24 09:22 | Cardiac Electrophysiology PN ---
Assessment/Plan Assessment/Plan 1. Elevated D-dimer of 0.54, severe shortness of breath and active COVID infection. Chest CT no PE Refusing BIPAP. On high flow O2 2. COVID pneumonia, on azithromycin and ceftriaxone as well as dexamethasone. Got remdesivir. Fu by Dr. Gross and Dr. Montiel 3. Tachycardia due to COVID infection. Echo Nl EF 65% Subjective Subjective Still on high flow oxygen on tele CT angio no PE. LE Duplex no DVT. EF 65% Refusing BIPAP or proning In Covid isolation Objective Last 24 Hour Vital Signs Date Time Temp Pulse Resp B/P (MAP) Pulse Ox O2 Delivery O2 Flow Rate FiO2 03/24/20 08:00 97.7 68 18 127/75 (92) 97 03/24/20 04:00 54 03/24/20 04:00 45.0 75 03/24/20 04:00 97.5 51 20 121/71 (88) 99 03/24/20 03:07 97 High Flow 45.0 80 03/24/20 00:00 76 03/24/20 00:00 98.2 66 20 128/70 (89) 96 03/24/20 00:00 45.0 75 03/23/20 23:26 97 High Flow 45.0 80 03/23/20 20:00 98.1 20 130/70 (90) 96 03/23/20 20:00 67 03/23/20 19:21 95 High Flow 45.0 80 03/23/20 16:00 97.7 68 20 126/71 (89) 97 03/23/20 16:00 59 03/23/20 16:00 45.0 75 03/23/20 15:08 96 High Flow 45.0 80 03/23/20 12:00 45.0 75 03/23/20 12:00 97.8 64 20 118/66 (83) 96 03/23/20 12:00 69 03/23/20 11:44 94 High Flow 45.0 80 Intake and Output 03/23/20 03/24/20 19:00 07:00 Intake Total 400 ml Output Total 1700 ml Balance -1300 ml Intake Oral 400 ml Output Urine Total 1700 ml # Voids 2 2 Objective HEAD AND NECK: No JVD. LUNGS: Coarse rhonchi. CARDIOVASCULAR: Regular S1 and S2 with no gallop or murmur and tachycardic. ABDOMEN: Soft and obese. EXTREMITIES: No pitting edema. Santi Barnard MD Mar 24, 2020 09:22
[2020-03-24] MEDS: Docusate 100mg cap ORAL SCH ×2 (09:36→17:30)
[2020-03-24] MEDS: dexAMETHasone 10mg/ml Inj IV SCH (09:37)
[2020-03-24 12:00] VITALS: BP 120/65
--- NOTE | 2020-03-24 12:06 | General Progress Note ---
Assessment/Plan Status: not improved Assessment/Plan: A: #COVID-19 pneumonia - stable. CXR and CTA chest unchanged showing multifocal pneumonia. #Acute hypoxemic hypercapneic respiratory failure - stable. PO2 remains low, PCO2 increasing, #Metabolic alkalosis #Hyponatremia-likely SIADH based on urine sodium- resolved #Elevated inflammatory markers - Ferritin, CRP, D-dimer, fibrinogen #leukocytosis- steroid induced P: - remains in ICU, stable o2 requirement - currently on HFNC, BiPAP refused by patient, so maintained on HFNC. He also refuses proning. Will encourage bipap due to increasing CO2 - monitor ABG- ordered for 03/25 -Wean O2 as tolerated - CTA and BLE duplex US negative for PE or DVT, so heparin drip discontinued - cardiac monitoring - dexamethasone 6 mg daily, remdesivir per ID - CTX/Azithro- s/p Azithro, continue ceftriaxone - ID consult, Dr. Elizalde recmillie appreciated - Pulm consult, yimi Regan appreciated - Nephro consult, yimi Hair appreciated - Cardiology consult, bryant Nowaks appreciated Code: Full GI: Protonix DVT prophylaxis: 5000 u TID Dispo: Pending improving in hypoxic respiratory failure, back to home after Time spent on this encounter was 71 minutes which included 41 minutes of counseling and care coordination and 40 minutes of critical care time including ordering and reviewing blood gas, reviewing heparin orders, reviewing chest imaging and ultrasound imaging and discussion with consultants. I discussed with the nurse at bedside. Time of note may not reflect time patient was seen. Subjective Date patient seen: Mar 24, 2020 ROS Limited/Unobtainable: No Constitutional: Reports: weakness HEENT: Denies: no symptoms, eye pain, blurred vision, tearing, double vision, ear pain, ear discharge, nose pain, nose congestion, throat pain, throat swelling, mouth pain, mouth swelling, other Cardiovascular: Denies: no symptoms, chest pain, edema, irregular heart rate, lightheadedness, palpitations, syncope, other Respiratory: Reports: shortness of breath Gastrointestinal/Abdominal: Denies: no symptoms, abdomen distended, abdominal pain, black stools, tarry stools, blood in stool, constipated, diarrhea, difficulty swallowing, nausea, poor appetite, poor fluid intake, rectal bleeding, vomiting, other Genitourinary: Denies: no symptoms, burning, discharge, frequency, flank pain, hematuria, incontinence, pain, urgency, other Neurologic/Psychiatric: Denies: no symptoms, anxiety, depressed, emotional problems, headache, numbness, paresthesia, pre-existing deficit, seizure, tingling, tremors, weakness, other Hematologic/Lymphatic: Denies: no symptoms, anemia, easy bleeding, easy bruising, other Allergies: Coded Allergies: No Known Allergies (Unverified , 03/14/20) Subjective On High flow nasal cannula 45L, 75-80% FiO2, saturating 94-96% Continues to bipap and refuses to prone- will encourage ABG reviewed, seems improved clinically doing better Objective Last 24 Hour Vital Signs Date Time Temp Pulse Resp B/P (MAP) Pulse Ox O2 Delivery O2 Flow Rate FiO2 03/24/20 08:00 97.7 68 18 127/75 (92) 97 03/24/20 07:10 96 High Flow 45.0 80 03/24/20 04:00 54 03/24/20 04:00 45.0 75 03/24/20 04:00 97.5 51 20 121/71 (88) 99 03/24/20 03:07 97 High Flow 45.0 80 03/24/20 00:00 76 03/24/20 00:00 98.2 66 20 128/70 (89) 96 03/24/20 00:00 45.0 75 03/23/20 23:26 97 High Flow 45.0 80 03/23/20 20:00 98.1 20 130/70 (90) 96 03/23/20 20:00 67 03/23/20 19:21 95 High Flow 45.0 80 03/23/20 16:00 97.7 68 20 126/71 (89) 97 03/23/20 16:00 59 03/23/20 16:00 45.0 75 03/23/20 15:08 96 High Flow 45.0 80 Intake and Output 03/23/20 03/24/20 18:59 06:59 Intake Total 400 ml Output Total 1700 ml Balance -1300 ml Intake Oral 400 ml Output Urine Total 1700 ml # Voids 2 2 Height (Feet): 6 Height (Inches): 2.00 Weight (Pounds): 280 Objective General Appearance: WD/WN, alert, awake, obese, on HFNC HEENT: normocephalic, atraumatic, mucous membranes moist, PERRL, EOMI Neck: non-tender, normal alignment, supple, normal inspection Respiratory/Chest: chest wall non-tender, + accessory muscle use, mild respiratory distress Cardiovascular/Chest: normal rate, regular rhythm Abdomen: non tender, soft, no organomegaly Extremities: normal range of motion, non-tender, normal inspection, no calf tenderness, no edema 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 Mar 24, 2020 12:06
--- NOTE | 2020-03-24 13:19 | NUR ---
CASE MANAGEMENT:REVIEW 03/24/20 SI;COVID PNEUMONIA. RESPIRATORY FAILURE. 97.5 54 20 121/71 99% ON 45L/80% HIGH ASHLEY IS;HEPARIN SQ Q8HRS PROTONIX PO QD : TELEMETRY STATUS DCP: FROM HOME
[2020-03-24 16:00] VITALS: BP 125/60
--- NOTE | 2020-03-24 16:32 | Pulmonology Progress Note ---
Subjective ROS Limited/Unobtainable: No Interval Events: none major Constitutional: Denies: fever HEENT: Repors: no symptoms Respiratory: Reports: no symptoms Cardiovascular: Reports: no symptoms Gastrointestinal/Abdominal: Denies: nausea, vomiting, diarrhea Genitourinary: Reports: no symptoms Neurologic: Reports: no symptoms Musculoskeletal: Denies: pain Allergies: Coded Allergies: No Known Allergies (Unverified , 03/14/20) Subjective 03/22/2020 pt remains on high flow oxygen; pt reports feeling better Objective Last 24 Hour Vital Signs Date Time Temp Pulse Resp B/P (MAP) Pulse Ox O2 Delivery O2 Flow Rate FiO2 03/24/20 11:09 97 High Flow 45.0 80 03/24/20 08:00 97.7 68 18 127/75 (92) 97 03/24/20 07:10 96 High Flow 45.0 80 03/24/20 04:00 54 03/24/20 04:00 45.0 75 03/24/20 04:00 97.5 51 20 121/71 (88) 99 03/24/20 03:07 97 High Flow 45.0 80 03/24/20 00:00 76 03/24/20 00:00 98.2 66 20 128/70 (89) 96 03/24/20 00:00 45.0 75 03/23/20 23:26 97 High Flow 45.0 80 03/23/20 20:00 98.1 20 130/70 (90) 96 03/23/20 20:00 67 03/23/20 19:21 95 High Flow 45.0 80 Intake and Output 03/23/20 03/24/20 19:00 07:00 Intake Total 400 ml Output Total 1700 ml Balance -1300 ml Intake Oral 400 ml Output Urine Total 1700 ml # Voids 2 2 Objective 03/24/2020 pt attempted BiBAP twice but feels the high flow pressure is too "forceful" and reports that is sleeps better with HFNC 03/23/2020 declining proning and BiPAP; watching tv comfortably 03/22/2020 in bed watching tv; NAD General Appearance: no acute distress HEENT: normocephalic, atraumatic Respiratory: chest wall non-tender, lungs clear Cardiovascular: normal peripheral pulses Abdomen: normal bowel sounds Extremities: no edema Current Medications Medications (Trade) Dose Ordered Sig/Kiley Route PRN Reason Start Time Stop Time Status Last Admin Dose Admin Acetaminophen (Tylenol) 650 mg Q4H PRN ORAL Temp >100.5 03/14/20 22:45 04/13/20 22:44 03/14/20 22:43 Dextrose (Dextrose 50%) 25 ml Q30M PRN IV Hypoglycemia 03/14/20 19:00 06/12/20 18:59 Dextrose (Dextrose 50%) 50 ml Q30M PRN IV Hypoglycemia 03/14/20 19:00 06/12/20 18:59 Docusate Sodium (Colace) 100 mg TWICE A DAY ORAL 03/17/20 11:30 04/16/20 11:29 03/24/20 09:36 Heparin Sodium (Porcine) (Heparin 5000 units/ml) 5,000 units EVERY 8 HOURS SUBQ 03/16/20 22:00 04/30/20 21:59 03/24/20 05:48 Pantoprazole (Protonix) 40 mg DAILY ORAL 03/15/20 09:00 04/14/20 08:59 03/24/20 09:36 Sennosides (Senokot) 8.6 mg DAILYPRN PRN ORAL Constipation 03/17/20 11:30 04/16/20 11:29 Assessment/Plan Assessment/Plan Impression: - COVID-19 pneumonia - stable; extensive bilateral interstitial infiltrates unchanged since prior CXR; 03/23/2020 CXR: multifocal infiltrates stable appearance since prior CXR - Acute hypoxemic hypercapneic respiratory failure - stable; saturating 94% on 45L HFNC - Obesity BMI 35.9 - Metabolic alkalosis - Hyponatremia; normalized - Hypocalcemia; normalized Plan: - Continue Decadron, AB/antivirals per ID - On Hi Flow O2; Will attempt to wean - IVF - Monitor labs - DVT Ppx - on heparin; LE Duplex no DVT. Time spent on this encounter was 31 minutes. The care for this patient was discussed with my supervising physician The history of Martin Tate has been reviewed and management options for him have been examined and discussed by Oral Piper. I have personally examined and interviewed the patient. Des Daniels Mar 24, 2020 16:32 Oral Piper MD Mar 24, 2020 17:26
--- NOTE | 2020-03-24 19:15 | NUR ---
NURSE NOTES: Patient received from RENITA Betancur. Patient is awake, alert and oriented x 4. Patient able to verbalize, needs. No complaints as of the moment. Patient is on high flow oxygen nasal cannula at FiO2 at 75%, with no signs of acute respiratory distress noted. Patient has an IV on his Left hand, 20 gauge, saline locked. Bed is in the lowest position and locked. Call light within reach. Will continue to monitor.
--- NOTE | 2020-03-24 19:33 | NUR ---
NURSE HAND-OFF REPORT: Important Events on Shift:[]endorsed plan of care. Patient Status: [] full code Diet: []regular Pending Orders: [] ABGs, AM labs Pending Results/Labs:[] Pending MD notification:[] Latest Vital Signs: Temperature 97.9 , Pulse 72 , B/P 125 /60 , Respiratory Rate 18 , O2 SAT 95 , Nasal Cannula, O2 Flow Rate 45.0 . Vital Sign Comment: [] EKG Rhythm: Sinus Rhythm Rhythm change?: N MD Notified?: N - MD Response: Latest Hollins Fall Score: 35 Fall Risk: Medium Risk Safety Measures: Call light Within Reach, Bed Alarm Zone 2, Side Rails Side Rails x2, Bed position Low and Locked. Fall Precautions: Yellow Socks Yellow Gown Door Sign Patient Fall Education Report given to []Bob MARAVILLA
[2020-03-24 20:00] VITALS: BP 123/78
[2020-03-25] VITALS: BP 116/67
[2020-03-25 04:00] VITALS: BP 119/61
[2020-03-25] MEDS: Heparin 5000 units/ml inj SUBQ SCH ×3 (06:56→21:52)
[2020-03-25 07:29] LABS: ANION GAP 3 mmol/L (5-15); BLOOD UREA NITROGEN 15 mg/dL (7-18); CALCIUM 8.4 MG/DL (8.5-10.1); CARBON DIOXIDE 32 MMOL/L (21-32); CHLORIDE 101 MMOL/L (98-107); CREATININE 0.7 MG/DL (0.55-1.30); POTASSIUM 4.1 MMOL/L (3.5-5.1); SODIUM 136 MMOL/L (136-145)
--- NOTE | 2020-03-25 07:30 | NUR ---
NURSE HAND-OFF REPORT: Important Events on Shift:[] Patient Status: [Stable] Diet: [Regular diet] Pending Orders: [] Pending Results/Labs:[] Pending MD notification:[] Latest Vital Signs: Temperature 98.2 , Pulse 51 , B/P 119 /61 , Respiratory Rate 22 , O2 SAT 99 , Nasal Cannula, O2 Flow Rate 45.0 . Vital Sign Comment: [] EKG Rhythm: Sinus Bradycardia Rhythm change?: N MD Notified?: N - MD Response: Latest Hollins Fall Score: 35 Fall Risk: Medium Risk Safety Measures: Call light Within Reach, Bed Alarm Zone 2, Side Rails Side Rails x2, Bed position Low and Locked. Fall Precautions: Yellow Socks Yellow Gown Door Sign Patient Fall Education Report given to [RENITA Betancur].
--- NOTE | 2020-03-25 07:59 | NUR ---
NURSE NOTES: pt was in bed awake and eating breakfast. IV is intact and SCD are applied. pt is on youth nutritional monitor showing no signs of respiratory or cardiac distress. pt has no complaints of pain. Addendum: 03/25/20 at 0808 by Deon Jensen RN bed is locked and in lowest position. call light is within reach.
[2020-03-25 08:00] VITALS: BP 130/65
[2020-03-25] MEDS: Docusate 100mg cap ORAL SCH ×2 (09:59→18:06)
--- NOTE | 2020-03-25 11:10 | NUR ---
NURSE NOTES: reported ABG results to CARMELO Magallanes, he will consult with doctor Veronique.
[2020-03-25 12:00] VITALS: BP 115/61
--- NOTE | 2020-03-25 12:05 | Cardiac Electrophysiology PN ---
Assessment/Plan Assessment/Plan 1. Elevated D-dimer of 0.54, severe shortness of breath and active COVID infection. Chest CT no PE Refusing BIPAP. On high flow O2 2. COVID pneumonia, on azithromycin and ceftriaxone as well as dexamethasone. Got remdesivir. Fu by Dr. Gross and Dr. Montiel 3. Tachycardia due to COVID infection. Echo Nl EF 65% Subjective Subjective Still on high flow oxygen on tele . EF 65% Refusing BIPAP or proning In Covid isolation Objective Last 24 Hour Vital Signs Date Time Temp Pulse Resp B/P (MAP) Pulse Ox O2 Delivery O2 Flow Rate FiO2 03/25/20 08:00 98.0 68 20 130/65 (86) 98 03/25/20 08:00 70 03/25/20 07:00 98 High Flow 45.0 70 03/25/20 04:00 98.2 60 22 119/61 (80) 99 03/25/20 04:00 51 03/25/20 04:00 45.0 70 03/25/20 03:16 99 High Flow 45.0 70 03/25/20 00:00 45.0 75 03/25/20 00:00 58 03/25/20 00:00 98.0 62 18 116/67 (83) 99 03/24/20 23:13 99 High Flow 45.0 75 03/24/20 21:00 Nasal Cannula 45.0 03/24/20 20:00 98.2 68 20 123/78 (93) 99 03/24/20 20:00 45.0 75 03/24/20 20:00 69 03/24/20 19:45 99 High Flow 45.0 80 03/24/20 16:00 97.9 71 18 125/60 (81) 95 03/24/20 16:00 45.0 75 03/24/20 16:00 72 03/24/20 15:44 97 High Flow 45.0 80 Intake and Output 03/24/20 03/25/20 19:00 07:00 Intake Total 480 ml 480 ml Output Total 1600 ml 1000 ml Balance -1120 ml -520 ml Intake Oral 480 ml 480 ml Output Urine Total 1600 ml 1000 ml Laboratory Tests Test 03/25/20 06:00 03/25/20 08:50 Sodium Level 136 MMOL/L (136-145) Potassium Level 4.1 MMOL/L (3.5-5.1) Chloride Level 101 MMOL/L (98-107) Carbon Dioxide Level 32 MMOL/L (21-32) Anion Gap 3 mmol/L (5-15) L Blood Urea Nitrogen 15 mg/dL (7-18) Creatinine 0.7 MG/DL (0.55-1.30) Estimat Glomerular Filtration Rate > 60 mL/min (>60) Glucose Level 109 MG/DL (74-106) H Calcium Level 8.4 MG/DL (8.5-10.1) L Arterial Blood pH 7.417 (7.350-7.450) Arterial Blood Partial Pressure CO2 48.6 mmHg (35.0-45.0) H Arterial Blood Partial Pressure O2 77.0 mmHg (75.0-100.0) Arterial Blood HCO3 30.6 mmol/L (22.0-26.0) H Arterial Blood Oxygen Saturation 94.4 % (95-100) L Arterial Blood Base Excess 4.9 (-2-2) H José Miguel Test Positive Objective HEAD AND NECK: No JVD. LUNGS: Coarse rhonchi. CARDIOVASCULAR: Regular S1 and S2 with no gallop or murmur and tachycardic. ABDOMEN: Soft and obese. EXTREMITIES: No pitting edema. Santi Barnard MD Mar 25, 2020 12:05
--- NOTE | 2020-03-25 14:05 | General Progress Note ---
Subjective Date patient seen: Mar 25, 2020 Time patient seen: 10:12 ROS Limited/Unobtainable: No Constitutional: Denies: no symptoms, chills, diaphoresis, fever, malaise, weakness, other HEENT: Denies: no symptoms, eye pain, blurred vision, tearing, double vision, ear pain, ear discharge, nose pain, nose congestion, throat pain, throat swelling, mouth pain, mouth swelling, other Cardiovascular: Denies: no symptoms, chest pain, edema, irregular heart rate, lightheadedness, palpitations, syncope, other Respiratory: Reports: other Gastrointestinal/Abdominal: Denies: no symptoms, abdomen distended, abdominal pain, black stools, tarry stools, blood in stool, constipated, diarrhea, difficulty swallowing, nausea, poor appetite, poor fluid intake, rectal bleeding, vomiting, other Genitourinary: Denies: no symptoms, burning, discharge, frequency, flank pain, hematuria, incontinence, pain, urgency, other Neurologic/Psychiatric: Denies: no symptoms, anxiety, depressed, emotional problems, headache, numbness, paresthesia, pre-existing deficit, seizure, tingling, tremors, weakness, other Endocrine: Denies: no symptoms, excessive sweating, flushing, intolerance to cold, intolerance to heat, increased hunger, increased thirst, increased urine, unexplained weight gain, unexplained weight loss, other Hematologic/Lymphatic: Denies: no symptoms, anemia, easy bleeding, easy bruising, other Allergies: Coded Allergies: No Known Allergies (Unverified , 03/14/20) Subjective Resting comfortably on High Flow Not short of breath when talking O2 sat at rest is 98% on High Flow Doing some exercises in bed Objective Last 24 Hour Vital Signs Date Time Temp Pulse Resp B/P (MAP) Pulse Ox O2 Delivery O2 Flow Rate FiO2 03/25/20 12:00 61 03/25/20 11:59 94 High Flow 45.0 70 03/25/20 08:00 98.0 68 20 130/65 (86) 98 03/25/20 08:00 70 03/25/20 07:00 98 High Flow 45.0 70 03/25/20 04:00 98.2 60 22 119/61 (80) 99 03/25/20 04:00 51 03/25/20 04:00 45.0 70 03/25/20 03:16 99 High Flow 45.0 70 03/25/20 00:00 45.0 75 03/25/20 00:00 58 03/25/20 00:00 98.0 62 18 116/67 (83) 99 03/24/20 23:13 99 High Flow 45.0 75 03/24/20 21:00 Nasal Cannula 45.0 03/24/20 20:00 98.2 68 20 123/78 (93) 99 03/24/20 20:00 45.0 75 03/24/20 20:00 69 03/24/20 19:45 99 High Flow 45.0 80 03/24/20 16:00 97.9 71 18 125/60 (81) 95 03/24/20 16:00 45.0 75 03/24/20 16:00 72 03/24/20 15:44 97 High Flow 45.0 80 Intake and Output 03/24/20 03/25/20 18:59 06:59 Intake Total 480 ml 480 ml Output Total 1600 ml 1000 ml Balance -1120 ml -520 ml Intake Oral 480 ml 480 ml Output Urine Total 1600 ml 1000 ml Laboratory Tests 03/25/20 06:00: Sodium Level 136, Potassium Level 4.1, Chloride Level 101, Carbon Dioxide Level 32, Anion Gap 3L, Blood Urea Nitrogen 15, Creatinine 0.7, Estimat Glomerular Filtration Rate > 60, Glucose Level 109H, Calcium Level 8.4L 03/25/20 08:50: Arterial Blood pH 7.417, Arterial Blood Partial Pressure CO2 48.6H, Arterial Blood Partial Pressure O2 77.0, Arterial Blood HCO3 30.6H, Arterial Blood Oxygen Saturation 94.4L, Arterial Blood Base Excess 4.9H, José Miguel Test Positive Height (Feet): 6 Height (Inches): 2.00 Weight (Pounds): 280 General Appearance: no apparent distress - on Hiflow EENT: PERRL/EOMI Neck: supple Cardiovascular: normal rate, regular rhythm Respiratory/Chest: normal breath sounds, no respiratory distress, no accessory muscle use Abdomen: normal bowel sounds, non tender Edema: no edema noted Arm (L), no edema noted Arm (R), no edema noted Leg (L), no edema noted Leg (R), no edema noted Pedal (L), no edema noted Pedal (R), no edema noted Generalized Neurologic: turn down attendant II-XII grossly normal Skin: warm/dry Assessment/Plan Status: not improved Assessment/Plan: #COVID-19 pneumonia - resolving #Acute hypoxemic hypercapneic respiratory failure #Elevated inflammatory markers - Ferritin, CRP, D-dimer, fibrinogen - CXR and CTA stable - Remains on HFNC - Encourage Bipap if CO2 is increasing, if patient is amenable - Monitor ABG - dexamethasone 6 mg daily, remdesivir (03/15 - 03/18) - Wean Oxygen as tolerated to keep O2 sat >92% - CTX/Azithro- s/p Azithro, dc'ed ceftriaxone (03/15-03/24) - ID consult, Dr. Elizalde, recs appreciated - Pulm consult, Dr. Piper, recs appreciated - Cardiology consult, Dr. Barnard, recs appreciated #Metabolic alkalosis #Hyponatremia-likely SIADH based on urine sodium- resolved - Nephro consult, Dr. Zimmerman, recs appreciated #leukocytosis 2' steroid - resolved - WBC 8.8, trending down Diet - Regular FEN Heparin sq Time spent 33 minutes with 17 minutes spent with care coordination. Discussed with pulmonology and Nursing staff. Time of visit does not reflect time of encounter. Deepika Kimbrough M.D. Mar 25, 2020 14:04
--- NOTE | 2020-03-25 14:09 | Pulmonology Progress Note ---
Subjective ROS Limited/Unobtainable: No Interval Events: none major Constitutional: Denies: fever HEENT: Repors: no symptoms Respiratory: Reports: no symptoms; Denies: dry cough Cardiovascular: Reports: no symptoms; Denies: chest pain Gastrointestinal/Abdominal: Denies: nausea, vomiting, diarrhea Genitourinary: Reports: no symptoms Neurologic: Reports: no symptoms Musculoskeletal: Denies: pain Allergies: Coded Allergies: No Known Allergies (Unverified , 03/14/20) Subjective 03/22/2020 pt remains on high flow oxygen; pt reports feeling better Objective Last 24 Hour Vital Signs Date Time Temp Pulse Resp B/P (MAP) Pulse Ox O2 Delivery O2 Flow Rate FiO2 03/25/20 12:00 61 03/25/20 11:59 94 High Flow 45.0 70 03/25/20 09:00 45.0 70 03/25/20 08:00 98.0 68 20 130/65 (86) 98 03/25/20 08:00 70 03/25/20 07:00 98 High Flow 45.0 70 03/25/20 04:00 98.2 60 22 119/61 (80) 99 03/25/20 04:00 51 03/25/20 04:00 45.0 70 03/25/20 03:16 99 High Flow 45.0 70 03/25/20 00:00 45.0 75 03/25/20 00:00 58 03/25/20 00:00 98.0 62 18 116/67 (83) 99 03/24/20 23:13 99 High Flow 45.0 75 03/24/20 21:00 Nasal Cannula 45.0 03/24/20 20:00 98.2 68 20 123/78 (93) 99 03/24/20 20:00 45.0 75 03/24/20 20:00 69 03/24/20 19:45 99 High Flow 45.0 80 03/24/20 16:00 97.9 71 18 125/60 (81) 95 03/24/20 16:00 45.0 75 03/24/20 16:00 72 03/24/20 15:44 97 High Flow 45.0 80 Intake and Output 03/24/20 03/25/20 19:00 07:00 Intake Total 480 ml 480 ml Output Total 1600 ml 1000 ml Balance -1120 ml -520 ml Intake Oral 480 ml 480 ml Output Urine Total 1600 ml 1000 ml Objective 03/25/2020 pt still refusing BiPAP and stating he feels fine with HFNC; Current FiO2 70% 03/24/2020 pt attempted BiBAP twice but feels the high flow pressure is too "forceful" and reports that is sleeps better with HFNC 03/23/2020 declining proning and BiPAP; watching tv comfortably 03/22/2020 in bed watching tv; NAD General Appearance: no acute distress HEENT: normocephalic, atraumatic Respiratory: chest wall non-tender, lungs clear Cardiovascular: normal peripheral pulses Abdomen: normal bowel sounds Extremities: no edema Laboratory Tests 03/25/20 06:00: Sodium Level 136, Potassium Level 4.1, Chloride Level 101, Carbon Dioxide Level 32, Anion Gap 3L, Blood Urea Nitrogen 15, Creatinine 0.7, Estimat Glomerular Filtration Rate > 60, Glucose Level 109H, Calcium Level 8.4L 03/25/20 08:50: Arterial Blood pH 7.417, Arterial Blood Partial Pressure CO2 48.6H, Arterial Blood Partial Pressure O2 77.0, Arterial Blood HCO3 30.6H, Arterial Blood Oxygen Saturation 94.4L, Arterial Blood Base Excess 4.9H, José Miguel Test Positive Current Medications Medications (Trade) Dose Ordered Sig/Kiley Route PRN Reason Start Time Stop Time Status Last Admin Dose Admin Acetaminophen (Tylenol) 650 mg Q4H PRN ORAL Temp >100.5 03/14/20 22:45 04/13/20 22:44 03/14/20 22:43 Dextrose (Dextrose 50%) 25 ml Q30M PRN IV Hypoglycemia 03/14/20 19:00 06/12/20 18:59 Dextrose (Dextrose 50%) 50 ml Q30M PRN IV Hypoglycemia 03/14/20 19:00 06/12/20 18:59 Docusate Sodium (Colace) 100 mg TWICE A DAY ORAL 03/17/20 11:30 04/16/20 11:29 03/25/20 09:59 Heparin Sodium (Porcine) (Heparin 5000 units/ml) 5,000 units EVERY 8 HOURS SUBQ 03/16/20 22:00 04/30/20 21:59 03/25/20 06:56 Pantoprazole (Protonix) 40 mg DAILY ORAL 03/15/20 09:00 04/14/20 08:59 03/25/20 09:59 Sennosides (Senokot) 8.6 mg DAILYPRN PRN ORAL Constipation 03/17/20 11:30 04/16/20 11:29 Assessment/Plan Assessment/Plan Impression: - COVID-19 pneumonia - stable; extensive bilateral interstitial infiltrates unchanged since prior CXR; 03/23/2020 CXR: multifocal infiltrates stable appearance since prior CXR - Acute hypoxemic hypercapneic respiratory failure - stable; saturating 94% on 45L HFNC - Obesity BMI 35.9 - Metabolic alkalosis; ABG 03/25/2020 pH 7.4, pCO2 48.6, pO2 77.0, HCO3 30.6 - Hyponatremia; normalized - Hypocalcemia; normalized Plan: - Continue Decadron, AB/antivirals per ID - On Hi Flow O2; cont weaning as tolerated - IVF - Monitor labs - DVT Ppx - on heparin; on SCD; LE Duplex no DVT. Time spent on this encounter was 31 minutes. The care for this patient was discussed with my supervising physician The history of Martin Tate has been reviewed and management options for him have been examined and discussed by Oral Piper. I have personally examined and interviewed the patient. Des Daniels Mar 25, 2020 14:09 Oral Piper MD Mar 25, 2020 16:03
--- NOTE | 2020-03-25 15:47 | NUR ---
CASE MANAGEMENT:REVIEW 03/25/20 SI;COVID PNEUMONIA. RESPIRATORY FAILURE. 98.0 68 20 130/65 94% ON 45L/70% HIGH ASHLEY IS;HEPARIN SQ Q8HRS PROTONIX PO QD : TELEMETRY STATUS DCP: FROM HOME
[2020-03-25 16:00] VITALS: BP 120/65
--- NOTE | 2020-03-25 19:51 | NUR ---
NURSE HAND-OFF REPORT: Important Events on Shift: pt able to walk to the restroom on his own with assistance of O2 Patient Status: [] Full Diet: [] regular Pending Orders: [] Pending Results/Labs:[] Pending MD notification:[] Latest Vital Signs: Temperature 97.7 , Pulse 66 , B/P 120 /65 , Respiratory Rate 20 , O2 SAT 98 , Nasal Cannula, O2 Flow Rate 45.0 . Vital Sign Comment: [] EKG Rhythm: Sinus Rhythm Rhythm change?: N MD Notified?: N - MD Response: Latest Hollins Fall Score: 35 Fall Risk: Medium Risk Safety Measures: Call light Within Reach, Bed Alarm Zone 2, Side Rails Side Rails x2, Bed position Low and Locked. Fall Precautions: y Yellow Socks y Yellow Gown y Door Sign y Patient Fall Education Report given to []. Thomas Dougherty/RENITA
--- NOTE | 2020-03-25 19:55 | NUR ---
NURSE NOTES: Patient received from RENITA Betancur. Patient is awake, alert and oriented x 4. Patient is currently watching TV and very talkative. Does not have any complaints as of the moment and appears to be comfortable. Patient is in a high flow nasal cannula with Fio2 at 70%, no respiratory distress has been noted. Patient is able to ambulate with assistance. Patient has a 20 gauge IV on his left hand, saline locked. Bed is in the lowest position and locked, call light within reach. Will continue to monitor.
[2020-03-25 20:00] VITALS: BP 109/68
--- NOTE | 2020-03-25 22:22 | Infectious Diseases Prog Note ---
Assessment/Plan Assessment/Plan ASSESSMENT AND PLAN: 1. covid-19 infection with pna, ? cap, fevers, leukocytosis likely secondary to steroids - s/p dexamethasone - s/p remdesivir - s/p azithromycin and ceftriaxone - monitor labs and hypoxia - monitor chest x-ray 2. No other significant past medical history. 3. No known allergies. 4. Social history is negative. 5. Family history is noncontributory. 6. MAR is noted. 7. Case discussed with RN. 8. Continue treatment per primary consultants. Subjective Constitutional: Denies: fever HEENT: Reports: congestion - less Respiratory: Reports: shortness of breath - less Cardiovascular: Denies: chest pain Gastrointestinal/Abdominal: Denies: nausea, vomiting, diarrhea Genitourinary: Reports: other - no diaz ; Denies: dysuria, hematuria Psychiatric: Denies: depression Skin: Denies: rash Hematologic: Denies: bleeding Allergies: Coded Allergies: No Known Allergies (Unverified , 03/14/20) Objective Last 24 Hour Vital Signs Date Time Temp Pulse Resp B/P (MAP) Pulse Ox O2 Delivery O2 Flow Rate FiO2 03/25/20 20:00 99 High Flow 45.0 70 03/25/20 16:00 45.0 70 03/25/20 16:00 66 03/25/20 16:00 97.7 62 20 120/65 (83) 98 03/25/20 15:45 97 High Flow 45.0 70 03/25/20 12:00 45.0 70 03/25/20 12:00 97.9 66 18 115/61 (79) 97 03/25/20 12:00 61 03/25/20 11:59 94 High Flow 45.0 70 03/25/20 09:00 Nasal Cannula 45.0 03/25/20 09:00 45.0 70 03/25/20 08:00 98.0 68 20 130/65 (86) 98 03/25/20 08:00 70 03/25/20 07:00 98 High Flow 45.0 70 03/25/20 04:00 98.2 60 22 119/61 (80) 99 03/25/20 04:00 51 03/25/20 04:00 45.0 70 03/25/20 03:16 99 High Flow 45.0 70 03/25/20 00:00 45.0 75 12/8/20 00:00 58 03/25/20 00:00 98.0 62 18 116/67 (83) 99 03/24/20 23:13 99 High Flow 45.0 75 Height (Feet): 6 Height (Inches): 2.00 Weight (Pounds): 280 General Appearance: no acute distress HEENT: normocephalic, atraumatic, anicteric, mucous membranes moist Respiratory/Chest: crackles/rales, rhonchi - bilaterally Cardiovascular: normal rate, regular rhythm Abdomen: normal bowel sounds, soft, non tender, no organomegaly Genitourinary: other - no diaz Extremities: no cyanosis Skin: no rash 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 Normal heart size. Findings are unchanged Impression: Extensive bilateral infiltrates, unchanged since prior exam of 03/14/2020 Chest x-ray - 03/19/20: Procedure: XRAY Chest 1v Indication: Shortness of breath Technique: One view of the chest Comparison: 03/17/2020 Findings: Again demonstrated are extensive bilateral infiltrates. Appearance is similar on the right, worse in the left upper lung periphery. The heart size is normal. Impression: Extensive bilateral infiltrates, stable on the right, worse on the left Chest x-ray - 03/23/20 - Procedure: XRAY Chest 1v FILM CXR 1 VIEW History: Infection Comparison: March 19, 2020 Findings: Single view chest demonstrate multilobar infiltrates with low lung volumes. Heart size is upper limits of normal. No effusion or pneumothorax. Multifocal infiltrates appear similar to the prior study Impression: Multifocal infiltrates with stable appearance to the prior exam. Microbiology Date/Time Source Procedure Growth Status 03/14/20 15:45 Nasopharynx Coronavirus COVID-19 PCR ([facility]) - Final Complete 03/14/20 15:25 Blood Blood Culture - Final NO GROWTH AFTER 5 DAYS Complete Laboratory Tests Test 03/25/20 06:00 03/25/20 08:50 Sodium Level 136 MMOL/L (136-145) Potassium Level 4.1 MMOL/L (3.5-5.1) Chloride Level 101 MMOL/L (98-107) Carbon Dioxide Level 32 MMOL/L (21-32) Anion Gap 3 mmol/L (5-15) L Blood Urea Nitrogen 15 mg/dL (7-18) Creatinine 0.7 MG/DL (0.55-1.30) Estimat Glomerular Filtration Rate > 60 mL/min (>60) Glucose Level 109 MG/DL (74-106) H Calcium Level 8.4 MG/DL (8.5-10.1) L Arterial Blood pH 7.417 (7.350-7.450) Arterial Blood Partial Pressure CO2 48.6 mmHg (35.0-45.0) H Arterial Blood Partial Pressure O2 77.0 mmHg (75.0-100.0) Arterial Blood HCO3 30.6 mmol/L (22.0-26.0) H Arterial Blood Oxygen Saturation 94.4 % (95-100) L Arterial Blood Base Excess 4.9 (-2-2) H José Miguel Test Positive Current Medications Medications (Trade) Dose Ordered Sig/Kiley Route PRN Reason Start Time Stop Time Status Last Admin Dose Admin Acetaminophen (Tylenol) 650 mg Q4H PRN ORAL Temp >100.5 03/14/20 22:45 04/13/20 22:44 03/14/20 22:43 Dextrose (Dextrose 50%) 25 ml Q30M PRN IV Hypoglycemia 03/14/20 19:00 06/12/20 18:59 Dextrose (Dextrose 50%) 50 ml Q30M PRN IV Hypoglycemia 03/14/20 19:00 06/12/20 18:59 Docusate Sodium (Colace) 100 mg TWICE A DAY ORAL 03/17/20 11:30 04/16/20 11:29 03/25/20 18:06 Heparin Sodium (Porcine) (Heparin 5000 units/ml) 5,000 units EVERY 8 HOURS SUBQ 03/16/20 22:00 04/30/20 21:59 03/25/20 21:52 Pantoprazole (Protonix) 40 mg DAILY ORAL 03/15/20 09:00 04/14/20 08:59 03/25/20 09:59 Sennosides (Senokot) 8.6 mg DAILYPRN PRN ORAL Constipation 03/17/20 11:30 04/16/20 11:29 Ori Gross MD Mar 25, 2020 22:22
[2020-03-26] VITALS: BP 106/61
[2020-03-26 04:00] VITALS: BP 102/61
[2020-03-26] MEDS: Heparin 5000 units/ml inj SUBQ SCH ×3 (06:55→22:05)
--- NOTE | 2020-03-26 07:35 | NUR ---
NURSE HAND-OFF REPORT: Important Events on Shift:[Patient being weaned off] Patient Status: [Stable] Diet: [Regular diet] Pending Orders: [] Pending Results/Labs:[] Pending MD notification:[] Latest Vital Signs: Temperature 97.9 , Pulse 61 , B/P 102 /61 , Respiratory Rate 19 , O2 SAT 98 , Nasal Cannula, O2 Flow Rate 45.0 . Vital Sign Comment: [] EKG Rhythm: Sinus Rhythm Rhythm change?: Y MD Notified?: N - MD Response: Latest Hollins Fall Score: 35 Fall Risk: Medium Risk Safety Measures: Call light Within Reach, Bed Alarm Zone 2, Side Rails Side Rails x2, Bed position Low and Locked. Fall Precautions: Yellow Socks Yellow Gown Door Sign Patient Fall Education Report given to [RENITA Peres].
--- NOTE | 2020-03-26 07:36 | NUR ---
NURSE NOTES: Received pt report from RENITA Rojas. Pt is alert and oriented x4. No pain or discomfort noted at this time. Breathing is even and unlabored with no signs of respiratory distress. Patient is able to ambulate with assistance. Patient has a 20 gauge IV on his left hand, saline locked. Bed is in the lowest position and locked, call light within reach. Will continue to monitor.
[2020-03-26 08:00] VITALS: BP 106/71
[2020-03-26] MEDS: Docusate 100mg cap ORAL SCH ×2 (09:02→17:07)
--- NOTE | 2020-03-26 09:42 | NUR ---
CASE MANAGEMENT:REVIEW 03/26/20 SI;COVID PNEUMONIA. RESPIRATORY FAILURE. 98.1 83 20 106/71 99% ON 45L/70% HIGH ASHLEY IS;HEPARIN SQ Q8HRS PROTONIX PO QD : TELEMETRY STATUS DCP: FROM HOME PLAN: TITRATE OXYGEN
--- NOTE | 2020-03-26 10:24 | NUR ---
RD ASSESSMENT & RECOMMENDATIONS SEE CARE ACTIVITY FOR COMPLETE ASSESSMENT DAILY ESTIMATED NEEDS: Needs based on Pulmonary 97.8kg abw 20-30 kcals/kg 5438-3978 total kcals 1-1.5 g protein/kg 98-147 g total protein 25-30 mL/kg 6909-5379 total fluid mLs NUTRITION DIAGNOSIS: Increased kcal and pro needs r/t acute hypoxemic hypercapneic respiratory failure as evidenced by pt is ++ for covid pna, bipap- now off. CURRENT DIET: Regular PO DIET RECOMMENDATIONS: Regular diet as tolerated ADDITIONAL RECOMMENDATIONS: 1) On Bipap, high aspiration risk, rec PARTY HOST/HOSTESS eval -> now off bipap 2) Add ensure enlive qdaily (350 kcal, 20g pro) Add HIGH pro snacks in b/w meals 3) Monitor BG w/ decadron; NISS as needed for glycemic control 4) Recalibrate bed scale as able for accurate CBW
--- NOTE | 2020-03-26 10:37 | Cardiac Electrophysiology PN ---
Assessment/Plan Assessment/Plan 1. Elevated D-dimer of 0.54, severe shortness of breath and active COVID infection. Chest CT no PE Refusing BIPAP. On 45 liter high flow Nasal cannula 2. COVID pneumonia. Now off azithromycin, ceftriaxone as well as dexamethasone. Got remdesivir. Fu by Dr. Grsos and Dr. Montiel 3. Tachycardia due to COVID infection. Echo Nl EF 65% DW RN Subjective Subjective Still on high flow oxygen on tele. EF 65% In SR 70s. Went as low as 47 sinus jovan In Covid isolation Objective Last 24 Hour Vital Signs Date Time Temp Pulse Resp B/P (MAP) Pulse Ox O2 Delivery O2 Flow Rate FiO2 03/26/20 08:00 56 03/26/20 08:00 45.0 70 03/26/20 08:00 98.1 83 20 106/71 (83) 99 03/26/20 04:00 61 03/26/20 04:00 97.9 60 19 102/61 (75) 98 03/26/20 04:00 45.0 70 03/26/20 03:55 98 High Flow 45.0 70 03/26/20 00:00 97.7 63 20 106/61 (76) 98 03/26/20 00:00 56 03/26/20 00:00 45.0 70 03/25/20 23:19 98 High Flow 45.0 70 03/25/20 21:00 Nasal Cannula 45.0 03/25/20 20:00 45.0 70 03/25/20 20:00 98.1 61 18 109/68 (82) 97 03/25/20 20:00 65 03/25/20 20:00 99 High Flow 45.0 70 03/25/20 16:00 45.0 70 03/25/20 16:00 66 03/25/20 16:00 97.7 62 20 120/65 (83) 98 03/25/20 15:45 97 High Flow 45.0 70 03/25/20 12:00 45.0 70 03/25/20 12:00 97.9 66 18 115/61 (79) 97 03/25/20 12:00 61 03/25/20 11:59 94 High Flow 45.0 70 Intake and Output 03/25/20 03/26/20 19:00 07:00 Intake Total 600 ml 120 ml Output Total 1050 ml 600 ml Balance -450 ml -480 ml Intake Oral 600 ml 120 ml Output Urine Total 1050 ml 600 ml Objective HEAD AND NECK: No JVD. LUNGS: Coarse rhonchi. CARDIOVASCULAR: Regular S1 and S2 with no gallop or murmur and tachycardic. ABDOMEN: Soft and obese. EXTREMITIES: No pitting edema. Santi Barnard MD Mar 26, 2020 10:37
--- NOTE | 2020-03-26 10:58 | Pulmonology Progress Note ---
Subjective ROS Limited/Unobtainable: No Interval Events: none major Constitutional: Denies: fever HEENT: Repors: no symptoms Respiratory: Reports: no symptoms; Denies: dry cough Cardiovascular: Reports: no symptoms; Denies: chest pain Gastrointestinal/Abdominal: Denies: nausea, vomiting, diarrhea Genitourinary: Reports: no symptoms Neurologic: Reports: no symptoms Psychiatric: Denies: depression Skin: Denies: rash Musculoskeletal: Denies: pain Allergies: Coded Allergies: No Known Allergies (Unverified , 03/14/20) Subjective 03/22/2020 pt remains on high flow oxygen; pt reports feeling better Objective Last 24 Hour Vital Signs Date Time Temp Pulse Resp B/P (MAP) Pulse Ox O2 Delivery O2 Flow Rate FiO2 03/26/20 08:00 56 03/26/20 08:00 45.0 70 03/26/20 08:00 98.1 83 20 106/71 (83) 99 03/26/20 04:00 61 03/26/20 04:00 97.9 60 19 102/61 (75) 98 03/26/20 04:00 45.0 70 03/26/20 03:55 98 High Flow 45.0 70 03/26/20 00:00 97.7 63 20 106/61 (76) 98 03/26/20 00:00 56 03/26/20 00:00 45.0 70 03/25/20 23:19 98 High Flow 45.0 70 03/25/20 21:00 Nasal Cannula 45.0 03/25/20 20:00 45.0 70 03/25/20 20:00 98.1 61 18 109/68 (82) 97 03/25/20 20:00 65 03/25/20 20:00 99 High Flow 45.0 70 03/25/20 16:00 45.0 70 03/25/20 16:00 66 03/25/20 16:00 97.7 62 20 120/65 (83) 98 03/25/20 15:45 97 High Flow 45.0 70 03/25/20 12:00 45.0 70 03/25/20 12:00 97.9 66 18 115/61 (79) 97 03/25/20 12:00 61 03/25/20 11:59 94 High Flow 45.0 70 Intake and Output 03/25/20 03/26/20 19:00 07:00 Intake Total 600 ml 120 ml Output Total 1050 ml 600 ml Balance -450 ml -480 ml Intake Oral 600 ml 120 ml Output Urine Total 1050 ml 600 ml Objective 03/26/2020 pt feels fine with HFNC; 99% on 45L/70% high flow oxygen 03/25/2020 pt still refusing BiPAP and stating he feels fine with HFNC; Current FiO2 70% 03/24/2020 pt attempted BiBAP twice but feels the high flow pressure is too "forceful" and reports that is sleeps better with HFNC 03/23/2020 declining proning and BiPAP; watching tv comfortably 03/22/2020 in bed watching tv; NAD General Appearance: no acute distress HEENT: normocephalic, atraumatic Respiratory: chest wall non-tender, lungs clear Cardiovascular: normal peripheral pulses Abdomen: normal bowel sounds Extremities: no edema Current Medications Medications (Trade) Dose Ordered Sig/Kiley Route PRN Reason Start Time Stop Time Status Last Admin Dose Admin Acetaminophen (Tylenol) 650 mg Q4H PRN ORAL Temp >100.5 03/14/20 22:45 04/13/20 22:44 03/14/20 22:43 Dextrose (Dextrose 50%) 25 ml Q30M PRN IV Hypoglycemia 03/14/20 19:00 06/12/20 18:59 Dextrose (Dextrose 50%) 50 ml Q30M PRN IV Hypoglycemia 03/14/20 19:00 06/12/20 18:59 Docusate Sodium (Colace) 100 mg TWICE A DAY ORAL 03/17/20 11:30 04/16/20 11:29 03/26/20 09:02 Heparin Sodium (Porcine) (Heparin 5000 units/ml) 5,000 units EVERY 8 HOURS SUBQ 03/16/20 22:00 04/30/20 21:59 03/26/20 06:55 Pantoprazole (Protonix) 40 mg DAILY ORAL 03/15/20 09:00 04/14/20 08:59 03/26/20 09:02 Sennosides (Senokot) 8.6 mg DAILYPRN PRN ORAL Constipation 03/17/20 11:30 04/16/20 11:29 Assessment/Plan Assessment/Plan Impression: - COVID-19 pneumonia - stable; extensive bilateral interstitial infiltrates unchanged since prior CXR; 03/23/2020 CXR: multifocal infiltrates stable appearance since prior CXR - Acute hypoxemic hypercapneic respiratory failure - stable; saturating 99% on 45L HFNC - Obesity BMI 35.9 - Metabolic alkalosis; ABG 03/25/2020 pH 7.4, pCO2 48.6, pO2 77.0, HCO3 30.6 - Hyponatremia; normalized - Hypocalcemia; normalized Plan: - Continue Decadron, AB/antivirals per ID - On Hi Flow O2; cont weaning as tolerated - IVF - Monitor labs - DVT Ppx - on heparin; on SCD; LE Duplex no DVT. Time spent on this encounter was 31 minutes. The care for this patient was discussed with my supervising physician The patient was seen and examined at bedside and all new and available data was reviewed in the patients chart. I agree with the above findings, impression, and plan. (Patient was seen earlier today. Signature timestamp does not reflect patient encounter time) Attempted on NRBM for a short while; pt did well Will attempt again in AM Des Knott MD Mar 26, 2020 10:58 Oral Piper MD Mar 26, 2020 17:20
[2020-03-26 12:00] VITALS: BP 105/57
--- NOTE | 2020-03-26 14:52 | General Progress Note ---
Subjective Date patient seen: Mar 26, 2020 Constitutional: Denies: no symptoms, chills, diaphoresis, fever, malaise, weakness, other HEENT: Denies: no symptoms, eye pain, blurred vision, tearing, double vision, ear pain, ear discharge, nose pain, nose congestion, throat pain, throat swelling, mouth pain, mouth swelling, other Cardiovascular: Denies: no symptoms, chest pain, edema, irregular heart rate, lightheadedness, palpitations, syncope, other Respiratory: Denies: no symptoms, cough, orthopnea, shortness of breath, SOB with excertion, SOB at rest, sputum, stridor, wheezing, other Gastrointestinal/Abdominal: Denies: no symptoms, abdomen distended, abdominal pain, black stools, tarry stools, blood in stool, constipated, diarrhea, difficulty swallowing, nausea, poor appetite, poor fluid intake, rectal bleeding, vomiting, other Genitourinary: Denies: no symptoms, burning, discharge, frequency, flank pain, hematuria, incontinence, pain, urgency, other Neurologic/Psychiatric: Denies: no symptoms, anxiety, depressed, emotional problems, headache, numbness, paresthesia, pre-existing deficit, seizure, tingling, tremors, weakness, other Endocrine: Denies: no symptoms, excessive sweating, flushing, intolerance to cold, intolerance to heat, increased hunger, increased thirst, increased urine, unexplained weight gain, unexplained weight loss, other Hematologic/Lymphatic: Denies: no symptoms, anemia, easy bleeding, easy bruising, other Allergies: Coded Allergies: No Known Allergies (Unverified , 03/14/20) Subjective Resting comfortably on High Flow Not short of breath when talking Checked O2 sat at bedside and it is around 98% Exercising in the bed D/w nursing/respiratory to titrate down oxygen Objective Last 24 Hour Vital Signs Date Time Temp Pulse Resp B/P (MAP) Pulse Ox O2 Delivery O2 Flow Rate FiO2 03/26/20 12:00 98.1 68 20 105/57 (73) 99 03/26/20 12:00 45.0 70 03/26/20 12:00 64 03/26/20 09:00 Nasal Cannula 45.0 03/26/20 08:00 56 03/26/20 08:00 45.0 70 03/26/20 08:00 98.1 83 20 106/71 (83) 99 03/26/20 04:00 61 03/26/20 04:00 97.9 60 19 102/61 (75) 98 03/26/20 04:00 45.0 70 03/26/20 03:55 98 High Flow 45.0 70 03/26/20 00:00 97.7 63 20 106/61 (76) 98 03/26/20 00:00 56 03/26/20 00:00 45.0 70 03/25/20 23:19 98 High Flow 45.0 70 03/25/20 21:00 Nasal Cannula 45.0 03/25/20 20:00 45.0 70 03/25/20 20:00 98.1 61 18 109/68 (82) 97 03/25/20 20:00 65 03/25/20 20:00 99 High Flow 45.0 70 03/25/20 16:00 45.0 70 03/25/20 16:00 66 03/25/20 16:00 97.7 62 20 120/65 (83) 98 03/25/20 15:45 97 High Flow 45.0 70 Intake and Output 03/25/20 03/26/20 19:00 07:00 Intake Total 600 ml 120 ml Output Total 1050 ml 600 ml Balance -450 ml -480 ml Intake Oral 600 ml 120 ml Output Urine Total 1050 ml 600 ml Height (Feet): 6 Height (Inches): 2.00 Weight (Pounds): 280 General Appearance: no apparent distress, alert EENT: PERRL/EOMI Neck: supple Cardiovascular: regular rhythm Respiratory/Chest: lungs clear Abdomen: non tender, soft 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 Elizalde, recs appreciated - Pulm consult, Dr. Piper, recs appreciated - Cardiology consult, Dr. Barnard, recs appreciated #Metabolic alkalosis #Hyponatremia-likely SIADH based on urine sodium- resolved - Nephro consult, Dr. Zimmerman, recs appreciated #leukocytosis 2' steroid - resolved - WBC 8.8, trending down Diet - Regular FEN Heparin sq Time spent 32 minutes with 16 minutes spent with care coordination. Discussed with pulmonology and Nursing staff. Time of visit does not reflect time of encounter. Deepika Kimbrough M.D. Mar 26, 2020 14:52
[2020-03-26 16:00] VITALS: BP 123/78
--- NOTE | 2020-03-26 19:28 | NUR ---
NURSE HAND-OFF REPORT: Important Events on Shift:NA Patient Status: Stable Diet: Regular Pending Orders: NA Pending Results/Labs:NA Pending MD notification:NA Latest Vital Signs: Temperature 97.7 , Pulse 73 , B/P 123 /78 , Respiratory Rate 20 , O2 SAT 98 , Nasal Cannula, O2 Flow Rate 45.0 . Vital Sign Comment: Stable EKG Rhythm: Sinus Rhythm Rhythm change?: N MD Notified?: N - MD Response: Latest Hollins Fall Score: 35 Fall Risk: Medium Risk Safety Measures: Call light Within Reach, Bed Alarm Zone 2, Side Rails Side Rails x2, Bed position Low and Locked. Fall Precautions: Yellow Socks Yellow Gown Door Sign Patient Fall Education Report given to RENITA Pride.
--- NOTE | 2020-03-26 19:34 | NUR ---
NURSE NOTES: Received pt from Anthony MARAVILLA. Pt is in awake and comfortable watching TV in high-fowlers position at this time. Pt is on 15L Non-rebreather saturating at 100%. No pain reported or acute distress noted. Pt is [place] seeking and is A/O x 4. IV site is in left hand 20G patent, flushed and locked. No erythema or bleeding noted. Bed is lowest position, bed alarm on. Side sails up x2. Pt educated to use call light for assistance. Call light and belongings with in reach. Will continue to monitor.
[2020-03-26 20:00] VITALS: BP 120/86
[2020-03-27] VITALS: BP 129/78
[2020-03-27 04:00] VITALS: BP 131/75
[2020-03-27] MEDS: Heparin 5000 units/ml inj SUBQ SCH ×3 (05:15→22:09)
--- NOTE | 2020-03-27 06:38 | NUR ---
NURSE HAND-OFF REPORT: Important Events on Shift: Pt was titrated down from Non-rebreather 15L 70FIO@ with humidification to Venturi Mask 14L 55FIO2 with humidification and is saturating at 97%. Patient was educated to call nurse if his saturation is <95% by both RT and RN. Patient verbilized understand and pulse OX remains on patient. Patient Status: No acute distress Diet: Regular diet thin liquid whole pills. Pending Orders: Pending Results/Labs:No AM labs Pending MD notification: Latest Vital Signs: Temperature 96.9 , Pulse 75 , B/P 131 /75 , Respiratory Rate 20 , O2 SAT 97 , Non-Rebreather, O2 Flow Rate 14.0 . Vital Sign Comment: EKG Rhythm: Sinus Rhythm Rhythm change?: N MD Notified?: N - MD Response: Latest Hollins Fall Score: 20 Fall Risk: Low Risk Safety Measures: Call light Within Reach, Bed Alarm Zone 2, Side Rails Side Rails x2, Bed position Low and Locked. Fall Precautions: Yellow Socks Yellow Gown Door Sign Patient Fall Education Report given to . Addendum: 03/27/20 at 0737 by Shannen Solorio RN Report given to Sandra MARAVILLA.
--- NOTE | 2020-03-27 07:50 | NUR ---
NURSE NOTES: Received pt. Pt is in awake and AOx4. Pt is on 14L Venturi mask with FiO2 50%. No pain reported or acute distress noted. IV site is in left hand 20G patent, flushed and locked. No erythema or bleeding noted. Bed is lowest position, bed alarm on. Side sails up x2. Pt educated to use call light for assistance. Call light and belongings with in reach. Will continue to monitor.
[2020-03-27 08:00] VITALS: BP 115/69
[2020-03-27] MEDS: Docusate 100mg cap ORAL SCH ×2 (08:40→16:47)
--- NOTE | 2020-03-27 09:50 | Cardiac Electrophysiology PN ---
Assessment/Plan Assessment/Plan 1. Elevated D-dimer of 0.54, severe shortness of breath and active COVID infection. Chest CT no PE Refusing BIPAP. On 45 liter high flow Nasal cannula 2. COVID pneumonia. Now off azithromycin, ceftriaxone, dexamethasone and remdesivir. Fu by Dr. Gross and Dr. Montiel 3. Tachycardia due to COVID infection. Echo Nl EF 65% DW RN Subjective Subjective On high flow oxygen, 50% venturi on tele. EF 65% In SR 70s. In Covid isolation Objective Last 24 Hour Vital Signs Date Time Temp Pulse Resp B/P (MAP) Pulse Ox O2 Delivery O2 Flow Rate FiO2 03/27/20 04:00 69 03/27/20 04:00 14.0 55 03/27/20 04:00 96.9 75 20 131/75 (93) 97 03/27/20 03:06 95 Venturi Mask 14.0 55 03/27/20 00:00 84 03/27/20 00:00 97.2 88 20 129/78 (95) 98 03/26/20 23:25 100 Non-Rebreather 15.0 100 03/26/20 21:00 Non-Rebreather 15.0 03/26/20 20:00 15.0 70 03/26/20 20:00 97.9 70 20 120/86 (97) 100 03/26/20 20:00 71 03/26/20 19:32 100 Non-Rebreather 15.0 100 03/26/20 16:00 45.0 70 03/26/20 16:00 97.7 81 20 123/78 (93) 98 03/26/20 16:00 73 03/26/20 15:57 97 Non-Rebreather 15.0 100 03/26/20 12:00 98.1 68 20 105/57 (73) 99 03/26/20 12:00 45.0 70 03/26/20 12:00 64 03/26/20 11:59 96 Non-Rebreather 15.0 100 Intake and Output 03/26/20 03/27/20 19:00 07:00 Intake Total 840 ml 1300 ml Output Total 1075 ml 1000 ml Balance -235 ml 300 ml Intake Oral 840 ml 1300 ml Output Urine Total 1075 ml 1000 ml # Bowel Movements 1 Objective HEAD AND NECK: No JVD. LUNGS: Coarse rhonchi. CARDIOVASCULAR: Regular S1 and S2 with no gallop or murmur and tachycardic. ABDOMEN: Soft and obese. EXTREMITIES: No pitting edema. Santi Barnard MD Mar 27, 2020 09:49
[2020-03-27 12:00] VITALS: BP 133/81
--- NOTE | 2020-03-27 13:24 | General Progress Note ---
Subjective Date patient seen: Mar 27, 2020 Time patient seen: 10:50 Constitutional: Denies: no symptoms, chills, diaphoresis, fever, malaise, weakness, other HEENT: Denies: no symptoms, eye pain, blurred vision, tearing, double vision, ear pain, ear discharge, nose pain, nose congestion, throat pain, throat swelling, mouth pain, mouth swelling, other Cardiovascular: Denies: no symptoms, chest pain, edema, irregular heart rate, lightheadedness, palpitations, syncope, other Respiratory: Denies: no symptoms, cough, orthopnea, shortness of breath, SOB with excertion, SOB at rest, sputum, stridor, wheezing, other Gastrointestinal/Abdominal: Denies: no symptoms, abdomen distended, abdominal pain, black stools, tarry stools, blood in stool, constipated, diarrhea, difficulty swallowing, nausea, poor appetite, poor fluid intake, rectal bleeding, vomiting, other Genitourinary: Denies: no symptoms, burning, discharge, frequency, flank pain, hematuria, incontinence, pain, urgency, other Neurologic/Psychiatric: Denies: no symptoms, anxiety, depressed, emotional problems, headache, numbness, paresthesia, pre-existing deficit, seizure, tingling, tremors, weakness, other Endocrine: Denies: no symptoms, excessive sweating, flushing, intolerance to cold, intolerance to heat, increased hunger, increased thirst, increased urine, unexplained weight gain, unexplained weight loss, other Hematologic/Lymphatic: Denies: no symptoms, anemia, easy bleeding, easy bruising, other Allergies: Coded Allergies: No Known Allergies (Unverified , 03/14/20) Subjective No acute events overnight VSS, O2 sat 98% on 15L Non Rebreather Mask Tachycardic to the 100s when ambulating Feeling well overall Objective Last 24 Hour Vital Signs Date Time Temp Pulse Resp B/P (MAP) Pulse Ox O2 Delivery O2 Flow Rate FiO2 03/27/20 12:00 97.7 70 20 133/81 (98) 99 03/27/20 12:00 14.0 50 03/27/20 09:00 Non-Rebreather 15.0 03/27/20 08:00 97.7 73 20 115/69 (84) 98 03/27/20 08:00 66 12/10/20 08:00 14.0 50 03/27/20 04:00 69 03/27/20 04:00 14.0 55 03/27/20 04:00 96.9 75 20 131/75 (93) 97 03/27/20 03:06 95 Venturi Mask 14.0 55 03/27/20 00:00 84 03/27/20 00:00 97.2 88 20 129/78 (95) 98 03/26/20 23:25 100 Non-Rebreather 15.0 100 03/26/20 21:00 Non-Rebreather 15.0 03/26/20 20:00 15.0 70 03/26/20 20:00 97.9 70 20 120/86 (97) 100 03/26/20 20:00 71 03/26/20 19:32 100 Non-Rebreather 15.0 100 03/26/20 16:00 45.0 70 03/26/20 16:00 97.7 81 20 123/78 (93) 98 03/26/20 16:00 73 03/26/20 15:57 97 Non-Rebreather 15.0 100 Intake and Output 03/26/20 03/27/20 19:00 07:00 Intake Total 840 ml 1300 ml Output Total 1075 ml 1000 ml Balance -235 ml 300 ml Intake Oral 840 ml 1300 ml Output Urine Total 1075 ml 1000 ml # Bowel Movements 1 Height (Feet): 6 Height (Inches): 2.00 Weight (Pounds): 280 General Appearance: no apparent distress, alert EENT: PERRL/EOMI Neck: supple Cardiovascular: normal rate Respiratory/Chest: lungs clear, normal breath sounds Abdomen: non tender, soft, no mass Extremities: normal range of motion Neurologic: primary care coordinator II-XII grossly normal, oriented x 3 Skin: warm/dry Assessment/Plan Status: stable Assessment/Plan: #COVID-19 pneumonia - resolving #Acute hypoxemic hypercapnic respiratory failure #Elevated inflammatory markers - Ferritin, CRP, D-dimer, fibrinogen - CXR and CTA stable - Titrating down from HFNC to Non-rebreather at 15L - Encourage Bipap if CO2 is increasing, if patient is amenable - Monitor ABG - dexamethasone 6 mg daily, remdesivir (03/15 - 03/18) - Wean Oxygen as tolerated to keep O2 sat >92% - CTX/Azithro- s/p isabell Ennis'ed ceftriaxone (03/15-03/24) - ID consult, Dr. Elizalde, recs appreciated - Pulm consult, Dr. Piper, recs appreciated - Cardiology consult, Dr. Barnard, recs appreciated #Metabolic alkalosis #Hyponatremia-likely SIADH based on urine sodium- resolved - Nephro consult, Dr. Zimmerman, recs appreciated #leukocytosis 2' steroid - resolved - WBC 8.8, trending down Diet - Regular FEN Heparin sq Time spent 33 minutes with 17 minutes spent with care coordination. Discussed with consultants and Nursing staff. Time of visit does not reflect time of encounter. Deepika Kimbrough M.D. Mar 27, 2020 13:23
--- NOTE | 2020-03-27 14:29 | NUR ---
[employer] SI: RESP FAILURE, T. 96.8 HR 69 RR 20 B/P 131/45 NRM FIO2 100% IS: HEPARIN SUBC DECADRON IV TELE STATUS
[2020-03-27 15:45] VITALS: BP 111/70
--- NOTE | 2020-03-27 16:09 | Pulmonology Progress Note ---
Subjective ROS Limited/Unobtainable: No Interval Events: none major Constitutional: Denies: fever HEENT: Repors: no symptoms Respiratory: Reports: no symptoms; Denies: dry cough Cardiovascular: Reports: no symptoms; Denies: chest pain Gastrointestinal/Abdominal: Denies: nausea, vomiting, diarrhea Genitourinary: Reports: no symptoms Neurologic: Reports: no symptoms Psychiatric: Denies: depression Skin: Denies: rash Musculoskeletal: Denies: pain Allergies: Coded Allergies: No Known Allergies (Unverified , 03/14/20) Subjective 03/22/2020 pt remains on high flow oxygen; pt reports feeling better Objective Last 24 Hour Vital Signs Date Time Temp Pulse Resp B/P (MAP) Pulse Ox O2 Delivery O2 Flow Rate FiO2 03/27/20 15:46 10.0 45 03/27/20 15:45 97.3 67 20 111/70 (84) 100 03/27/20 12:00 68 03/27/20 12:00 97.7 70 20 133/81 (98) 99 03/27/20 12:00 14.0 50 03/27/20 09:00 Non-Rebreather 15.0 03/27/20 08:00 97.7 73 20 115/69 (84) 98 03/27/20 08:00 66 03/27/20 08:00 14.0 50 03/27/20 04:00 69 03/27/20 04:00 14.0 55 03/27/20 04:00 96.9 75 20 131/75 (93) 97 03/27/20 03:06 95 Venturi Mask 14.0 55 03/27/20 00:00 84 03/27/20 00:00 97.2 88 20 129/78 (95) 98 03/26/20 23:25 100 Non-Rebreather 15.0 100 03/26/20 21:00 Non-Rebreather 15.0 03/26/20 20:00 15.0 70 03/26/20 20:00 97.9 70 20 120/86 (97) 100 03/26/20 20:00 71 03/26/20 19:32 100 Non-Rebreather 15.0 100 Intake and Output 03/26/20 03/27/20 19:00 07:00 Intake Total 840 ml 1300 ml Output Total 1075 ml 1000 ml Balance -235 ml 300 ml Intake Oral 840 ml 1300 ml Output Urine Total 1075 ml 1000 ml # Bowel Movements 1 Objective 03/27/2020 patient now on Venturi mask 14 L at 55 FiO2 saturating at 97% 03/26/2020 pt feels fine with HFNC; 99% on 45L/70% high flow oxygen 03/25/2020 pt still refusing BiPAP and stating he feels fine with HFNC; Current FiO2 70% 03/24/2020 pt attempted BiBAP twice but feels the high flow pressure is too "forceful" and reports that is sleeps better with HFNC 03/23/2020 declining proning and BiPAP; watching tv comfortably 03/22/2020 in bed watching tv; NAD General Appearance: no acute distress HEENT: normocephalic, atraumatic Respiratory: chest wall non-tender, lungs clear Cardiovascular: normal peripheral pulses Abdomen: normal bowel sounds Extremities: no edema Current Medications Medications (Trade) Dose Ordered Sig/Kiley Route PRN Reason Start Time Stop Time Status Last Admin Dose Admin Acetaminophen (Tylenol) 650 mg Q4H PRN ORAL Temp >100.5 03/14/20 22:45 04/13/20 22:44 03/14/20 22:43 Dextrose (Dextrose 50%) 25 ml Q30M PRN IV Hypoglycemia 03/14/20 19:00 06/12/20 18:59 Dextrose (Dextrose 50%) 50 ml Q30M PRN IV Hypoglycemia 03/14/20 19:00 06/12/20 18:59 Docusate Sodium (Colace) 100 mg TWICE A DAY ORAL 03/17/20 11:30 04/16/20 11:29 03/27/20 08:40 Heparin Sodium (Porcine) (Heparin 5000 units/ml) 5,000 units EVERY 8 HOURS SUBQ 03/16/20 22:00 04/30/20 21:59 03/27/20 15:26 Pantoprazole (Protonix) 40 mg DAILY ORAL 03/15/20 09:00 04/14/20 08:59 03/27/20 08:40 Sennosides (Senokot) 8.6 mg DAILYPRN PRN ORAL Constipation 03/17/20 11:30 04/16/20 11:29 Assessment/Plan Assessment/Plan Impression: - COVID-19 pneumonia - stable; extensive bilateral interstitial infiltrates unchanged since prior CXR; 03/23/2020 CXR: multifocal infiltrates stable appearance since prior CXR - Acute hypoxemic hypercapneic respiratory failure - stable; saturating 99% on 45L HFNC - Obesity BMI 35.9 - Metabolic alkalosis; ABG 03/25/2020 pH 7.4, pCO2 48.6, pO2 77.0, HCO3 30.6 - Hyponatremia; normalized - Hypocalcemia; normalized Plan: - Now off azithromycin, ceftriaxone, dexamethasone and remdesivir - Now on Venturi mask - IVF - Monitor labs - DVT Ppx - on heparin; on SCD; LE Duplex no DVT. Time spent on this encounter was 31 minutes. The care for this patient was discussed with my supervising physicianThe patient was seen and examined at bedside and all new and available data was reviewed in the patients chart. I agree with the above findings, impression, and plan. (Patient was seen earlier today. Signature timestamp does not reflect patient encounter time) Des Knott MD Mar 27, 2020 16:09 Oral Piper MD Mar 28, 2020 17:49
--- NOTE | 2020-03-27 17:50 | Pulmonology Progress Note ---
Subjective ROS Limited/Unobtainable: No Interval Events: none major Constitutional: Denies: fever HEENT: Repors: no symptoms Respiratory: Reports: no symptoms; Denies: dry cough Cardiovascular: Reports: no symptoms; Denies: chest pain Gastrointestinal/Abdominal: Denies: nausea, vomiting, diarrhea Genitourinary: Reports: no symptoms Neurologic: Reports: no symptoms Psychiatric: Denies: depression Skin: Denies: rash Musculoskeletal: Denies: pain Allergies: Coded Allergies: No Known Allergies (Unverified , 03/14/20) Objective Last 24 Hour Vital Signs Date Time Temp Pulse Resp B/P (MAP) Pulse Ox O2 Delivery O2 Flow Rate FiO2 03/27/20 16:00 72 03/27/20 15:46 10.0 45 03/27/20 15:45 97.3 67 20 111/70 (84) 100 03/27/20 12:30 96 Venturi Mask 10.0 45 03/27/20 12:00 68 03/27/20 12:00 97.7 70 20 133/81 (98) 99 03/27/20 12:00 14.0 50 03/27/20 09:00 Non-Rebreather 15.0 03/27/20 08:00 97.7 73 20 115/69 (84) 98 03/27/20 08:00 66 03/27/20 08:00 14.0 50 03/27/20 04:00 69 03/27/20 04:00 14.0 55 03/27/20 04:00 96.9 75 20 131/75 (93) 97 03/27/20 03:06 95 Venturi Mask 14.0 55 03/27/20 00:00 84 03/27/20 00:00 97.2 88 20 129/78 (95) 98 03/26/20 23:25 100 Non-Rebreather 15.0 100 03/26/20 21:00 Non-Rebreather 15.0 03/26/20 20:00 15.0 70 03/26/20 20:00 97.9 70 20 120/86 (97) 100 03/26/20 20:00 71 03/26/20 19:32 100 Non-Rebreather 15.0 100 Intake and Output 03/26/20 03/27/20 19:00 07:00 Intake Total 840 ml 1300 ml Output Total 1075 ml 1000 ml Balance -235 ml 300 ml Intake Oral 840 ml 1300 ml Output Urine Total 1075 ml 1000 ml # Bowel Movements 1 General Appearance: no acute distress HEENT: normocephalic, atraumatic Respiratory: chest wall non-tender, lungs clear Cardiovascular: normal peripheral pulses Abdomen: normal bowel sounds Extremities: no edema Current Medications Medications (Trade) Dose Ordered Sig/Kiley Route PRN Reason Start Time Stop Time Status Last Admin Dose Admin Acetaminophen (Tylenol) 650 mg Q4H PRN ORAL Temp >100.5 03/14/20 22:45 04/13/20 22:44 03/14/20 22:43 Dextrose (Dextrose 50%) 25 ml Q30M PRN IV Hypoglycemia 03/14/20 19:00 06/12/20 18:59 Dextrose (Dextrose 50%) 50 ml Q30M PRN IV Hypoglycemia 03/14/20 19:00 06/12/20 18:59 Docusate Sodium (Colace) 100 mg TWICE A DAY ORAL 03/17/20 11:30 04/16/20 11:29 03/27/20 16:47 Heparin Sodium (Porcine) (Heparin 5000 units/ml) 5,000 units EVERY 8 HOURS SUBQ 03/16/20 22:00 04/30/20 21:59 03/27/20 15:26 Pantoprazole (Protonix) 40 mg DAILY ORAL 03/15/20 09:00 04/14/20 08:59 03/27/20 08:40 Sennosides (Senokot) 8.6 mg DAILYPRN PRN ORAL Constipation 03/17/20 11:30 04/16/20 11:29 Assessment/Plan Assessment/Plan Impression: - COVID-19 pneumonia - stable; extensive bilateral interstitial infiltrates unchanged since prior CXR; 03/23/2020 CXR: multifocal infiltrates stable appearance since prior CXR - Acute hypoxemic hypercapneic respiratory failure - stable; saturating 99%now on ventimask - Obesity BMI 35.9 - Metabolic alkalosis; ABG 03/25/2020 pH 7.4, pCO2 48.6, pO2 77.0, HCO3 30.6 - Hyponatremia; normalized - Hypocalcemia; normalized Plan: - Continue Decadron, AB/antivirals per ID - On Hi Flow O2; cont weaning as tolerated - IVF - Monitor labs - DVT Ppx - on heparin; on SCD; LE Duplex no DVT. Time spent on this encounter was 31 minutes. The care for this patient was discussed with my supervising physician The patient was seen and examined at bedside and all new and available data was reviewed in the patients chart. I agree with the above findings, impression, and plan. (Patient was seen earlier today. Signature timestamp does not reflect patient encounter time) Continue to wean down O2 Oral Beebe MD, MD Mar 27, 2020 17:50
--- NOTE | 2020-03-27 19:10 | NUR ---
NURSE NOTES: Received pt from Sandra MARAVILLA. Pt is in awake and comfortable watching TV in high-fowlers position at this time. Pt is on 10L VN 45FIO2 with humidification saturating at 100%. Pt was educated to call if feeling SOB or if saturation falls below 95%. No pain reported or acute distress noted. Pt is Tamazight seeking and is A/O x 4. IV site is in left hand 20G patent, flushed and locked. No erythema or bleeding noted. Bed is lowest position, bed alarm on. Side sails up x2. Pt educated to use call light for assistance. Call light and belongings with in reach. Will continue to monitor.
[2020-03-27 20:00] VITALS: BP_SYST 109; BP_SYST 127; BP_DIAS 65; BP_DIAS 96
--- NOTE | 2020-03-27 23:13 | Infectious Diseases Prog Note ---
Assessment/Plan Assessment/Plan ASSESSMENT AND PLAN: 1. covid-19 infection with pna, ? cap, fevers, leukocytosis likely secondary to steroids - s/p dexamethasone - s/p remdesivir - s/p azithromycin and ceftriaxone - monitor labs and hypoxia - monitor chest x-ray 2. No other significant past medical history. 3. No known allergies. 4. Social history is negative. 5. Family history is noncontributory. 6. MAR is noted. 7. Case discussed with RN. 8. Continue treatment per primary consultants. Subjective Constitutional: Denies: fever HEENT: Reports: congestion - less Respiratory: Reports: shortness of breath - less Cardiovascular: Denies: chest pain Gastrointestinal/Abdominal: Denies: nausea, vomiting Genitourinary: Denies: dysuria, hematuria Allergies: Coded Allergies: No Known Allergies (Unverified , 03/14/20) Objective Last 24 Hour Vital Signs Date Time Temp Pulse Resp B/P (MAP) Pulse Ox O2 Delivery O2 Flow Rate FiO2 03/27/20 16:00 72 03/27/20 15:46 10.0 45 03/27/20 15:45 97.3 67 20 111/70 (84) 100 03/27/20 12:30 96 Venturi Mask 10.0 45 03/27/20 12:00 68 03/27/20 12:00 97.7 70 20 133/81 (98) 99 03/27/20 12:00 14.0 50 03/27/20 09:00 Non-Rebreather 15.0 03/27/20 08:00 97.7 73 20 115/69 (84) 98 03/27/20 08:00 66 03/27/20 08:00 14.0 50 03/27/20 04:00 69 03/27/20 04:00 14.0 55 03/27/20 04:00 96.9 75 20 131/75 (93) 97 03/27/20 03:06 95 Venturi Mask 14.0 55 03/27/20 00:00 84 03/27/20 00:00 97.2 88 20 129/78 (95) 98 03/26/20 23:25 100 Non-Rebreather 15.0 100 Height (Feet): 6 Height (Inches): 2.00 Weight (Pounds): 280 General Appearance: no acute distress HEENT: normocephalic, atraumatic, anicteric Respiratory/Chest: crackles/rales, rhonchi - bilaterally Cardiovascular: normal rate, no gallop/murmur Abdomen: normal bowel sounds, soft, non tender, no organomegaly Genitourinary: other - no diaz Extremities: no cyanosis Skin: no rash 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 Normal heart size. Findings are unchanged Impression: Extensive bilateral infiltrates, unchanged since prior exam of 03/14/2020 Chest x-ray - 03/19/20: Procedure: XRAY Chest 1v Indication: Shortness of breath Technique: One view of the chest Comparison: 03/17/2020 Findings: Again demonstrated are extensive bilateral infiltrates. Appearance is similar on the right, worse in the left upper lung periphery. The heart size is normal. Impression: Extensive bilateral infiltrates, stable on the right, worse on the left Chest x-ray - 03/23/20 - Procedure: XRAY Chest 1v FILM CXR 1 VIEW History: Infection Comparison: March 19, 2020 Findings: Single view chest demonstrate multilobar infiltrates with low lung volumes. Heart size is upper limits of normal. No effusion or pneumothorax. Multifocal infiltrates appear similar to the prior study Impression: Multifocal infiltrates with stable appearance to the prior exam. Current Medications Medications (Trade) Dose Ordered Sig/Kiley Route PRN Reason Start Time Stop Time Status Last Admin Dose Admin Acetaminophen (Tylenol) 650 mg Q4H PRN ORAL Temp >100.5 03/14/20 22:45 04/13/20 22:44 03/14/20 22:43 Dextrose (Dextrose 50%) 25 ml Q30M PRN IV Hypoglycemia 03/14/20 19:00 06/12/20 18:59 Dextrose (Dextrose 50%) 50 ml Q30M PRN IV Hypoglycemia 03/14/20 19:00 06/12/20 18:59 Docusate Sodium (Colace) 100 mg TWICE A DAY ORAL 03/17/20 11:30 04/16/20 11:29 03/27/20 16:47 Heparin Sodium (Porcine) (Heparin 5000 units/ml) 5,000 units EVERY 8 HOURS SUBQ 03/16/20 22:00 04/30/20 21:59 03/27/20 22:09 Pantoprazole (Protonix) 40 mg DAILY ORAL 03/15/20 09:00 04/14/20 08:59 03/27/20 08:40 Sennosides (Senokot) 8.6 mg DAILYPRN PRN ORAL Constipation 03/17/20 11:30 04/16/20 11:29 Ori Gross MD Mar 27, 2020 23:13
[2020-03-28] VITALS: BP 127/96
[2020-03-28 04:00] VITALS: BP 110/71
[2020-03-28] MEDS: Heparin 5000 units/ml inj SUBQ SCH ×3 (05:24→21:54)
--- NOTE | 2020-03-28 06:25 | NUR ---
NURSE HAND-OFF REPORT: Important Events on Shift: IV as changed to left FA to 20G s/l. Patient has anxitey about having a mild cough. Patient Status: No acute distress Diet: Pending Orders: Pending Results/Labs: Pending MD notification: Latest Vital Signs: Temperature 97.7 , Pulse 67 , B/P 110 /71 , Respiratory Rate 18 , O2 SAT 96 , Venturi Mask, O2 Flow Rate 10.0 . Vital Sign Comment: EKG Rhythm: Sinus Rhythm Rhythm change?: N MD Notified?: N - MD Response: Latest Hollins Fall Score: 20 Fall Risk: Low Risk Safety Measures: Call light Within Reach, Bed Alarm Zone 2, Side Rails Side Rails x2, Bed position Low and Locked. Fall Precautions: Yellow Socks Yellow Gown Door Sign Patient Fall Education Report given to . Addendum: 03/28/20 at 0724 by Shannen Solorio RN report given to Vicki MARAVILLA
--- NOTE | 2020-03-28 07:28 | NUR ---
NURSE NOTES: Received report from Shannen/RN. Pt awake, having breakfast in bed. Alert and oriented, able to make needs known. On venturi mask 10L 45% Fio2, no distress or SOB noted. IV on left hand 20G SL, patent and clean. Bed in lowest position and locked. Call light within reach, encouraged to use it when needed. Side rails up X2. Will continue plan of care.
[2020-03-28 08:00] VITALS: BP 115/75
[2020-03-28 08:01] LABS: EOSINOPHILS % (AUTO) 3.1 % (0.0-3.0); HEMATOCRIT 45.7 % (42.0-52.0); HEMOGLOBIN 15.9 G/DL (14.2-18.0); LYMPHOCYTES % (AUTO) 23.3 % (20.0-45.0); MEAN CORPUSCULAR VOLUME 83 FL (80-99); NEUTROPHILS % (AUTO) 62.6 % (45.0-75.0); PLATELET COUNT 216 K/UL (150-450); RED BLOOD COUNT 5.48 M/UL (4.70-6.10); RED CELL DISTRIBUTION WIDTH 13.4 % (11.6-14.8); WHITE BLOOD COUNT 6.1 K/UL (4.8-10.8)
[2020-03-28 08:19] LABS: ALANINE AMINOTRANSFERASE 77 U/L (12-78); ALBUMIN 2.7 G/DL (3.4-5.0); ALBUMIN/GLOBULIN RATIO 0.7 (1.0-2.7); ALKALINE PHOSPHATASE 54 U/L (46-116); ANION GAP 3 mmol/L (5-15); ASPARTATE AMINO TRANSFERASE 31 U/L (15-37); BILIRUBIN,TOTAL 0.6 MG/DL (0.2-1.0); BLOOD UREA NITROGEN 16 mg/dL (7-18); CALCIUM 8.4 MG/DL (8.5-10.1); CARBON DIOXIDE 32 MMOL/L (21-32); CHLORIDE 102 MMOL/L (98-107); CREATININE 0.6 MG/DL (0.55-1.30); POTASSIUM 3.7 MMOL/L (3.5-5.1); SODIUM 137 MMOL/L (136-145)
[2020-03-28] MEDS: Docusate 100mg cap ORAL SCH ×2 (09:23→17:09)
--- NOTE | 2020-03-28 10:52 | NUR ---
CASE MANAGEMENT:REVIEW 03/28/20 SI;COVID PNEUMONIA. RESPIRATORY FAILURE. 97.9 69 20 115/75 97% ON 10L/45% VENTURI MASK IS;HEPARIN SQ Q8HRS PROTONIX PO QD : TELEMETRY STATUS DCP: FROM HOME
[2020-03-28 12:00] VITALS: BP 111/71
--- NOTE | 2020-03-28 12:29 | Cardiac Electrophysiology PN ---
Assessment/Plan Assessment/Plan 1. Elevated D-dimer of 0.54, severe shortness of breath and active COVID infection. Chest CT no PE Refusing BIPAP. On high flow Nasal cannula 2. COVID pneumonia. Now off azithromycin, ceftriaxone, dexamethasone and remdesivir. Fu by Dr. Gross and Dr. Montiel 3. Tachycardia due to COVID infection. Echo Nl EF 65% DW RN Subjective Subjective On 50% venturi on tele. EF 65% In SR 70s. In Covid isolation Objective Last 24 Hour Vital Signs Date Time Temp Pulse Resp B/P (MAP) Pulse Ox O2 Delivery O2 Flow Rate FiO2 03/28/20 09:00 Venturi Mask 10.0 03/28/20 08:00 97.9 69 20 115/75 (88) 97 03/28/20 08:00 10.0 45 03/28/20 08:00 65 03/28/20 04:00 67 03/28/20 04:00 97.7 73 18 110/71 (84) 96 03/28/20 02:00 10.0 45 03/28/20 00:00 10.0 45 03/28/20 00:00 97.9 69 20 127/96 (106) 96 03/28/20 00:00 68 03/27/20 21:00 Venturi Mask 10.0 03/27/20 20:00 10.0 45 03/27/20 20:00 75 03/27/20 20:00 98.1 83 20 109/65 (80) 94 03/27/20 16:00 72 03/27/20 15:46 10.0 45 03/27/20 15:45 97.3 67 20 111/70 (84) 100 03/27/20 12:30 96 Venturi Mask 10.0 45 Intake and Output 03/27/20 03/28/20 19:00 07:00 Intake Total 880 ml 400 ml Output Total 450 ml 1000 ml Balance 430 ml -600 ml Intake Oral 880 ml 400 ml Output Urine Total 450 ml 1000 ml # Voids 4 Laboratory Tests Test 03/28/20 05:40 White Blood Count 6.1 K/UL (4.8-10.8) Red Blood Count 5.48 M/UL (4.70-6.10) Hemoglobin 15.9 G/DL (14.2-18.0) Hematocrit 45.7 % (42.0-52.0) Mean Corpuscular Volume 83 FL (80-99) Mean Corpuscular Hemoglobin 29.0 PG (27.0-31.0) Mean Corpuscular Hemoglobin Concent 34.8 G/DL (32.0-36.0) Red Cell Distribution Width 13.4 % (11.6-14.8) Platelet Count 216 K/UL (150-450) Mean Platelet Volume 6.2 FL (6.5-10.1) L Neutrophils (%) (Auto) 62.6 % (45.0-75.0) Lymphocytes (%) (Auto) 23.3 % (20.0-45.0) Monocytes (%) (Auto) 10.0 % (1.0-10.0) Eosinophils (%) (Auto) 3.1 % (0.0-3.0) H Basophils (%) (Auto) 1.0 % (0.0-2.0) Sodium Level 137 MMOL/L (136-145) Potassium Level 3.7 MMOL/L (3.5-5.1) Chloride Level 102 MMOL/L (98-107) Carbon Dioxide Level 32 MMOL/L (21-32) Anion Gap 3 mmol/L (5-15) L Blood Urea Nitrogen 16 mg/dL (7-18) Creatinine 0.6 MG/DL (0.55-1.30) Estimat Glomerular Filtration Rate > 60 mL/min (>60) Glucose Level 154 MG/DL (74-106) H Calcium Level 8.4 MG/DL (8.5-10.1) L Total Bilirubin 0.6 MG/DL (0.2-1.0) Aspartate Amino Transf (AST/SGOT) 31 U/L (15-37) Alanine Aminotransferase (ALT/SGPT) 77 U/L (12-78) Alkaline Phosphatase 54 U/L (46-116) Total Protein 6.4 G/DL (6.4-8.2) Albumin 2.7 G/DL (3.4-5.0) L Globulin 3.7 g/dL Albumin/Globulin Ratio 0.7 (1.0-2.7) L Objective HEAD AND NECK: No JVD. LUNGS: Coarse rhonchi. CARDIOVASCULAR: Regular S1 and S2 with no gallop or murmur and tachycardic. ABDOMEN: Soft and obese. EXTREMITIES: No pitting edema. Santi Barnard MD Mar 28, 2020 12:29
--- NOTE | 2020-03-28 12:58 | General Progress Note ---
Subjective Date patient seen: Mar 28, 2020 Constitutional: Denies: no symptoms, chills, diaphoresis, fever, malaise, weakness, other HEENT: Denies: no symptoms, eye pain, blurred vision, tearing, double vision, ear pain, ear discharge, nose pain, nose congestion, throat pain, throat swelling, mouth pain, mouth swelling, other Cardiovascular: Denies: no symptoms, chest pain, edema, irregular heart rate, lightheadedness, palpitations, syncope, other Respiratory: Denies: no symptoms, cough, orthopnea, shortness of breath, SOB with excertion, SOB at rest, sputum, stridor, wheezing, other Gastrointestinal/Abdominal: Denies: no symptoms, abdomen distended, abdominal pain, black stools, tarry stools, blood in stool, constipated, diarrhea, difficulty swallowing, nausea, poor appetite, poor fluid intake, rectal bleeding, vomiting, other Genitourinary: Denies: no symptoms, burning, discharge, frequency, flank pain, hematuria, incontinence, pain, urgency, other Neurologic/Psychiatric: Denies: no symptoms, anxiety, depressed, emotional problems, headache, numbness, paresthesia, pre-existing deficit, seizure, tingling, tremors, weakness, other Endocrine: Denies: no symptoms, excessive sweating, flushing, intolerance to cold, intolerance to heat, increased hunger, increased thirst, increased urine, unexplained weight gain, unexplained weight loss, other Hematologic/Lymphatic: Denies: no symptoms, anemia, easy bleeding, easy bruising, other Allergies: Coded Allergies: No Known Allergies (Unverified , 03/14/20) Subjective No acute events overnight VSS, O2 sat 95% on 10L Venturi Mask Feeling well overall, improving oxygen requirements Objective Last 24 Hour Vital Signs Date Time Temp Pulse Resp B/P (MAP) Pulse Ox O2 Delivery O2 Flow Rate FiO2 03/28/20 12:00 10.0 45 03/28/20 12:00 97.7 75 20 111/71 (84) 95 03/28/20 09:00 Venturi Mask 10.0 03/28/20 08:00 97.9 69 20 115/75 (88) 97 03/28/20 08:00 10.0 45 03/28/20 08:00 65 03/28/20 04:00 67 03/28/20 04:00 97.7 73 18 110/71 (84) 96 03/28/20 02:00 10.0 45 03/28/20 00:00 10.0 45 03/28/20 00:00 97.9 69 20 127/96 (106) 96 03/28/20 00:00 68 03/27/20 21:00 Venturi Mask 10.0 03/27/20 20:00 10.0 45 03/27/20 20:00 75 03/27/20 20:00 98.1 83 20 109/65 (80) 94 03/27/20 16:00 72 03/27/20 15:46 10.0 45 03/27/20 15:45 97.3 67 20 111/70 (84) 100 Intake and Output 03/27/20 03/28/20 19:00 07:00 Intake Total 880 ml 400 ml Output Total 450 ml 1000 ml Balance 430 ml -600 ml Intake Oral 880 ml 400 ml Output Urine Total 450 ml 1000 ml # Voids 4 Laboratory Tests 03/28/20 05:40: White Blood Count 6.1, Red Blood Count 5.48, Hemoglobin 15.9, Hematocrit 45.7, Mean Corpuscular Volume 83, Mean Corpuscular Hemoglobin 29.0, Mean Corpuscular Hemoglobin Concent 34.8, Red Cell Distribution Width 13.4, Platelet Count 216, Mean Platelet Volume 6.2L, Neutrophils (%) (Auto) 62.6, Lymphocytes (%) (Auto) 23.3, Monocytes (%) (Auto) 10.0, Eosinophils (%) (Auto) 3.1H, Basophils (%) (Auto) 1.0, Sodium Level 137, Potassium Level 3.7, Chloride Level 102, Carbon Dioxide Level 32, Anion Gap 3L, Blood Urea Nitrogen 16, Creatinine 0.6, Estimat Glomerular Filtration Rate > 60, Glucose Level 154H, Calcium Level 8.4L, Total Bilirubin 0.6, Aspartate Amino Transf (AST/SGOT) 31, Alanine Aminotransferase (ALT/SGPT) 77, Alkaline Phosphatase 54, Total Protein 6.4, Albumin 2.7L, Globulin 3.7, Albumin/Globulin Ratio 0.7L Height (Feet): 6 Height (Inches): 2.00 Weight (Pounds): 280 General Appearance: no apparent distress, alert EENT: PERRL/EOMI Neck: supple Cardiovascular: normal rate, regular rhythm Respiratory/Chest: lungs clear, normal breath sounds Abdomen: non tender, soft Extremities: normal range of motion 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 Elizalde, recs appreciated - Pulm consult, Dr. Piper, recs appreciated - Cardiology consult, Dr. Barnard, recs appreciated #Metabolic alkalosis #Hyponatremia-likely SIADH based on urine sodium- resolved - Nephro consult, Dr. Zimmerman, recs appreciated #leukocytosis 2' steroid - resolved - WBC 8.8, trending down Diet - Regular FEN Heparin sq Time spent 32 minutes with 16 minutes spent with care coordination. Discussed with consultants and Nursing staff. Time of visit does not reflect time of encounter. Deepika Kimbrough M.D. Mar 28, 2020 12:58
--- NOTE | 2020-03-28 14:15 | Diagnostic Imaging Report ---
Indication: Reason For Exam: INFECT Technique: Single AP view of the chest. Comparison: Chest radiograph dated 03/23/2020 Findings: The cardiomediastinal silhouette is unchanged in appearance. No significant change in bilateral severe diffuse airspace disease. No pneumothorax. No increasing pleural effusion. IMPRESSION: No significant change when compared to most recent examination.
--- NOTE | 2020-03-28 15:55 | Pulmonology Progress Note ---
Subjective ROS Limited/Unobtainable: No Interval Events: none major Constitutional: Denies: fever HEENT: Repors: no symptoms Respiratory: Reports: no symptoms; Denies: dry cough Cardiovascular: Reports: no symptoms; Denies: chest pain Gastrointestinal/Abdominal: Denies: nausea, vomiting Genitourinary: Reports: no symptoms Neurologic: Reports: no symptoms Psychiatric: Denies: depression Skin: Denies: rash Musculoskeletal: Denies: pain Allergies: Coded Allergies: No Known Allergies (Unverified , 03/14/20) Subjective 03/22/2020 pt remains on high flow oxygen; pt reports feeling better Objective Last 24 Hour Vital Signs Date Time Temp Pulse Resp B/P (MAP) Pulse Ox O2 Delivery O2 Flow Rate FiO2 03/28/20 12:00 58 03/28/20 12:00 10.0 45 03/28/20 12:00 97.7 75 20 111/71 (84) 95 03/28/20 09:00 Venturi Mask 10.0 03/28/20 08:00 97.9 69 20 115/75 (88) 97 03/28/20 08:00 10.0 45 03/28/20 08:00 65 03/28/20 04:00 67 03/28/20 04:00 97.7 73 18 110/71 (84) 96 03/28/20 02:00 10.0 45 03/28/20 00:00 10.0 45 03/28/20 00:00 97.9 69 20 127/96 (106) 96 03/28/20 00:00 68 03/27/20 21:00 Venturi Mask 10.0 03/27/20 20:00 10.0 45 03/27/20 20:00 75 03/27/20 20:00 98.1 83 20 109/65 (80) 94 03/27/20 16:00 72 Intake and Output 03/27/20 03/28/20 19:00 07:00 Intake Total 880 ml 400 ml Output Total 450 ml 1000 ml Balance 430 ml -600 ml Intake Oral 880 ml 400 ml Output Urine Total 450 ml 1000 ml # Voids 4 Objective 03/27/2020 patient now on Venturi mask 14 L at 55 FiO2 saturating at 97% 03/26/2020 pt feels fine with HFNC; 99% on 45L/70% high flow oxygen 03/25/2020 pt still refusing BiPAP and stating he feels fine with HFNC; Current FiO2 70% 03/24/2020 pt attempted BiBAP twice but feels the high flow pressure is too "forceful" and reports that is sleeps better with HFNC 03/23/2020 declining proning and BiPAP; watching tv comfortably 03/22/2020 in bed watching tv; NAD General Appearance: no acute distress HEENT: normocephalic, atraumatic Respiratory: chest wall non-tender, lungs clear Cardiovascular: normal peripheral pulses Abdomen: normal bowel sounds Extremities: no edema Laboratory Tests 03/28/20 05:40: White Blood Count 6.1, Red Blood Count 5.48, Hemoglobin 15.9, Hematocrit 45.7, Mean Corpuscular Volume 83, Mean Corpuscular Hemoglobin 29.0, Mean Corpuscular Hemoglobin Concent 34.8, Red Cell Distribution Width 13.4, Platelet Count 216, Mean Platelet Volume 6.2L, Neutrophils (%) (Auto) 62.6, Lymphocytes (%) (Auto) 23.3, Monocytes (%) (Auto) 10.0, Eosinophils (%) (Auto) 3.1H, Basophils (%) (A uto) 1.0, Sodium Level 137, Potassium Level 3.7, Chloride Level 102, Carbon Dioxide Level 32, Anion Gap 3L, Blood Urea Nitrogen 16, Creatinine 0.6, Estimat Glomerular Filtration Rate > 60, Glucose Level 154H, Calcium Level 8.4L, Total Bilirubin 0.6, Aspartate Amino Transf (AST/SGOT) 31, Alanine Aminotransferase (ALT/SGPT) 77, Alkaline Phosphatase 54, Total Protein 6.4, Albumin 2.7L, Globulin 3.7, Albumin/Globulin Ratio 0.7L Current Medications Medications (Trade) Dose Ordered Sig/Kiley Route PRN Reason Start Time Stop Time Status Last Admin Dose Admin Acetaminophen (Tylenol) 650 mg Q4H PRN ORAL Temp >100.5 03/14/20 22:45 04/13/20 22:44 03/14/20 22:43 Dextrose (Dextrose 50%) 25 ml Q30M PRN IV Hypoglycemia 03/14/20 19:00 06/12/20 18:59 Dextrose (Dextrose 50%) 50 ml Q30M PRN IV Hypoglycemia 03/14/20 19:00 06/12/20 18:59 Docusate Sodium (Colace) 100 mg TWICE A DAY ORAL 03/17/20 11:30 04/16/20 11:29 03/28/20 09:23 Heparin Sodium (Porcine) (Heparin 5000 units/ml) 5,000 units EVERY 8 HOURS SUBQ 03/16/20 22:00 04/30/20 21:59 03/28/20 13:48 Pantoprazole (Protonix) 40 mg DAILY ORAL 03/15/20 09:00 04/14/20 08:59 03/28/20 09:23 Sennosides (Senokot) 8.6 mg DAILYPRN PRN ORAL Constipation 03/17/20 11:30 04/16/20 11:29 Assessment/Plan Assessment/Plan Impression: - COVID-19 pneumonia - stable; extensive bilateral interstitial infiltrates unchanged since prior CXR; 03/23/2020 CXR: multifocal infiltrates stable appearance since prior CXR - Acute hypoxemic hypercapneic respiratory failure - stable; s/p Venturi mas; now on 5 lpm NC - Obesity BMI 35.9 - Metabolic alkalosis; ABG 03/25/2020 pH 7.4, pCO2 48.6, pO2 77.0, HCO3 30.6 - Hyponatremia; normalized - Hypocalcemia; normalized Plan: - Continue Decadron, AB/antivirals per ID - On Hi Flow O2; cont weaning as tolerated - IVF - Monitor labs - DVT Ppx - on heparin; on SCD; LE Duplex no DVT. The care for this patient was discussed with my supervising physician The time spent for this case was approximately 31 minutes Des Daniels Mar 28, 2020 15:55
[2020-03-28 16:00] VITALS: BP 110/74
--- NOTE | 2020-03-28 19:20 | NUR ---
NURSE NOTES: Report received from Vicki MARAVILLA. Patient awake alert and oriented x4 Chinese speaking. Call light in reach. Bed at lowest position locked with side rails up. Will continue with plan of care.
--- NOTE | 2020-03-28 19:37 | NUR ---
NURSE HAND-OFF REPORT: Important Events on Shift:Pt On 5L nasal cannula, pt had an episode of tachycardia HR 125 when walking to the restroom Patient Status: Stable Diet: regular Pending Orders: Pending Results/Labs: Pending MD notification: Latest Vital Signs: Temperature 97.4 , Pulse 83 , B/P 110 /74 , Respiratory Rate 20 , O2 SAT 96 , Nasal Cannula, O2 Flow Rate 10.0 . Vital Sign Comment: Stable EKG Rhythm: Sinus Rhythm Rhythm change?: N MD Notified?: N - MD Response: Latest Hollins Fall Score: 20 Fall Risk: Low Risk Safety Measures: Call light Within Reach, Bed Alarm Zone 2, Side Rails Side Rails x2, Bed position Low and Locked. Fall Precautions: Yellow Socks Yellow Gown Door Sign Patient Fall Education Report given to Qian/RN.
[2020-03-28 20:00] VITALS: BP 115/72
[2020-03-29] VITALS: BP 114/71
[2020-03-29 04:00] VITALS: BP 112/72
[2020-03-29] MEDS: Heparin 5000 units/ml inj SUBQ SCH ×3 (06:02→21:35)
--- NOTE | 2020-03-29 07:38 | NUR ---
NURSE NOTES: Received report from RENITA Laughlin. Pt is sleeping/resting in bed, stable on NC 5 LPM Pt unlabored and even breathing. no s/s or complaint of distress at this time. Pt IV on L, SL, asymptomatic and intact. Pt bed low and locked, call light in reach and bed alarm on. Pt verbalized understanding to call for help.
--- NOTE | 2020-03-29 07:40 | NUR ---
HAND-OFF: Report given to RENITA Martinez. No changes. Patient is stable alert and oriented x4. Endorsed plan of care.
[2020-03-29] MEDS: Docusate 100mg cap ORAL SCH ×2 (07:59→17:00)
[2020-03-29 08:00] VITALS: BP 116/62
[2020-03-29 11:57] VITALS: BP 123/80
--- NOTE | 2020-03-29 12:02 | NUR ---
NURSE NOTES: Found Pt in room without NC on, 84% spo2. pt said "some lady" came this morning and told him to only use the O2 when he feels SOB. Pt previously was on 5LPM. placed Pt back on 3LPM NC spo@ 92% and provided education that the goal is to keep spo2 above 92% Pt verbalized understanding of O2 titration and to report SOB. call light in reach, pt verbalized understanding to call for help. pt stable at this time.
--- NOTE | 2020-03-29 14:26 | General Progress Note ---
Subjective Date patient seen: Mar 29, 2020 Constitutional: Denies: no symptoms, chills, diaphoresis, fever, malaise, weakness, other HEENT: Denies: no symptoms, eye pain, blurred vision, tearing, double vision, ear pain, ear discharge, nose pain, nose congestion, throat pain, throat swelling, mouth pain, mouth swelling, other Cardiovascular: Denies: no symptoms, chest pain, edema, irregular heart rate, lightheadedness, palpitations, syncope, other Respiratory: Denies: no symptoms, cough, orthopnea, shortness of breath, SOB with excertion, SOB at rest, sputum, stridor, wheezing, other Gastrointestinal/Abdominal: Denies: no symptoms, abdomen distended, abdominal pain, black stools, tarry stools, blood in stool, constipated, diarrhea, difficulty swallowing, nausea, poor appetite, poor fluid intake, rectal bleeding, vomiting, other Genitourinary: Denies: no symptoms, burning, discharge, frequency, flank pain, hematuria, incontinence, pain, urgency, other Neurologic/Psychiatric: Denies: no symptoms, anxiety, depressed, emotional problems, headache, numbness, paresthesia, pre-existing deficit, seizure, tingling, tremors, weakness, other Endocrine: Denies: no symptoms, excessive sweating, flushing, intolerance to cold, intolerance to heat, increased hunger, increased thirst, increased urine, unexplained weight gain, unexplained weight loss, other Hematologic/Lymphatic: Denies: no symptoms, anemia, easy bleeding, easy bruising, other Allergies: Coded Allergies: No Known Allergies (Unverified , 03/14/20) Subjective NAEO Remains on oxygen, titrating down as much as patient can tolerate it Says he feels short of breath at time when ambulating in the room Good appetite Objective Last 24 Hour Vital Signs Date Time Temp Pulse Resp B/P (MAP) Pulse Ox O2 Delivery O2 Flow Rate FiO2 03/29/20 12:00 3.0 03/29/20 12:00 66 03/29/20 11:57 97.7 78 22 123/80 (94) 92 03/29/20 09:00 Nasal Cannula 5.0 03/29/20 08:36 95 Nasal Cannula 4.0 36 03/29/20 08:00 97.7 78 19 116/62 (80) 97 03/29/20 08:00 80 03/29/20 08:00 5.0 03/29/20 04:00 97.5 70 20 112/72 (85) 97 03/29/20 04:00 10.0 45 03/29/20 04:00 61 03/29/20 00:00 97.6 89 20 114/71 (85) 95 03/29/20 00:00 10.0 45 03/29/20 00:00 87 03/28/20 21:00 Nasal Cannula 5.0 03/28/20 20:27 96 Venturi Mask 10.0 45 03/28/20 20:00 65 03/28/20 20:00 98.0 78 20 115/72 (86) 93 03/28/20 20:00 10.0 45 03/28/20 16:00 10.0 45 03/28/20 16:00 97.4 73 20 110/74 (86) 96 03/28/20 16:00 83 Intake and Output 03/28/20 03/29/20 19:00 07:00 Intake Total 840 ml 900 ml Output Total 820 ml Balance 20 ml 900 ml Intake Oral 840 ml 900 ml Output Urine Total 820 ml # Voids 6 # Bowel Movements 1 Height (Feet): 6 Height (Inches): 2.00 Weight (Pounds): 280 General Appearance: no apparent distress, alert EENT: PERRL/EOMI Neck: supple Cardiovascular: normal rate, regular rhythm Respiratory/Chest: lungs clear, normal breath sounds, no respiratory distress Abdomen: non tender, soft Extremities: normal range of motion 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 Elizalde, recs appreciated - Pulm consult, Dr. Piper, recs appreciated - Cardiology consult, Dr. Barnard, recs appreciated #Metabolic alkalosis #Hyponatremia-likely SIADH based on urine sodium- resolved - Nephro consult, Dr. Zimmerman, recs appreciated #leukocytosis 2' steroid - resolved - WBC 8.8, trending down Diet - Regular FEN Heparin sq Time spent 32 minutes with 15 minutes spent with care coordination. Discussed with consultants and Nursing staff. Time of visit does not reflect time of encounter. Deepika Kimbrough M.D. Mar 29, 2020 14:25
--- NOTE | 2020-03-29 14:42 | Pulmonology Progress Note ---
Subjective ROS Limited/Unobtainable: No Interval Events: none major Constitutional: Reports: no symptoms; Denies: fever HEENT: Repors: no symptoms Respiratory: Reports: no symptoms; Denies: dry cough Cardiovascular: Reports: no symptoms; Denies: chest pain Gastrointestinal/Abdominal: Denies: nausea, vomiting, diarrhea Genitourinary: Reports: no symptoms Neurologic: Reports: no symptoms Psychiatric: Denies: depression Skin: Denies: rash Musculoskeletal: Denies: pain Allergies: Coded Allergies: No Known Allergies (Unverified , 03/14/20) Subjective 03/22/2020 pt remains on high flow oxygen; pt reports feeling better Objective Last 24 Hour Vital Signs Date Time Temp Pulse Resp B/P (MAP) Pulse Ox O2 Delivery O2 Flow Rate FiO2 03/29/20 12:00 3.0 03/29/20 12:00 66 03/29/20 11:57 97.7 78 22 123/80 (94) 92 03/29/20 09:00 Nasal Cannula 5.0 03/29/20 08:36 95 Nasal Cannula 4.0 36 03/29/20 08:00 97.7 78 19 116/62 (80) 97 03/29/20 08:00 80 03/29/20 08:00 5.0 03/29/20 04:00 97.5 70 20 112/72 (85) 97 03/29/20 04:00 10.0 45 03/29/20 04:00 61 03/29/20 00:00 97.6 89 20 114/71 (85) 95 03/29/20 00:00 10.0 45 03/29/20 00:00 87 03/28/20 21:00 Nasal Cannula 5.0 03/28/20 20:27 96 Venturi Mask 10.0 45 03/28/20 20:00 65 03/28/20 20:00 98.0 78 20 115/72 (86) 93 03/28/20 20:00 10.0 45 03/28/20 16:00 10.0 45 03/28/20 16:00 97.4 73 20 110/74 (86) 96 03/28/20 16:00 83 Intake and Output 03/28/20 03/29/20 19:00 07:00 Intake Total 840 ml 900 ml Output Total 820 ml Balance 20 ml 900 ml Intake Oral 840 ml 900 ml Output Urine Total 820 ml # Voids 6 # Bowel Movements 1 Objective 03/29/2020 currently on 2 lpm NC, saturating 91-95%; continue to wean as tolerated 03/27/2020 patient now on Venturi mask 14 L at 55 FiO2 saturating at 97% 03/26/2020 pt feels fine with HFNC; 99% on 45L/70% high flow oxygen 03/25/2020 pt still refusing BiPAP and stating he feels fine with HFNC; Current FiO2 70% 03/24/2020 pt attempted BiBAP twice but feels the high flow pressure is too "forceful" and reports that is sleeps better with HFNC 03/23/2020 declining proning and BiPAP; watching tv comfortably 03/22/2020 in bed watching tv; NAD General Appearance: no acute distress HEENT: normocephalic, atraumatic Respiratory: chest wall non-tender, lungs clear Cardiovascular: normal peripheral pulses Abdomen: normal bowel sounds Extremities: no edema Current Medications Medications (Trade) Dose Ordered Sig/Kiley Route PRN Reason Start Time Stop Time Status Last Admin Dose Admin Acetaminophen (Tylenol) 650 mg Q4H PRN ORAL Temp >100.5 03/14/20 22:45 04/13/20 22:44 03/14/20 22:43 Dextrose (Dextrose 50%) 25 ml Q30M PRN IV Hypoglycemia 03/14/20 19:00 06/12/20 18:59 Dextrose (Dextrose 50%) 50 ml Q30M PRN IV Hypoglycemia 03/14/20 19:00 06/12/20 18:59 Docusate Sodium (Colace) 100 mg TWICE A DAY ORAL 03/17/20 11:30 04/16/20 11:29 03/29/20 07:59 Heparin Sodium (Porcine) (Heparin 5000 units/ml) 5,000 units EVERY 8 HOURS SUBQ 03/16/20 22:00 04/30/20 21:59 03/29/20 13:52 Pantoprazole (Protonix) 40 mg DAILY ORAL 03/15/20 09:00 04/14/20 08:59 03/29/20 07:58 Sennosides (Senokot) 8.6 mg DAILYPRN PRN ORAL Constipation 03/17/20 11:30 04/16/20 11:29 Assessment/Plan Assessment/Plan Impression: - COVID-19 pneumonia - stable; extensive bilateral interstitial infiltrates unchanged since prior CXR; 03/23/2020 CXR: multifocal infiltrates stable appearance since prior CXR - Acute hypoxemic hypercapneic respiratory failure - stable; s/p Venturi mas; now on 5 lpm NC - Obesity BMI 35.9 - hx of Metabolic alkalosis - Hyponatremia; normalized - Hypocalcemia; normalized Plan: - Continue Decadron, AB/antivirals per ID - On low flow oxygen; cont weaning as tolerated while keeping SaO2 >92% - IVF - Monitor labs - DVT Ppx - on heparin; on SCD; LE Duplex no DVT. The care for this patient was discussed with my supervising physician The time spent for this case was approximately 31 minutes The patient was seen and examined at bedside and all new and available data was reviewed in the patients chart. I agree with the above findings, impression, and plan. (Patient was seen earlier today. Signature timestamp does not reflect patient encounter time) Des Knott MD Mar 29, 2020 14:42 Oral Piper MD Mar 29, 2020 18:13
--- NOTE | 2020-03-29 15:00 | NUR ---
CASE MANAGEMENT:REVIEW 03/29/20 SI;COVID PNEUMONIA. RESPIRATORY FAILURE. 97.7 78 22 123/80 95% ON 5L/NC IS;HEPARIN SQ Q8HRS PROTONIX PO QD : TELEMETRY STATUS DCP: FROM HOME
--- NOTE | 2020-03-29 15:32 | NUR ---
NURSE NOTES: Titrating Pt off NC O2. Pt currently on 2LPM NC 94% spo2, unlabored and even breathing. pt verbalized understanding of tiratrion and to call for help. Call light in reach, Pt stable.
--- NOTE | 2020-03-29 15:39 | Cardiac Electrophysiology PN ---
Assessment/Plan Assessment/Plan 1. Elevated D-dimer of 0.54, severe shortness of breath and active COVID infection. Chest CT no PE Refusing BIPAP. On 3 liter Nasal cannula 2. COVID pneumonia. Now off azithromycin, ceftriaxone, dexamethasone and remdesivir. Fu by Dr. Gross and Dr. Montiel 3. Tachycardia due to COVID infection. Echo Nl EF 65% DW RN DC tele Subjective Subjective Now only on 3 liter Nasal Cannula. EF 65% In SR 70s. In Covid isolation Objective Last 24 Hour Vital Signs Date Time Temp Pulse Resp B/P (MAP) Pulse Ox O2 Delivery O2 Flow Rate FiO2 03/29/20 12:00 3.0 03/29/20 12:00 66 03/29/20 11:57 97.7 78 22 123/80 (94) 92 03/29/20 09:00 Nasal Cannula 5.0 03/29/20 08:36 95 Nasal Cannula 4.0 36 03/29/20 08:00 97.7 78 19 116/62 (80) 97 03/29/20 08:00 80 03/29/20 08:00 5.0 03/29/20 04:00 97.5 70 20 112/72 (85) 97 03/29/20 04:00 10.0 45 03/29/20 04:00 61 03/29/20 00:00 97.6 89 20 114/71 (85) 95 03/29/20 00:00 10.0 45 03/29/20 00:00 87 03/28/20 21:00 Nasal Cannula 5.0 03/28/20 20:27 96 Venturi Mask 10.0 45 03/28/20 20:00 65 03/28/20 20:00 98.0 78 20 115/72 (86) 93 03/28/20 20:00 10.0 45 03/28/20 16:00 10.0 45 03/28/20 16:00 97.4 73 20 110/74 (86) 96 03/28/20 16:00 83 Intake and Output 03/28/20 03/29/20 19:00 07:00 Intake Total 840 ml 900 ml Output Total 820 ml Balance 20 ml 900 ml Intake Oral 840 ml 900 ml Output Urine Total 820 ml # Voids 6 # Bowel Movements 1 Objective HEAD AND NECK: No JVD. LUNGS: Coarse rhonchi. CARDIOVASCULAR: Regular S1 and S2 with no gallop or murmur and tachycardic. ABDOMEN: Soft and obese. EXTREMITIES: No pitting edema. Santi Barnard MD Mar 29, 2020 15:39
[2020-03-29 16:00] VITALS: BP 124/71
--- NOTE | 2020-03-29 18:50 | NUR ---
NURSE HAND-OFF REPORT: Important Events on Shift: Off tele per Dr Barnard, Pt titrated O2 per Des RHODES, now on 2LPM NC now saturating 97% unlabored even breathing Patient Status: fc, stable Diet: regular Pending Orders: Pending Results/Labs: Pending MD notification: Latest Vital Signs: Temperature 98.1 , Pulse 84 , B/P 124 /71 , Respiratory Rate 18 , O2 SAT 92 , Nasal Cannula, O2 Flow Rate 2.0 . Vital Sign Comment: EKG Rhythm: Sinus Rhythm Rhythm change?: N MD Notified?: N - MD Response: Latest Hollins Fall Score: 20 Fall Risk: Low Risk Safety Measures: Call light Within Reach, Bed Alarm Zone 2, Side Rails Side Rails x2, Bed position Low and Locked. Fall Precautions: Yellow Socks Yellow Gown Door Sign Patient Fall Education Report to be given. Addendum: 03/29/20 at 1946 by Michelle Mccormick RN RN Pt is stable, report and plan of care endorsed to RENITA Rojas.
--- NOTE | 2020-03-29 19:10 | NUR ---
NURSE NOTES: Patient received from RENITA Martinez. Patient is awake, alert and oriented x 4. Patient is able to verbalize his needs, currently watching TV. Patient is on 3 L nasal cannula with no signs of acute respiratory distress noted. Urinal at bedside. Patient does not have any complaints as of the moment. Patient has a left 20 gauge on his forearm, saline locked. Bed is in the lowest position and locked, call light within reach. Will continue to monitor.
[2020-03-29 20:00] VITALS: BP 121/71
--- NOTE | 2020-03-29 20:00 | Infectious Diseases Prog Note ---
Assessment/Plan Assessment/Plan ASSESSMENT AND PLAN: 1. covid-19 infection with pna, ? cap, fevers, leukocytosis likely secondary to steroids - s/p dexamethasone - s/p remdesivir - s/p azithromycin and ceftriaxone - monitor labs and hypoxia - monitor chest x-ray - clinically improving, hypoxia resolving - will sign off call if questions, thank you 2. No other significant past medical history. 3. No known allergies. 4. Social history is negative. 5. Family history is noncontributory. 6. MAR is noted. 7. Case discussed with RN. 8. Continue treatment per primary consultants. Subjective Constitutional: Denies: fever HEENT: Reports: congestion - less Respiratory: Reports: shortness of breath - less Cardiovascular: Denies: chest pain Gastrointestinal/Abdominal: Denies: nausea, vomiting, diarrhea Genitourinary: Denies: dysuria, hematuria Neurologic: Denies: headache Psychiatric: Denies: depression Skin: Denies: rash Allergies: Coded Allergies: No Known Allergies (Unverified , 03/14/20) Objective Last 24 Hour Vital Signs Date Time Temp Pulse Resp B/P (MAP) Pulse Ox O2 Delivery O2 Flow Rate FiO2 03/29/20 19:29 95 Nasal Cannula 3.0 32 03/29/20 16:00 98.1 81 18 124/71 (88) 92 03/29/20 16:00 84 03/29/20 16:00 2.0 03/29/20 12:00 3.0 03/29/20 12:00 66 03/29/20 11:57 97.7 78 22 123/80 (94) 92 03/29/20 09:00 Nasal Cannula 5.0 03/29/20 08:36 95 Nasal Cannula 4.0 36 03/29/20 08:00 97.7 78 19 116/62 (80) 97 03/29/20 08:00 80 03/29/20 08:00 5.0 03/29/20 04:00 97.5 70 20 112/72 (85) 97 03/29/20 04:00 10.0 45 03/29/20 04:00 61 03/29/20 00:00 97.6 89 20 114/71 (85) 95 03/29/20 00:00 10.0 45 03/29/20 00:00 87 03/28/20 21:00 Nasal Cannula 5.0 03/28/20 20:27 96 Venturi Mask 10.0 45 03/28/20 20:00 65 03/28/20 20:00 98.0 78 20 115/72 (86) 93 03/28/20 20:00 10.0 45 Height (Feet): 6 Height (Inches): 2.00 Weight (Pounds): 280 General Appearance: no acute distress HEENT: normocephalic, atraumatic, anicteric Respiratory/Chest: crackles/rales, rhonchi - bilaterally Cardiovascular: normal rate, regular rhythm, no gallop/murmur Chest x-ray - 03/17/20 - Procedure: XRAY Chest 1v Indication: Shortness of breath and cough Technique: One view of the chest Comparison: 03/14/2020 Findings: Again demonstrated are extensive bilateral interstitial and airspace infiltrates. Normal heart size. Findings are unchanged Impression: Extensive bilateral infiltrates, unchanged since prior exam of 03/14/2020 Chest x-ray - 03/19/20: Procedure: XRAY Chest 1v Indication: Shortness of breath Technique: One view of the chest Comparison: 03/17/2020 Findings: Again demonstrated are extensive bilateral infiltrates. Appearance is similar on the right, worse in the left upper lung periphery. The heart size is normal. Impression: Extensive bilateral infiltrates, stable on the right, worse on the left Chest x-ray - 03/23/20 - Procedure: XRAY Chest 1v FILM CXR 1 VIEW History: Infection Comparison: March 19, 2020 Findings: Single view chest demonstrate multilobar infiltrates with low lung volumes. Heart size is upper limits of normal. No effusion or pneumothorax. Multifocal infiltrates appear similar to the prior study Impression: Multifocal infiltrates with stable appearance to the prior exam. Current Medications Medications (Trade) Dose Ordered Sig/Kiley Route PRN Reason Start Time Stop Time Status Last Admin Dose Admin Acetaminophen (Tylenol) 650 mg Q4H PRN ORAL Temp >100.5 03/14/20 22:45 04/13/20 22:44 03/14/20 22:43 Dextrose (Dextrose 50%) 25 ml Q30M PRN IV Hypoglycemia 03/14/20 19:00 06/12/20 18:59 Dextrose (Dextrose 50%) 50 ml Q30M PRN IV Hypoglycemia 03/14/20 19:00 06/12/20 18:59 Docusate Sodium (Colace) 100 mg TWICE A DAY ORAL 03/17/20 11:30 04/16/20 11:29 03/29/20 17:00 Heparin Sodium (Porcine) (Heparin 5000 units/ml) 5,000 units EVERY 8 HOURS SUBQ 03/16/20 22:00 04/30/20 21:59 03/29/20 13:52 Pantoprazole (Protonix) 40 mg DAILY ORAL 03/15/20 09:00 04/14/20 08:59 03/29/20 07:58 Sennosides (Senokot) 8.6 mg DAILYPRN PRN ORAL Constipation 03/17/20 11:30 04/16/20 11:29 Ori Gross MD Mar 29, 2020 20:00
[2020-03-30] VITALS (7 sets, daily range): BP systolic 107–135; BP diastolic 66–84
[2020-03-30] MEDS: Heparin 5000 units/ml inj SUBQ SCH ×3 (05:29→23:07)
--- NOTE | 2020-03-30 07:35 | NUR ---
NURSE HAND-OFF REPORT: Important Events on Shift:[Patient satting above 92% on 2 L nasal cannula. Able to ambulate with assist, will ask for his oxygen tank. Off tele order per Dr. Barnard] Patient Status: [Stable] Diet: [Regular diet] Pending Orders: [] Pending Results/Labs:[] Pending MD notification:[] Latest Vital Signs: Temperature 96.6 , Pulse 67 , B/P 107 /66 , Respiratory Rate 18 , O2 SAT 95 , Nasal Cannula, O2 Flow Rate 2.0 . Vital Sign Comment: [] EKG Rhythm: Sinus Rhythm, BBB Rhythm change?: N MD Notified?: N - MD Response: Latest Hollins Fall Score: 20 Fall Risk: Low Risk Safety Measures: Call light Within Reach, Bed Alarm Zone 2, Side Rails Side Rails x2, Bed position Low and Locked. Fall Precautions: Yellow Socks Yellow Gown Door Sign Patient Fall Education Report given to [RENITA Foster].
--- NOTE | 2020-03-30 07:45 | NUR ---
NURSE NOTES: Received report from RENITA Castillo. Patient sitting up in bed, awake and alert, on room air, saturating at 93%, bed in lowest position, call light within reach, wheels locked, urinal at bedside, in no apparent distress.
[2020-03-30] MEDS: Docusate 100mg cap ORAL SCH ×2 (09:15→17:31)
--- NOTE | 2020-03-30 09:28 | NUR ---
NURSE NOTES: Oxygen saturation at 94% on 2 liters nasal cannula, 91% on room air and 88% on exertion.
--- NOTE | 2020-03-30 14:24 | Pulmonology Progress Note ---
Subjective ROS Limited/Unobtainable: No Interval Events: none major Constitutional: Denies: fever HEENT: Repors: no symptoms Respiratory: Reports: no symptoms; Denies: dry cough Cardiovascular: Reports: no symptoms; Denies: chest pain Gastrointestinal/Abdominal: Denies: nausea, vomiting, diarrhea Genitourinary: Reports: no symptoms Neurologic: Reports: no symptoms Psychiatric: Denies: depression Skin: Denies: rash Musculoskeletal: Denies: pain Allergies: Coded Allergies: No Known Allergies (Unverified , 03/14/20) Subjective 03/22/2020 pt remains on high flow oxygen; pt reports feeling better Objective Last 24 Hour Vital Signs Date Time Temp Pulse Resp B/P (MAP) Pulse Ox O2 Delivery O2 Flow Rate FiO2 03/30/20 12:00 97.9 86 16 122/78 (93) 95 03/30/20 12:00 78 03/30/20 09:00 Nasal Cannula 3.0 03/30/20 08:00 83 03/30/20 08:00 97.9 86 16 118/75 (89) 91 03/30/20 07:40 94 Nasal Cannula 3.0 32 03/30/20 04:00 67 03/30/20 04:00 96.6 78 18 107/66 (80) 95 03/30/20 04:00 2.0 03/30/20 00:00 89 03/30/20 00:00 97.9 77 20 113/70 (84) 95 03/29/20 21:00 Nasal Cannula 3.0 03/29/20 20:00 98.1 79 18 121/71 (88) 96 03/29/20 20:00 2.0 03/29/20 20:00 82 03/29/20 19:29 95 Nasal Cannula 3.0 32 03/29/20 16:00 98.1 81 18 124/71 (88) 92 03/29/20 16:00 84 03/29/20 16:00 2.0 Intake and Output 03/29/20 03/30/20 19:00 07:00 Intake Total 1000 ml Output Total 800 ml 1600 ml Balance 200 ml -1600 ml Intake Oral 1000 ml Output Urine Total 800 ml 1600 ml # Voids 4 3 # Bowel Movements 1 Objective 03/30/2020 still saturating in the low-mid 90s on 2 lpm NC; cont weaning as tolerated 03/29/2020 currently on 2 lpm NC, saturating 91-95%; continue to wean as tolerated 03/27/2020 patient now on Venturi mask 14 L at 55 FiO2 saturating at 97% 03/26/2020 pt feels fine with HFNC; 99% on 45L/70% high flow oxygen 03/25/2020 pt still refusing BiPAP and stating he feels fine with HFNC; Current FiO2 70% 03/24/2020 pt attempted BiBAP twice but feels the high flow pressure is too "forceful" and reports that is sleeps better with HFNC 03/23/2020 declining proning and BiPAP; watching tv comfortably 03/22/2020 in bed watching tv; NAD General Appearance: no acute distress HEENT: normocephalic, atraumatic Respiratory: chest wall non-tender, lungs clear Cardiovascular: normal peripheral pulses Abdomen: normal bowel sounds Extremities: no edema Current Medications Medications (Trade) Dose Ordered Sig/Kiley Route PRN Reason Start Time Stop Time Status Last Admin Dose Admin Acetaminophen (Tylenol) 650 mg Q4H PRN ORAL Temp >100.5 03/14/20 22:45 04/13/20 22:44 03/14/20 22:43 Dextrose (Dextrose 50%) 25 ml Q30M PRN IV Hypoglycemia 03/14/20 19:00 06/12/20 18:59 Dextrose (Dextrose 50%) 50 ml Q30M PRN IV Hypoglycemia 03/14/20 19:00 06/12/20 18:59 Docusate Sodium (Colace) 100 mg TWICE A DAY ORAL 03/17/20 11:30 04/16/20 11:29 03/30/20 09:15 Heparin Sodium (Porcine) (Heparin 5000 units/ml) 5,000 units EVERY 8 HOURS SUBQ 03/16/20 22:00 04/30/20 21:59 03/30/20 13:47 Pantoprazole (Protonix) 40 mg DAILY ORAL 03/15/20 09:00 04/14/20 08:59 03/30/20 09:15 Sennosides (Senokot) 8.6 mg DAILYPRN PRN ORAL Constipation 03/17/20 11:30 04/16/20 11:29 Assessment/Plan Assessment/Plan Impression: - COVID-19 pneumonia - stable; extensive bilateral interstitial infiltrates unchanged since prior CXR; 03/23/2020 CXR: multifocal infiltrates stable appearance since prior CXR - Acute hypoxemic hypercapneic respiratory failure - stable; s/p Venturi mas; now on 5 lpm NC - Obesity BMI 35.9 - hx of Metabolic alkalosis - Hyponatremia; normalized - Hypocalcemia; normalized Plan: - Continue Decadron, AB/antivirals per ID - On low flow oxygen; cont weaning as tolerated while keeping SaO2 >92% - IVF - Monitor labs - DVT Ppx - on heparin; on SCD; LE Duplex no DVT. The care for this patient was discussed with my supervising physician The time spent for this case was approximately 31 minutes The patient was seen and examined at bedside and all new and available data was reviewed in the patients chart. I agree with the above findings, impression, and plan. (Patient was seen earlier today. Signature timestamp does not reflect patient encounter time) Des Knott MD Mar 30, 2020 14:24 Oral Piper MD Mar 30, 2020 17:05
--- NOTE | 2020-03-30 15:06 | NUR ---
CASE MANAGEMENT:REVIEW 03/30/ SI;COVID PNEUMONIA. RESPIRATORY FAILURE. 97.9 86 16 118/75 95% ON 3L/NC IS;HEPARIN SQ Q8HRS PROTONIX PO QD : TELEMETRY STATUS DCP: FROM HOME
--- NOTE | 2020-03-30 15:13 | Cardiac Electrophysiology PN ---
Assessment/Plan Assessment/Plan 1. Elevated D-dimer of 0.54, severe shortness of breath and active COVID infection. Chest CT no PE Refusing BIPAP. On 3 liter Nasal cannula 2. COVID pneumonia. Now off azithromycin, ceftriaxone, dexamethasone and remdesivir. Fu by Dr. Gross and Dr. Montiel Only on 2 liter NC 3. Tachycardia due to COVID infection. Echo Nl EF 65% DW RN Subjective Subjective Now only on 2 liter Nasal Cannula and afebrile but desaturates with walking EF 65% In SR 70s. In Covid isolation Objective Last 24 Hour Vital Signs Date Time Temp Pulse Resp B/P (MAP) Pulse Ox O2 Delivery O2 Flow Rate FiO2 03/30/20 12:00 97.9 86 16 122/78 (93) 95 03/30/20 12:00 78 03/30/20 09:00 Nasal Cannula 3.0 03/30/20 08:00 83 03/30/20 08:00 97.9 86 16 118/75 (89) 91 03/30/20 07:40 94 Nasal Cannula 3.0 32 03/30/20 04:00 67 03/30/20 04:00 96.6 78 18 107/66 (80) 95 03/30/20 04:00 2.0 03/30/20 00:00 89 03/30/20 00:00 97.9 77 20 113/70 (84) 95 03/29/20 21:00 Nasal Cannula 3.0 03/29/20 20:00 98.1 79 18 121/71 (88) 96 03/29/20 20:00 2.0 03/29/20 20:00 82 03/29/20 19:29 95 Nasal Cannula 3.0 32 03/29/20 16:00 98.1 81 18 124/71 (88) 92 03/29/20 16:00 84 03/29/20 16:00 2.0 Intake and Output 03/29/20 03/30/20 19:00 07:00 Intake Total 1000 ml Output Total 800 ml 1600 ml Balance 200 ml -1600 ml Intake Oral 1000 ml Output Urine Total 800 ml 1600 ml # Voids 4 3 # Bowel Movements 1 Objective HEAD AND NECK: No JVD. LUNGS: Coarse rhonchi. CARDIOVASCULAR: Regular S1 and S2 with no gallop or murmur and tachycardic. ABDOMEN: Soft and obese. EXTREMITIES: No pitting edema. Santi Barnard MD Mar 30, 2020 15:13
--- NOTE | 2020-03-30 16:09 | General Progress Note ---
Subjective Date patient seen: Mar 30, 2020 Time patient seen: 08:13 Constitutional: Denies: no symptoms, chills, diaphoresis, fever, malaise, weakness, other HEENT: Denies: no symptoms, eye pain, blurred vision, tearing, double vision, ear pain, ear discharge, nose pain, nose congestion, throat pain, throat swelling, mouth pain, mouth swelling, other Cardiovascular: Denies: no symptoms, chest pain, edema, irregular heart rate, lightheadedness, palpitations, syncope, other Respiratory: Denies: no symptoms, cough, orthopnea, shortness of breath, SOB with excertion, SOB at rest, sputum, stridor, wheezing, other Gastrointestinal/Abdominal: Denies: no symptoms, abdomen distended, abdominal pain, black stools, tarry stools, blood in stool, constipated, diarrhea, difficulty swallowing, nausea, poor appetite, poor fluid intake, rectal bleeding, vomiting, other Genitourinary: Denies: no symptoms, burning, discharge, frequency, flank pain, hematuria, incontinence, pain, urgency, other Neurologic/Psychiatric: Denies: no symptoms, anxiety, depressed, emotional problems, headache, numbness, paresthesia, pre-existing deficit, seizure, tingling, tremors, weakness, other Endocrine: Denies: no symptoms, excessive sweating, flushing, intolerance to cold, intolerance to heat, increased hunger, increased thirst, increased urine, unexplained weight gain, unexplained weight loss, other Hematologic/Lymphatic: Denies: no symptoms, anemia, easy bleeding, easy bruising, other Allergies: Coded Allergies: No Known Allergies (Unverified , 03/14/20) Subjective NAEO VSS, Titrated down to 3L NC Tolerating well Denies any n/v, chest pain or change in bowel movements Objective Last 24 Hour Vital Signs Date Time Temp Pulse Resp B/P (MAP) Pulse Ox O2 Delivery O2 Flow Rate FiO2 03/30/20 12:00 97.9 86 16 122/78 (93) 95 03/30/20 12:00 78 03/30/20 09:00 Nasal Cannula 3.0 03/30/20 08:00 83 03/30/20 08:00 97.9 86 16 118/75 (89) 91 03/30/20 07:40 94 Nasal Cannula 3.0 32 03/30/20 04:00 67 03/30/20 04:00 96.6 78 18 107/66 (80) 95 03/30/20 04:00 2.0 03/30/20 00:00 89 03/30/20 00:00 97.9 77 20 113/70 (84) 95 03/29/20 21:00 Nasal Cannula 3.0 03/29/20 20:00 98.1 79 18 121/71 (88) 96 03/29/20 20:00 2.0 03/29/20 20:00 82 03/29/20 19:29 95 Nasal Cannula 3.0 32 Intake and Output 03/29/20 03/30/20 19:00 07:00 Intake Total 1000 ml Output Total 800 ml 1600 ml Balance 200 ml -1600 ml Intake Oral 1000 ml Output Urine Total 800 ml 1600 ml # Voids 4 3 # Bowel Movements 1 Height (Feet): 6 Height (Inches): 2.00 Weight (Pounds): 280 General Appearance: no apparent distress EENT: PERRL/EOMI Neck: supple Cardiovascular: normal rate, regular rhythm Respiratory/Chest: lungs clear, normal breath sounds Abdomen: non tender, soft Extremities: normal range of motion Neurologic: marketing operations coordinator II-XII grossly normal, oriented x 3 Skin: warm/dry Assessment/Plan Status: stable Assessment/Plan: #COVID-19 pneumonia - resolving #Acute hypoxemic hypercapnic respiratory failure #Elevated inflammatory markers - Ferritin, CRP, D-dimer, fibrinogen - CXR and CTA stable - dexamethasone 6 mg daily, remdesivir (03/15 - 03/18) - Titrating down oxygen daily, currently 3L NC - Wean Oxygen as tolerated to keep O2 sat >92% - CTX/Azithro- s/p Azithro, ct'ed ceftriaxone (03/15-03/24) - ID consult, Dr. Elizalde, recs appreciated - Pulm consult, Dr. Piper, recs appreciated - Cardiology consult, Dr. Barnard, recs appreciated - Will assess if patient can go home with oxygen therapy #Metabolic alkalosis #Hyponatremia-likely SIADH based on urine sodium- resolved - Nephro consult, Dr. Zimmerman, recs appreciated #leukocytosis 2' steroid - resolved Diet - Regular FEN Heparin sq Time spent 33 minutes with 15 minutes spent with care coordination. Discussed with consultants and Nursing staff. Time of visit does not reflect time of encounter. Deepika Kimbrough M.D. Mar 30, 2020 16:09
--- NOTE | 2020-03-30 19:50 | NUR ---
NURSE HAND-OFF: Important Events on Shift:[transfer tele to med-surg] Patient Status: [stable] Diet: [regular] Pending Orders: [] Pending Results/Labs:[] Pending MD notification:[] Latest Vital Signs: Temperature 98.1 , Pulse 83 , B/P 127 /84 , Respiratory Rate 16 , O2 SAT 95 , Nasal Cannula, O2 Flow Rate 2.0 . Vital Sign Comment: [] Latest Hollins Fall Score: 20 Fall Risk: Low Risk Safety Measures: Call light Within Reach, Bed Alarm Zone 2, Side Rails Side Rails x2, Bed position Low and Locked. Fall Precautions: Yellow Socks Yellow Gown Door Sign Patient Fall Education Report given to [BATOOL Valenzuela].
--- NOTE | 2020-03-30 20:00 | NUR ---
NURSE NOTES: RECEIVED PATIENT LYING IN BED, AWAKE,ALERT/ORIENTED X4, ABLE TO VERBALIZE NEEDS IN [place], DENIES PAIN. NO SIGNS AND SYMPTOMS OF ACUTE CARDIO RESPIRATORY DISTRESS/SHORTNESS OF BREATH, DENIES CHEST PAIN, NO PERIPHERAL EDEMA NOTED. IV INTACT TO LEFT HAND/GAUGE 20, NO SIGNS OF INFILTRATION, FLUSHED FOR PATENCY. NO COMPLAINTS OF GI DISCOMFORT, DENIES N/V/D, BATHROOM PRIVILEGES. SIDE RAILS UP X2, BED IN LOWEST POSITION FOR SAFETY, ENCOURAGE PATIENT TO UTILIZE CALL LIGHT FOR ASSISTANCE, VERBALIZED UNDERSTANDING. CONTINUE WITH CURRENT PLAN OF CARE. NAD.
--- NOTE | 2020-03-30 20:28 | NUR ---
NURSE HAND-OFF REPORT: Important Events on Shift: Transferred to telemetry. Patient desaturates easily on exertion and stress. Patient Status: Stable Diet: Regular Pending Orders: am labs Pending Results/Labs:am labs Pending MD notification:N/A Latest Vital Signs: Temperature 98.1 , Pulse 83 , B/P 127 /84 , Respiratory Rate 16 , O2 SAT 95 , Nasal Cannula, O2 Flow Rate 3.0 . Vital Sign Comment: Stable EKG Rhythm: Sinus Rhythm, BBB Rhythm change?: N MD Notified?: N - MD Response: Latest Hollins Fall Score: 20 Fall Risk: Low Risk Safety Measures: Call light Within Reach, Bed Alarm Zone 2, Side Rails Side Rails x2, Bed position Low and Locked. Fall Precautions: Yellow Socks Yellow Gown Door Sign Patient Fall Education Report given to Branden Srivastava RN and Cleo Valenzuela LVN.
[2020-03-31] VITALS: BP 129/75
[2020-03-31 04:00] VITALS: BP 131/62
[2020-03-31] MEDS: Heparin 5000 units/ml inj SUBQ SCH ×3 (07:02→22:55)
--- NOTE | 2020-03-31 07:53 | NUR ---
NURSE NOTES: Patient alert x4; on Nasal cannula 2 Liters, no sing of shortness of breath; no sing of distress; no sing of chest pain; IV Left-Hand, flushes well; Urinal within reach; side rails up x2, breaks engaged, bed at lowest position; call light within reach; will keep monitoring.
--- NOTE | 2020-03-31 07:54 | NUR ---
NURSE HAND-OFF: Important Events on Shift:[UNEVENTFUL NIGHT-PATIENT DESATS VERY EASILY WITH ACTIVITY] Patient Status: [STABLE] Diet: [REGULAR] Pending Orders: [N/A] Pending Results/Labs:[] Pending MD notification:[] Latest Vital Signs: Temperature 98.3 , Pulse 82 , B/P 131 /62 , Respiratory Rate 18 , O2 SAT 96 , Nasal Cannula, O2 Flow Rate 2.0 . Vital Sign Comment: [STABLE, AFEBRILE] Latest Hollins Fall Score: 20 Fall Risk: Low Risk Safety Measures: Call light Within Reach, Bed Alarm Zone 2, Side Rails Side Rails x2, Bed position Low and Locked. Fall Precautions: Yellow Socks Yellow Gown Door Sign Patient Fall Education Report given to RENITA LEY].
[2020-03-31 08:00] VITALS: BP 134/84
--- NOTE | 2020-03-31 08:55 | Pulmonology Progress Note ---
Subjective ROS Limited/Unobtainable: No Interval Events: none major Constitutional: Denies: fever HEENT: Repors: no symptoms Respiratory: Reports: no symptoms; Denies: dry cough Cardiovascular: Reports: no symptoms; Denies: chest pain Gastrointestinal/Abdominal: Denies: nausea, vomiting, diarrhea Genitourinary: Reports: no symptoms Neurologic: Reports: no symptoms Psychiatric: Denies: depression Skin: Denies: rash Musculoskeletal: Denies: pain Allergies: Coded Allergies: No Known Allergies (Unverified , 03/14/20) Subjective 03/22/2020 pt remains on high flow oxygen; pt reports feeling better Objective Last 24 Hour Vital Signs Date Time Temp Pulse Resp B/P (MAP) Pulse Ox O2 Delivery O2 Flow Rate FiO2 03/31/20 04:00 2.0 03/31/20 04:00 98.3 82 18 131/62 (85) 96 03/31/20 00:00 97.9 78 18 129/75 (93) 97 03/31/20 00:00 2.0 03/30/20 21:00 Nasal Cannula 3.0 03/30/20 20:00 97.1 72 18 135/80 (98) 97 03/30/20 20:00 2.0 03/30/20 20:00 94 Nasal Cannula 2.0 28 03/30/20 16:00 98.1 83 16 127/84 (98) 95 03/30/20 16:00 2.0 03/30/20 12:00 2.0 03/30/20 12:00 97.9 86 16 122/78 (93) 95 03/30/20 12:00 78 03/30/20 09:00 Nasal Cannula 3.0 Intake and Output 03/30/20 03/31/20 19:02 07:02 Intake Total 1200 ml 720 ml Output Total 1600 ml Balance -400 ml 720 ml Intake Oral 1200 ml 720 ml Output Urine Total 1600 ml # Voids 4 3 # Bowel Movements 1 Objective 03/31/2020 saturating at mid 90s on 2 lpm NC; cont weaning as tolerated 03/30/2020 still saturating in the low-mid 90s on 2 lpm NC; cont weaning as tolerated 03/29/2020 currently on 2 lpm NC, saturating 91-95%; continue to wean as tolerated 03/27/2020 patient now on Venturi mask 14 L at 55 FiO2 saturating at 97% 03/26/2020 pt feels fine with HFNC; 99% on 45L/70% high flow oxygen 03/25/2020 pt still refusing BiPAP and stating he feels fine with HFNC; Current FiO2 70% 03/24/2020 pt attempted BiBAP twice but feels the high flow pressure is too "forceful" and reports that is sleeps better with HFNC 03/23/2020 declining proning and BiPAP; watching tv comfortably 03/22/2020 in bed watching tv; NAD General Appearance: no acute distress HEENT: normocephalic, atraumatic Respiratory: chest wall non-tender, lungs clear Cardiovascular: normal peripheral pulses Abdomen: normal bowel sounds Extremities: no edema Current Medications Medications (Trade) Dose Ordered Sig/Kiley Route PRN Reason Start Time Stop Time Status Last Admin Dose Admin Acetaminophen (Tylenol) 650 mg Q4H PRN ORAL Temp >100.5 03/14/20 22:45 04/13/20 22:44 03/14/20 22:43 Dextrose (Dextrose 50%) 25 ml Q30M PRN IV Hypoglycemia 03/14/20 19:00 06/12/20 18:59 Dextrose (Dextrose 50%) 50 ml Q30M PRN IV Hypoglycemia 03/14/20 19:00 06/12/20 18:59 Docusate Sodium (Colace) 100 mg TWICE A DAY ORAL 03/17/20 11:30 04/16/20 11:29 03/30/20 17:31 Heparin Sodium (Porcine) (Heparin 5000 units/ml) 5,000 units EVERY 8 HOURS SUBQ 03/16/20 22:00 04/30/20 21:59 03/31/20 07:02 Pantoprazole (Protonix) 40 mg DAILY ORAL 03/15/20 09:00 04/14/20 08:59 03/30/20 09:15 Sennosides (Senokot) 8.6 mg DAILYPRN PRN ORAL Constipation 03/17/20 11:30 04/16/20 11:29 Assessment/Plan Assessment/Plan Impression: - COVID-19 pneumonia - stable; extensive bilateral interstitial infiltrates unchanged since prior CXR; 03/23/2020 CXR: multifocal infiltrates stable appearance since prior CXR - Acute hypoxemic hypercapneic respiratory failure - stable; s/p Venturi mas; now on 2 lpm NC; - Obesity BMI 35.9 - hx of Metabolic alkalosis - Hyponatremia; normalized - Hypocalcemia; normalized Plan: - Continue Decadron, AB/antivirals per ID - On low flow oxygen; cont weaning as tolerated while keeping SaO2 >92% - IVF - Monitor labs - DVT Ppx - on heparin; on SCD; LE Duplex showed no DVT. The care for this patient was discussed with my supervising physician The time spent for this case was approximately 31 minutes The patient was seen and examined at bedside and all new and available data was reviewed in the patients chart. I agree with the above findings, impression, and plan. (Patient was seen earlier today. Signature timestamp does not reflect patient encounter time) Des Knott MD Mar 31, 2020 08:55 Oarl Piper MD Mar 31, 2020 17:06
[2020-03-31] MEDS: Docusate 100mg cap ORAL SCH ×2 (08:59→18:18)
[2020-03-31 11:58] VITALS: BP 127/79
--- NOTE | 2020-03-31 12:49 | Cardiac Electrophysiology PN ---
Assessment/Plan Assessment/Plan 1. Elevated D-dimer of 0.54, severe shortness of breath and active COVID infection. Chest CT no PE Refusing BIPAP. On 3 liter Nasal cannula 2. COVID pneumonia. Now off azithromycin, ceftriaxone, dexamethasone and remdesivir. Fu by Dr. Gross and Dr. Montiel Only on 2 liter NC 3. Tachycardia due to COVID infection. Echo Nl EF 65% DW RN Subjective Subjective Only on 2 liter Nasal Cannula and afebrile but desaturates with walking EF 65% In SR 70s. In Covid isolation Objective Last 24 Hour Vital Signs Date Time Temp Pulse Resp B/P (MAP) Pulse Ox O2 Delivery O2 Flow Rate FiO2 03/31/20 12:00 2.0 03/31/20 11:58 98.2 85 18 127/79 (95) 98 03/31/20 09:00 Nasal Cannula 3.0 03/31/20 08:00 2.0 03/31/20 08:00 97.8 90 18 134/84 (101) 95 03/31/20 04:00 2.0 03/31/20 04:00 98.3 82 18 131/62 (85) 96 03/31/20 00:00 97.9 78 18 129/75 (93) 97 03/31/20 00:00 2.0 03/30/20 21:00 Nasal Cannula 3.0 03/30/20 20:00 97.1 72 18 135/80 (98) 97 03/30/20 20:00 2.0 03/30/20 20:00 94 Nasal Cannula 2.0 28 03/30/20 16:00 98.1 83 16 127/84 (98) 95 03/30/20 16:00 2.0 Intake and Output 03/30/20 03/31/20 19:00 07:00 Intake Total 1200 ml 720 ml Output Total 1600 ml Balance -400 ml 720 ml Intake Oral 1200 ml 720 ml Output Urine Total 1600 ml # Voids 4 3 # Bowel Movements 1 Objective HEAD AND NECK: No JVD. LUNGS: Coarse rhonchi. CARDIOVASCULAR: Regular S1 and S2 with no gallop or murmur and tachycardic. ABDOMEN: Soft and obese. EXTREMITIES: No pitting edema. Santi Barnard MD Mar 31, 2020 12:48
[2020-03-31 16:00] VITALS: BP 127/70
--- NOTE | 2020-03-31 16:20 | NUR ---
CASE MANAGEMENT:REVIEW SI;COVID PNA. 98.3 90 18 131/62 95% 3L NC IS;HEPARIN SQ Q8 PROTONIX PO QD MED SURG STATUS DCP;FROM HOME PLAN; WEAN O2
--- NOTE | 2020-03-31 16:40 | General Progress Note ---
Subjective Date patient seen: Mar 31, 2020 Time patient seen: 09:10 Constitutional: Denies: no symptoms, chills, diaphoresis, fever, malaise, weakness, other HEENT: Denies: no symptoms, eye pain, blurred vision, tearing, double vision, ear pain, ear discharge, nose pain, nose congestion, throat pain, throat swelling, mouth pain, mouth swelling, other Cardiovascular: Denies: no symptoms, chest pain, edema, irregular heart rate, lightheadedness, palpitations, syncope, other Respiratory: Denies: no symptoms, cough, orthopnea, shortness of breath, SOB with excertion, SOB at rest, sputum, stridor, wheezing, other Gastrointestinal/Abdominal: Denies: no symptoms, abdomen distended, abdominal pain, black stools, tarry stools, blood in stool, constipated, diarrhea, difficulty swallowing, nausea, poor appetite, poor fluid intake, rectal bleeding, vomiting, other Genitourinary: Denies: no symptoms, burning, discharge, frequency, flank pain, hematuria, incontinence, pain, urgency, other Neurologic/Psychiatric: Denies: no symptoms, anxiety, depressed, emotional problems, headache, numbness, paresthesia, pre-existing deficit, seizure, tingling, tremors, weakness, other Endocrine: Denies: no symptoms, excessive sweating, flushing, intolerance to cold, intolerance to heat, increased hunger, increased thirst, increased urine, unexplained weight gain, unexplained weight loss, other Hematologic/Lymphatic: Denies: no symptoms, anemia, easy bleeding, easy bruising, other Allergies: Coded Allergies: No Known Allergies (Unverified , 03/14/20) Subjective NAEO Remains on 2-3L ID Says there is a bit of shortness of breath with ambulating Encouraged exercises in bed Objective Last 24 Hour Vital Signs Date Time Temp Pulse Resp B/P (MAP) Pulse Ox O2 Delivery O2 Flow Rate FiO2 03/31/20 16:00 98.5 79 20 127/70 (89) 95 03/31/20 12:00 2.0 03/31/20 11:58 98.2 85 18 127/79 (95) 98 03/31/20 09:00 Nasal Cannula 3.0 03/31/20 08:00 2.0 03/31/20 08:00 97.8 90 18 134/84 (101) 95 03/31/20 04:00 2.0 03/31/20 04:00 98.3 82 18 131/62 (85) 96 03/31/20 00:00 97.9 78 18 129/75 (93) 97 03/31/20 00:00 2.0 03/30/20 21:00 Nasal Cannula 3.0 03/30/20 20:00 97.1 72 18 135/80 (98) 97 03/30/20 20:00 2.0 03/30/20 20:00 94 Nasal Cannula 2.0 28 Intake and Output 03/30/20 03/31/20 19:00 07:00 Intake Total 1200 ml 720 ml Output Total 1600 ml Balance -400 ml 720 ml Intake Oral 1200 ml 720 ml Output Urine Total 1600 ml # Voids 4 3 # Bowel Movements 1 Height (Feet): 6 Height (Inches): 2.00 Weight (Pounds): 280 General Appearance: no apparent distress, alert EENT: PERRL/EOMI Neck: supple Cardiovascular: normal rate, regular rhythm Respiratory/Chest: lungs clear, normal breath sounds Abdomen: non tender, soft Extremities: normal range of motion Assessment/Plan Status: stable Assessment/Plan: #COVID-19 pneumonia - resolving #Acute hypoxemic hypercapnic respiratory failure #Elevated inflammatory markers on admission - Ferritin, CRP, D-dimer, fibrinogen - CXR and CTA stable - dexamethasone 6 mg daily, remdesivir (03/15 - 03/18) - Titrating down oxygen daily, currently 3L NC - Wean Oxygen as tolerated to keep O2 sat >92% - CTX/Azithro- s/p isabell Ennis'ed ceftriaxone (03/15-03/24) - ID consult, Dr. Elizalde, recs appreciated - Pulm consult, Dr. Piper, recs appreciated - Cardiology consult, Dr. Barnard, recs appreciated - Will assess if patient can go home with oxygen therapy #Metabolic alkalosis #Hyponatremia-likely SIADH based on urine sodium- resolved - Nephro consult, Dr. Zimmerman, recs appreciated #leukocytosis 2' steroid - resolved Diet - Regular FEN Heparin sq Time spent 33 minutes with 15 minutes spent with care coordination. Discussed with consultants and Nursing staff. Time of visit does not reflect time of encounter. Deepika Kimbrough M.D. Mar 31, 2020 16:40
--- NOTE | 2020-03-31 19:28 | NUR ---
HAND-OFF: Report given to RENITA Garcia.
[2020-03-31 20:00] VITALS: BP 127/78
--- NOTE | 2020-03-31 20:30 | NUR ---
NURSE NOTES: Patient in bed, awake, alert and verbally responsive. Able to make needs known. Respiration is even and unlabored. Nasal cannula 2 L. uses oxygen tank to go to bathroom, patient noted shortness of breath ambulating without oxygen. Informed patient to call if he needs help. Bed in low and locked position. Iv site noted. Call light is at bedside. Will continue plan of care.
[2020-04-01] VITALS: BP 125/73
[2020-04-01 04:00] VITALS: BP 121/76
[2020-04-01] MEDS: Heparin 5000 units/ml inj SUBQ SCH (05:48)
--- NOTE | 2020-04-01 07:37 | NUR ---
NURSE HAND-OFF: Important Events on Shift:WNL Patient Status: WNL Diet: REG Pending Orders: Pending Results/Labs: Pending MD notification: Latest Vital Signs: Temperature 98.0 , Pulse 78 , B/P 121 /76 , Respiratory Rate 18 , O2 SAT 94 , Nasal Cannula, O2 Flow Rate 2.0 . Vital Sign Comment: WNL Latest Hollins Fall Score: 20 Fall Risk: Low Risk Safety Measures: Call light Within Reach, Bed Alarm Zone 2, Side Rails Side Rails x2, Bed position Low and Locked. Fall Precautions: Yellow Socks Yellow Gown Door Sign Patient Fall Education Report given to Nilay Dixon.
--- NOTE | 2020-04-01 07:39 | NUR ---
NURSE NOTES: pt is in bed alert and awake. no acute distress noted.call light within reach.
[2020-04-01 08:00] VITALS: BP 129/74
--- NOTE | 2020-04-01 09:27 | NUR ---
RD ASSESSMENT & RECOMMENDATIONS SEE CARE ACTIVITY FOR COMPLETE ASSESSMENT DAILY ESTIMATED NEEDS: Needs based on Pulmonary 97.8kg abw 20-30 kcals/kg 4920-6528 total kcals 1-1.5 g protein/kg 98-147 g total protein 25-30 mL/kg 0205-3933 total fluid mLs NUTRITION DIAGNOSIS: Increased kcal and pro needs r/t acute hypoxemic hypercapneic respiratory failure as evidenced by pt is ++ for covid pna, bipap- now off. 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
--- NOTE | 2020-04-01 09:35 | Pulmonology Progress Note ---
Subjective ROS Limited/Unobtainable: No Interval Events: none major Constitutional: Denies: fever HEENT: Repors: no symptoms Respiratory: Reports: no symptoms; Denies: dry cough Cardiovascular: Reports: no symptoms; Denies: chest pain Gastrointestinal/Abdominal: Denies: nausea, vomiting, diarrhea Genitourinary: Reports: no symptoms Neurologic: Reports: no symptoms Psychiatric: Denies: depression Skin: Denies: rash Musculoskeletal: Denies: pain Allergies: Coded Allergies: No Known Allergies (Unverified , 03/14/20) Subjective 03/22/2020 pt remains on high flow oxygen; pt reports feeling better Objective Last 24 Hour Vital Signs Date Time Temp Pulse Resp B/P (MAP) Pulse Ox O2 Delivery O2 Flow Rate FiO2 04/01/20 04:00 2.0 04/01/20 04:00 98.0 78 18 121/76 (91) 94 04/01/20 00:00 2.0 04/01/20 00:00 98.6 78 18 125/73 (90) 95 03/31/20 21:00 Nasal Cannula 3.0 03/31/20 20:00 2.0 03/31/20 20:00 98.2 85 18 127/78 (94) 96 03/31/20 16:00 2.0 03/31/20 16:00 98.5 79 20 127/70 (89) 95 03/31/20 12:00 2.0 03/31/20 11:58 98.2 85 18 127/79 (95) 98 Intake and Output 03/31/20 04/01/20 19:00 07:00 Intake Total 900 ml 1000 ml Output Total 1600 ml Balance -700 ml 1000 ml Intake Oral 900 ml 1000 ml Output Urine Total 1600 ml # Voids 5 2 Objective 04/01/2020 saturating at mid 90s on 2 lpm NC; cont weaning as tolerated 03/31/2020 saturating at mid 90s on 2 lpm NC; cont weaning as tolerated 03/30/2020 still saturating in the low-mid 90s on 2 lpm NC; cont weaning as tolerated 03/29/2020 currently on 2 lpm NC, saturating 91-95%; continue to wean as tolerated 03/27/2020 patient now on Venturi mask 14 L at 55 FiO2 saturating at 97% 03/26/2020 pt feels fine with HFNC; 99% on 45L/70% high flow oxygen 03/25/2020 pt still refusing BiPAP and stating he feels fine with HFNC; Current FiO2 70% 03/24/2020 pt attempted BiBAP twice but feels the high flow pressure is too "forceful" and reports that is sleeps better with HFNC 03/23/2020 declining proning and BiPAP; watching tv comfortably 03/22/2020 in bed watching tv; NAD General Appearance: no acute distress HEENT: normocephalic, atraumatic Respiratory: chest wall non-tender, lungs clear Cardiovascular: normal peripheral pulses Abdomen: normal bowel sounds Extremities: no edema Current Medications Medications (Trade) Dose Ordered Sig/Kiley Route PRN Reason Start Time Stop Time Status Last Admin Dose Admin Acetaminophen (Tylenol) 650 mg Q4H PRN ORAL Temp >100.5 03/14/20 22:45 04/13/20 22:44 03/14/20 22:43 Dextrose (Dextrose 50%) 25 ml Q30M PRN IV Hypoglycemia 03/14/20 19:00 06/12/20 18:59 Dextrose (Dextrose 50%) 50 ml Q30M PRN IV Hypoglycemia 03/14/20 19:00 06/12/20 18:59 Docusate Sodium (Colace) 100 mg TWICE A DAY ORAL 03/17/20 11:30 04/16/20 11:29 03/31/20 18:18 Enoxaparin Sodium (Lovenox) 40 mg DAILY SUBQ 04/01/20 09:30 06/30/20 09:29 UNV Pantoprazole (Protonix) 40 mg DAILY ORAL 03/15/20 09:00 04/14/20 08:59 03/31/20 08:59 Sennosides (Senokot) 8.6 mg DAILYPRN PRN ORAL Constipation 03/17/20 11:30 04/16/20 11:29 Assessment/Plan Assessment/Plan Impression: - COVID-19 pneumonia - stable; extensive bilateral interstitial infiltrates unchanged since prior CXR; 03/23/2020 CXR: multifocal infiltrates stable appearance since prior CXR - Acute hypoxemic hypercapneic respiratory failure - stable; s/p Venturi mas; now on 2 lpm NC; - Obesity BMI 35.9 - hx of Metabolic alkalosis - Hyponatremia; normalized - Hypocalcemia; normalized Plan: - s/p Decadron - s/p AB/antivirals per ID - On low flow oxygen; cont weaning as tolerated while keeping SaO2 >92% - DVT Ppx - on heparin; on SCD; ambulating; LE Duplex showed no DVT. The care for this patient was discussed with my supervising physician The time spent for this case was approximately 31 minutes The patient was seen and examined at bedside and all new and available data was reviewed in the patients chart. I agree with the above findings, impression, and plan. (Patient was seen earlier today. Signature timestamp does not reflect patient encounter time) Des Knott MD Apr 01, 2020 09:35 Oral Piper MD Apr 01, 2020 18:16
[2020-04-01] MEDS: Docusate 100mg cap ORAL SCH ×2 (09:50→18:34)
[2020-04-01] MEDS: Enoxaparin 40mg Inj SUBQ SCH (09:53)
[2020-04-01 11:21] LABS: BASOPHILS % (AUTO) 1.4 % (0.0-2.0); EOSINOPHILS % (AUTO) 4.8 % (0.0-3.0); HEMATOCRIT 45.7 % (42.0-52.0); HEMOGLOBIN 15.8 G/DL (14.2-18.0); LYMPHOCYTES % (AUTO) 21.8 % (20.0-45.0); MEAN CORPUSCULAR VOLUME 84 FL (80-99); MONOCYTES % (AUTO) 9.8 % (1.0-10.0); NEUTROPHILS % (AUTO) 62.2 % (45.0-75.0); PLATELET COUNT 139 K/UL (150-450); RED BLOOD COUNT 5.42 M/UL (4.70-6.10); RED CELL DISTRIBUTION WIDTH 13.2 % (11.6-14.8); WHITE BLOOD COUNT 6.9 K/UL (4.8-10.8)
[2020-04-01 11:48] LABS: ALANINE AMINOTRANSFERASE 86 U/L (12-78); ALBUMIN 2.9 G/DL (3.4-5.0); ALBUMIN/GLOBULIN RATIO 0.8 (1.0-2.7); ALKALINE PHOSPHATASE 60 U/L (46-116); ANION GAP 8 mmol/L (5-15); ASPARTATE AMINO TRANSFERASE 31 U/L (15-37); BILIRUBIN,TOTAL 0.5 MG/DL (0.2-1.0); BLOOD UREA NITROGEN 15 mg/dL (7-18); CALCIUM 8.4 MG/DL (8.5-10.1); CARBON DIOXIDE 28 MMOL/L (21-32); CHLORIDE 102 MMOL/L (98-107); CREATININE 0.7 MG/DL (0.55-1.30); POTASSIUM 3.7 MMOL/L (3.5-5.1); SODIUM 138 MMOL/L (136-145)
[2020-04-01 12:00] VITALS: BP 127/70
--- NOTE | 2020-04-01 12:32 | NUR ---
RADIOLOGY DEPT., CHEST X-RAY DONE.-P.DYE
--- NOTE | 2020-04-01 14:08 | Diagnostic Imaging Report ---
Indication: Shortness of breath Technique: One view of the chest Comparison: 03/28/2020 Findings: Bilateral infiltrates appear slightly worse as compared to prior exam, despite an improved inspiration on this current study. Heart size is normal. Impression: Slight worsening of bilateral infiltrates, since prior study 03/28/2020
--- NOTE | 2020-04-01 15:44 | NUR ---
CASE MANAGEMENT:REVIEW SI;COVID PNEUMONIA. HYPOXIA. 98.6 80 18 129/74 94% 3L NC FIO2 28% BG 158 ALB 2.9 IS;LOVENOX SQ QD PROTONIX PO QD MED SURG STATUS DCP;FROM HOME PLAN; WEAN O2 TOLERATED MAINTAIN O2 SAT >92%
[2020-04-01 16:00] VITALS: BP 118/62
--- NOTE | 2020-04-01 18:19 | General Progress Note ---
Subjective Allergies: Coded Allergies: No Known Allergies (Unverified , 03/14/20) Subjective Chart reviewed. Patient admitted with COVID pneumonia. Long hospital course. Still cannot titrate off oxygen and unable to obtain home O2. Review of systems: Constitutional: Denies: chills, diaphoresis, fever, malaise, weakness, HEENT: Denies: eye pain, blurred vision, tearing, double vision, ear pain, ear discharge, nose pain, nose congestion, throat pain, throat swelling, mouth pain, mouth swelling, Cardiovascular: Denies: chest pain, edema, lightheadedness, palpitations, syncope, Respiratory: Denies: cough, orthopnea, shortness of breath, SOB with excertion, SOB at rest, Gastrointestinal/Abdominal: Denies: abdomen distended, abdominal pain, black stools, tarry stools, blood in stool, constipated, diarrhea, difficulty swallowing, nausea, poor appetite, poor fluid intake, rectal bleeding, vomiting, other Genitourinary: Denies: burning, discharge, frequency, flank pain, hematuria, incontinence, pain, urgency, other Neurologic/Psychiatric: Denies: anxiety, depressed, emotional problems, headache, numbness, paresthesia, pre-existing deficit, seizure, tingling, tremors, weakness, other Endocrine: Denies: excessive sweating, flushing, intolerance to cold, intolerance to heat, increased hunger, increased thirst MSK: denies joint pains, swelling, stiffness Hematologic/Lymphatic: Denies: anemia, easy bleeding, easy bruising, Objective Last 24 Hour Vital Signs Date Time Temp Pulse Resp B/P (MAP) Pulse Ox O2 Delivery O2 Flow Rate FiO2 04/01/20 12:00 98.0 80 18 127/70 (89) 95 04/01/20 09:50 95 Nasal Cannula 2.0 28 04/01/20 09:00 Nasal Cannula 3.0 04/01/20 08:00 97.9 76 18 129/74 (92) 94 04/01/20 04:00 2.0 04/01/20 04:00 98.0 78 18 121/76 (91) 94 04/01/20 00:00 2.0 04/01/20 00:00 98.6 78 18 125/73 (90) 95 03/31/20 21:00 Nasal Cannula 3.0 03/31/20 20:00 2.0 03/31/20 20:00 98.2 85 18 127/78 (94) 96 Intake and Output 03/31/20 04/01/20 19:00 07:00 Intake Total 900 ml 1000 ml Output Total 1600 ml Balance -700 ml 1000 ml Intake Oral 900 ml 1000 ml Output Urine Total 1600 ml # Voids 5 2 Laboratory Tests 04/01/20 10:45: White Blood Count 6.9, Red Blood Count 5.42, Hemoglobin 15.8, Hematocrit 45.7, Mean Corpuscular Volume 84, Mean Corpuscular Hemoglobin 29.2, Mean Corpuscular Hemoglobin Concent 34.6, Red Cell Distribution Width 13.2, Platelet Count 139L, Mean Platelet Volume 8.9, Neutrophils (%) (Auto) 62.2, Lymphocytes (%) (Auto) 21.8, Monocytes (%) (Auto) 9.8, Eosinophils (%) (Auto) 4.8H, Basophils (%) (Auto) 1.4, Sodium Level 138, Potassium Level 3.7, Chloride Level 102, Carbon Dioxide Level 28, Anion Gap 8, Blood Urea Nitrogen 15, Creatinine 0.7, Estimat Glomerular Filtration Rate > 60, Glucose Level 158H, Calcium Level 8.4L, Total Bilirubin 0.5, Aspartate Amino Transf (AST/SGOT) 31, Alanine Aminotransferase (ALT/SGPT) 86H, Alkaline Phosphatase 60, Pro-B-Type Natriuretic Peptide [Pending], Total Protein 6.7, Albumin 2.9L, Globulin 3.8, Albumin/Globulin Ratio 0.8L Height (Feet): 6 Height (Inches): 2.00 Weight (Pounds): 280 Objective General: WDWN male in NAD, A&O x 4 HEENT: Normocephalic cephalic atraumatic, pupils equal round reactive to light and accommodation, nares patent and no symmetrical, no tonsillar exudates, mucous membranes moist CV: Regular rate regular rhythm, no murmurs, rubs, or gallops Pulm: Lungs clear to auscultation bilaterally. No wheezes, rhonchi, or rales GI: Soft, nontender, nondistended, bowel sounds present Neuro: CN 2-12 intact bilaterally, no focal signs. Ext: No lower extremity edema bilaterally Skin: no rashes lesions or ulcers Msk: Joints symmetrical in upper extremity and lower extremity bilaterally, no joint swelling. Lymph: No lymphadenopathy in upper extremity and lower extremity Assessment/Plan Status: stable Assessment/Plan: #COVID-19 pneumonia - resolving #Acute hypoxemic hypercapnic respiratory failure #Elevated inflammatory markers on admission - Ferritin, CRP, D-dimer, fibrinogen - CXR and CTA stable - dexamethasone 6 mg daily, remdesivir (03/15 - 03/18) - Titrating down oxygen daily, currently 2L NC - Wean Oxygen as tolerated to keep O2 sat >92% - CTX/Azithro- s/p Azithro, dc'ed ceftriaxone (03/15-03/24) - ID consult, Dr. Elizalde, recs appreciated - Pulm consult, yimi Regan appreciated - Cardiology consult, Dr. Barnard recs appreciated - Will assess if patient can go home with oxygen therapy #Metabolic alkalosis #Hyponatremia-likely SIADH based on urine sodium- resolved - Nephro consult, Dr. Zimmerman, recs appreciated #leukocytosis 2' steroid - resolved Diet - Regular FEN Lovenox 32 minutes spent on this encounter, and 16 minutes spent on counseling and care coordination. Discussed with ID, Pulm I spent an additional 32 minutes reviewing medical records including prior hospitalization notes, clinic notes, consultation notes, prior labs, and prior imaging. Time of note may not reflect time patient was seen. Time of visit does not reflect time of encounter. Sourav Rodríguez D.O. Apr 01, 2020 18:19
--- NOTE | 2020-04-01 19:05 | NUR ---
HAND-OFF: Report given to ENCARNACION.
--- NOTE | 2020-04-01 19:20 | NUR ---
NURSE NOTES: RECEIVED PATIENT FROM RENITA PEREZ. PATIENT IS AWAKE, ALERT, ORIENTED X4, ON NC 1L, NO ACUTE DISTRESS NOTED. PIV INTACT AND PATENT. VSS. BED IS LOCKED AND LOW, BED ALARMS NOTED, SIDE RAILS UPX2 AND CALL LIGHT IS WITHIN REACH. WILL CONTINUE TO MONITOR.
--- NOTE | 2020-04-01 19:34 | Cardiac Electrophysiology PN ---
Assessment/Plan Assessment/Plan 1. Elevated D-dimer of 0.54, severe shortness of breath and active COVID infection. Chest CT no PE Refusing BIPAP. On 2 liter Nasal cannula 2. COVID pneumonia. Now off azithromycin, ceftriaxone, dexamethasone and remdesivir. Fu by Dr. Gross and Dr. Montiel Only on 2 liter NC 3. Tachycardia due to COVID infection. EF 65% DW RN Subjective Subjective Only on 2 liter Nasal Cannula and afebrile In Covid isolation Objective Last 24 Hour Vital Signs Date Time Temp Pulse Resp B/P (MAP) Pulse Ox O2 Delivery O2 Flow Rate FiO2 04/01/20 12:00 98.0 80 18 127/70 (89) 95 04/01/20 09:50 95 Nasal Cannula 2.0 28 04/01/20 09:00 Nasal Cannula 3.0 04/01/20 08:00 97.9 76 18 129/74 (92) 94 04/01/20 04:00 2.0 04/01/20 04:00 98.0 78 18 121/76 (91) 94 04/01/20 00:00 2.0 04/01/20 00:00 98.6 78 18 125/73 (90) 95 03/31/20 21:00 Nasal Cannula 3.0 03/31/20 20:00 2.0 03/31/20 20:00 98.2 85 18 127/78 (94) 96 Intake and Output 03/31/20 04/01/20 19:00 07:00 Intake Total 900 ml 1000 ml Output Total 1600 ml Balance -700 ml 1000 ml Intake Oral 900 ml 1000 ml Output Urine Total 1600 ml # Voids 5 2 Laboratory Tests Test 04/01/20 10:45 White Blood Count 6.9 K/UL (4.8-10.8) Red Blood Count 5.42 M/UL (4.70-6.10) Hemoglobin 15.8 G/DL (14.2-18.0) Hematocrit 45.7 % (42.0-52.0) Mean Corpuscular Volume 84 FL (80-99) Mean Corpuscular Hemoglobin 29.2 PG (27.0-31.0) Mean Corpuscular Hemoglobin Concent 34.6 G/DL (32.0-36.0) Red Cell Distribution Width 13.2 % (11.6-14.8) Platelet Count 139 K/UL (150-450) L Mean Platelet Volume 8.9 FL (6.5-10.1) Neutrophils (%) (Auto) 62.2 % (45.0-75.0) Lymphocytes (%) (Auto) 21.8 % (20.0-45.0) Monocytes (%) (Auto) 9.8 % (1.0-10.0) Eosinophils (%) (Auto) 4.8 % (0.0-3.0) H Basophils (%) (Auto) 1.4 % (0.0-2.0) Sodium Level 138 MMOL/L (136-145) Potassium Level 3.7 MMOL/L (3.5-5.1) Chloride Level 102 MMOL/L (98-107) Carbon Dioxide Level 28 MMOL/L (21-32) Anion Gap 8 mmol/L (5-15) Blood Urea Nitrogen 15 mg/dL (7-18) Creatinine 0.7 MG/DL (0.55-1.30) Estimat Glomerular Filtration Rate > 60 mL/min (>60) Glucose Level 158 MG/DL (74-106) H Calcium Level 8.4 MG/DL (8.5-10.1) L Total Bilirubin 0.5 MG/DL (0.2-1.0) Aspartate Amino Transf (AST/SGOT) 31 U/L (15-37) Alanine Aminotransferase (ALT/SGPT) 86 U/L (12-78) H Alkaline Phosphatase 60 U/L (46-116) Pro-B-Type Natriuretic Peptide Pending Total Protein 6.7 G/DL (6.4-8.2) Albumin 2.9 G/DL (3.4-5.0) L Globulin 3.8 g/dL Albumin/Globulin Ratio 0.8 (1.0-2.7) L Objective HEAD AND NECK: No JVD. LUNGS: Coarse rhonchi. CARDIOVASCULAR: Regular S1 and S2 with no gallop or murmur and tachycardic. ABDOMEN: Soft and obese. EXTREMITIES: No pitting edema. Santi Barnard MD Apr 01, 2020 19:34
[2020-04-01 20:00] VITALS: BP 114/78
[2020-04-02 04:00] VITALS: BP 124/71
--- NOTE | 2020-04-02 06:54 | NUR ---
NURSE HAND-OFF: Important Events on Shift: Stable, no complaints of SOB. Tolerate R/A Patient Status: Stable Diet: Regular Pending Orders: N/A Pending Results/Labs:N/A Pending MD notification:N/A Latest Vital Signs: Temperature 97.5 , Pulse 79 , B/P 124 /71 , Respiratory Rate 20 , O2 SAT 92 , Room Air, O2 Flow Rate 4.0 . Vital Sign Comment: Stable Latest Hollins Fall Score: 20 Fall Risk: Low Risk Safety Measures: Call light Within Reach, Bed Alarm Zone 2, Side Rails Side Rails x2, Bed position Low and Locked. Fall Precautions: Yellow Socks Yellow Gown Door Sign Patient Fall Education
[2020-04-02 07:27] LABS: BASOPHILS % (AUTO) 0.9 % (0.0-2.0); HEMATOCRIT 43.8 % (42.0-52.0); HEMOGLOBIN 15.4 G/DL (14.2-18.0); LYMPHOCYTES % (AUTO) 24.1 % (20.0-45.0); MEAN CORPUSCULAR VOLUME 84 FL (80-99); MONOCYTES % (AUTO) 9.8 % (1.0-10.0); NEUTROPHILS % (AUTO) 60.2 % (45.0-75.0); PLATELET COUNT 131 K/UL (150-450); RED BLOOD COUNT 5.18 M/UL (4.70-6.10); RED CELL DISTRIBUTION WIDTH 13.4 % (11.6-14.8); WHITE BLOOD COUNT 7.6 K/UL (4.8-10.8)
--- NOTE | 2020-04-02 07:28 | NUR ---
HAND-OFF: Report given to Mary Alice Choi RN.
--- NOTE | 2020-04-02 07:45 | NUR ---
NURSE NOTES: Patient in bed, awake, alert and verbally responsive. Able to make needs known. On room air with O2 sat 91%. Breathing even and unlabored. No c/o SOB. Bed in low and locked position. Iv site noted. Call light is at bedside. Will continue plan of care
[2020-04-02 07:58] LABS: ALANINE AMINOTRANSFERASE 78 U/L (12-78); ALBUMIN 3.1 G/DL (3.4-5.0); ALBUMIN/GLOBULIN RATIO 0.9 (1.0-2.7); ALKALINE PHOSPHATASE 63 U/L (46-116); ANION GAP 10 mmol/L (5-15); ASPARTATE AMINO TRANSFERASE 29 U/L (15-37); BILIRUBIN,TOTAL 0.6 MG/DL (0.2-1.0); BLOOD UREA NITROGEN 13 mg/dL (7-18); CALCIUM 8.2 MG/DL (8.5-10.1); CARBON DIOXIDE 25 MMOL/L (21-32); CHLORIDE 104 MMOL/L (98-107); CREATININE 0.7 MG/DL (0.55-1.30); PHOSPHORUS 4.1 MG/DL (2.5-4.9); POTASSIUM 3.9 MMOL/L (3.5-5.1); SODIUM 139 MMOL/L (136-145)
[2020-04-02 08:00] VITALS: BP 130/77
[2020-04-02] MEDS: Enoxaparin 40mg Inj SUBQ SCH (09:00)
[2020-04-02] MEDS: Docusate 100mg cap ORAL SCH ×2 (09:06→17:53)
--- NOTE | 2020-04-02 11:00 | NUR ---
NURSE NOTES: Encouraged pt to use incentive spirometry. Pt verbalized understanding. Will continue to monitor
[2020-04-02 12:00] VITALS: BP 130/72
--- NOTE | 2020-04-02 12:14 | Pulmonology Progress Note ---
Subjective ROS Limited/Unobtainable: No Interval Events: none major Constitutional: Denies: fever HEENT: Repors: no symptoms Respiratory: Reports: no symptoms; Denies: dry cough Cardiovascular: Reports: no symptoms; Denies: chest pain Gastrointestinal/Abdominal: Denies: nausea, vomiting, diarrhea Genitourinary: Reports: no symptoms Neurologic: Reports: no symptoms Psychiatric: Denies: depression Skin: Denies: rash Musculoskeletal: Denies: pain Allergies: Coded Allergies: No Known Allergies (Unverified , 03/14/20) Subjective 03/22/2020 pt remains on high flow oxygen; pt reports feeling better Objective Last 24 Hour Vital Signs Date Time Temp Pulse Resp B/P (MAP) Pulse Ox O2 Delivery O2 Flow Rate FiO2 04/02/20 09:00 Room Air 04/02/20 08:00 97.9 77 19 130/77 (94) 90 04/02/20 04:00 97.5 79 20 124/71 (88) 92 04/01/20 21:00 Room Air 04/01/20 20:00 97.5 85 20 114/78 (90) 91 04/01/20 19:59 95 Nasal Cannula 4.0 36 04/01/20 16:00 97.8 86 18 118/62 (80) 94 Intake and Output 04/01/20 04/02/20 19:00 07:00 Intake Total 900 ml Output Total 1400 ml 300 ml Balance -500 ml -300 ml Intake Oral 900 ml Output Urine Total 1400 ml 300 ml # Voids 5 Objective 04/02/2020 saturating 90-92% on RA 04/01/2020 saturating at mid 90s on 2 lpm NC; cont weaning as tolerated 03/31/2020 saturating at mid 90s on 2 lpm NC; cont weaning as tolerated 03/30/2020 still saturating in the low-mid 90s on 2 lpm NC; cont weaning as tolerated 03/29/2020 currently on 2 lpm NC, saturating 91-95%; continue to wean as tolerat ed 03/27/2020 patient now on Venturi mask 14 L at 55 FiO2 saturating at 97% 03/26/2020 pt feels fine with HFNC; 99% on 45L/70% high flow oxygen 03/25/2020 pt still refusing BiPAP and stating he feels fine with HFNC; Current FiO2 70% 03/24/2020 pt attempted BiBAP twice but feels the high flow pressure is too "forceful" and reports that is sleeps better with HFNC 03/23/2020 declining proning and BiPAP; watching tv comfortably 03/22/2020 in bed watching tv; NAD General Appearance: no acute distress HEENT: normocephalic, atraumatic Respiratory: chest wall non-tender, lungs clear Cardiovascular: normal peripheral pulses Abdomen: normal bowel sounds Extremities: no edema Laboratory Tests 04/02/20 04:00: White Blood Count 7.6, Red Blood Count 5.18, Hemoglobin 15.4, Hematocrit 43.8, Mean Corpuscular Volume 84, Mean Corpuscular Hemoglobin 29.7, Mean Corpuscular Hemoglobin Concent 35.2, Red Cell Distribution Width 13.4, Platelet Count 131L, Mean Platelet Volume 7.9, Neutrophils (%) (Auto) 60.2, Lymphocytes (%) (Auto) 24.1, Monocytes (%) (Auto) 9.8, Eosinophils (%) (Auto) 5.0H, Basophils (%) (Auto) 0.9, Sodium Level 139, Potassium Level 3.9, Chloride Level 104, Carbon Dioxide Level 25, Anion Gap 10, Blood Urea Nitrogen 13, Creatinine 0.7, Estimat Glomerular Filtration Rate > 60, Glucose Level 87, Calcium Level 8.2L, Phosphorus Level 4.1, Magnesium Level 1.8, Total Bilirubin 0.6, Aspartate Amino Transf (AST/SGOT) 29, Alanine Aminotransferase (ALT/SGPT) 78, Alkaline Phosphatase 63, Total Protein 6.4, Albumin 3.1L, Globulin 3.3, Albumin/Globulin Ratio 0.9L Current Medications Medications (Trade) Dose Ordered Sig/Kiley Route PRN Reason Start Time Stop Time Status Last Admin Dose Admin Acetaminophen (Tylenol) 650 mg Q4H PRN ORAL Temp >100.5 03/14/20 22:45 04/13/20 22:44 03/14/20 22:43 Dextrose (Dextrose 50%) 25 ml Q30M PRN IV Hypoglycemia 03/14/20 19:00 06/12/20 18:59 Dextrose (Dextrose 50%) 50 ml Q30M PRN IV Hypoglycemia 03/14/20 19:00 06/12/20 18:59 Docusate Sodium (Colace) 100 mg TWICE A DAY ORAL 03/17/20 11:30 04/16/20 11:29 04/02/20 09:06 Enoxaparin Sodium (Lovenox) 40 mg DAILY SUBQ 04/01/20 10:00 06/30/20 09:59 04/01/20 09:53 Pantoprazole (Protonix) 40 mg DAILY ORAL 03/15/20 09:00 04/14/20 08:59 04/02/20 09:06 Sennosides (Senokot) 8.6 mg DAILYPRN PRN ORAL Constipation 03/17/20 11:30 04/16/20 11:29 Assessment/Plan Assessment/Plan Impression: - COVID-19 pneumonia - stable; extensive bilateral interstitial infiltrates unchanged since prior CXR; 03/23/2020 CXR: multifocal infiltrates stable appearance since prior CXR - Acute hypoxemic hypercapneic respiratory failure - stable; s/p Venturi mas; now on 2 lpm NC; - Obesity BMI 35.9 - hx of Metabolic alkalosis - Hyponatremia; normalized - Hypocalcemia; normalized Plan: - s/p Decadron - s/p AB/antivirals per ID - on RA saturating at 90-92% - DVT Ppx - on heparin; on SCD; ambulating; LE Duplex showed no DVT. The care for this patient was discussed with my supervising physician The time spent for this case was approximately 31 minutes The patient was seen and examined at bedside and all new and available data was reviewed in the patients chart. I agree with the above findings, impression, and plan. (Patient was seen earlier today. Signature timestamp does not reflect patient encounter time) Des Knott MD Apr 02, 2020 12:14 Oral Piper MD Apr 02, 2020 17:39
--- NOTE | 2020-04-02 12:27 | Cardiac Electrophysiology PN ---
Assessment/Plan Assessment/Plan 1. Elevated D-dimer of 0.54, severe shortness of breath and active COVID infection. Chest CT no PE Refusing BIPAP. On 2 liter Nasal cannula 2. COVID pneumonia. Now off azithromycin, ceftriaxone, dexamethasone and remdesivir. Fu by Dr. Gross Only on 2 liter NC 3. Tachycardia due to COVID infection. EF 65% DW RN Subjective Subjective Only on 2 liter Nasal Cannula and afebrile In Covid isolation Objective Last 24 Hour Vital Signs Date Time Temp Pulse Resp B/P (MAP) Pulse Ox O2 Delivery O2 Flow Rate FiO2 04/02/20 09:00 Room Air 04/02/20 08:00 97.9 77 19 130/77 (94) 90 04/02/20 04:00 97.5 79 20 124/71 (88) 92 04/01/20 21:00 Room Air 04/01/20 20:00 97.5 85 20 114/78 (90) 91 04/01/20 19:59 95 Nasal Cannula 4.0 36 04/01/20 16:00 97.8 86 18 118/62 (80) 94 Intake and Output 04/01/20 04/02/20 19:00 07:00 Intake Total 900 ml Output Total 1400 ml 300 ml Balance -500 ml -300 ml Intake Oral 900 ml Output Urine Total 1400 ml 300 ml # Voids 5 Laboratory Tests Test 04/02/20 04:00 White Blood Count 7.6 K/UL (4.8-10.8) Red Blood Count 5.18 M/UL (4.70-6.10) Hemoglobin 15.4 G/DL (14.2-18.0) Hematocrit 43.8 % (42.0-52.0) Mean Corpuscular Volume 84 FL (80-99) Mean Corpuscular Hemoglobin 29.7 PG (27.0-31.0) Mean Corpuscular Hemoglobin Concent 35.2 G/DL (32.0-36.0) Red Cell Distribution Width 13.4 % (11.6-14.8) Platelet Count 131 K/UL (150-450) L Mean Platelet Volume 7.9 FL (6.5-10.1) Neutrophils (%) (Auto) 60.2 % (45.0-75.0) Lymphocytes (%) (Auto) 24.1 % (20.0-45.0) Monocytes (%) (Auto) 9.8 % (1.0-10.0) Eosinophils (%) (Auto) 5.0 % (0.0-3.0) H Basophils (%) (Auto) 0.9 % (0.0-2.0) Sodium Level 139 MMOL/L (136-145) Potassium Level 3.9 MMOL/L (3.5-5.1) Chloride Level 104 MMOL/L (98-107) Carbon Dioxide Level 25 MMOL/L (21-32) Anion Gap 10 mmol/L (5-15) Blood Urea Nitrogen 13 mg/dL (7-18) Creatinine 0.7 MG/DL (0.55-1.30) Estimat Glomerular Filtration Rate > 60 mL/min (>60) Glucose Level 87 MG/DL (74-106) Calcium Level 8.2 MG/DL (8.5-10.1) L Phosphorus Level 4.1 MG/DL (2.5-4.9) Magnesium Level 1.8 MG/DL (1.8-2.4) Total Bilirubin 0.6 MG/DL (0.2-1.0) Aspartate Amino Transf (AST/SGOT) 29 U/L (15-37) Alanine Aminotransferase (ALT/SGPT) 78 U/L (12-78) Alkaline Phosphatase 63 U/L (46-116) Total Protein 6.4 G/DL (6.4-8.2) Albumin 3.1 G/DL (3.4-5.0) L Globulin 3.3 g/dL Albumin/Globulin Ratio 0.9 (1.0-2.7) L Objective HEAD AND NECK: No JVD. LUNGS: Coarse rhonchi. CARDIOVASCULAR: Regular S1 and S2 with no gallop or murmur and tachycardic. ABDOMEN: Soft and obese. EXTREMITIES: No pitting edema. Santi Barnard MD Apr 02, 2020 12:27
--- NOTE | 2020-04-02 15:39 | NUR ---
NURSE NOTES: O2 sat 90-92% on RA at rest and 88% after walking with slightly c/o SOB. Encourage to use incentive spirometry more often. Pt verbalized understanding.
[2020-04-02 16:00] VITALS: BP 106/76
--- NOTE | 2020-04-02 16:24 | NUR ---
CASE MANAGEMENT:REVIEW SI;COVID PNEUMONIA. HYPOXIA. 97.9 86 20 130/77 90% 2L NC IS;PROTONIX PO QD LOVENOX SQ QD MED SURG STATUS DCP;FROM HOME PATIENT ENCOURAGED TO USE INCENTIVE SPIROMETER CONTINUES TO DESATURATE WITH MILD ACTIVITY WITH O2 >88%
--- NOTE | 2020-04-02 19:24 | NUR ---
NURSE HAND-OFF: Important Events on Shift:[Desaturating 88% after pt walked] Patient Status: [stable] Diet: [reg] Pending Orders: [] Pending Results/Labs:[] Pending MD notification:[] Latest Vital Signs: Temperature 97.3 , Pulse 86 , B/P 106 /76 , Respiratory Rate 18 , O2 SAT 91 , Room Air, O2 Flow Rate 4.0 . Vital Sign Comment: [O2 sat 91% RA] Latest Hollins Fall Score: 20 Fall Risk: Low Risk Safety Measures: Call light Within Reach, Bed Alarm Zone 2, Side Rails Side Rails x2, Bed position Low and Locked. Fall Precautions: Yellow Socks Yellow Gown Door Sign Patient Fall Education Report given to [RENITA Beaulieu].
--- NOTE | 2020-04-02 19:45 | NUR ---
NURSE NOTES: Received report from Mary Alice MARAVILLA. Patient is awake, alert, and oriented x4. On room air, breathing is even and unlabored. No c/o of pain or SOB. IV left hand sailing lock with no bleeding noted. Bed low and locked. Call light within reach.
[2020-04-02 20:00] VITALS: BP 128/67
--- NOTE | 2020-04-02 20:07 | General Progress Note ---
Subjective Allergies: Coded Allergies: No Known Allergies (Unverified , 03/14/20) Subjective No acute events overnight per nursing. No on room air. But satting 90-92%. No ambulatory sats yet. Feels better. Review of systems: Constitutional: Denies: chills, diaphoresis, fever, malaise, weakness, HEENT: Denies: eye pain, blurred vision, tearing, double vision, ear pain, ear discharge, nose pain, nose congestion, throat pain, throat swelling, mouth pain, mouth swelling, Cardiovascular: Denies: chest pain, edema, lightheadedness, palpitations, syncope, Respiratory: Denies: cough, orthopnea, shortness of breath, SOB with excertion, SOB at rest, Gastrointestinal/Abdominal: Denies: abdomen distended, abdominal pain, black stools, tarry stools, blood in stool, constipated, diarrhea, difficulty swallowing, nausea, poor appetite, poor fluid intake, rectal bleeding, vomiting, other Genitourinary: Denies: burning, discharge, frequency, flank pain, hematuria, incontinence, pain, urgency, other Neurologic/Psychiatric: Denies: anxiety, depressed, emotional problems, headache, numbness, paresthesia, pre-existing deficit, seizure, tingling, tremors, weakness, other Endocrine: Denies: excessive sweating, flushing, intolerance to cold, intolerance to heat, increased hunger, increased thirst MSK: denies joint pains, swelling, stiffness Hematologic/Lymphatic: Denies: anemia, easy bleeding, easy bruising, Objective Last 24 Hour Vital Signs Date Time Temp Pulse Resp B/P (MAP) Pulse Ox O2 Delivery O2 Flow Rate FiO2 04/02/20 16:00 97.3 86 18 106/76 (86) 91 04/02/20 12:00 97.0 78 18 130/72 (91) 92 04/02/20 09:00 Room Air 04/02/20 08:00 97.9 77 19 130/77 (94) 90 04/02/20 04:00 97.5 79 20 124/71 (88) 92 04/01/20 21:00 Room Air Intake and Output 04/01/20 04/02/20 19:00 07:00 Intake Total 900 ml Output Total 1400 ml 300 ml Balance -500 ml -300 ml Intake Oral 900 ml Output Urine Total 1400 ml 300 ml # Voids 5 Laboratory Tests 04/02/20 04:00: White Blood Count 7.6, Red Blood Count 5.18, Hemoglobin 15.4, Hematocrit 43.8, Mean Corpuscular Volume 84, Mean Corpuscular Hemoglobin 29.7, Mean Corpuscular Hemoglobin Concent 35.2, Red Cell Distribution Width 13.4, Platelet Count 131L, Mean Platelet Volume 7.9, Neutrophils (%) (Auto) 60.2, Lymphocytes (%) (Auto) 24.1, Monocytes (%) (Auto) 9.8, Eosinophils (%) (Auto) 5.0H, Basophils (%) (Auto) 0.9, Sodium Level 139, Potassium Level 3.9, Chloride Level 104, Carbon Dioxide Level 25, Anion Gap 10, Blood Urea Nitrogen 13, Creatinine 0.7, Estimat Glomerular Filtration Rate > 60, Glucose Level 87, Calcium Level 8.2L, Phosphorus Level 4.1, Magnesium Level 1.8, Total Bilirubin 0.6, Aspartate Amino Transf (AST/SGOT) 29, Alanine Aminotransferase (ALT/SGPT) 78, Alkaline Phosphatase 63, Total Protein 6.4, Albumin 3.1L, Globulin 3.3, Albumin/Globulin Ratio 0.9L Height (Feet): 6 Height (Inches): 2.00 Weight (Pounds): 280 Objective General: WDWN male in NAD, A&O x 4 HEENT: Normocephalic cephalic atraumatic, pupils equal round reactive to light and accommodation, nares patent and no symmetrical, no tonsillar exudates, mucous membranes moist CV: Regular rate regular rhythm, no murmurs, rubs, or gallops Pulm: Lungs clear to auscultation bilaterally. No wheezes, rhonchi, or rales (stable) GI: Soft, nontender, nondistended, bowel sounds present Neuro: CN 2-12 intact bilaterally, no focal signs. Ext: No lower extremity edema bilaterally Skin: no rashes lesions or ulcers Msk: Joints symmetrical in upper extremity and lower extremity bilaterally, no joint swelling. Lymph: No lymphadenopathy in upper extremity and lower extremity Assessment/Plan Status: stable Assessment/Plan: #COVID-19 pneumonia - resolving #Acute hypoxemic hypercapnic respiratory failure #Elevated inflammatory markers on admission - Ferritin, CRP, D-dimer, fibrinogen - CXR and CTA stable - dexamethasone 6 mg daily, remdesivir (03/15 - 03/18) - Titrating down oxygen daily, currently on RA sating 90% - Check ambulatory O2 Sats - Wean Oxygen as tolerated to keep O2 sat >92% - CTX/Azithro- s/p Azithro, dc'ed ceftriaxone (03/15-03/24) - ID consult, Dr. Elizalde, recs appreciated - Pulm consult, Dr. Piper recs appreciated - Cardiology consult, Dr. Barnard, recs appreciated - Will assess if patient can go home with oxygen therapy #Metabolic alkalosis #Hyponatremia-likely SIADH based on urine sodium- resolved - Nephro consult, Dr. Zimmerman, recs appreciated #leukocytosis 2' steroid - resolved Diet - Regular FEN Lovenox 30 minutes spent on this encounter, and 20 minutes spent on counseling and care coordination. Discussed with ID, Pulm Time of visit does not reflect time of encounter. Sourav Rodríguez D.O. Apr 02, 2020 20:06
[2020-04-03] VITALS (7 sets, daily range): BP systolic 116–132; BP diastolic 60–81
--- NOTE | 2020-04-03 05:52 | NUR ---
NURSE NOTES: Patient oxygen saturation at 2L O2 was 95% but in room air only 90% at rest. Patient o2 was titrated to 1L as tolerated.
--- NOTE | 2020-04-03 06:47 | Consultation ---
History of Present Illness General Chief Complaint: Flu Like Symptoms Present Illness Allergies: Coded Allergies: No Known Allergies (Unverified , 03/14/20) Medication History No Active Prescriptions or Reported Meds Patient History Healthcare decision maker Resuscitation status Advanced Directive on File Physical Exam Last 24 Hour Vital Signs Date Time Temp Pulse Resp B/P (MAP) Pulse Ox O2 Delivery O2 Flow Rate FiO2 04/03/20 00:00 97.9 80 24 121/60 (80) 94 04/02/20 21:00 Room Air 04/02/20 20:21 94 Nasal Cannula 4.0 36 04/02/20 20:00 97.9 80 24 128/67 (87) 93 04/02/20 16:00 97.3 86 18 106/76 (86) 91 04/02/20 12:00 97.0 78 18 130/72 (91) 92 04/02/20 09:00 Room Air 04/02/20 08:00 97.9 77 19 130/77 (94) 90 Intake and Output 04/02/20 04/03/20 19:00 07:00 Intake Total 840 ml Balance 840 ml Intake Oral 840 ml # Voids 3 Height (Feet): 6 Height (Inches): 2.00 Weight (Pounds): 280 Medications Current Medications Medications (Trade) Dose Ordered Sig/Kiley Route PRN Reason Start Time Stop Time Status Last Admin Dose Admin Acetaminophen (Tylenol) 650 mg Q4H PRN ORAL Temp >100.5 03/14/20 22:45 04/13/20 22:44 03/14/20 22:43 Dextrose (Dextrose 50%) 25 ml Q30M PRN IV Hypoglycemia 03/14/20 19:00 06/12/20 18:59 Dextrose (Dextrose 50%) 50 ml Q30M PRN IV Hypoglycemia 03/14/20 19:00 06/12/20 18:59 Docusate Sodium (Colace) 100 mg TWICE A DAY ORAL 03/17/20 11:30 04/16/20 11:29 04/02/20 17:53 Enoxaparin Sodium (Lovenox) 40 mg DAILY SUBQ 04/01/20 10:00 06/30/20 09:59 04/01/20 09:53 Pantoprazole (Protonix) 40 mg DAILY ORAL 03/15/20 09:00 04/14/20 08:59 04/02/20 09:06 Sennosides (Senokot) 8.6 mg DAILYPRN PRN ORAL Constipation 03/17/20 11:30 04/16/20 11:29 Assessment/Plan Assessment/Plan: Hematology Consultation REQ MD: Earlene Chamorro RFC: Evaluation of potential HIT syndrome DOS: 04/03/20 HPI 39-year-old male presents ED for evaluation, has been here for some time. States he feels short of breath. Per nursing and triage O2 sat low. States he tested positive for Covid earlier this week. States he has been feeling short of breath for 1 week now. Notes cough. Denies chest pain. States he may have gotten it from his work. 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 Denies any recent travel. No other aggravating relieving factors. Denies any other associated symptoms, initially with covid 19, now is off rx. Allergies: No Known Allergies (Unverified , 03/14/20) COVID-19 Screening Contact w/high risk pt: No Experienced COVID-19 symptoms?: Yes COVID-19 Testing performed BRIM PRESSER: No Patient History Past Medical History: none Past Surgical History: none Pertinent Family History: none Social History: Denies: smoking, alcohol use, drug use Immunizations: UTD Reviewed Nursing Documentation: PMH: Agreed; PSxH: Agreed Nursing Documentation-PMH Past Medical History: No Stated History Review of Systems All Other Systems: negative except mentioned in HPI Physical Exam Vitals: reviewed, normal General: no apparent distress, alert, GCS 15, non-toxic, obese Heent: bilateral eye normal inspection, bilateral eye PERRL Resp: chest non-tender, lungs clear, normal breath sounds Cardiov: regular rate, rhythm, no edema Patrick: normal bowel sounds, non tender, soft Rectal: deferred Genitourinary: normal inspection Lymphatic: no adenopathy Labs: noted Imaging: reviewed Assessment and Recs # Thrombocytopenia that is new onset, dw Dr. Rodríguez, less likely HIT in this case, hx of covid19+++++ --> okay to monitor and give lovenox at this time --> heparin was given recently approx to 04/01 --> consider duplex lower leg-->recent study negative --> plt 131 --> also recent covid 19++ rx # Elevated ddimer due to covid 19 --> recent abx, remdesivir and treatment # COVID-19 --> CXR -bilateral patchy opacities --> per id care, recs noted --> s/p steriods --> s/p azithromycin and ceftriaxone # Tachycardia due to COVID infection. EF 65% --> per cards # Dvt ppx --> lovenox Appreciate consultation and dw Keith Yousif MD Apr 03, 2020 06:47
--- NOTE | 2020-04-03 07:10 | NUR ---
NURSE HAND-OFF: Important Events on Shift: O2 sat>92 Patient Status: Stable Diet: Regular Pending Orders: N/A Pending Results/Labs:N/A Pending MD notification:N/A Latest Vital Signs: Temperature 97.5 , Pulse 70 , B/P 118 /74 , Respiratory Rate 20 , O2 SAT 95 , Room Air, O2 Flow Rate 4.0 . Vital Sign Comment: VS stable Latest Hollins Fall Score: 20 Fall Risk: Low Risk Safety Measures: Call light Within Reach, Bed Alarm Zone 2, Side Rails Side Rails x2, Bed position Low and Locked. Fall Precautions: Yellow Socks Yellow Gown Door Sign Patient Fall Education Report will be given to Yoel MARAVILLA.
--- NOTE | 2020-04-03 07:30 | NUR ---
NURSE NOTES: Patient lying in bed awake. No complain of pain or distress at this time. On O2 @ 1 L via NC. IV dressing intact and dry. Bed lowest position. Call light within reach. Will continue to monitor.
[2020-04-03] MEDS: Docusate 100mg cap ORAL SCH ×2 (08:10→18:34)
[2020-04-03] MEDS: Enoxaparin 40mg Inj SUBQ SCH (08:11)
--- NOTE | 2020-04-03 10:49 | Pulmonology Progress Note ---
Subjective ROS Limited/Unobtainable: No Interval Events: none major Constitutional: Denies: fever HEENT: Repors: no symptoms Respiratory: Reports: no symptoms; Denies: dry cough Cardiovascular: Reports: no symptoms; Denies: chest pain Gastrointestinal/Abdominal: Denies: nausea, vomiting, diarrhea Genitourinary: Reports: no symptoms Neurologic: Reports: no symptoms Psychiatric: Denies: depression Skin: Denies: rash Musculoskeletal: Denies: pain Allergies: Coded Allergies: No Known Allergies (Unverified , 03/14/20) Subjective 03/22/2020 pt remains on high flow oxygen; pt reports feeling better Objective Last 24 Hour Vital Signs Date Time Temp Pulse Resp B/P (MAP) Pulse Ox O2 Delivery O2 Flow Rate FiO2 04/03/20 09:00 Nasal Cannula 1.0 04/03/20 08:00 97.8 75 20 116/77 (90) 95 04/03/20 04:00 97.5 70 20 118/74 (89) 95 04/03/20 00:00 97.9 80 24 121/60 (80) 94 04/02/20 21:00 Room Air 04/02/20 20:21 94 Nasal Cannula 4.0 36 04/02/20 20:00 97.9 80 24 128/67 (87) 93 04/02/20 16:00 97.3 86 18 106/76 (86) 91 04/02/20 12:00 97.0 78 18 130/72 (91) 92 Intake and Output 04/02/20 04/03/20 19:00 07:00 Intake Total 840 ml 800 ml Balance 840 ml 800 ml Intake Oral 840 ml 800 ml # Voids 3 1 # Bowel Movements 1 Objective 04/03/2020 saturating 95% on 1 lpm NC; cont weaning as tolerated 04/02/2020 saturating 90-92% on RA 04/01/2020 saturating at mid 90s on 2 lpm NC; cont weaning as tolerated 03/31/2020 saturating at mid 90s on 2 lpm NC; cont weaning as tolerated 03/30/2020 still saturating in the low-mid 90s on 2 lpm NC; cont weaning as tolerated 03/29/2020 currently on 2 lpm NC, saturating 91-95%; continue to wean as to lerated 03/27/2020 patient now on Venturi mask 14 L at 55 FiO2 saturating at 97% 03/26/2020 pt feels fine with HFNC; 99% on 45L/70% high flow oxygen 03/25/2020 pt still refusing BiPAP and stating he feels fine with HFNC; Current FiO2 70% 03/24/2020 pt attempted BiBAP twice but feels the high flow pressure is too "forceful" and reports that is sleeps better with HFNC 03/23/2020 declining proning and BiPAP; watching tv comfortably 03/22/2020 in bed watching tv; NAD General Appearance: no acute distress HEENT: normocephalic, atraumatic Respiratory: chest wall non-tender, lungs clear Cardiovascular: normal peripheral pulses Abdomen: normal bowel sounds Extremities: no edema Current Medications Medications (Trade) Dose Ordered Sig/Kiley Route PRN Reason Start Time Stop Time Status Last Admin Dose Admin Acetaminophen (Tylenol) 650 mg Q4H PRN ORAL Temp >100.5 03/14/20 22:45 04/13/20 22:44 03/14/20 22:43 Dextrose (Dextrose 50%) 25 ml Q30M PRN IV Hypoglycemia 03/14/20 19:00 06/12/20 18:59 Dextrose (Dextrose 50%) 50 ml Q30M PRN IV Hypoglycemia 03/14/20 19:00 06/12/20 18:59 Docusate Sodium (Colace) 100 mg TWICE A DAY ORAL 03/17/20 11:30 04/16/20 11:29 04/03/20 08:10 Enoxaparin Sodium (Lovenox) 40 mg DAILY SUBQ 04/01/20 10:00 06/30/20 09:59 04/03/20 08:11 Pantoprazole (Protonix) 40 mg DAILY ORAL 03/15/20 09:00 04/14/20 08:59 04/03/20 08:10 Sennosides (Senokot) 8.6 mg DAILYPRN PRN ORAL Constipation 03/17/20 11:30 04/16/20 11:29 Assessment/Plan Assessment/Plan Impression: - COVID-19 pneumonia - stable; extensive bilateral interstitial infiltrates unchanged since prior CXR; 03/23/2020 CXR: multifocal infiltrates stable appearance since prior CXR - Acute hypoxemic hypercapneic respiratory failure - stable; s/p Venturi mas; now on 2 lpm NC; - Obesity BMI 35.9 - hx of Metabolic alkalosis - Hyponatremia; normalized - Hypocalcemia; normalized Plan: - s/p Decadron - s/p AB/antivirals per ID - on 1 lpm NC saturating 95% - DVT Ppx - on heparin; on SCD; ambulating; LE Duplex showed no DVT. - dc planning as long as his SaO2 >92% on RA The care for this patient was discussed with my supervising physician The time spent for this case was approximately 31 minutes Des Daniels Apr 03, 2020 10:49 Oral Piper MD Apr 03, 2020 17:32
[2020-04-03 11:05] LABS: EOSINOPHILS % (AUTO) 6.4 % (0.0-3.0); HEMATOCRIT 42.3 % (42.0-52.0); HEMOGLOBIN 15.3 G/DL (14.2-18.0); LYMPHOCYTES % (AUTO) 20.4 % (20.0-45.0); MEAN CORPUSCULAR VOLUME 82 FL (80-99); NEUTROPHILS % (AUTO) 63.1 % (45.0-75.0); PLATELET COUNT 122 K/UL (150-450); RED BLOOD COUNT 5.18 M/UL (4.70-6.10); RED CELL DISTRIBUTION WIDTH 14.5 % (11.6-14.8); WHITE BLOOD COUNT 6.4 K/UL (4.8-10.8)
--- NOTE | 2020-04-03 11:58 | NUR ---
NURSE NOTES: RA O2 sat checked. Resting O2 sat 93% and no complain of distress. Ambulated short distance and O2 sat drop to 85 % and complain of SOB. Given O2 @ 1L via NC. Will continue to monitor.
--- NOTE | 2020-04-03 14:57 | NUR ---
CASE MANAGEMENT:REVIEW SI;COVID PNEUMONIA. HYPOXIA. 97.9 80 24 130/78 94% 1L NC IS;LOVENOX SQ QD PROTONIX PO QD MED SURG STATUS DCP;FROM HOME PLAN; CONTINUE INCENTIVE SPIROMETER CONTINUE O2 WEANING TRIALS
--- NOTE | 2020-04-03 16:18 | Cardiac Electrophysiology PN ---
Assessment/Plan Assessment/Plan 1. Elevated D-dimer of 0.54, severe shortness of breath and active COVID infection. Chest CT no PE Refusing BIPAP. On 2 liter Nasal cannula 2. COVID pneumonia. Now off azithromycin, ceftriaxone, dexamethasone and remdesivir. Fu by Dr. Gross On Room Air but desaturates with activity 3. Tachycardia due to COVID infection. EF 65% DW RN Subjective Subjective On 2 liter Nasal Cannula and afebrile In Covid isolation Objective Last 24 Hour Vital Signs Date Time Temp Pulse Resp B/P (MAP) Pulse Ox O2 Delivery O2 Flow Rate FiO2 04/03/20 16:00 98.1 78 20 129/77 (94) 94 04/03/20 12:21 94 Nasal Cannula 4.0 36 04/03/20 12:00 97.9 75 20 130/78 (95) 94 04/03/20 09:00 Nasal Cannula 1.0 04/03/20 08:00 97.8 75 20 116/77 (90) 95 04/03/20 04:00 97.5 70 20 118/74 (89) 95 04/03/20 00:00 97.9 80 24 121/60 (80) 94 04/02/20 21:00 Room Air 04/02/20 20:21 94 Nasal Cannula 4.0 36 04/02/20 20:00 97.9 80 24 128/67 (87) 93 Intake and Output 04/02/20 04/03/20 19:00 07:00 Intake Total 840 ml 800 ml Balance 840 ml 800 ml Intake Oral 840 ml 800 ml # Voids 3 1 # Bowel Movements 1 Laboratory Tests Test 04/03/20 10:40 White Blood Count 6.4 K/UL (4.8-10.8) Red Blood Count 5.18 M/UL (4.70-6.10) Hemoglobin 15.3 G/DL (14.2-18.0) Hematocrit 42.3 % (42.0-52.0) Mean Corpuscular Volume 82 FL (80-99) Mean Corpuscular Hemoglobin 29.5 PG (27.0-31.0) Mean Corpuscular Hemoglobin Concent 36.1 G/DL (32.0-36.0) H Red Cell Distribution Width 14.5 % (11.6-14.8) Platelet Count 122 K/UL (150-450) L Mean Platelet Volume 8.6 FL (6.5-10.1) Neutrophils (%) (Auto) 63.1 % (45.0-75.0) Lymphocytes (%) (Auto) 20.4 % (20.0-45.0) Monocytes (%) (Auto) 9.0 % (1.0-10.0) Eosinophils (%) (Auto) 6.4 % (0.0-3.0) H Basophils (%) (Auto) 1.0 % (0.0-2.0) Objective HEAD AND NECK: No JVD. LUNGS: Coarse rhonchi. CARDIOVASCULAR: Regular S1 and S2 with no gallop or murmur and tachycardic. ABDOMEN: Soft and obese. EXTREMITIES: No pitting edema. Santi Barnard MD Apr 03, 2020 16:18
--- NOTE | 2020-04-03 18:33 | General Progress Note ---
Subjective Allergies: Coded Allergies: No Known Allergies (Unverified , 03/14/20) Subjective No acute events overnight per nursing. Desatus <92% on room air. Was briefly on 4L at one point overnight. Feels well otherwise. Review of systems: Constitutional: Denies: chills, diaphoresis, fever, malaise, weakness, HEENT: Denies: eye pain, blurred vision, tearing, double vision, ear pain, ear discharge, nose pain, nose congestion, throat pain, throat swelling, mouth pain, mouth swelling, Cardiovascular: Denies: chest pain, edema, lightheadedness, palpitations, syncope, Respiratory: Denies: cough, orthopnea, shortness of breath, SOB with excertion, SOB at rest, Gastrointestinal/Abdominal: Denies: abdomen distended, abdominal pain, black stools, tarry stools, blood in stool, constipated, diarrhea, difficulty swallowing, nausea, poor appetite, poor fluid intake, rectal bleeding, vomiting, other Genitourinary: Denies: burning, discharge, frequency, flank pain, hematuria, incontinence, pain, urgency, other Neurologic/Psychiatric: Denies: anxiety, depressed, emotional problems, headache, numbness, paresthesia, pre-existing deficit, seizure, tingling, tremors, weakness, other Endocrine: Denies: excessive sweating, flushing, intolerance to cold, intolerance to heat, increased hunger, increased thirst MSK: denies joint pains, swelling, stiffness Hematologic/Lymphatic: Denies: anemia, easy bleeding, easy bruising, Objective Last 24 Hour Vital Signs Date Time Temp Pulse Resp B/P (MAP) Pulse Ox O2 Delivery O2 Flow Rate FiO2 04/03/20 16:00 98.1 78 20 129/77 (94) 94 04/03/20 12:21 94 Nasal Cannula 4.0 36 04/03/20 12:00 97.9 75 20 130/78 (95) 94 04/03/20 09:00 Nasal Cannula 1.0 04/03/20 08:00 97.8 75 20 116/77 (90) 95 04/03/20 04:00 97.5 70 20 118/74 (89) 95 04/03/20 00:00 97.9 80 24 121/60 (80) 94 04/02/20 21:00 Room Air 04/02/20 20:21 94 Nasal Cannula 4.0 36 04/02/20 20:00 97.9 80 24 128/67 (87) 93 Intake and Output 04/02/20 04/03/20 19:00 07:00 Intake Total 840 ml 800 ml Balance 840 ml 800 ml Intake Oral 840 ml 800 ml # Voids 3 1 # Bowel Movements 1 Laboratory Tests 04/03/20 10:40: White Blood Count 6.4, Red Blood Count 5.18, Hemoglobin 15.3, Hematocrit 42.3, Mean Corpuscular Volume 82, Mean Corpuscular Hemoglobin 29.5, Mean Corpuscular Hemoglobin Concent 36.1H, Red Cell Distribution Width 14.5, Platelet Count 122L, Mean Platelet Volume 8.6, Neutrophils (%) (Auto) 63.1, Lymphocytes (%) (Auto) 20.4, Monocytes (%) (Auto) 9.0, Eosinophils (%) (Auto) 6.4H, Basophils (%) (Auto) 1.0 Height (Feet): 6 Height (Inches): 2.00 Weight (Pounds): 280 Objective General: WDWN male in NAD, A&O x 4 HEENT: Normocephalic cephalic atraumatic, pupils equal round reactive to light and accommodation, nares patent and no symmetrical, no tonsillar exudates, mucous membranes moist CV: Regular rate regular rhythm, no murmurs, rubs, or gallops Pulm: Lungs clear to auscultation bilaterally. No wheezes, rhonchi, or rales (stable) GI: Soft, nontender, nondistended, bowel sounds present Neuro: CN 2-12 intact bilaterally, no focal signs. Ext: No lower extremity edema bilaterally Skin: no rashes lesions or ulcers Msk: Joints symmetrical in upper extremity and lower extremity bilaterally, no joint swelling. Lymph: No lymphadenopathy in upper extremity and lower extremity Assessment/Plan Status: stable Assessment/Plan: #COVID-19 pneumonia - resolving #Acute hypoxemic hypercapnic respiratory failure #Elevated inflammatory markers on admission - Ferritin, CRP, D-dimer, fibrinogen - CXR and CTA stable - dexamethasone 6 mg daily, remdesivir (03/15 - 03/18) - Titrating down oxygen daily, currently on RA sating 90% - Check ambulatory O2 Sats: did poorly. <92% - Wean Oxygen as tolerated to keep O2 sat >92% - CTX/Azithro- s/p isabell Ennis'ed ceftriaxone (03/15-03/24) - ID consult, Dr. Elizalde, recs appreciated - Pulm consult, Dr. Piper, recs appreciated - Cardiology consult, Dr. Barnard, recs appreciated - Will assess if patient can go home with oxygen therapy #Metabolic alkalosis #Hyponatremia-likely SIADH based on urine sodium- resolved - Nephro consult, Dr. Zimmerman, recs appreciated #leukocytosis 2' steroid - resolved Diet - Regular FEN Lovenox 32 minutes spent on this encounter, and 22 minutes spent on counseling and care coordination. Discussed with ID, Pulm Time of visit does not reflect time of encounter. Sourav Rodríguez D.O. Apr 03, 2020 18:33
--- NOTE | 2020-04-03 19:30 | NUR ---
NURSE HAND-OFF: Important Events on Shift:N/A Patient Status: Stable Diet: Regular Pending Orders: N/A Pending Results/Labs: CBC, BMP on 04/04 Pending MD notification:N/A Latest Vital Signs: Temperature 98.1 , Pulse 78 , B/P 129 /77 , Respiratory Rate 20 , O2 SAT 94 , Nasal Cannula, O2 Flow Rate 4.0 . Vital Sign Comment: Stable Latest Hollins Fall Score: 35 Fall Risk: Medium Risk Safety Measures: Call light Within Reach, Bed Alarm Zone 2, Side Rails Side Rails x2, Bed position Low and Locked. Fall Precautions: Yellow Socks Yellow Gown Door Sign Patient Fall Education Report given to Brittnee RN and Nicholas MARAVILLA. Patient in stable condition.
--- NOTE | 2020-04-03 19:45 | NUR ---
NURSE NOTES: Received report from Yoel MARAVILLA. Patient is awake, alert, and oriented x4. On NC 1L, breathing is even and unlabored. No C/O pain or distress noted. IV left hand sailing lock with no bleeding noted. Skin is intact. Bed low and locked. Call light within reach.
[2020-04-04 04:00] VITALS: BP 114/74
[2020-04-04 06:41] LABS: BASOPHILS % (AUTO) 1.5 % (0.0-2.0); EOSINOPHILS % (AUTO) 8.1 % (0.0-3.0); HEMATOCRIT 40.7 % (42.0-52.0); HEMOGLOBIN 14.9 G/DL (14.2-18.0); LYMPHOCYTES % (AUTO) 24.7 % (20.0-45.0); MEAN CORPUSCULAR VOLUME 83 FL (80-99); MONOCYTES % (AUTO) 9.2 % (1.0-10.0); NEUTROPHILS % (AUTO) 56.4 % (45.0-75.0); PLATELET COUNT 108 K/UL (150-450); RED CELL DISTRIBUTION WIDTH 13.4 % (11.6-14.8); WHITE BLOOD COUNT 6.3 K/UL (4.8-10.8)
--- NOTE | 2020-04-04 06:54 | NUR ---
NURSE HAND-OFF: Important Events on Shift: O2 sat management 95% with NC 1L Patient Status: Stable Diet: Regular Pending Orders: N/A Pending Results/Labs:N/A Pending MD notification:N/A Latest Vital Signs: Temperature 97.3 , Pulse 70 , B/P 114 /74 , Respiratory Rate 20 , O2 SAT 95 , Nasal Cannula, O2 Flow Rate 4.0 . Vital Sign Comment: VS stable Latest Hollins Fall Score: 35 Fall Risk: Medium Risk Safety Measures: Call light Within Reach, Bed Alarm Zone 2, Side Rails Side Rails x2, Bed position Low and Locked. Fall Precautions: Yellow Socks Yellow Gown Door Sign Patient Fall Education Report will be given to Nino MARAVILLA.
[2020-04-04 06:57] LABS: ANION GAP 7 mmol/L (5-15); BLOOD UREA NITROGEN 13 mg/dL (7-18); CALCIUM 8.1 MG/DL (8.5-10.1); CARBON DIOXIDE 27 MMOL/L (21-32); CHLORIDE 106 MMOL/L (98-107); CREATININE 0.8 MG/DL (0.55-1.30); POTASSIUM 3.4 MMOL/L (3.5-5.1); SODIUM 140 MMOL/L (136-145)
--- NOTE | 2020-04-04 07:33 | NUR ---
NURSE NOTES: Patient seen in bed in supine position asleep. The patient had no acute signs of distress. The patients bed was in the lowest position, locked, side rails x2 and call light within reach. Patient instructed to press call light for any needs.
[2020-04-04 08:00] VITALS: BP 126/76
--- NOTE | 2020-04-04 08:11 | Hematology/Onc Progress Note ---
Assessment/Plan Assessment/Plan Assessment and Recs # Thrombocytopenia that is new onset, ni Rodríguez, less likely HIT in this case, hx of covid19+++++ --> okay to monitor and give lovenox at this time --> heparin was given recently approx to 04/01 --> consider duplex lower leg-->recent study negative --> plt 131-->115 --> also recent covid 19++ rx --> HIT test ordered 04/04 # Elevated ddimer due to covid 19 --> recent abx, remdesivir and treatment # COVID-19 --> CXR -bilateral patchy opacities --> per id care, recs noted --> s/p steriods --> s/p azithromycin and ceftriaxone # Tachycardia due to COVID infection. EF 65% --> per cards # Dvt ppx --> lovenox sq even if hit, should be ok, minimal cross-interaction Appreciate consultation and dw RN Subjective HEENT: Denies: no symptoms, eye pain, blurred vision, tearing, double vision, ear pain, ear discharge, nose pain, nose congestion, throat pain, throat swelling, mouth pain, mouth swelling, other Cardiovascular: Denies: no symptoms, chest pain, edema, irregular heart rate, lightheadedness, palpitations, syncope, other Respiratory: Denies: no symptoms, cough, shortness of breath, SOB with excertion, SOB at rest, sputum, wheezing, other Genitourinary: Denies: no symptoms, burning, discharge, frequency, flank pain, hematuria, incontinence, pain, urgency, other Neurologic/Psychiatric: Denies: no symptoms, anxiety, depressed, emotional problems, headache, numbness, paresthesia, pre-existing deficit, seizure, tingling, tremors, weakness, other Endocrine: Denies: no symptoms, excessive sweating, flushing, intolerance to cold, intolerance to heat, increased hunger, increased thirst, increased urine, unexplained weight gain, unexplained weight loss, other Hematologic/Lymphatic: Denies: no symptoms, anemia, easy bleeding, easy bruising, adenopathy, other Allergies: Coded Allergies: No Known Allergies (Unverified , 03/14/20) Subjective 04/04 no events, no bleeding is on 1l nc, no major changes Objective Objective Current Medications Medications (Trade) Dose Ordered Sig/Kiley Route PRN Reason Start Time Stop Time Status Last Admin Dose Admin Acetaminophen (Tylenol) 650 mg Q4H PRN ORAL Temp >100.5 03/14/20 22:45 04/13/20 22:44 03/14/20 22:43 Dextrose (Dextrose 50%) 25 ml Q30M PRN IV Hypoglycemia 03/14/20 19:00 06/12/20 18:59 Dextrose (Dextrose 50%) 50 ml Q30M PRN IV Hypoglycemia 03/14/20 19:00 06/12/20 18:59 Docusate Sodium (Colace) 100 mg TWICE A DAY ORAL 03/17/20 11:30 04/16/20 11:29 04/03/20 18:34 Enoxaparin Sodium (Lovenox) 40 mg DAILY SUBQ 04/01/20 10:00 06/30/20 09:59 04/03/20 08:11 Famotidine (Pepcid) 20 mg DAILY ORAL 04/03/20 21:15 07/02/20 21:14 04/03/20 21:33 Pantoprazole (Protonix) 40 mg DAILY ORAL 03/15/20 09:00 04/14/20 08:59 04/03/20 08:10 Sennosides (Senokot) 8.6 mg DAILYPRN PRN ORAL Constipation 03/17/20 11:30 04/16/20 11:29 Last 24 Hour Vital Signs Date Time Temp Pulse Resp B/P (MAP) Pulse Ox O2 Delivery O2 Flow Rate FiO2 04/04/20 04:00 97.3 70 20 114/74 (87) 95 04/03/20 23:27 97.9 84 20 125/81 (96) 96 04/03/20 21:15 95 Nasal Cannula 4.0 36 04/03/20 21:00 Nasal Cannula 1.0 04/03/20 20:00 97.7 85 20 132/81 (98) 97 04/03/20 16:00 98.1 78 20 129/77 (94) 94 04/03/20 12:21 94 Nasal Cannula 4.0 36 04/03/20 12:00 97.9 75 20 130/78 (95) 94 04/03/20 09:00 Nasal Cannula 1.0 04/03/20 08:00 97.8 75 20 116/77 (90) 95 04/03/20 04:00 97.5 70 20 118/74 (89) 95 04/03/20 00:00 97.9 80 24 121/60 (80) 94 04/02/20 21:00 Room Air 04/02/20 20:21 94 Nasal Cannula 4.0 36 04/02/20 20:00 97.9 80 24 128/67 (87) 93 04/02/20 16:00 97.3 86 18 106/76 (86) 91 04/02/20 12:00 97.0 78 18 130/72 (91) 92 04/02/20 09:00 Room Air Intake and Output 04/03/20 04/04/20 19:00 07:00 Intake Total 1080 ml 400 ml Balance 1080 ml 400 ml Intake Oral 1080 ml 400 ml # Voids 2 3 Labs Test 04/01/20 10:45 04/02/20 04:00 04/03/20 10:40 04/04/20 05:32 White Blood Count 6.9 K/UL (4.8-10.8) 7.6 K/UL (4.8-10.8) 6.4 K/UL (4.8-10.8) 6.3 K/UL (4.8-10.8) Red Blood Count 5.42 M/UL (4.70-6.10) 5.18 M/UL (4.70-6.10) 5.18 M/UL (4.70-6.10) 4.90 M/UL (4.70-6.10) Hemoglobin 15.8 G/DL (14.2-18.0) 15.4 G/DL (14.2-18.0) 15.3 G/DL (14.2-18.0) 14.9 G/DL (14.2-18.0) Hematocrit 45.7 % (42.0-52.0) 43.8 % (42.0-52.0) 42.3 % (42.0-52.0) 40.7 % (42.0-52.0) Mean Corpuscular Volume 84 FL (80-99) 84 FL (80-99) 82 FL (80-99) 83 FL (80- 99) Mean Corpuscular Hemoglobin 29.2 PG (27.0-31.0) 29.7 PG (27.0-31.0) 29.5 PG (27.0-31.0) 30.4 PG (27.0-31.0) Mean Corpuscular Hemoglobin Concent 34.6 G/DL (32.0-36.0) 35.2 G/DL (32.0-36.0) 36.1 G/DL (32.0-36.0) 36.5 G/DL (32.0-36.0) Red Cell Distribution Width 13.2 % (11.6-14.8) 13.4 % (11.6-14.8) 14.5 % (11.6-14.8) 13.4 % (11.6-14.8) Platelet Count 139 K/UL (150-450) 131 K/UL (150-450) 122 K/UL (150-450) 108 K/UL (150-450) Mean Platelet Volume 8.9 FL (6.5-10.1) 7.9 FL (6.5-10.1) 8.6 FL (6.5-10.1) 8.8 FL (6.5-10.1) Neutrophils (%) (Auto) 62.2 % (45.0-75.0) 60.2 % (45.0-75.0) 63.1 % (45.0-75.0) 56.4 % (45.0-75.0) Lymphocytes (%) (Auto) 21.8 % (20.0-45.0) 24.1 % (20.0-45.0) 20.4 % (20.0-45.0) 24.7 % (20.0-45.0) Monocytes (%) (Auto) 9.8 % (1.0-10.0) 9.8 % (1.0-10.0) 9.0 % (1.0-10.0) 9.2 % (1.0-10.0) Eosinophils (%) (Auto) 4.8 % (0.0-3.0) 5.0 % (0.0-3.0) 6.4 % (0.0-3.0) 8.1 % (0.0-3.0) Basophils (%) (Auto) 1.4 % (0.0-2.0) 0.9 % (0.0-2.0) 1.0 % (0.0-2.0) 1.5 % (0.0-2.0) Sodium Level 138 MMOL/L (136-145) 139 MMOL/L (136-145) 140 MMOL/L (136-145) Potassium Level 3.7 MMOL/L (3.5-5.1) 3.9 MMOL/L (3.5-5.1) 3.4 MMOL/L (3.5-5.1) Chloride Level 102 MMOL/L (98-107) 104 MMOL/L (98-107) 106 MMOL/L (98-107) Carbon Dioxide Level 28 MMOL/L (21-32) 25 MMOL/L (21-32) 27 MMOL/L (21-32) Anion Gap 8 mmol/L (5-15) 10 mmol/L (5-15) 7 mmol/L (5-15) Blood Urea Nitrogen 15 mg/dL (7-18) 13 mg/dL (7-18) 13 mg/dL (7-18) Creatinine 0.7 MG/DL (0.55-1.30) 0.7 MG/DL (0.55-1.30) 0.8 MG/DL (0.55-1.30) Estimat Glomerular Filtration Rate > 60 mL/min (>60) > 60 mL/min (>60) > 60 mL/min (>60) Glucose Level 158 MG/DL (74-106) 87 MG/DL (74-106) 148 MG/DL (74-106) Calcium Level 8.4 MG/DL (8.5-10.1) 8.2 MG/DL (8.5-10.1) 8.1 MG/DL (8.5-10.1) Total Bilirubin 0.5 MG/DL (0.2-1.0) 0.6 MG/DL (0.2-1.0) Aspartate Amino Transf (AST/SGOT) 31 U/L (15-37) 29 U/L (15-37) Alanine Aminotransferase (ALT/SGPT) 86 U/L (12-78) 78 U/L (12-78) Alkaline Phosphatase 60 U/L (46-116) 63 U/L (46-116) Pro-B-Type Natriuretic Peptide 19 pg/mL (0-125) Total Protein 6.7 G/DL (6.4-8.2) 6.4 G/DL (6.4-8.2) Albumin 2.9 G/DL (3.4-5.0) 3.1 G/DL (3.4-5.0) Globulin 3.8 g/dL 3.3 g/dL Albumin/Globulin Ratio 0.8 (1.0-2.7) 0.9 (1.0-2.7) Phosphorus Level 4.1 MG/DL (2.5-4.9) Magnesium Level 1.8 MG/DL (1.8-2.4) Height (Feet): 6 Height (Inches): 2.00 Weight (Pounds): 280 Objective Physical Exam Vitals: reviewed, normal General: no apparent distress, alert, GCS 15, non-toxic, obese Heent: bilateral eye normal inspection, bilateral eye PERRL Resp: chest non-tender, lungs clear, normal breath sounds Cardiov: regular rate, rhythm, no edema Patrick: normal bowel sounds, non tender, soft Rectal: deferred Genitourinary: normal inspection Lymphatic: no adenopathy Keith Tavarez MD Apr 04, 2020 08:11
[2020-04-04] MEDS: Docusate 100mg cap ORAL SCH ×2 (10:40→18:18)
[2020-04-04] MEDS: Enoxaparin 40mg Inj SUBQ SCH (10:54)
[2020-04-04 12:00] VITALS: BP 123/74
--- NOTE | 2020-04-04 12:35 | Pulmonology Progress Note ---
Subjective ROS Limited/Unobtainable: No Interval Events: no acute events overnight per nursing Constitutional: Denies: fever HEENT: Repors: no symptoms Respiratory: Reports: no symptoms; Denies: dry cough Cardiovascular: Reports: no symptoms; Denies: chest pain Gastrointestinal/Abdominal: Denies: nausea, vomiting, diarrhea Genitourinary: Reports: no symptoms Neurologic: Reports: no symptoms Psychiatric: Denies: depression Skin: Denies: rash Musculoskeletal: Denies: pain Allergies: Coded Allergies: No Known Allergies (Unverified , 03/14/20) Objective Last 24 Hour Vital Signs Date Time Temp Pulse Resp B/P (MAP) Pulse Ox O2 Delivery O2 Flow Rate FiO2 04/04/20 09:00 Nasal Cannula 1.0 04/04/20 08:00 98.1 83 18 126/76 (93) 95 04/04/20 04:00 97.3 70 20 114/74 (87) 95 04/03/20 23:27 97.9 84 20 125/81 (96) 96 04/03/20 21:15 95 Nasal Cannula 4.0 36 04/03/20 21:00 Nasal Cannula 1.0 04/03/20 20:00 97.7 85 20 132/81 (98) 97 04/03/20 16:00 98.1 78 20 129/77 (94) 94 Intake and Output 04/03/20 04/04/20 19:00 07:00 Intake Total 1080 ml 400 ml Balance 1080 ml 400 ml Intake Oral 1080 ml 400 ml # Voids 2 3 Objective 04/04/2020 saturating 95% on 1 lpm NC; 93% on room air at rest, down to 87% on ambulation on room air 04/03/2020 saturating 95% on 1 lpm NC; cont weaning as tolerated 04/02/2020 saturating 90-92% on RA 04/01/2020 saturating at mid 90s on 2 lpm NC; cont weaning as tolerated 03/31/2020 saturating at mid 90s on 2 lpm NC; cont weaning as tolerated 03/30/2020 still saturating in the low-mid 90s on 2 lpm NC; cont weaning as tolerated 03/29/2020 currently on 2 lpm NC, saturating 91-95%; continue to wean as tolerated 03/27/2020 patient now on Venturi mask 14 L at 55 FiO2 saturating at 97% 03/26/2020 pt feels fine with HFNC; 99% on 45L/70% high flow oxygen 03/25/2020 pt still refusing BiPAP and stating he feels fine with HFNC; Current FiO2 70% 03/24/2020 pt attempted BiBAP twice but feels the high flow pressure is too "forceful" and reports that is sleeps better with HFNC 03/23/2020 declining proning and BiPAP; watching tv comfortably 03/22/2020 in bed watching tv; NAD General Appearance: no acute distress HEENT: normocephalic, atraumatic Respiratory: chest wall non-tender, lungs clear Cardiovascular: normal peripheral pulses Abdomen: normal bowel sounds Extremities: no edema Laboratory Tests 04/04/20 05:32: White Blood Count 6.3, Red Blood Count 4.90, Hemoglobin 14.9, Hematocrit 40.7L, Mean Corpuscular Volume 83, Mean Corpuscular Hemoglobin 30.4, Mean Corpuscular Hemoglobin Concent 36.5H, Red Cell Distribution Width 13.4, Platelet Count 108L, Mean Platelet Volume 8.8, Neutrophils (%) (Auto) 56.4, Lymphocytes (%) (Auto) 24.7, Monocytes (%) (Auto) 9.2, Eosinophils (%) (Auto) 8.1H, Basophils (%) (Auto) 1.5, Sodium Level 140, Potassium Level 3.4L, Chloride Level 106, Carbon D ioxide Level 27, Anion Gap 7, Blood Urea Nitrogen 13, Creatinine 0.8, Estimat Glomerular Filtration Rate > 60, Glucose Level 148H, Calcium Level 8.1L 04/04/20 06:00: Heparin-PF4 Antibody Screen [Pending] Current Medications Medications (Trade) Dose Ordered Sig/Kiley Route PRN Reason Start Time Stop Time Status Last Admin Dose Admin Acetaminophen (Tylenol) 650 mg Q4H PRN ORAL Temp >100.5 03/14/20 22:45 04/13/20 22:44 03/14/20 22:43 Dextrose (Dextrose 50%) 25 ml Q30M PRN IV Hypoglycemia 03/14/20 19:00 06/12/20 18:59 Dextrose (Dextrose 50%) 50 ml Q30M PRN IV Hypoglycemia 03/14/20 19:00 06/12/20 18:59 Docusate Sodium (Colace) 100 mg TWICE A DAY ORAL 03/17/20 11:30 04/16/20 11:29 04/04/20 10:40 Enoxaparin Sodium (Lovenox) 40 mg DAILY SUBQ 04/01/20 10:00 06/30/20 09:59 04/04/20 10:54 Famotidine (Pepcid) 20 mg DAILY ORAL 04/03/20 21:15 07/02/20 21:14 04/04/20 10:40 Pantoprazole (Protonix) 40 mg DAILY ORAL 03/15/20 09:00 04/14/20 08:59 04/04/20 10:40 Sennosides (Senokot) 8.6 mg DAILYPRN PRN ORAL Constipation 03/17/20 11:30 04/16/20 11:29 Assessment/Plan Assessment/Plan Impression: - COVID-19 pneumonia - stable; extensive bilateral interstitial infiltrates unchanged since prior CXR; 03/23/2020 CXR: multifocal infiltrates stable appearance since prior CXR- CXR 04/01 shows slight worsening of bilateral infiltrates - Acute hypoxemic hypercapneic respiratory failure - stable; s/p Venturi mas; now on 1 lpm NC; - Obesity BMI 35.9 - hx of Metabolic alkalosis - Hyponatremia; normalized - Hypocalcemia; normalized Plan: - s/p Decadron - s/p AB/antivirals per ID - on 1 lpm NC saturating 95%; continue weaning down oxygen while keeping saO2 >92% - DVT Ppx - on lovenox; on SCD; ambulating; LE Duplex showed no DVT; new onset thrombocytopenia- HIT test ordered per heme - dc planning as long as his SaO2 >92% on RA The care for this patient was discussed with my supervising physician The time spent for this case was approximately 31 minutes The patient was seen and examined at bedside and all new and available data was reviewed in the patients chart. I agree with the above findings, impression, and plan. (Patient was seen earlier today. Signature timestamp does not reflect patient encounter time) Des Knott MD Apr 04, 2020 12:35 Oral Piper MD Apr 04, 2020 15:48
--- NOTE | 2020-04-04 14:22 | Cardiac Electrophysiology PN ---
Assessment/Plan Assessment/Plan 1. Elevated D-dimer of 0.54, severe shortness of breath and active COVID infection. Chest CT no PE Refusing BIPAP. On 2 liter Nasal cannula 2. COVID pneumonia. Now off abx, dexamethasone and remdesivir. Fu by Dr. Gross 3. Tachycardia due to COVID infection. EF 65% DW RN Subjective Subjective On 2 liter Nasal Cannula in Covid isolation Objective Last 24 Hour Vital Signs Date Time Temp Pulse Resp B/P (MAP) Pulse Ox O2 Delivery O2 Flow Rate FiO2 04/04/20 12:00 98.6 82 18 123/74 (90) 96 04/04/20 09:00 Nasal Cannula 1.0 04/04/20 08:00 98.1 83 18 126/76 (93) 95 04/04/20 04:00 97.3 70 20 114/74 (87) 95 04/03/20 23:27 97.9 84 20 125/81 (96) 96 04/03/20 21:15 95 Nasal Cannula 4.0 36 04/03/20 21:00 Nasal Cannula 1.0 04/03/20 20:00 97.7 85 20 132/81 (98) 97 04/03/20 16:00 98.1 78 20 129/77 (94) 94 Intake and Output 04/03/20 04/04/20 19:00 07:00 Intake Total 1080 ml 400 ml Balance 1080 ml 400 ml Intake Oral 1080 ml 400 ml # Voids 2 3 Laboratory Tests Test 04/04/20 05:32 04/04/20 06:00 White Blood Count 6.3 K/UL (4.8-10.8) Red Blood Count 4.90 M/UL (4.70-6.10) Hemoglobin 14.9 G/DL (14.2-18.0) Hematocrit 40.7 % (42.0-52.0) L Mean Corpuscular Volume 83 FL (80-99) Mean Corpuscular Hemoglobin 30.4 PG (27.0-31.0) Mean Corpuscular Hemoglobin Concent 36.5 G/DL (32.0-36.0) H Red Cell Distribution Width 13.4 % (11.6-14.8) Platelet Count 108 K/UL (150-450) L Mean Platelet Volume 8.8 FL (6.5-10.1) Neutrophils (%) (Auto) 56.4 % (45.0-75.0) Lymphocytes (%) (Auto) 24.7 % (20.0-45.0) Monocytes (%) (Auto) 9.2 % (1.0-10.0) Eosinophils (%) (Auto) 8.1 % (0.0-3.0) H Basophils (%) (Auto) 1.5 % (0.0-2.0) Sodium Level 140 MMOL/L (136-145) Potassium Level 3.4 MMOL/L (3.5-5.1) L Chloride Level 106 MMOL/L (98-107) Carbon Dioxide Level 27 MMOL/L (21-32) Anion Gap 7 mmol/L (5-15) Blood Urea Nitrogen 13 mg/dL (7-18) Creatinine 0.8 MG/DL (0.55-1.30) Estimat Glomerular Filtration Rate > 60 mL/min (>60) Glucose Level 148 MG/DL (74-106) H Calcium Level 8.1 MG/DL (8.5-10.1) L Heparin-PF4 Antibody Screen Pending Objective HEAD AND NECK: No JVD. LUNGS: Coarse rhonchi. CARDIOVASCULAR: Regular S1 and S2 with no gallop or murmur and tachycardic. ABDOMEN: Soft and obese. EXTREMITIES: No pitting edema. Santi Barnard MD Apr 04, 2020 14:22
[2020-04-04 16:00] VITALS: BP 129/76
--- NOTE | 2020-04-04 17:17 | NUR ---
CASE MANAGEMENT:REVIEW SI;COVID PNEUMONIA. HYPOXIA. 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
--- NOTE | 2020-04-04 19:23 | NUR ---
NURSE HAND-OFF: Important Events on Shift:[titrating nasal cannula down to RA] Patient Status: [Stable, AAOx4, full code] Diet: [Regular diet] Pending Orders: [N/A] Pending Results/Labs:[N/A] Pending MD notification:[N/A] Latest Vital Signs: Temperature 97.9 , Pulse 78 , B/P 129 /76 , Respiratory Rate 18 , O2 SAT 94 , Nasal Cannula, O2 Flow Rate 1.0 . Vital Sign Comment: [] Latest Hollins Fall Score: 35 Fall Risk: Medium Risk Safety Measures: Call light Within Reach, Bed Alarm Zone 2, Side Rails Side Rails x2, Bed position Low and Locked. Fall Precautions: Yellow Socks Yellow Gown Door Sign Patient Fall Education Report given to [RENITA Arguello].
--- NOTE | 2020-04-04 19:29 | General Progress Note ---
Subjective Allergies: Coded Allergies: No Known Allergies (Unverified , 03/14/20) Subjective No acute events overnight per nursing. Patient back on oxygen. On 2L. Feels slightly short of breath with ambulating. Plts downtrending. HIT panel sent. No signs of bleeding. No other complaints. Review of systems: Constitutional: Denies: chills, diaphoresis, fever, malaise, weakness, HEENT: Denies: eye pain, blurred vision, double vision, ear pain, nose pain, throat pain, Cardiovascular: Denies: chest pain, edema, lightheadedness, palpitations Respiratory: See HPI Gastrointestinal/Abdominal: Denies: abdominal pain, black stools, blood in stool, constipation, diarrhea, nausea, poor fluid intake vomiting, other Genitourinary: Denies: burning, discharge, frequency, Neurologic/Psychiatric: Denies: headache, numbness, paresthesia, new weakness, other Endocrine: Denies: excessive sweating, flushing, intolerance to cold, MSK: denies joint pains, swelling, stiffness Hematologic/Lymphatic: Denies: anemia, easy bleeding, easy bruising, Objective Last 24 Hour Vital Signs Date Time Temp Pulse Resp B/P (MAP) Pulse Ox O2 Delivery O2 Flow Rate FiO2 04/04/20 16:00 97.9 78 18 129/76 (93) 94 04/04/20 12:00 98.6 82 18 123/74 (90) 96 04/04/20 09:00 Nasal Cannula 1.0 04/04/20 08:00 98.1 83 18 126/76 (93) 95 04/04/20 04:00 97.3 70 20 114/74 (87) 95 04/03/20 23:27 97.9 84 20 125/81 (96) 96 04/03/20 21:15 95 Nasal Cannula 4.0 36 04/03/20 21:00 Nasal Cannula 1.0 04/03/20 20:00 97.7 85 20 132/81 (98) 97 Intake and Output 04/03/20 04/04/20 18:59 06:59 Intake Total 1080 ml 400 ml Balance 1080 ml 400 ml Intake Oral 1080 ml 400 ml # Voids 2 3 Laboratory Tests 04/04/20 05:32: White Blood Count 6.3, Red Blood Count 4.90, Hemoglobin 14.9, Hematocrit 40.7L, Mean Corpuscular Volume 83, Mean Corpuscular Hemoglobin 30.4, Mean Corpuscular Hemoglobin Concent 36.5H, Red Cell Distribution Width 13.4, Platelet Count 108L, Mean Platelet Volume 8.8, Neutrophils (%) (Auto) 56.4, Lymphocytes (%) (Auto) 24.7, Monocytes (%) (Auto) 9.2, Eosinophils (%) (Auto) 8.1H, Basophils (%) (Auto) 1.5, Sodium Level 140, Potassium Level 3.4L, Chloride Level 106, Carbon Dioxide Level 27, Anion Gap 7, Blood Urea Nitrogen 13, Creatinine 0.8, Estimat Glomerular Filtration Rate > 60, Glucose Level 148H, Calcium Level 8.1L 04/04/20 06:00: Heparin-PF4 Antibody Screen [Pending] Height (Feet): 6 Height (Inches): 2.00 Weight (Pounds): 280 Objective General: WDWN male in NAD, A&O x 4 HEENT: Normocephalic cephalic atraumatic, pupils equal round reactive to light and accommodation, nares patent and no symmetrical, no tonsillar exudates, mucous membranes moist CV: Regular rate regular rhythm, no murmurs, rubs, or gallops Pulm: Lungs clear to auscultation bilaterally. No wheezes, rhonchi, or rales (stable) GI: Soft, nontender, nondistended, bowel sounds present Neuro: CN 2-12 intact bilaterally, no focal signs. Ext: No lower extremity edema bilaterally Skin: no rashes lesions or ulcers Msk: Joints symmetrical in upper extremity and lower extremity bilaterally, no joint swelling. Lymph: No lymphadenopathy in upper extremity and lower extremity Assessment/Plan Status: stable Assessment/Plan: #COVID-19 pneumonia - resolving #Acute hypoxemic hypercapnic respiratory failure #Elevated inflammatory markers on admission - Ferritin, CRP, D-dimer, fibrinogen - CXR and CTA stable - dexamethasone 6 mg daily, remdesivir (03/15 - 03/18) - Titrating down oxygen daily. Still intermittently on Oxygen - Check ambulatory O2 Sats: did poorly. <92% - Wean Oxygen as tolerated to keep O2 sat >92% - CTX/Azithro- s/p isabell Ennis'ed ceftriaxone (03/15-03/24) - ID consult, Dr. Elizalde, recs appreciated - Pulm consult, Dr. Piper, recs appreciated - Cardiology consult, Dr. Barnard, recs appreciated - Will assess if patient can go home with oxygen therapy : patient cannot afford. #thrombocytopenia - Appreciate heme/onc recommendations: Dr. Tavarez - [facility] panel - ok to continue lovenox per Heme #Metabolic alkalosis #Hyponatremia-likely SIADH based on urine sodium- resolved - Nephro consult, Dr. Zimmerman, recs appreciated #leukocytosis 2' steroid - resolved FENPPX DVTPPX: Lovenox Diet: Regular Lines: PIV PT/OT: pending Code status: Full Dispo: Home with HH +/- oxygen Reason for Continued Hospitalization: Hypoxia 36 minutes spent on this encounter, and 20 minutes spent on counseling and care coordination. Discussed with ID, Pulm, heme Time of visit does not reflect time of encounter. Sourav Rodríguez D.O. Apr 04, 2020 19:29
--- NOTE | 2020-04-04 19:32 | NUR ---
NURSE NOTES: Patient is awake, alert, and oriented x4. On NC 1L, breathing is even and unlabored. No C/O pain nor distress noted. IV patent, saline locked. Skin is intact. Bed low and locked position. Call light within reach.
[2020-04-04 20:00] VITALS: BP 136/67
[2020-04-05] VITALS: BP 130/68
[2020-04-05 04:00] VITALS: BP 126/78
--- NOTE | 2020-04-05 07:26 | NUR ---
NURSE HAND-OFF: Important Events on Shift: new IV, practice ambulating and watching saturation, O2 sat management 95% with NC 1L Patient Status: Stable Diet: Regular no modifications Pending Orders: N/A Pending Results/Labs:N/A Pending MD notification:N/A VS stable Latest Hollins Fall Score: 35 Fall Risk: Medium Risk Safety Measures: Call light Within Reach, Bed Alarm Zone 2, Side Rails Side Rails x2, Bed position Low and Locked. Fall Precautions: Yellow Socks Yellow Gown Door Sign Patient Fall Education Report given to Phoebe RENAE
[2020-04-05 07:27] LABS: BASOPHILS % (AUTO) 1.1 % (0.0-2.0); EOSINOPHILS % (AUTO) 8.9 % (0.0-3.0); HEMATOCRIT 41.8 % (42.0-52.0); HEMOGLOBIN 14.6 G/DL (14.2-18.0); LYMPHOCYTES % (AUTO) 25.6 % (20.0-45.0); MEAN CORPUSCULAR VOLUME 85 FL (80-99); MONOCYTES % (AUTO) 9.6 % (1.0-10.0); NEUTROPHILS % (AUTO) 54.8 % (45.0-75.0); PLATELET COUNT 106 K/UL (150-450); RED BLOOD COUNT 4.92 M/UL (4.70-6.10); RED CELL DISTRIBUTION WIDTH 13.3 % (11.6-14.8); WHITE BLOOD COUNT 6.5 K/UL (4.8-10.8)
--- NOTE | 2020-04-05 07:35 | NUR ---
NURSE NOTES: Patient is awake, alert, and oriented x4. sitting on a chair with no o2 attached. breathing is even and unlabored. No C/O pain nor distress noted. PIV patent, intact. saline locked. Skin is intact. Bed low and locked position. siderails are upx2. Call light within reach. will cont to monitor.
[2020-04-05 07:46] LABS: ANION GAP 6 mmol/L (5-15); BLOOD UREA NITROGEN 10 mg/dL (7-18); CALCIUM 8.1 MG/DL (8.5-10.1); CARBON DIOXIDE 28 MMOL/L (21-32); CHLORIDE 104 MMOL/L (98-107); CREATININE 0.7 MG/DL (0.55-1.30); POTASSIUM 3.2 MMOL/L (3.5-5.1); SODIUM 138 MMOL/L (136-145)
[2020-04-05 08:00] VITALS: BP 128/48
[2020-04-05] MEDS: Docusate 100mg cap ORAL SCH ×2 (08:57→17:10)
[2020-04-05] MEDS: Enoxaparin 40mg Inj SUBQ SCH (08:58)
--- NOTE | 2020-04-05 09:56 | Pulmonology Progress Note ---
Subjective ROS Limited/Unobtainable: No Interval Events: pt states he has been on RA overnight Constitutional: Denies: fever HEENT: Repors: no symptoms Respiratory: Reports: no symptoms; Denies: dry cough Cardiovascular: Reports: no symptoms; Denies: chest pain Gastrointestinal/Abdominal: Denies: nausea, vomiting, diarrhea Genitourinary: Reports: no symptoms Neurologic: Reports: no symptoms Psychiatric: Denies: depression Skin: Denies: rash Musculoskeletal: Denies: pain Allergies: Coded Allergies: No Known Allergies (Unverified , 03/14/20) Objective Last 24 Hour Vital Signs Date Time Temp Pulse Resp B/P (MAP) Pulse Ox O2 Delivery O2 Flow Rate FiO2 04/05/20 08:00 98.0 82 18 128/48 (74) 96 04/05/20 04:00 98.4 78 18 126/78 (94) 93 04/05/20 00:00 98.3 83 18 130/68 (88) 98 04/04/20 21:00 Nasal Cannula 1.0 04/04/20 20:00 99.1 87 18 136/67 (90) 98 04/04/20 16:00 97.9 78 18 129/76 (93) 94 04/04/20 12:00 98.6 82 18 123/74 (90) 96 Intake and Output 04/04/20 04/05/20 19:00 07:00 Intake Total 500 ml Balance 500 ml Intake Oral 500 ml # Voids 2 2 Objective 04/05 pt saturating 91-92% on RA at rest since last night 04/04/2020 saturating 95% on 1 lpm NC; 93% on room air at rest, down to 87% on ambulation on room air 04/03/2020 saturating 95% on 1 lpm NC; cont weaning as tolerated 04/02/2020 saturating 90-92% on RA 04/01/2020 saturating at mid 90s on 2 lpm NC; cont weaning as tolerated 03/31/2020 saturating at mid 90s on 2 lpm NC; cont weaning as tolerated 03/30/2020 still saturating in the low-mid 90s on 2 lpm NC; cont weaning as tolerated 03/29/2020 currently on 2 lpm NC, saturating 91-95%; continue to wean as tolerated 03/27/2020 patient now on Venturi mask 14 L at 55 FiO2 saturating at 97% 03/26/2020 pt feels fine with HFNC; 99% on 45L/70% high flow oxygen 03/25/2020 pt still refusing BiPAP and stating he feels fine with HFNC; Current FiO2 70% 03/24/2020 pt attempted BiBAP twice but feels the high flow pressure is too "forceful" and reports that is sleeps better with HFNC 03/23/2020 declining proning and BiPAP; watching tv comfortably 03/22/2020 in bed watching tv; NAD General Appearance: no acute distress HEENT: normocephalic, atraumatic Respiratory: chest wall non-tender, lungs clear Cardiovascular: normal peripheral pulses Abdomen: normal bowel sounds Extremities: no edema Laboratory Tests 04/05/20 04:00: White Blood Count 6.5, Red Blood Count 4.92, Hemoglobin 14.6, Hematocrit 41.8L, Mean Corpuscular Volume 85, Mean Corpuscular Hemoglobin 29.7, Mean Corpuscular Hemoglobin Concent 34.9, Red Cell Distribution Width 13.3, Platelet Count 106L, Mean Platelet Volume 9.3, Neutrophils (%) (Auto) 54.8, Lymphocytes (%) (Auto) 25.6, Monocytes (%) (Auto) 9.6, Eosinophils (%) (Auto) 8.9H, Basophils (%) (Auto) 1.1, Sodium Level 138, Potassium Level 3.2L, Chloride Level 104, Carbon Dioxide Level 28, Anion Gap 6, Blood Urea Nitrogen 10, Creatinine 0.7, Estimat Glomerular Filtration Rate > 60, Glucose Level 133H, Calcium Level 8.1L Current Medications Medications (Trade) Dose Ordered Sig/Kiley Route PRN Reason Start Time Stop Time Status Last Admin Dose Admin Acetaminophen (Tylenol) 650 mg Q4H PRN ORAL Temp >100.5 03/14/20 22:45 04/13/20 22:44 03/14/20 22:43 Dextrose (Dextrose 50%) 25 ml Q30M PRN IV Hypoglycemia 03/14/20 19:00 06/12/20 18:59 Dextrose (Dextrose 50%) 50 ml Q30M PRN IV Hypoglycemia 03/14/20 19:00 06/12/20 18:59 Docusate Sodium (Colace) 100 mg TWICE A DAY ORAL 03/17/20 11:30 04/16/20 11:29 04/05/20 08:57 Enoxaparin Sodium (Lovenox) 40 mg DAILY SUBQ 04/01/20 10:00 06/30/20 09:59 04/04/20 10:54 Famotidine (Pepcid) 20 mg DAILY ORAL 04/03/20 21:15 07/02/20 21:14 04/05/20 08:57 Pantoprazole (Protonix) 40 mg DAILY ORAL 03/15/20 09:00 04/14/20 08:59 04/05/20 08:57 Potassium Chloride (K-Dur) 60 meq ONCE ORAL 04/05/20 09:00 04/05/20 10:00 04/05/20 08:58 Sennosides (Senokot) 8.6 mg DAILYPRN PRN ORAL Constipation 03/17/20 11:30 04/16/20 11:29 Assessment/Plan Assessment/Plan Impression: - COVID-19 pneumonia - stable; extensive bilateral interstitial infiltrates unchanged since prior CXR; 03/23/2020 CXR: multifocal infiltrates stable appearance since prior CXR- CXR 04/01 shows slight worsening of bilateral infiltrates - Acute hypoxemic hypercapneic respiratory failure - stable; s/p Venturi mask; now on RA - Obesity BMI 35.9 - hx of Metabolic alkalosis - Hyponatremia; normalized - Hypocalcemia; normalized Plan: - s/p Decadron - s/p AB/antivirals per ID - on RA saturating 91-92% at rest since last night; cont monitor saO2 - DVT Ppx - on lovenox; on SCD; ambulating; LE Duplex showed no DVT; new onset thrombocytopenia- HIT test result still pending The care for this patient was discussed with my supervising physician The time spent for this case was approximately 31 minutes Des Daniels Apr 05, 2020 09:56
--- NOTE | 2020-04-05 11:25 | NUR ---
NURSE NOTES: PATIENT DESAT WHEN AMBULATING TO 88% VIA RA. AT REST O2 SAT GO UP TO 92% VIA RA. MD WILL KEEP PATIENT FOR TODAY UNTIL O2 SAT WILL BE STABILIZED. WILL CONT TO MONITOR.
[2020-04-05 12:00] VITALS: BP 133/86
[2020-04-05 16:00] VITALS: BP 139/70
--- NOTE | 2020-04-05 17:31 | Cardiac Electrophysiology PN ---
Assessment/Plan Assessment/Plan 1. Elevated D-dimer of 0.54, severe shortness of breath and active COVID infection. Chest CT no PE Refusing BIPAP. On RA but desaturates with activity 2. COVID pneumonia. Completed abx, dexamethasone and remdesivir. Fu by Dr. Gross 3. Tachycardia due to COVID infection. EF 65% DW RN Subjective Subjective On 2 liter Nasal Cannula in Covid isolation Objective Last 24 Hour Vital Signs Date Time Temp Pulse Resp B/P (MAP) Pulse Ox O2 Delivery O2 Flow Rate FiO2 04/05/20 16:00 98.1 82 18 139/70 (93) 91 04/05/20 12:00 98.6 78 18 133/86 (102) 92 04/05/20 09:00 Nasal Cannula 1.0 04/05/20 08:00 98.0 82 18 128/48 (74) 96 04/05/20 07:09 95 Nasal Cannula 1.0 24 04/05/20 04:00 98.4 78 18 126/78 (94) 93 04/05/20 00:00 98.3 83 18 130/68 (88) 98 04/04/20 21:00 Nasal Cannula 1.0 04/04/20 20:00 99.1 87 18 136/67 (90) 98 Intake and Output 04/04/20 04/05/20 19:00 07:00 Intake Total 500 ml Balance 500 ml Intake Oral 500 ml # Voids 2 2 Laboratory Tests Test 04/05/20 04:00 White Blood Count 6.5 K/UL (4.8-10.8) Red Blood Count 4.92 M/UL (4.70-6.10) Hemoglobin 14.6 G/DL (14.2-18.0) Hematocrit 41.8 % (42.0-52.0) L Mean Corpuscular Volume 85 FL (80-99) Mean Corpuscular Hemoglobin 29.7 PG (27.0-31.0) Mean Corpuscular Hemoglobin Concent 34.9 G/DL (32.0-36.0) Red Cell Distribution Width 13.3 % (11.6-14.8) Platelet Count 106 K/UL (150-450) L Mean Platelet Volume 9.3 FL (6.5-10.1) Neutrophils (%) (Auto) 54.8 % (45.0-75.0) Lymphocytes (%) (Auto) 25.6 % (20.0-45.0) Monocytes (%) (Auto) 9.6 % (1.0-10.0) Eosinophils (%) (Auto) 8.9 % (0.0-3.0) H Basophils (%) (Auto) 1.1 % (0.0-2.0) Sodium Level 138 MMOL/L (136-145) Potassium Level 3.2 MMOL/L (3.5-5.1) L Chloride Level 104 MMOL/L (98-107) Carbon Dioxide Level 28 MMOL/L (21-32) Anion Gap 6 mmol/L (5-15) Blood Urea Nitrogen 10 mg/dL (7-18) Creatinine 0.7 MG/DL (0.55-1.30) Estimat Glomerular Filtration Rate > 60 mL/min (>60) Glucose Level 133 MG/DL (74-106) H Calcium Level 8.1 MG/DL (8.5-10.1) L Objective HEAD AND NECK: No JVD. LUNGS: Coarse rhonchi. CARDIOVASCULAR: Regular S1 and S2 with no gallop or murmur and tachycardic. ABDOMEN: Soft and obese. EXTREMITIES: No pitting edema. Santi Barnard MD Apr 05, 2020 17:31
--- NOTE | 2020-04-05 18:58 | NUR ---
NURSE HAND-OFF: Important Events on Shift:[keep o2 sat >92 and better. instructed to utilize IS w/a 10x] Patient Status: [stable] Diet: [reg] Pending Orders: [labs] Pending Results/Labs:[in am] Pending MD notification:[] Latest Vital Signs: Temperature 98.1 , Pulse 82 , B/P 139 /70 , Respiratory Rate 18 , O2 SAT 91 , Nasal Cannula, O2 Flow Rate 1.0 . Vital Sign Comment: [] Latest Hollins Fall Score: 35 Fall Risk: Medium Risk Safety Measures: Call light Within Reach, Bed Alarm Zone 2, Side Rails Side Rails x3, Bed position Low and Locked. Fall Precautions: Yellow Socks Yellow Gown Door Sign Patient Fall Education Report given to [shelby].
--- NOTE | 2020-04-05 19:10 | NUR ---
NURSE NOTES: Patient is awake, alert, and oriented x4. On NC 1L, breathing is even and unlabored, lungs clear to auscultation, complains of slight SOB when he ambulates and can desaturate when not on O2. No C/O pain nor distress noted. IV patent, saline locked. Skin is intact. Bed low and locked position. Call light within reach.
[2020-04-05 20:00] VITALS: BP 125/60
--- NOTE | 2020-04-05 20:05 | General Progress Note ---
Subjective Allergies: Coded Allergies: No Known Allergies (Unverified , 03/14/20) Subjective No acute events overnight per nursing. Patient finally titrated off of oxygen on room air saturating 92% at rest. Desatting to 88% with ambulation and feeling short of breath. No chest pain fevers or chills. Platelets still low. HIT panel pending. No other complaints. Patient filed for insurance yesterday. Discussed with sample case porter regarding ability to get home oxygen. Review of systems: Constitutional: Denies: chills, diaphoresis, fever, malaise, weakness, HEENT: Denies: eye pain, blurred vision, double vision, ear pain, nose pain, throat pain, Cardiovascular: Denies: chest pain, edema, lightheadedness, palpitations Respiratory: See HPI Gastrointestinal/Abdominal: Denies: abdominal pain, black stools, blood in stool, constipation, diarrhea, nausea, poor fluid intake vomiting, other Genitourinary: Denies: burning, discharge, frequency, Neurologic/Psychiatric: Denies: headache, numbness, paresthesia, new weakness, other Endocrine: Denies: excessive sweating, flushing, intolerance to cold, MSK: denies joint pains, swelling, stiffness Hematologic/Lymphatic: Denies: anemia, easy bleeding, easy bruising, Objective Last 24 Hour Vital Signs Date Time Temp Pulse Resp B/P (MAP) Pulse Ox O2 Delivery O2 Flow Rate FiO2 04/05/20 16:00 98.1 82 18 139/70 (93) 91 04/05/20 12:00 98.6 78 18 133/86 (102) 92 04/05/20 09:00 Nasal Cannula 1.0 04/05/20 08:00 98.0 82 18 128/48 (74) 96 04/05/20 07:09 95 Nasal Cannula 1.0 24 04/05/20 04:00 98.4 78 18 126/78 (94) 93 04/05/20 00:00 98.3 83 18 130/68 (88) 98 04/04/20 21:00 Nasal Cannula 1.0 Intake and Output 04/04/20 04/05/20 19:00 07:00 Intake Total 500 ml Balance 500 ml Intake Oral 500 ml # Voids 2 2 Laboratory Tests 04/05/20 04:00: White Blood Count 6.5, Red Blood Count 4.92, Hemoglobin 14.6, Hematocrit 41.8L, Mean Corpuscular Volume 85, Mean Corpuscular Hemoglobin 29.7, Mean Corpuscular Hemoglobin Concent 34.9, Red Cell Distribution Width 13.3, Platelet Count 106L, Mean Platelet Volume 9.3, Neutrophils (%) (Auto) 54.8, Lymphocytes (%) (Auto) 25.6, Monocytes (%) (Auto) 9.6, Eosinophils (%) (Auto) 8.9H, Basophils (%) (Auto) 1.1, Sodium Level 138, Potassium Level 3.2L, Chloride Level 104, Carbon Dioxide Level 28, Anion Gap 6, Blood Urea Nitrogen 10, Creatinine 0.7, Estimat Glomerular Filtration Rate > 60, Glucose Level 133H, Calcium Level 8.1L Height (Feet): 6 Height (Inches): 2.00 Weight (Pounds): 280 Objective General: WDWN male in NAD, A&O x 4 HEENT: Normocephalic cephalic atraumatic, pupils equal round reactive to light and accommodation, nares patent and no symmetrical, no tonsillar exudates, mucous membranes moist CV: Regular rate regular rhythm, no murmurs, rubs, or gallops Pulm: Lungs clear to auscultation bilaterally. No wheezes, rhonchi, or rales (stable) GI: Soft, nontender, nondistended, bowel sounds present Neuro: CN 2-12 intact bilaterally, no focal signs. Ext: No lower extremity edema bilaterally Skin: no rashes lesions or ulcers Msk: Joints symmetrical in upper extremity and lower extremity bilaterally, no joint swelling. Lymph: No lymphadenopathy in upper extremity and lower extremity Assessment/Plan Status: stable Assessment/Plan: #COVID-19 pneumonia - resolving #Acute hypoxemic hypercapnic respiratory failure #Elevated inflammatory markers on admission - Ferritin, CRP, D-dimer, fibrinogen - CXR and CTA stable - dexamethasone 6 mg daily, remdesivir (03/15 - 03/18) - Titrating down oxygen daily. Still intermittently on Oxygen - Check ambulatory O2 Sats: still <92% - Wean Oxygen as tolerated to keep O2 sat >92%. D/w Nursing - CTX/Azithro- s/p isabell Ennis'ed ceftriaxone (03/15-03/24) - ID consult, Dr. Elizalde, recs appreciated - Pulm consult, Dr. Piper, recs appreciated - Cardiology consult, Dr. Barnard, recs appreciated - Will assess if patient can go home with oxygen therapy : patient cannot afford. -> D/w case management b/c now patient has insurance #thrombocytopenia - Appreciate heme/onc recommendations: Dr. Tavarez - HIT panel: pending - ok to continue lovenox per Heme #Metabolic alkalosis #Hyponatremia-likely SIADH based on urine sodium- resolved - Nephro consult, Dr. Zimmerman, recs appreciated #leukocytosis 2' steroid - resolved FENPPX DVTPPX: Lovenox Diet: Regular Lines: PIV PT/OT: pending Code status: Full Dispo: Home with HH +/- oxygen Reason for Continued Hospitalization: Hypoxia MIPS ([employer]-based Incentive Payment System) Applicable CPT: 50584, 90575 CHECK ALL THAT ARE MET: [] Measure #5 (CHF): All ages. Prescribe MILAN/ARB upon discharge for patients with left ventricular systolic dysfunction. If not, the reason is clearly documented in the medical chart [] Measure #8 (CHF): All ages. Prescribe a beta monalisa upon discharge for patients with left ventricular systolic dysfunction. If not, the reason is clearly documented in the medical chart. [x] Measure #47: Advance care plan or surrogate decision maker documented in the medical record. [x] Measure #130 The provider has documented, updated, or reviewed the patients current medication list and has documented it in the patients note. [] Measure #374 (All): Send report to referring provider. [] Measure #407(Sepsis due to MSSA bacteremia): Age 18+ Patient treated with a beta-lactam antibiotic (Nafcillin, Oxacillin or Cefazolin) as definitive therapy. MEDICAL COMPLEXITYHigh complexity medical decision making (need 2/3 categories)Problem - need 4 points []Acute/new problem with new plan for workup (4 points, 1 max) [] Acute/new problem without additional workup (3 points, 1 max) [] Unstable chronic problem actively being managed (2 point each, 2 max) [x] Stable chronic problem actively being managed (1 point each, 2 max) [x] Self-limited/transient process (constipation, muscle ache, etc) (1 point each, 2 max) Data - need 4 points [x] Reviewed labs/imaging studies (1 points, 2 max) [] Independent review of imaging (EKG, xrays, etc) (2 points, 2 max) [x] Discussed case with consult/other MD/RN (2 points, 2 max) High Risk - qualify if have one of the following: [] Severe exacerbation of acute problem, acute mental status change, IV narcotics, monitoring drug levels (vancomycin, INR, tacrolimus etc) I spent 36 minutes on this patient's case, and 20 mins was dedicated to counseling and/or care coordination. Discussed with pulm and bedside RN and case management Time of note may not reflect time of encounter Sourav Rodríguez D.O. Apr 05, 2020 20:05
[2020-04-06] VITALS: BP 120/62
[2020-04-06 04:00] VITALS: BP 119/77
[2020-04-06 05:43] LABS: BASOPHILS % (AUTO) 0.7 % (0.0-2.0); EOSINOPHILS % (AUTO) 7.9 % (0.0-3.0); HEMATOCRIT 42.2 % (42.0-52.0); HEMOGLOBIN 15.2 G/DL (14.2-18.0); LYMPHOCYTES % (AUTO) 21.8 % (20.0-45.0); MEAN CORPUSCULAR VOLUME 82 FL (80-99); MONOCYTES % (AUTO) 7.9 % (1.0-10.0); NEUTROPHILS % (AUTO) 61.6 % (45.0-75.0); PLATELET COUNT 110 K/UL (150-450); RED BLOOD COUNT 5.11 M/UL (4.70-6.10); RED CELL DISTRIBUTION WIDTH 13.4 % (11.6-14.8); WHITE BLOOD COUNT 6.8 K/UL (4.8-10.8)
[2020-04-06 05:53] LABS: ANION GAP 7 mmol/L (5-15); BLOOD UREA NITROGEN 13 mg/dL (7-18); CALCIUM 8.4 MG/DL (8.5-10.1); CARBON DIOXIDE 29 MMOL/L (21-32); CHLORIDE 103 MMOL/L (98-107); CREATININE 0.7 MG/DL (0.55-1.30); POTASSIUM 3.6 MMOL/L (3.5-5.1); SODIUM 139 MMOL/L (136-145)
[2020-04-06 08:00] VITALS: BP 123/73
[2020-04-06] MEDS: Enoxaparin 40mg Inj SUBQ SCH (09:00)
[2020-04-06] MEDS: Docusate 100mg cap ORAL SCH ×2 (09:00→17:37)
--- NOTE | 2020-04-06 09:06 | Hematology/Onc Progress Note ---
Assessment/Plan Assessment/Plan Assessment and Recs # Thrombocytopenia that is new onset, ni Rodríguez, less likely HIT in this case, hx of covid19+++++ --> okay to monitor and give lovenox at this time --> heparin was given recently approx to 04/01 --> consider duplex lower leg-->recent study negative --> plt 131-->115->110 --> also recent covid 19++ rx --> HIT test ordered 04/04 # Elevated ddimer due to covid 19 --> recent abx, remdesivir and treatment # COVID-19 --> CXR -bilateral patchy opacities --> per id care, recs noted --> s/p steriods --> s/p azithromycin and ceftriaxone # Tachycardia due to COVID infection. EF 65% --> per cards # Dvt ppx --> lovenox sq even if hit, should be ok, minimal cross-interaction Appreciate consultation and ni RN Subjective Constitutional: Denies: no symptoms, chills, fever, malaise, weakness, other Cardiovascular: Denies: no symptoms, chest pain, edema, irregular heart rate, lightheadedness, palpitations, syncope, other Respiratory: Denies: no symptoms, cough, shortness of breath, SOB with excertion, SOB at rest, sputum, wheezing, other Gastrointestinal/Abdominal: Denies: no symptoms, abdomen distended, abdominal pain, black stools, tarry stools, blood in stool, constipated, diarrhea, d ifficulty swallowing, nausea, poor appetite, poor fluid intake, rectal bleeding, vomiting, other Genitourinary: Denies: no symptoms, burning, discharge, frequency, flank pain, hematuria, incontinence, pain, urgency, other Allergies: Coded Allergies: No Known Allergies (Unverified , 03/14/20) Subjective 04/04 no events, no bleeding is on 1l nc, no major changes 04/06 meds noted, no bleeding, labs reviewed, 1l nc as well Objective Objective Current Medications Medications (Trade) Dose Ordered Sig/Kiley Route PRN Reason Start Time Stop Time Status Last Admin Dose Admin Acetaminophen (Tylenol) 650 mg Q4H PRN ORAL Temp >100.5 03/14/20 22:45 04/13/20 22:44 03/14/20 22:43 Dextrose (Dextrose 50%) 25 ml Q30M PRN IV Hypoglycemia 03/14/20 19:00 06/12/20 18:59 Dextrose (Dextrose 50%) 50 ml Q30M PRN IV Hypoglycemia 03/14/20 19:00 06/12/20 18:59 Docusate Sodium (Colace) 100 mg TWICE A DAY ORAL 03/17/20 11:30 04/16/20 11:29 04/06/20 09:00 Enoxaparin Sodium (Lovenox) 40 mg DAILY SUBQ 04/01/20 10:00 06/30/20 09:59 04/06/20 09:00 Famotidine (Pepcid) 20 mg DAILY ORAL 04/03/20 21:15 07/02/20 21:14 04/06/20 09:00 Pantoprazole (Protonix) 40 mg DAILY ORAL 03/15/20 09:00 04/14/20 08:59 04/06/20 08:59 Sennosides (Senokot) 8.6 mg DAILYPRN PRN ORAL Constipation 03/17/20 11:30 04/16/20 11:29 Last 24 Hour Vital Signs Date Time Temp Pulse Resp B/P (MAP) Pulse Ox O2 Delivery O2 Flow Rate FiO2 04/06/20 04:00 97.8 82 18 119/77 (91) 95 04/06/20 00:00 98.1 80 18 120/62 (81) 95 04/05/20 21:00 Nasal Cannula 1.0 04/05/20 20:00 98.6 76 18 125/60 (81) 94 04/05/20 16:00 98.1 82 18 139/70 (93) 91 04/05/20 12:00 98.6 78 18 133/86 (102) 92 04/05/20 09:00 Nasal Cannula 1.0 04/05/20 08:00 98.0 82 18 128/48 (74) 96 04/05/20 07:09 95 Nasal Cannula 1.0 24 04/05/20 04:00 98.4 78 18 126/78 (94) 93 04/05/20 00:00 98.3 83 18 130/68 (88) 98 04/04/20 21:00 Nasal Cannula 1.0 04/04/20 20:00 99.1 87 18 136/67 (90) 98 04/04/20 16:00 97.9 78 18 129/76 (93) 94 04/04/20 12:00 98.6 82 18 123/74 (90) 96 Intake and Output 04/05/20 04/06/20 19:00 07:00 # Voids 4 3 # Bowel Movements 1 Labs Test 04/03/20 10:40 04/04/20 05:32 04/04/20 06:00 04/05/20 04:00 White Blood Count 6.4 K/UL (4.8-10.8) 6.3 K/UL (4.8-10.8) 6.5 K/UL (4.8-10.8) Red Blood Count 5.18 M/UL (4.70-6.10) 4.90 M/UL (4.70-6.10) 4.92 M/UL (4.70-6.10) Hemoglobin 15.3 G/DL (14.2-18.0) 14.9 G/DL (14.2-18.0) 14.6 G/DL (14.2-18.0) Hematocrit 42.3 % (42.0-52.0) 40.7 % (42.0-52.0) 41.8 % (42.0-52.0) Mean Corpuscular Volume 82 FL (80-99) 83 FL (80-99) 85 FL (80-99) Mean Corpuscular Hemoglobin 29.5 PG (27.0-31.0) 30.4 PG (27.0-31.0) 29.7 PG (27.0-31.0) Mean Corpuscular Hemoglobin Concent 36.1 G/DL (32.0-36.0) 36.5 G/DL (32.0-36.0) 34.9 G/DL (32.0-36.0) Red Cell Distribution Width 14.5 % (11.6-14.8) 13.4 % (11.6-14.8) 13.3 % (11.6-14.8) Platelet Count 122 K/UL (150-450) 108 K/UL (150-450) 106 K/UL (150-450) Mean Platelet Volume 8.6 FL (6.5-10.1) 8.8 FL (6.5-10.1) 9.3 FL (6.5-10.1) Neutrophils (%) (Auto) 63.1 % (45.0-75.0) 56.4 % (45.0-75.0) 54.8 % (45.0-75.0) Lymphocytes (%) (Auto) 20.4 % (20.0-45.0) 24.7 % (20.0-45.0) 25.6 % (20.0-45.0) Monocytes (%) (Auto) 9.0 % (1.0-10.0) 9.2 % (1.0-10.0) 9.6 % (1.0-10.0) Eosinophils (%) (Auto) 6.4 % (0.0-3.0) 8.1 % (0.0-3.0) 8.9 % (0.0-3.0) Basophils (%) (Auto) 1.0 % (0.0-2.0) 1.5 % (0.0-2.0) 1.1 % (0.0-2.0) Sodium Level 140 MMOL/L (136-145) 138 MMOL/L (136-145) Potassium Level 3.4 MMOL/L (3.5-5.1) 3.2 MMOL/L (3.5-5.1) Chloride Level 106 MMOL/L (98-107) 104 MMOL/L (98-107) Carbon Dioxide Level 27 MMOL/L (21-32) 28 MMOL/L (21-32) Anion Gap 7 mmol/L (5-15) 6 mmol/L (5-15) Blood Urea Nitrogen 13 mg/dL (7-18) 10 mg/dL (7-18) Creatinine 0.8 MG/DL (0.55-1.30) 0.7 MG/DL (0.55-1.30) Estimat Glomerular Filtration Rate > 60 mL/min (>60) > 60 mL/min (>60) Glucose Level 148 MG/DL (74-106) 133 MG/DL (74-106) Calcium Level 8.1 MG/DL (8.5-10.1) 8.1 MG/DL (8.5-10.1) Test 04/06/20 05:30 White Blood Count 6.8 K/UL (4.8-10.8) Red Blood Count 5.11 M/UL (4.70-6.10) Hemoglobin 15.2 G/DL (14.2-18.0) Hematocrit 42.2 % (42.0-52.0) Mean Corpuscular Volume 82 FL (80-99) Mean Corpuscular Hemoglobin 29.7 PG (27.0-31.0) Mean Corpuscular Hemoglobin Concent 36.1 G/DL (32.0-36.0) Red Cell Distribution Width 13.4 % (11.6-14.8) Platelet Count 110 K/UL (150-450) Mean Platelet Volume 8.5 FL (6.5-10.1) Neutrophils (%) (Auto) 61.6 % (45.0-75.0) Lymphocytes (%) (Auto) 21.8 % (20.0-45.0) Monocytes (%) (Auto) 7.9 % (1.0-10.0) Eosinophils (%) (Auto) 7.9 % (0.0-3.0) Basophils (%) (Auto) 0.7 % (0.0-2.0) Sodium Level 139 MMOL/L (136-145) Potassium Level 3.6 MMOL/L (3.5-5.1) Chloride Level 103 MMOL/L (98-107) Carbon Dioxide Level 29 MMOL/L (21-32) Anion Gap 7 mmol/L (5-15) Blood Urea Nitrogen 13 mg/dL (7-18) Creatinine 0.7 MG/DL (0.55-1.30) Estimat Glomerular Filtration Rate > 60 mL/min (>60) Glucose Level 96 MG/DL (74-106) Calcium Level 8.4 MG/DL (8.5-10.1) Phosphorus Level 5.0 MG/DL (2.5-4.9) Magnesium Level 1.7 MG/DL (1.8-2.4) Height (Feet): 6 Height (Inches): 2.00 Weight (Pounds): 280 Objective Physical Exam Vitals: reviewed, normal General: no apparent distress, alert, GCS 15, non-toxic, obese Heent: bilateral eye normal inspection, bilateral eye PERRL Resp: chest non-tender, lungs clear, normal breath sounds Cardiov: regular rate, rhythm, no edema Patrick: normal bowel sounds, non tender, soft Rectal: deferred Genitourinary: normal inspection Lymphatic: no adenopathy Keith Tavarez MD Apr 06, 2020 09:06
[2020-04-06 12:00] VITALS: BP 136/72
--- NOTE | 2020-04-06 14:09 | Pulmonology Progress Note ---
Subjective ROS Limited/Unobtainable: No Interval Events: none major reported per nursing Constitutional: Denies: fever HEENT: Repors: no symptoms Respiratory: Reports: no symptoms; Denies: dry cough Cardiovascular: Reports: no symptoms; Denies: chest pain Gastrointestinal/Abdominal: Denies: nausea, vomiting, diarrhea Genitourinary: Reports: no symptoms Neurologic: Reports: no symptoms Psychiatric: Denies: depression Skin: Denies: rash Musculoskeletal: Denies: pain Allergies: Coded Allergies: No Known Allergies (Unverified , 03/14/20) Objective Last 24 Hour Vital Signs Date Time Temp Pulse Resp B/P (MAP) Pulse Ox O2 Delivery O2 Flow Rate FiO2 04/06/20 08:00 97.9 86 18 123/73 (90) 93 04/06/20 04:00 97.8 82 18 119/77 (91) 95 04/06/20 00:00 98.1 80 18 120/62 (81) 95 04/05/20 21:00 Nasal Cannula 1.0 04/05/20 20:00 98.6 76 18 125/60 (81) 94 04/05/20 16:00 98.1 82 18 139/70 (93) 91 Intake and Output 04/05/20 04/06/20 19:00 07:00 # Voids 4 3 # Bowel Movements 1 Objective 04/06 ambulatory O2 sat <92%; saturating at 92-93% on RA at rest 04/05 pt saturating 91-92% on RA at rest since last night 04/04/2020 saturating 95% on 1 lpm NC; 93% on room air at rest, down to 87% on ambulation on room air 04/03/2020 saturating 95% on 1 lpm NC; cont weaning as tolerated 04/02/2020 saturating 90-92% on RA 04/01/2020 saturating at mid 90s on 2 lpm NC; cont weaning as tolerated 03/31/2020 saturating at mid 90s on 2 lpm NC; cont weaning as tolerated 03/30/2020 still saturating in the low-mid 90s on 2 lpm NC; cont weaning as tolerated 03/29/2020 currently on 2 lpm NC, saturating 91-95%; continue to wean as tolerated 03/27/2020 patient now on Venturi mask 14 L at 55 FiO2 saturating at 97% 03/26/2020 pt feels fine with HFNC; 99% on 45L/70% high flow oxygen 03/25/2020 pt still refusing BiPAP and stating he feels fine with HFNC; Current FiO2 70% 03/24/2020 pt attempted BiBAP twice but feels the high flow pressure is too "forc eful" and reports that is sleeps better with HFNC 03/23/2020 declining proning and BiPAP; watching tv comfortably 03/22/2020 in bed watching tv; NAD General Appearance: no acute distress HEENT: normocephalic, atraumatic Respiratory: chest wall non-tender, lungs clear Cardiovascular: normal peripheral pulses Abdomen: normal bowel sounds Extremities: no edema Laboratory Tests 04/06/20 05:30: White Blood Count 6.8, Red Blood Count 5.11, Hemoglobin 15.2, Hematocrit 42.2, Mean Corpuscular Volume 82, Mean Corpuscular Hemoglobin 29.7, Mean Corpuscular Hemoglobin Concent 36.1H, Red Cell Distribution Width 13.4, Platelet Count 110L, Mean Platelet Volume 8.5, Neutrophils (%) (Auto) 61.6, Lymphocytes (%) (Auto) 21.8, Monocytes (%) (Auto) 7.9, Eosinophils (%) (Auto) 7.9H, Basophils (%) (Auto) 0.7, Sodium Level 139, Potassium Level 3.6, Chloride Level 103, Carbon Dioxide Level 29, Anion Gap 7, Blood Urea Nitrogen 13, Creatinine 0.7, Estimat Glomerular Filtration Rate > 60, Glucose Level 96, Calcium Level 8.4L, Phosphorus Level 5.0H, Magnesium Level 1.7L, Hepatitis A IgM Antibody [Pending], Hepatitis B Surface Antigen [Pending], Hepatitis B Core IgM Antibody [Pending], Hepatitis C Antibody [Pending], HIV (1&2) Antibody Rapid Negative Current Medications Medications (Trade) Dose Ordered Sig/Kiley Route PRN Reason Start Time Stop Time Status Last Admin Dose Admin Acetaminophen (Tylenol) 650 mg Q4H PRN ORAL Temp >100.5 03/14/20 22:45 04/13/20 22:44 03/14/20 22:43 Dextrose (Dextrose 50%) 25 ml Q30M PRN IV Hypoglycemia 03/14/20 19:00 06/12/20 18:59 Dextrose (Dextrose 50%) 50 ml Q30M PRN IV Hypoglycemia 03/14/20 19:00 06/12/20 18:59 Docusate Sodium (Colace) 100 mg TWICE A DAY ORAL 03/17/20 11:30 04/16/20 11:29 04/06/20 09:00 Enoxaparin Sodium (Lovenox) 40 mg DAILY SUBQ 04/01/20 10:00 06/30/20 09:59 04/06/20 09:00 Famotidine (Pepcid) 20 mg DAILY ORAL 04/03/20 21:15 07/02/20 21:14 04/06/20 09:00 Pantoprazole (Protonix) 40 mg DAILY ORAL 03/15/20 09:00 04/14/20 08:59 04/06/20 08:59 Sennosides (Senokot) 8.6 mg DAILYPRN PRN ORAL Constipation 03/17/20 11:30 04/16/20 11:29 Assessment/Plan Assessment/Plan Impression: - COVID-19 pneumonia - stable; extensive bilateral interstitial infiltrates unchanged since prior CXR; 03/23/2020 CXR: multifocal infiltrates stable appearance since prior CXR- CXR 04/01 shows slight worsening of bilateral infiltrates - Acute hypoxemic hypercapneic respiratory failure - stable; s/p Venturi mask; now on RA - Obesity BMI 35.9 - hx of Metabolic alkalosis - Hyponatremia; normalized - Hypocalcemia; normalized Plan: - s/p Decadron - s/p AB/antivirals per ID - on RA saturating 92-93% at rest since last night; cont monitor saO2 - DVT Ppx - on lovenox; on SCD; ambulating; LE Duplex showed no DVT; new onset thrombocytopenia- HIT test result still pending; ok to continue lovenox per heme pt applied for Medical yesterday; pt may need to go home with oxygen depending his oxygen saturation The care for this patient was discussed with my supervising physician The time spent for this case was approximately 31 minutes Des Daniels Apr 06, 2020 14:09
[2020-04-06 16:00] VITALS: BP 123/80
--- NOTE | 2020-04-06 19:15 | NUR ---
NURSE NOTES: Received report from RENITA Duncan. Pt is calm and relaxed watching TV. No complaints of shortness of breath, bed locked and in lowest position, side rails up x2, call light within reach. Will continue to monitor.
--- NOTE | 2020-04-06 19:30 | NUR ---
NURSE HAND-OFF: Important Events on Shift:[] Patient Status: [] Diet: [regular] Pending Orders: [] Pending Results/Labs:[] Pending MD notification:[] Latest Vital Signs: Temperature 97.2 , Pulse 74 , B/P 123 /80 , Respiratory Rate 18 , O2 SAT 94 , Nasal Cannula, O2 Flow Rate 1.0 . Vital Sign Comment: [] Latest Hollins Fall Score: 35 Fall Risk: Medium Risk Safety Measures: Call light Within Reach, Bed Alarm Zone 2, Side Rails Side Rails x3, Bed position Low and Locked. Fall Precautions: Yellow Socks Yellow Gown Door Sign Patient Fall Education Report given to [RN Eula].
[2020-04-06 20:00] VITALS: BP 122/84
--- NOTE | 2020-04-06 20:09 | General Progress Note ---
Subjective Allergies: Coded Allergies: No Known Allergies (Unverified , 03/14/20) Subjective No acute events overnight per nursing. Patient now titrated off of oxygen. Saturating 90 to 92% on room air. Thrombocytopenia work-up still pending. Review of systems: Constitutional: Denies: chills, diaphoresis, fever, malaise, weakness, HEENT: Denies: eye pain, blurred vision, double vision, ear pain, nose pain, throat pain, Cardiovascular: Denies: chest pain, edema, lightheadedness, palpitations Respiratory: See HPI Gastrointestinal/Abdominal: Denies: abdominal pain, black stools, blood in stool, constipation, diarrhea, nausea, poor fluid intake vomiting, other Genitourinary: Denies: burning, discharge, frequency, Neurologic/Psychiatric: Denies: headache, numbness, paresthesia, new weakness, other Endocrine: Denies: excessive sweating, flushing, intolerance to cold, MSK: denies joint pains, swelling, stiffness Hematologic/Lymphatic: Denies: anemia, easy bleeding, easy bruising, Objective Last 24 Hour Vital Signs Date Time Temp Pulse Resp B/P (MAP) Pulse Ox O2 Delivery O2 Flow Rate FiO2 04/06/20 16:00 97.2 74 18 123/80 (94) 94 04/06/20 12:00 96.4 91 18 136/72 (93) 93 04/06/20 09:00 Nasal Cannula 1.0 04/06/20 08:00 97.9 86 18 123/73 (90) 93 04/06/20 04:00 97.8 82 18 119/77 (91) 95 04/06/20 00:00 98.1 80 18 120/62 (81) 95 04/05/20 21:00 Nasal Cannula 1.0 Intake and Output 04/05/20 04/06/20 19:00 07:00 # Voids 4 3 # Bowel Movements 1 Laboratory Tests 04/06/20 05:30: White Blood Count 6.8, Red Blood Count 5.11, Hemoglobin 15.2, Hematocrit 42.2, Mean Corpuscular Volume 82, Mean Corpuscular Hemoglobin 29.7, Mean Corpuscular Hemoglobin Concent 36.1H, Red Cell Distribution Width 13.4, Platelet Count 110L, Mean Platelet Volume 8.5, Neutrophils (%) (Auto) 61.6, Lymphocytes (%) (Auto) 21.8, Monocytes (%) (Auto) 7.9, Eosinophils (%) (Auto) 7.9H, Basophils (%) (Auto) 0.7, Sodium Level 139, Potassium Level 3.6, Chloride Level 103, Carbon Dioxide Level 29, Anion Gap 7, Blood Urea Nitrogen 13, Creatinine 0.7, Estimat Glomerular Filtration Rate > 60, Glucose Level 96, Calcium Level 8.4L, Phosphorus Level 5.0H, Magnesium Level 1.7L, Hepatitis A IgM Antibody [Pending], Hepatitis B Surface Antigen [Pending], Hepatitis B Core IgM Antibody [Pending], Hepatitis C Antibody [Pending], HIV (1&2) Antibody Rapid Negative Height (Feet): 6 Height (Inches): 2.00 Weight (Pounds): 280 Objective General: WDWN male in NAD, A&O x 4 HEENT: Normocephalic cephalic atraumatic, pupils equal round reactive to light and accommodation, nares patent and no symmetrical, no tonsillar exudates, mucous membranes moist CV: Regular rate regular rhythm, no murmurs, rubs, or gallops Pulm: Lungs clear to auscultation bilaterally. No wheezes, rhonchi, or rales (stable) GI: Soft, nontender, nondistended, bowel sounds present Neuro: CN 2-12 intact bilaterally, no focal signs. Ext: No lower extremity edema bilaterally Skin: no rashes lesions or ulcers Msk: Joints symmetrical in upper extremity and lower extremity bilaterally, no joint swelling. Lymph: No lymphadenopathy in upper extremity and lower extremity Assessment/Plan Status: stable Assessment/Plan: #COVID-19 pneumonia - resolving #Acute hypoxemic hypercapnic respiratory failure #Elevated inflammatory markers on admission - Ferritin, CRP, D-dimer, fibrinogen - CXR and CTA stable - dexamethasone 6 mg daily, remdesivir (03/15 - 03/18) - Titrating down oxygen daily. Still intermittently on Oxygen - Check ambulatory O2 Sats: still <92% - Wean Oxygen as tolerated to keep O2 sat >92%. D/w Nursing - CTX/Azithro- s/p isabell Ennis'ed ceftriaxone (03/15-03/24) - ID consult, Dr. Elizalde, recs appreciated - Pulm consult, Dr. Piper, recs appreciated. D/w Pulm - Cardiology consult, Dr. Barnard, recs appreciated - Will assess if patient can go home with oxygen therapy : patient cannot afford. -> D/w case management b/c now patient has insurance -> pending discussion #thrombocytopenia - Appreciate heme/onc recommendations: Dr. Tavarez - HIT panel: pending - HIV sent - Hepatitis panel sent - ok to continue lovenox per Heme #hypomagnesemia #hypokalemia - replete PRN - CTM #Metabolic alkalosis #Hyponatremia-likely SIADH based on urine sodium- resolved - Nephro consult, Dr. Zimmerman, recs appreciated #leukocytosis 2' steroid - resolved FENPPX DVTPPX: Lovenox Diet: Regular Lines: PIV PT/OT: pending Code status: Full Dispo: Home with HH +/- oxygen Reason for Continued Hospitalization: Hypoxia MIPS ([employer]-based Incentive Payment System) Applicable CPT: 71046, 98838 CHECK ALL THAT ARE MET: [] Measure #5 (CHF): All ages. Prescribe MILAN/ARB upon discharge for patients with left ventricular systolic dysfunction. If not, the reason is clearly documented in the medical chart [] Measure #8 (CHF): All ages. Prescribe a beta monalisa upon discharge for patients with left ventricular systolic dysfunction. If not, the reason is clearly documented in the medical chart. [x] Measure #47: Advance care plan or surrogate decision maker documented in the medical record. [x] Measure #130 The provider has documented, updated, or reviewed the patients current medication list and has documented it in the patients note. [] Measure #374 (All): Send report to referring provider. [] Measure #407(Sepsis due to MSSA bacteremia): Age 18+ Patient treated with a beta-lactam antibiotic (Nafcillin, Oxacillin or Cefazolin) as definitive therapy. MEDICAL COMPLEXITYHigh complexity medical decision making (need 2/3 c ategories)Problem - need 4 points []Acute/new problem with new plan for workup (4 points, 1 max) [] Acute/new problem without additional workup (3 points, 1 max) [] Unstable chronic problem actively being managed (2 point each, 2 max) [x] Stable chronic problem actively being managed (1 point each, 2 max) [x] Self-limited/transient process (constipation, muscle ache, etc) (1 point each, 2 max) Data - need 4 points [x] Reviewed labs/imaging studies (1 points, 2 max) [] Independent review of imaging (EKG, xrays, etc) (2 points, 2 max) [x] Discussed case with consult/other MD/RN (2 points, 2 max) High Risk - qualify if have one of the following: [] Severe exacerbation of acute problem, acute mental status change, IV narcotics, monitoring drug levels (vancomycin, INR, tacrolimus etc) I spent 32 minutes on this patient's case, and 22 mins was dedicated to counseling and/or care coordination. Discussed with pulm and bedside RN and case management Time of note may not reflect time of encounter Sourav Rodríguez D.O. Apr 06, 2020 20:09
[2020-04-07] VITALS: BP 138/84
[2020-04-07 04:00] VITALS: BP 130/82
--- NOTE | 2020-04-07 06:58 | NUR ---
NURSE HAND-OFF: Important Events on Shift: none Patient Status: calm Diet: regular Pending Orders: Pending Results/Labs: Pending MD notification: Latest Vital Signs: Temperature 97.7 , Pulse 82 , B/P 130 /82 , Respiratory Rate 16 , O2 SAT 93 , Nasal Cannula, O2 Flow Rate 1.0 . Vital Sign Comment: VSS Latest Hollins Fall Score: 35 Fall Risk: Medium Risk Safety Measures: Call light Within Reach, Bed Alarm Zone 2, Side Rails Side Rails x2, Bed position Low and Locked. Fall Precautions: Yellow Socks Yellow Gown Door Sign Patient Fall Education Report given to []. Addendum: 04/07/20 at 0705 by Quang Orozco RN Report given to RENITA Campoverde.
--- NOTE | 2020-04-07 06:58 | Hematology/Onc Progress Note ---
Assessment/Plan Assessment/Plan Assessment and Recs # Thrombocytopenia that is new onset, ni Rodríguez, less likely HIT in this case, hx of covid19+++++ --> okay to monitor and give lovenox at this time --> heparin was given recently approx to 04/01 --> consider duplex lower leg-->recent study negative --> plt 131-->115->110 --> also recent covid 19++ rx --> HIT test ordered 04/04 # Elevated ddimer due to covid 19 --> recent abx, remdesivir and treatment # COVID-19 --> CXR -bilateral patchy opacities --> per id care, recs noted --> s/p steriods --> s/p azithromycin and ceftriaxone # Tachycardia due to COVID infection. EF 65% --> per cards # Dvt ppx --> lovenox sq even if hit, should be ok, minimal cross-interaction Appreciate consultation and dw RN Subjective Constitutional: Denies: no symptoms, chills, fever, malaise, weakness, other Cardiovascular: Denies: no symptoms, chest pain, edema, irregular heart rate, lightheadedness, palpitations, syncope, other Respiratory: Denies: no symptoms, cough, shortness of breath, SOB with excertion, SOB at rest, sputum, wheezing, other Gastrointestinal/Abdominal: Denies: no symptoms, abdomen distended, abdominal pain, black stools, tarry stools, blood in stool, constipated, diarrhea, d ifficulty swallowing, nausea, poor appetite, poor fluid intake, rectal bleeding, vomiting, other Genitourinary: Denies: no symptoms, burning, discharge, frequency, flank pain, hematuria, incontinence, pain, urgency, other Endocrine: Denies: no symptoms, excessive sweating, flushing, intolerance to cold, intolerance to heat, increased hunger, increased thirst, increased urine, unexplained weight gain, unexplained weight loss, other Allergies: Coded Allergies: No Known Allergies (Unverified , 03/14/20) Subjective 04/04 no events, no bleeding is on 1l nc, no major changes 04/06 meds noted, no bleeding, labs reviewed, 1l nc as well 04/07 labs noted, no bleeding, no night sweats, 1lnc Objective Objective Current Medications Medications (Trade) Dose Ordered Sig/Kiley Route PRN Reason Start Time Stop Time Status Last Admin Dose Admin Acetaminophen (Tylenol) 650 mg Q4H PRN ORAL Temp >100.5 03/14/20 22:45 04/13/20 22:44 03/14/20 22:43 Dextrose (Dextrose 50%) 25 ml Q30M PRN IV Hypoglycemia 03/14/20 19:00 06/12/20 18:59 Dextrose (Dextrose 50%) 50 ml Q30M PRN IV Hypoglycemia 03/14/20 19:00 06/12/20 18:59 Docusate Sodium (Colace) 100 mg TWICE A DAY ORAL 03/17/20 11:30 04/16/20 11:29 04/06/20 17:37 Enoxaparin Sodium (Lovenox) 40 mg DAILY SUBQ 04/01/20 10:00 06/30/20 09:59 04/06/20 09:00 Famotidine (Pepcid) 20 mg DAILY ORAL 04/03/20 21:15 07/02/20 21:14 04/06/20 09:00 Pantoprazole (Protonix) 40 mg DAILY ORAL 03/15/20 09:00 04/14/20 08:59 04/06/20 08:59 Sennosides (Senokot) 8.6 mg DAILYPRN PRN ORAL Constipation 03/17/20 11:30 04/16/20 11:29 Last 24 Hour Vital Signs Date Time Temp Pulse Resp B/P (MAP) Pulse Ox O2 Delivery O2 Flow Rate FiO2 04/07/20 04:00 97.7 82 16 130/82 (98) 93 04/07/20 00:00 97.9 94 16 138/84 (102) 93 04/06/20 21:59 96 Nasal Cannula 1.0 24 04/06/20 21:00 Nasal Cannula 1.0 04/06/20 20:00 98.1 93 16 122/84 (97) 93 04/06/20 16:00 97.2 74 18 123/80 (94) 94 04/06/20 12:00 96.4 91 18 136/72 (93) 93 04/06/20 09:00 Nasal Cannula 1.0 04/06/20 08:00 97.9 86 18 123/73 (90) 93 04/06/20 04:00 97.8 82 18 119/77 (91) 95 04/06/20 00:00 98.1 80 18 120/62 (81) 95 04/05/20 21:00 Nasal Cannula 1.0 04/05/20 20:00 98.6 76 18 125/60 (81) 94 04/05/20 16:00 98.1 82 18 139/70 (93) 91 04/05/20 12:00 98.6 78 18 133/86 (102) 92 04/05/20 09:00 Nasal Cannula 1.0 04/05/20 08:00 98.0 82 18 128/48 (74) 96 04/05/20 07:09 95 Nasal Cannula 1.0 24 Intake and Output 04/06/20 04/07/20 19:00 07:00 Intake Total 1100 ml 600 ml Balance 1100 ml 600 ml Intake Oral 900 ml 600 ml IV Total 200 ml # Voids 3 2 # Bowel Movements 1 Labs Test 04/05/20 04:00 04/06/20 05:30 White Blood Count 6.5 K/UL (4.8-10.8) 6.8 K/UL (4.8-10.8) Red Blood Count 4.92 M/UL (4.70-6.10) 5.11 M/UL (4.70-6.10) Hemoglobin 14.6 G/DL (14.2-18.0) 15.2 G/DL (14.2-18.0) Hematocrit 41.8 % (42.0-52.0) 42.2 % (42.0-52.0) Mean Corpuscular Volume 85 FL (80-99) 82 FL (80-99) Mean Corpuscular Hemoglobin 29.7 PG (27.0-31.0) 29.7 PG (27.0-31.0) Mean Corpuscular Hemoglobin Concent 34.9 G/DL (32.0-36.0) 36.1 G/DL (32.0-36.0) Red Cell Distribution Width 13.3 % (11.6-14.8) 13.4 % (11.6-14.8) Platelet Count 106 K/UL (150-450) 110 K/UL (150-450) Mean Platelet Volume 9.3 FL (6.5-10.1) 8.5 FL (6.5-10.1) Neutrophils (%) (Auto) 54.8 % (45.0-75.0) 61.6 % (45.0-75.0) Lymphocytes (%) (Auto) 25.6 % (20.0-45.0) 21.8 % (20.0-45.0) Monocytes (%) (Auto) 9.6 % (1.0-10.0) 7.9 % (1.0-10.0) Eosinophils (%) (Auto) 8.9 % (0.0-3.0) 7.9 % (0.0-3.0) Basophils (%) (Auto) 1.1 % (0.0-2.0) 0.7 % (0.0-2.0) Sodium Level 138 MMOL/L (136-145) 139 MMOL/L (136-145) Potassium Level 3.2 MMOL/L (3.5-5.1) 3.6 MMOL/L (3.5-5.1) Chloride Level 104 MMOL/L (98-107) 103 MMOL/L (98-107) Carbon Dioxide Level 28 MMOL/L (21-32) 29 MMOL/L (21-32) Anion Gap 6 mmol/L (5-15) 7 mmol/L (5-15) Blood Urea Nitrogen 10 mg/dL (7-18) 13 mg/dL (7-18) Creatinine 0.7 MG/DL (0.55-1.30) 0.7 MG/DL (0.55-1.30) Estimat Glomerular Filtration Rate > 60 mL/min (>60) > 60 mL/min (>60) Glucose Level 133 MG/DL (74-106) 96 MG/DL (74-106) Calcium Level 8.1 MG/DL (8.5-10.1) 8.4 MG/DL (8.5-10.1) Phosphorus Level 5.0 MG/DL (2.5-4.9) Magnesium Level 1.7 MG/DL (1.8-2.4) HIV (1&2) Antibody Rapid Negative (NEGATIVE) Height (Feet): 6 Height (Inches): 2.00 Weight (Pounds): 280 Objective Physical Exam Vitals: reviewed, normal General: no apparent distress, alert, GCS 15, non-toxic, obese Heent: bilateral eye normal inspection, bilateral eye PERRL Resp: chest non-tender, lungs clear, normal breath sounds Cardiov: regular rate, rhythm, no edema Patrick: normal bowel sounds, non tender, soft Rectal: deferred Genitourinary: normal inspection Lymphatic: no adenopathy Keith Tavarez MD Apr 07, 2020 06:58
--- NOTE | 2020-04-07 07:15 | NUR ---
NURSE NOTES: Report received from Eula RN/Quang RN, rounds made. Patient AOx4 calm.Respirations even/unlabored on RA (O2 2LNC PRN at bedside). Denies SOB, pain,NV. LH saline lock intact. Call light in reach, bed in lowest position,will continue to monitor.
[2020-04-07 07:47] LABS: BASOPHILS % (AUTO) 0.9 % (0.0-2.0); EOSINOPHILS % (AUTO) 7.4 % (0.0-3.0); HEMATOCRIT 41.8 % (42.0-52.0); HEMOGLOBIN 14.9 G/DL (14.2-18.0); LYMPHOCYTES % (AUTO) 23.1 % (20.0-45.0); MEAN CORPUSCULAR VOLUME 85 FL (80-99); MONOCYTES % (AUTO) 8.4 % (1.0-10.0); NEUTROPHILS % (AUTO) 60.2 % (45.0-75.0); PLATELET COUNT 122 K/UL (150-450); RED BLOOD COUNT 4.94 M/UL (4.70-6.10); RED CELL DISTRIBUTION WIDTH 13.4 % (11.6-14.8); WHITE BLOOD COUNT 7.5 K/UL (4.8-10.8)
[2020-04-07 07:57] LABS: ANION GAP 9 mmol/L (5-15); BLOOD UREA NITROGEN 16 mg/dL (7-18); CARBON DIOXIDE 26 MMOL/L (21-32); CHLORIDE 106 MMOL/L (98-107); CREATININE 0.9 MG/DL (0.55-1.30); PHOSPHORUS 4.2 MG/DL (2.5-4.9); POTASSIUM 3.3 MMOL/L (3.5-5.1); SODIUM 141 MMOL/L (136-145)
[2020-04-07 08:00] VITALS: BP 139/83
[2020-04-07] MEDS: Enoxaparin 40mg Inj SUBQ SCH (09:00)
--- NOTE | 2020-04-07 09:42 | Pulmonology Progress Note ---
Subjective ROS Limited/Unobtainable: No Interval Events: none major reported per nursing Constitutional: Denies: fever HEENT: Repors: no symptoms Respiratory: Reports: no symptoms; Denies: dry cough Cardiovascular: Reports: no symptoms; Denies: chest pain Gastrointestinal/Abdominal: Denies: nausea, vomiting, diarrhea Genitourinary: Reports: no symptoms Neurologic: Reports: no symptoms Psychiatric: Denies: depression Skin: Denies: rash Musculoskeletal: Denies: pain Allergies: Coded Allergies: No Known Allergies (Unverified , 03/14/20) Objective Last 24 Hour Vital Signs Date Time Temp Pulse Resp B/P (MAP) Pulse Ox O2 Delivery O2 Flow Rate FiO2 04/07/20 04:00 97.7 82 16 130/82 (98) 93 04/07/20 00:00 97.9 94 16 138/84 (102) 93 04/06/20 21:59 96 Nasal Cannula 1.0 24 04/06/20 21:00 Nasal Cannula 1.0 04/06/20 20:00 98.1 93 16 122/84 (97) 93 04/06/20 16:00 97.2 74 18 123/80 (94) 94 04/06/20 12:00 96.4 91 18 136/72 (93) 93 Intake and Output 04/06/20 04/07/20 19:00 07:00 Intake Total 1100 ml 600 ml Balance 1100 ml 600 ml Intake Oral 900 ml 600 ml IV Total 200 ml # Voids 3 2 # Bowel Movements 1 Objective 04/06 saturating 93-94% on RA; pt reports no supplemental oxygen for two days now; subjectively feeling better 04/06 ambulatory O2 sat <92%; saturating at 92-93% on RA at rest 04/05 pt saturating 91-92% on RA at rest since last night 04/04/2020 saturating 95% on 1 lpm NC; 93% on room air at rest, down to 87% on ambulation on room air 04/03/2020 saturating 95% on 1 lpm NC; cont weaning as tolerated 04/02/2020 saturating 90-92% on RA 04/01/2020 saturating at mid 90s on 2 lpm NC; cont weaning as tolerated 03/31/2020 saturating at mid 90s on 2 lpm NC; cont weaning as tolerated 03/30/2020 still saturating in the low-mid 90s on 2 lpm NC; cont weaning as tolerated 03/29/2020 currently on 2 lpm NC, saturating 91-95%; continue to wean as tolerated 03/27/2020 patient now on Venturi mask 14 L at 55 FiO2 saturating at 97% 03/26/2020 pt feels fine with HFNC; 99% on 45L/70% high flow oxygen 03/25/2020 pt still refusing BiPAP and stating he feels fine with HFNC; Current FiO2 70% 03/24/2020 pt attempted BiBAP twice but feels the high flow pressure is too "f orceful" and reports that is sleeps better with HFNC 03/23/2020 declining proning and BiPAP; watching tv comfortably 03/22/2020 in bed watching tv; NAD General Appearance: no acute distress HEENT: normocephalic, atraumatic Respiratory: chest wall non-tender, lungs clear Cardiovascular: normal peripheral pulses Abdomen: normal bowel sounds Extremities: no edema Laboratory Tests 04/07/20 06:30: White Blood Count 7.5, Red Blood Count 4.94, Hemoglobin 14.9, Hematocrit 41.8L, Mean Corpuscular Volume 85, Mean Corpuscular Hemoglobin 30.2, Mean Corpuscular Hemoglobin Concent 35.7, Red Cell Distribution Width 13.4, Platelet Count 122L, Mean Platelet Volume 8.0, Neutrophils (%) (Auto) 60.2, Lymphocytes (%) (Auto) 23.1, Monocytes (%) (Auto) 8.4, Eosinophils (%) (Auto) 7.4H, Basophils (%) (Auto) 0.9, Sodium Level 141, Potassium Level 3.3L, Chloride Level 106, Carbon Dioxide Level 26, Anion Gap 9, Blood Urea Nitrogen 16, Creatinine 0.9, Estimat Glomerular Filtration Rate > 60, Glucose Level 165H, Calcium Level 8.0L, Phosphorus Level 4.2, Magnesium Level 1.8 Current Medications Medications (Trade) Dose Ordered Sig/Kiley Route PRN Reason Start Time Stop Time Status Last Admin Dose Admin Acetaminophen (Tylenol) 650 mg Q4H PRN ORAL Temp >100.5 03/14/20 22:45 04/13/20 22:44 03/14/20 22:43 Dextrose (Dextrose 50%) 25 ml Q30M PRN IV Hypoglycemia 03/14/20 19:00 06/12/20 18:59 Dextrose (Dextrose 50%) 50 ml Q30M PRN IV Hypoglycemia 03/14/20 19:00 06/12/20 18:59 Docusate Sodium (Colace) 100 mg TWICE A DAY ORAL 03/17/20 11:30 04/16/20 11:29 04/06/20 17:37 Enoxaparin Sodium (Lovenox) 40 mg DAILY SUBQ 04/01/20 10:00 06/30/20 09:59 04/06/20 09:00 Famotidine (Pepcid) 20 mg DAILY ORAL 04/03/20 21:15 07/02/20 21:14 04/06/20 09:00 Magnesium Sulfate 100 ml @ 100 mls/hr Q1H IVPB 04/07/20 09:00 04/07/20 10:59 Pantoprazole (Protonix) 40 mg DAILY ORAL 03/15/20 09:00 04/14/20 08:59 04/06/20 08:59 Sennosides (Senokot) 8.6 mg DAILYPRN PRN ORAL Constipation 03/17/20 11:30 04/16/20 11:29 Assessment/Plan Assessment/Plan Impression: - COVID-19 pneumonia - stable; extensive bilateral interstitial infiltrates unchanged since prior CXR; 03/23/2020 CXR: multifocal infiltrates stable appearance since prior CXR- CXR 04/01 shows slight worsening of bilateral infiltrates - Acute hypoxemic hypercapneic respiratory failure - stable; s/p Venturi mask; now on RA - Obesity BMI 35.9 - hx of Metabolic alkalosis - Hyponatremia; normalized - Hypocalcemia; normalized Plan: - s/p Decadron - s/p AB/antivirals per ID - on RA saturating 93-94% at rest for two days; cont monitor saO2 - DVT Ppx - on lovenox; on SCD; ambulating; LE Duplex showed no DVT; new onset thrombocytopenia- HIT test result still pending; ok to continue lovenox per heme pt applied for Medical two days ago medically stable for dc The care for this patient was discussed with my supervising physician The time spent for this case was approximately 31 minutes Des Daniels Apr 07, 2020 09:42 Oral Piper MD Apr 07, 2020 17:45
--- NOTE | 2020-04-07 10:01 | NUR ---
NURSE NOTES: Annamaria held this AM, platelets 122. Patient is ambulatory to bathroom.
[2020-04-07] MEDS: Docusate 100mg cap ORAL SCH (10:06)
[2020-04-07 11:51] VITALS: BP 122/85
--- NOTE | 2020-04-07 11:51 | NUR ---
RD ASSESSMENT & RECOMMENDATIONS SEE CARE ACTIVITY FOR COMPLETE ASSESSMENT DAILY ESTIMATED NEEDS: Needs based on Pulmonary 97.8kg abw 20-30 kcals/kg 5217-1857 total kcals 1-1.5 g protein/kg 98-147 g total protein 25-30 mL/kg 1731-8304 total fluid mLs NUTRITION DIAGNOSIS: Increased kcal and pro needs r/t acute hypoxemic hypercapneic respiratory failure as evidenced by pt is ++ for covid pna, bipap- now off, w/ good Po intake and tolerance. CURRENT DIET: Regular PO DIET RECOMMENDATIONS: Regular diet as tolerated ADDITIONAL RECOMMENDATIONS: 1) On Bipap, high aspiration risk, rec [employer] eval -> now off bipap 2) Check A1C: FBGs elevated (165 133 ) 3) Recalibrate bed scale as able for accurate CBW 4) Monitor for continued good Po intake and tolerance .
--- NOTE | 2020-04-07 11:59 | Cardiac Electrophysiology PN ---
Assessment/Plan Assessment/Plan 1. Elevated D-dimer of 0.54, severe shortness of breath and active COVID infection. Chest CT no PE Refusing BIPAP. On RA but desaturates with activity 2. COVID pneumonia. Completed abx, dexamethasone and remdesivir. Fu by Dr. Gross On 2 liter NC 3. Tachycardia due to COVID infection. EF 65% DW RN Subjective Subjective On 2 liter Nasal Cannula in Covid isolation.Alert and talking on his cell phone Objective Last 24 Hour Vital Signs Date Time Temp Pulse Resp B/P (MAP) Pulse Ox O2 Delivery O2 Flow Rate FiO2 04/07/20 11:51 98.1 84 16 122/85 (97) 95 04/07/20 08:00 98.1 86 16 139/83 (101) 94 04/07/20 07:37 95 Nasal Cannula 2.0 28 04/07/20 04:00 97.7 82 16 130/82 (98) 93 04/07/20 00:00 97.9 94 16 138/84 (102) 93 04/06/20 21:59 96 Nasal Cannula 1.0 24 04/06/20 21:00 Nasal Cannula 1.0 04/06/20 20:00 98.1 93 16 122/84 (97) 93 04/06/20 16:00 97.2 74 18 123/80 (94) 94 04/06/20 12:00 96.4 91 18 136/72 (93) 93 Intake and Output 04/06/20 04/07/20 19:00 07:00 Intake Total 1100 ml 600 ml Balance 1100 ml 600 ml Intake Oral 900 ml 600 ml IV Total 200 ml # Voids 3 2 # Bowel Movements 1 Laboratory Tests Test 04/07/20 06:30 White Blood Count 7.5 K/UL (4.8-10.8) Red Blood Count 4.94 M/UL (4.70-6.10) Hemoglobin 14.9 G/DL (14.2-18.0) Hematocrit 41.8 % (42.0-52.0) L Mean Corpuscular Volume 85 FL (80-99) Mean Corpuscular Hemoglobin 30.2 PG (27.0-31.0) Mean Corpuscular Hemoglobin Concent 35.7 G/DL (32.0-36.0) Red Cell Distribution Width 13.4 % (11.6-14.8) Platelet Count 122 K/UL (150-450) L Mean Platelet Volume 8.0 FL (6.5-10.1) Neutrophils (%) (Auto) 60.2 % (45.0-75.0) Lymphocytes (%) (Auto) 23.1 % (20.0-45.0) Monocytes (%) (Auto) 8.4 % (1.0-10.0) Eosinophils (%) (Auto) 7.4 % (0.0-3.0) H Basophils (%) (Auto) 0.9 % (0.0-2.0) Sodium Level 141 MMOL/L (136-145) Potassium Level 3.3 MMOL/L (3.5-5.1) L Chloride Level 106 MMOL/L (98-107) Carbon Dioxide Level 26 MMOL/L (21-32) Anion Gap 9 mmol/L (5-15) Blood Urea Nitrogen 16 mg/dL (7-18) Creatinine 0.9 MG/DL (0.55-1.30) Estimat Glomerular Filtration Rate > 60 mL/min (>60) Glucose Level 165 MG/DL (74-106) H Calcium Level 8.0 MG/DL (8.5-10.1) L Phosphorus Level 4.2 MG/DL (2.5-4.9) Magnesium Level 1.8 MG/DL (1.8-2.4) Objective HEAD AND NECK: No JVD. LUNGS: Coarse rhonchi. CARDIOVASCULAR: Regular S1 and S2 with no gallop or murmur and tachycardic. ABDOMEN: Soft and obese. EXTREMITIES: No pitting edema. Santi Barnard MD Apr 07, 2020 11:59
--- NOTE | 2020-04-07 14:32 | Discharge Instructions ---
Discharge Instructions Discharge Instructions Diet: regular Resume Normal Activity?: Yes Activity: resume normal activities Follow Up Orders Follow up with PCP within one wek, pulmonology and hematology as soon as possible Special Instructions Keep all appointments. Follow up with your PCP within one week and Pulmonology and hematology as soon as possible - Follow up regarding your hepatitis labs still pending from medical center Take all medications as prescribed. No driving or operating heavy machinery while taking narcotics or benzodiazepines. Diet regular Call physician or go to ER for any severe nausea, vomiting, pain, fever >101 F, increased swelling, bleeding, chest pain, worsening breathing, or any other concerning symptoms. Please note: Please obtain ALL additional refills through your PCP or specialist managing your medical condition. You are only prescribed a certain amount on discharge. The decision to continue these medications or provide additional refills as an outpatient is made by your outpatient physicians. Thank you. If you take blood pressure medications, check blood pressure prior to taking and hold if your systolic blood pressure <90 Hold all stool softeners and laxatives if you have loose stools and call your PCP Sourav Rodríguez D.O. Apr 07, 2020 14:32
--- NOTE | 2020-04-07 14:45 | NUR ---
NURSE NOTES: Patient ambulated back and forth in room x8, after using bathroom, on RA. O2 sats 93-94%. Dr. Rodríguez at bedside. Patient denies SOB. Plans for discharge today.
[2020-04-07] MEDS ORDERED: COLACE100 MG ORAL (14:55)
[2020-04-07] MEDS ORDERED: SENNA8.6 M2 ORAL (14:55)
[2020-04-07] MEDS ORDERED: FAMOTIDINE20 MG ORAL (14:55)
[2020-04-07 16:00] VITALS: BP 126/74
--- NOTE | 2020-04-07 17:25 | NUR ---
NURSE NOTES: Discharge instructions/MD discharge instructions and prescriptions x3 reviewed with patient, verbalized understanding.All belongings,discharge instructions and prescriptions given to patient. ID bracelet removed. IV discontinued, no active bleeding. Ambulated down to lobby with RN,in stable condition. Discharged home [id number].
--- NOTE | 2020-04-07 20:13 | Discharge Summary ---
Discharge Summary Hospital Course Date of Admission Mar 14, 2020 at 15:42 Date of Discharge Apr 07, 2020 at 17:28 Admitting Diagnosis HYPOXIA, COVID HPI Martin Tate is a 39 year old male who was admitted on Mar 14, 2020 at 15:42 for Hypoxiz,Covid Hospital Course #COVID-19 pneumonia - resolving #Acute hypoxemic hypercapnic respiratory failure #Elevated inflammatory markers on admission - Ferritin, CRP, D-dimer, fibrinogen - CXR and CTA stable - dexamethasone 6 mg daily, remdesivir (03/15 - 03/18) - Titrating down oxygen daily. Still intermittently on Oxygen - Check ambulatory O2 Sats: still <92% - Wean Oxygen as tolerated to keep O2 sat >92%. D/w Nursing - CTX/Azithro- s/p Raymon mi'ed ceftriaxone (03/15-03/24) - ID consult, Dr. Elizalde, recs appreciated - Pulm consult, Dr. Piper, recs appreciated. D/w Pulm - Cardiology consult, Dr. Barnard, recs appreciated - Will assess if patient can go home with oxygen therapy : patient cannot afford. -> D/w case management b/c now patient has insurance -> pending discussion #thrombocytopenia - Appreciate heme/onc recommendations: Dr. Tavarez - HIT panel: pending - HIV sent - Hepatitis panel sent - ok to continue lovenox per Heme #hypomagnesemia #hypokalemia - replete PRN - CTM #Metabolic alkalosis #Hyponatremia-likely SIADH based on urine sodium- resolved - Nephro consult, Dr. Zimmerman, recs appreciated #leukocytosis 2' steroid - resolved FENPPX DVTPPX: Lovenox Diet: Regular Lines: PIV PT/OT: pending Code status: Full Dispo: Home with HH +/- oxygen Reason for Continued Hospitalization: Hypoxia MIPS ([employer]-based Incentive Payment System) Applicable CPT: 71421, 49708 CHECK ALL THAT ARE MET: [] Measure #5 (CHF): All ages. Prescribe MILAN/ARB upon discharge for patients with left ventricular systolic dysfunction. If not, the reason is clearly documented in the medical chart [] Measure #8 (CHF): All ages. Prescribe a beta monalisa upon discharge for patients with left ventricular systolic dysfunction. If not, the reason is clearly documented in the medical chart. [x] Measure #47: Advance care plan or surrogate decision maker documented in the medical record. [x] Measure #130 The provider has documented, updated, or reviewed the patients current medication list and has documented it in the patients note. [] Measure #374 (All): Send report to referring provider. [] Measure #407(Sepsis due to MSSA bacteremia): Age 18+ Patient treated with a beta-lactam antibiotic (Nafcillin, Oxacillin or Cefazolin) as definitive therapy. MEDICAL COMPLEXITYHigh complexity medical decision making (need 2/3 categories)Problem - need 4 points []Acute/new problem with new plan for workup (4 points, 1 max) [] Acute/new problem without additional workup (3 points, 1 max) [] Unstable chronic problem actively being managed (2 point each, 2 max) [x] Stable chronic problem actively being managed (1 point each, 2 max) [x] Self-limited/transient process (constipation, muscle ache, etc) (1 point each, 2 max) Data - need 4 points [x] Reviewed labs/imaging studies (1 points, 2 max) [] Independent review of imaging (EKG, xrays, etc) (2 points, 2 max) [x] Discussed case with consult/other MD/RN (2 points, 2 max) High Risk - qualify if have one of the following: [] Severe exacerbation of acute problem, acute mental status change, IV narcotics, monitoring drug levels (vancomycin, INR, tacrolimus etc) I spent 32 minutes on this patient's case, and 22 mins was dedicated to counseling and/or care coordination. Discussed with pulm and bedside RN and case management Time of note may not reflect time of encounter Discharge Discharge Vital Signs Last Vital Signs Date Time Temp Pulse Resp B/P (MAP) Pulse Ox O2 Delivery O2 Flow Rate FiO2 04/07/20 16:00 96.4 79 20 126/74 (91) 94 04/07/20 09:00 Nasal Cannula 2.0 04/07/20 07:37 28 Discharge Disposition Patient was discharged to Discharge Instructions Discharge Instructions Activity: resume normal activities Sourav Rodríguez D.O. Apr 07, 2020 20:13
--- NOTE | 2020-04-07 20:13 | General Progress Note ---
Subjective Date patient seen: Apr 07, 2020 Allergies: Coded Allergies: No Known Allergies (Unverified , 03/14/20) Subjective No acute events overnight per nursing. Patient now titrated off of oxygen. Satruating >92% at rest. 89% while ambulating but OK to d/c per pulm. Doubt HIT per heme. Ok to d/c per heme. Patient without fever or chills or cough Review of systems: Constitutional: Denies: chills, diaphoresis, fever, malaise, weakness, HEENT: Denies: eye pain, blurred vision, double vision, ear pain, nose pain, throat pain, Cardiovascular: Denies: chest pain, edema, lightheadedness, palpitations Respiratory: See HPI Gastrointestinal/Abdominal: Denies: abdominal pain, black stools, blood in stool, constipation, diarrhea, nausea, poor fluid intake vomiting, other Genitourinary: Denies: burning, discharge, frequency, Neurologic/Psychiatric: Denies: headache, numbness, paresthesia, new weakness, other Endocrine: Denies: excessive sweating, flushing, intolerance to cold, MSK: denies joint pains, swelling, stiffness Hematologic/Lymphatic: Denies: anemia, easy bleeding, easy bruising, Objective Last 24 Hour Vital Signs Date Time Temp Pulse Resp B/P (MAP) Pulse Ox O2 Delivery O2 Flow Rate FiO2 04/07/20 16:00 96.4 79 20 126/74 (91) 94 04/07/20 11:51 98.1 84 16 122/85 (97) 95 04/07/20 09:00 Nasal Cannula 2.0 04/07/20 08:00 98.1 86 16 139/83 (101) 94 04/07/20 07:37 95 Nasal Cannula 2.0 28 04/07/20 04:00 97.7 82 16 130/82 (98) 93 04/07/20 00:00 97.9 94 16 138/84 (102) 93 04/06/20 21:59 96 Nasal Cannula 1.0 24 04/06/20 21:00 Nasal Cannula 1.0 Intake and Output 04/06/20 04/07/20 19:00 07:00 Intake Total 1100 ml 600 ml Balance 1100 ml 600 ml Intake Oral 900 ml 600 ml IV Total 200 ml # Voids 3 2 # Bowel Movements 1 Laboratory Tests 04/07/20 06:30: White Blood Count 7.5, Red Blood Count 4.94, Hemoglobin 14.9, Hematocrit 41.8L, Mean Corpuscular Volume 85, Mean Corpuscular Hemoglobin 30.2, Mean Corpuscular Hemoglobin Concent 35.7, Red Cell Distribution Width 13.4, Platelet Count 122L, Mean Platelet Volume 8.0, Neutrophils (%) (Auto) 60.2, Lymphocytes (%) (Auto) 23.1, Monocytes (%) (Auto) 8.4, Eosinophils (%) (Auto) 7.4H, Basophils (%) (Auto) 0.9, Sodium Level 141, Potassium Level 3.3L, Chloride Level 106, Carbon Dioxide Level 26, Anion Gap 9, Blood Urea Nitrogen 16, Creatinine 0.9, Estimat Glomerular Filtration Rate > 60, Glucose Level 165H, Calcium Level 8.0L, Phosphorus Level 4.2, Magnesium Level 1.8 Height (Feet): 6 Height (Inches): 2.00 Weight (Pounds): 280 Objective General: WDWN male in NAD, A&O x 4 HEENT: Normocephalic cephalic atraumatic, pupils equal round reactive to light and accommodation, nares patent and no symmetrical, no tonsillar exudates, mucous membranes moist CV: Regular rate regular rhythm, no murmurs, rubs, or gallops Pulm: Lungs clear to auscultation bilaterally. No wheezes, rhonchi, or rales (stable) GI: Soft, nontender, nondistended, bowel sounds present Neuro: CN 2-12 intact bilaterally, no focal signs. Ext: No lower extremity edema bilaterally Skin: no rashes lesions or ulcers Msk: Joints symmetrical in upper extremity and lower extremity bilaterally, no joint swelling. Lymph: No lymphadenopathy in upper extremity and lower extremity Assessment/Plan Status: stable Assessment/Plan: #COVID-19 pneumonia - resolving #Acute hypoxemic hypercapnic respiratory failure #Elevated inflammatory markers on admission - Ferritin, CRP, D-dimer, fibrinogen - CXR and CTA stable - dexamethasone 6 mg daily, remdesivir (03/15 - 03/18) - Titrating down oxygen daily. Still intermittently on Oxygen - Check ambulatory O2 Sats: still <92% but >88%. Ok to d/c per pulm. - Patient saturating >92%. Ok to D/C per pulm. Patient given ER precautions - Wean Oxygen as tolerated to keep O2 sat >92%. D/w Nursing - CTX/Azithro- s/p isabell Ennis'ed ceftriaxone (03/15-03/24) - ID consult, Dr. Elizalde, recs appreciated - Pulm consult, Dr. Piper, recs appreciated. D/w Pulm - Cardiology consult, Dr. Barnard, recs appreciated - Will assess if patient can go home with oxygen therapy : patient cannot afford. -> D/w case management b/c now patient has insurance -> pending discussion - d/c lovenox. No A/c needed on D/c per heme. Patient ambulatory #thrombocytopenia - Appreciate heme/onc recommendations: Dr. Tavarez - HIT panel: pending, but Doubt HIT. Ok to D/C per heme - HIV sent: negative - Hepatitis panel pending. patient told to f/u with PCP re. results - given referral sources by Case Management - ok to continue lovenox per Heme #hypomagnesemia #hypokalemia - replete PRN - CTM #Metabolic alkalosis #Hyponatremia-likely SIADH based on urine sodium- resolved - Nephro consult, Dr. Zimmerman, recs appreciated #leukocytosis 2' steroid - resolved FENPPX DVTPPX: Lovenox Diet: Regular Lines: PIV PT/OT: pending Code status: Full Dispo: Home with HH +/- oxygen Reason for Continued Hospitalization: Hypoxia MIPS ([employer]-based Incentive Payment System) Applicable CPT: 82260, 59934 CHECK ALL THAT ARE MET: [] Measure #5 (CHF): All ages. Prescribe MILAN/ARB upon discharge for patients with left ventricular systolic dysfunction. If not, the reason is clearly documented in the medical chart [] Measure #8 (CHF): All ages. Prescribe a beta monalisa upon discharge for patients with left ventricular systolic dysfunction. If not, the reason is clearly documented in the medical chart. [x] Measure #47: Advance care plan or surrogate decision maker documented in the medical record. [x] Measure #130 The provider has documented, updated, or reviewed the patients current medication list and has documented it in the patients note. [] Measure #374 (All): Send report to referring provider. [] Measure #407(Sepsis due to MSSA bacteremia): Age 18+ Patient treated with a beta-lactam antibiotic (Nafcillin, Oxacillin or Cefazolin) as definitive therapy. MEDICAL COMPLEXITYHigh complexity medical decision making (need 2/3 categories)Problem - need 4 points []Acute/new problem with new plan for workup (4 points, 1 max) [] Acute/new problem without additional workup (3 points, 1 max) [] Unstable chronic problem actively being managed (2 point each, 2 max) [x] Stable chronic problem actively being managed (1 point each, 2 max) [x] Self-limited/transient process (constipation, muscle ache, etc) (1 point each, 2 max) Data - need 4 points [x] Reviewed labs/imaging studies (1 points, 2 max) [] Independent review of imaging (EKG, xrays, etc) (2 points, 2 max) [x] Discussed case with consult/other MD/RN (2 points, 2 max) High Risk - qualify if have one of the following: [] Severe exacerbation of acute problem, acute mental status change, IV narcotics, monitoring drug levels (vancomycin, INR, tacrolimus etc) I spent 33 minutes on this patient's case, and 20 mins was dedicated to counseling and/or care coordination. Discussed with pulm and bedside RN and case management Time of note may not reflect time of encounter Sourav Rodríguez D.O. Apr 07, 2020 20:13
== END 2020-04-07 17:28 | disposition home or self-care (01) | DRG 177 ==
LOC: EMR 15:33 → 2E 15:42 → EDBEDREQ 17:55 → ICU 03-15 15:40 → 2E 03-21 10:35 → 4E 03-30 18:11
PROC: XW033E5 Introduction of Remdesivir Anti-infective into Peripheral Vein, Percutaneous Approach, New Technology Group 5 (ICD-10-PCS; principal; 2020-03-14)
DX: U07.1 COVID-19 (principal); J12.89 Other viral pneumonia; J96.01 Acute respiratory failure with hypoxia; E87.1 Hypo-osmolality and hyponatremia; E87.3 Alkalosis; E87.6 Hypokalemia; E83.42 Hypomagnesemia; D69.6 Thrombocytopenia, unspecified; E83.51 Hypocalcemia; D72.829 Elevated white blood cell count, unspecified; E66.9 Obesity, unspecified; Z68.35 Body mass index [BMI] 35.0-35.9, adult; R00.0 Tachycardia, unspecified; T38.0X5A Adverse effect of glucocorticoids and synthetic analogues, initial encounter; Y92.230 Patient room in hospital as the place of occurrence of the external cause
CPT/HCPCS: 36415; 71045; 71275; 80048; 80053; 80076; 81003; 82248; 82550; 82553; 82570; 82728; 82803; 83605; 83615; 83690; 83735; 83880; 84100; 84300; 84443; 84484; 85025; 85379; 85384; 85610; 85730; 86140; 86703; 86705; 86709; 86803; 87040; 87340; 93005; 93306; 93970; 94660; 96365; 96367; 96375; 99291; J3490; J7030; J8499